=== PATIENT | female | born 1960 | race Caucasian/White ===

== ENCOUNTER → 2016-07-10 | Outpatient (CLI) | payer BC ==
--- NOTE | 2016-07-10 09:36 | CTL ---
EXAMINATION TYPE: CT Low Dose Lung DATE OF EXAM ORDERED: 07/10/2016 9:23 AM COMPARISON: None HISTORY: Previous smoker. Lung cancer screening CT DLP: [address] CTDI: 1.95 mGy Automated exposure control for dose reduction was used. SCREENING VISIT: Initial COMPARISON: None TECHNIQUE: Low dose computed tomography scan was performed through the chest at 1 mm thick sections a nd reconstructed images in the coronal plane at [address] DIAGNOSTIC QUALITY: Satisfactory FINDINGS: LUNG NODULES: None. LUNGS: COPD: Severity: Moderate Fibrosis: Severity: None Lymph nodes: None Other findings: Apical scarring bilaterally RIGHT PLEURAL SPACE: Effusion: None Calcification: None Thickening: None Pneumothorax: None LEFT PLEURAL SPACE: Effusion: None Calcification: None Thickening: None Pneumothorax: None HEART: Heart Size: Normal Coronary calcification: Mild Pericardial effusion: None OTHER FINDINGS: Upper abdomen: Normal Bony thorax: Mild hypertrophic spondylosis in the dorsal spine Supraclavicular region: Normal Other: None IMPRESSION: Diffuse emphysematous change without evidence of pulmonary nodule at this time. FOLLOW UP CT CHEST RECOMMENDATION: [address] LUNG RAD: 1
== END | disposition home or self-care (01) ==
LOC: RADCTMAIN 08:50
PROVIDERS: ATTEND Family Medicine
DX: Z12.2 Encounter for screening for malignant neoplasm of respiratory organs (principal); Z87.891 Personal history of nicotine dependence; J43.9 Emphysema, unspecified

== ENCOUNTER → 2018-01-07 | Outpatient (CLI) | payer BC ==
--- NOTE | 2018-01-07 14:02 | BD ---
EXAMINATION TYPE: Axial Bone Density DATE OF EXAM: 01/07/2018 COMPARISON: NONE CLINICAL HISTORY: 57 YR OLD FEMALE.....ICD-10 CODE: Z78.0 MENOPAUSAL STATE Height: 65.4 Weight: 146 FRAX RISK QUESTIONS: Secondary Osteoporosis: YES 3. Menopause before 45: YES AT AGE 41 Current Tobacco Use: YES, TRYING TO QUIT RISK FACTORS HISTORY OF: Active: YES Diet low in dairy products/other sources of calcium: NO Postmenopausal woman: YES AT 41 YRS OLD MEDICATIONS: Thyroid Medications: YES, SYNTHROID, FOR 20 YRS Additional Medications: BABY ASPIRIN, Additional History: AORTIC STENOSIS, VARICOSE VEINS EXAM MEASUREMENTS: Bone mineral densitometry was performed using the [employer]. Bone mineral density as measured about the Lumbar spine is: ----- L1-L4(G/cm2): 1.422 T Score Values are as follows: ----- L1: 0.2 ----- L2: 2.0 ----- L3: 2.9 ----- L4: 2.4 ----- L1-L4: 2.0 Bone mineral density FIRST BONE DENSITY TEST......BASELINE STUDY Bone mineral density about the R hip (g/cm2): 1.040 Bone mineral density about the L hip (g/cm2): 0.961 T Score values are as follows: -----R Neck: -0.8 -----L Neck: -1.2 -----R Total: 0.3 -----L Total: -0.4 Bone mineral density BASELINE STUDY FRAX%s: THERE IS A 7.2% CHANCE OF A MAJOR OSTEOPOROTIC FX AND A 0.8% FOR A HIP FX......PROBABILIT Y OF FX IN 10 YRS TIME IMPRESSION: Osteopenia (T Score between -2.5 and -1) with regards to the left femur. There is slightly increased risk of fracture and the patient may be considered for treatment. Re-Screen 2-5 years. NOTE: T-SCORE=SD OF THE YOUNG ADULT MEAN.
--- NOTE | 2018-01-12 12:58 | MM ---
Reason for exam: screening (asymptomatic). History: Patient is postmenopausal. Family history of breast cancer in sister at age 42. Physical Findings: A clinical breast exam by your physician is recommended on an annual basis and results should be correlated with mammographic findings. MG Screening Mammo w CAD Bilateral CC and MLO view(s) were taken. No prior studies available for comparison. The breast tissue is heterogeneously dense. This may lower the sensitivity of mammography. There is no discrete abnormality. ASSESSMENT: Negative, BI-RAD 1 RECOMMENDATION: Routine screening mammogram of both breasts in 1 year.
== END | disposition home or self-care (01) ==
LOC: RADMAMWWP 11:35
PROVIDERS: ATTEND Family Medicine
DX: Z12.31 Encounter for screening mammogram for malignant neoplasm of breast (principal); M85.852 Other specified disorders of bone density and structure, left thigh; Z78.0 Asymptomatic menopausal state
CPT/HCPCS: 77067; 77080

== ENCOUNTER → 2018-03-12 | Outpatient (CLI) | payer BC ==
--- NOTE | 2018-03-12 12:32 | ECHOF ---
Referral Reason:I35.0 Nonrheumatic aortic (valve) stenosis MEASUREMENTS -------- HEIGHT: 167.6 cm WEIGHT: 63.5 kg BP: 128/59 RVIDd: 2.7 cm (< 3.3) IVSd: 1.2 cm (0.6 - 1.1) LVIDd: 3.8 cm (3.9 - 5.3) LVPWd: 1.1 cm (0.6 - 1.1) IVSs: 1.7 cm LVIDs: 2.6 cm LVPWs: 1.5 cm LA Diam: 3.0 cm (2.7 - 3.8) LAESV Index (A-L): 25.31 ml/m Ao Diam: 3.2 cm (2.0 - 3.7) AV Cusp: 1.2 cm (1.5 - 2.6) MV EXCURSION: 9.870 mm (> 18.000) MV EF SLOPE: 34 mm/s (70 - 150) EPSS: 0.6 cm MV E Harjeet: 0.84 m/s MV DecT: 275 ms MV A Harjeet: 0.70 m/s MV E/A Ratio: 1.19 AV maxP.00 mmHg AV meanP.22 mmHg RAP: 5.00 mmHg RVSP: 39.42 mmHg FINDINGS -------- Sinus rhythm. This was a technically adequate study. The left ventricular size is normal. There is borderline concentric left ventricular hypertrophy. Overall left ventricular systolic function is normal with, an EF between 60 - 65 %. The right ventricle is normal in size. Normal LA size by volume 22+/-6 ml/m2. The right atrium is normal in size. There is moderate aortic valve sclerosis. There is mild aortic regurgitation. There is moderate a ortic stenosis present. Peak/mean gradient across the Aortic Valve is 47.00mmHg / 25.22mmHg. Can' t exclude possible Bicuspid Aov. Mild mitral annular calcification present. There is trace to mild mitral regurgitation. Mild tricuspid regurgitation present. There is mild pulmonary hypertension. The right ventricular systolic pressure, as measured by Doppler, is 39.42mmHg. Trace/mild (physiologic) pulmonic regurgitation. The aortic root size is normal. Normal inferior vena cava with normal inspiratory collapse consistent with estimated right atrial pre ssure of 5 mmHg. There is no pericardial effusion. CONCLUSIONS -------- 1. Sinus rhythm. 2. This was a technically adequate study. 3. The left ventricular size is normal. 4. There is borderline concentric left ventricular hypertrophy. 5. Overall left ventricular systolic function is normal with, an EF between 60 - 65 %. 6. The right ventricle is normal in size. 7. Normal LA size by volume 22+/-6 ml/m2. 8. The right atrium is normal in size. 9. There is moderate aortic valve sclerosis. 10. There is mild aortic regurgitation. 11. There is moderate aortic stenosis present. 12. Peak/mean gradient across the Aortic Valve is 47.00mmHg / 25.22mmHg. 13. Can't exclude possible Bicuspid Aov. 14. Mild mitral annular calcification present. 15. There is trace to mild mitral regurgitation. 16. Mild tricuspid regurgitation present. 17. There is mild pulmonary hypertension. 18. The right ventricular systolic pressure, as measured by Doppler, is 39.42mmHg. 19. Trace/mild (physiologic) pulmonic regurgitation. 20. The aortic root size is normal. 21. Normal inferior vena cava with normal inspiratory collapse consistent with estimated right atrial pressure of 5 mmHg. 22. There is no pericardial effusion. INT[facility] PARAMEDIC: Kristy De Jesus RDCS
== END | disposition home or self-care (01) ==
LOC: RADECHMAIN 10:52
PROVIDERS: ATTEND Family Medicine
DX: I08.3 Combined rheumatic disorders of mitral, aortic and tricuspid valves (principal)
CPT/HCPCS: 93306

== ENCOUNTER 2020-07-02 06:24 | Emergency (ER) | payer BC ==
[2020-07-02 06:43] VITALS: TEMP 98
[2020-07-02] MEDS ORDERED: NITROGLYCERIN SL TABS 0.4 MG TAB SUBLINGUAL STA (06:46)
[2020-07-02] MEDS ORDERED: diphenhydrAMINE 50 MG/ML 1 ML VIAL IVP STA (06:46)
[2020-07-02] MEDS ORDERED: ASPIRIN 81 MG PO STA (06:46)
--- NOTE | 2020-07-02 06:49 | ED ---
General Adult HPI - General Chief complaint: Chest Pain Stated complaint: Chest Pain, rash Time Seen by Provider: 07/02/20 06:31 Source: patient, RN notes reviewed Mode of arrival: ambulatory Limitations: no limitations - History of Present Illness Initial comments: Patient 60-year-old female presented to the emergency room today with multiple complaints. Patient does admit that she broke coronary rash last night around dinnertime. She states she has highs and is very itchy. Patient does admit she took some Benadryl which does help. She took last dose of Benadryl approximate hour ago states it is starting to work. She took 1 tab. Patient does admit that she's also had some chest discomfort that woke her up out of sleep approximately starting 1 AM last night. Patient describes it as a heaviness. Also admits that she felt some discomfort to the right side of the jaw. She does admit that she's been following with tagman and is scheduled to have some more testing coming up later in the month. Patient does admit that the chest pain is somewhat improved at this time but still feeling some light pressure. Denies any other complaints or symptoms currently. Patient denies any recent fever, chills, shortness of breath, back pain, abdominal pain, nausea or vomiting, numbness or tingling, headaches or visual changes, or any other complaints. - Related Data Home Medications Medication Instructions Recorded Confirmed Aspirin EC [Ecotrin Low Dose] 81 mg PO DAILY 07/02/20 07/02/20 Levothyroxine Sodium [Synthroid] 125 mcg PO DAILY 07/02/20 07/02/20 buPROPion XL [Wellbutrin Xl] 150 mg PO DAILY 07/02/20 07/02/20 diphenhydrAMINE [Benadryl] 25 mg PO Q4H PRN 07/02/20 07/02/20 Allergies Allergy/AdvReac Type Severity Reaction Status Date / Time No Known Allergies Allergy Verified 07/02/20 07:14 Review of Systems ROS Statement: Those systems with pertinent positive or pertinent negative responses have been documented in the HPI. ROS Other: All systems not noted in ROS Statement are negative. Past Medical History Past Medical History: Coronary Artery Disease (CAD), Thyroid Disorder Additional Past Medical History / Comment(s): tricuspid valve History of Any Multi-Drug Resistant Organisms: None Reported Past Surgical History: Tubal Ligation Past Psychological History: No Psychological Hx Reported Smoking Status: Former smoker Past Alcohol Use History: None Reported Past Drug Use History: None Reported General Exam - General Exam Comments Initial Comments: General: The patient is awake and alert, in no distress, and does not appear acutely ill. Eye: Extraocular eye movements intact. There is normal conjunctiva bilaterally. No signs of icterus. Ears, nose, mouth and throat: There are moist mucous membranes and no oral lesions. Neck: The neck is supple Cardiovascular: There is a regular rate and rhythm. No rub or gallop is appreciated. Respiratory: Lungs are clear to auscultation, respirations are non-labored, breath sounds are equal. No wheezes, stridor, rales, or rhonchi. Musculoskeletal: Normal ROM, no tenderness. Strength 5/5. Sensation intact. Neurological: A&O x 3. CN II-XII intact, There are no obvious motor or sensory deficits. Coordination appears grossly intact. Speech is normal. Skin: Skin is warm and dry and no rashes or lesions are noted. Psychiatric: Cooperative, appropriate mood & affect, normal judgment. Limitations: no limitations Course Vital Signs 07/02/20 06:38 Temperature 98.0 F Pulse Rate 84 Respiratory 18 Rate Blood Pressure 110/68 O2 Sat by Pulse 95 Oximetry EKG Findings - EKG Comments: EKG Findings:: EKG performed: 650. Normal sinus rhythm at 69 bpm. TN interval 160. QRS 86. QT/QTc 386/413. No acute ST changes. Medical Decision Making - Medical Decision Making Patient's EKG showing no acute changes. Patient's x-ray was reviewed. Patient's labs reviewed. Troponin negative. Patient does admit to improvement of symptoms here in the emergency room. Was discussed with the patient about admission for serial troponins and further testing with consult cardiology. Patient has declined. Patient is signed out AMA. Patient's hives and rash she is advised continue Benadryl. Advised follow-up with tagman and family doctor. - Lab Data Result diagrams: 07/02/20 06:58 07/02/20 06:58 Lab Results 07/02/20 07/02/20 07/02/20 Range/Units 06:58 06:58 06:58 WBC 6.6 (3.8-10.6) k/uL RBC 4.68 (3.80-5.40) m/uL Hgb 14.7 (11.4-16.0) gm/dL Hct 44.3 (34.0-46.0) % MCV 94.5 (80.0-100.0) fL MCH 31.4 (25.0-35.0) pg MCHC 33.2 (31.0-37.0) g/dL RDW 12.4 (11.5-15.5) % Plt Count 231 (150-450) k/uL MPV 8.3 Neutrophils % 71 % Lymphocytes % 22 % Monocytes % 4 % Eosinophils % 1 % Basophils % 0 % Neutrophils # 4.7 (1.3-7.7) k/uL Lymphocytes # 1.4 (1.0-4.8) k/uL Monocytes # 0.3 (0-1.0) k/uL Eosinophils # 0.1 (0-0.7) k/uL Basophils # 0.0 (0-0.2) k/uL PT 10.3 (9.0-12.0) sec INR 1.0 (<1.2) APTT 22.6 (22.0-30.0) sec Sodium 136 L (137-145) mmol/L Potassium 4.3 (3.5-5.1) mmol/L Chloride 102 (98-107) mmol/L Carbon Dioxide 26 (22-30) mmol/L Anion Gap 8 mmol/L BUN 12 (7-17) mg/dL Creatinine 1.08 H (0.52-1.04) mg/dL Est GFR (CKD-EPI)AfAm 64 (>60 ml/min/1.73 sqM) Est GFR (CKD-EPI)NonAf 55 (>60 ml/min/1.73 sqM) Glucose 104 H (74-99) mg/dL Calcium 9.4 (8.4-10.2) mg/dL Magnesium 2.1 (1.6-2.3) mg/dL Total Bilirubin 0.8 (0.2-1.3) mg/dL AST 22 (14-36) U/L ALT 13 (4-34) U/L Alkaline Phosphatase 50 (38-126) U/L Troponin I (0.000-0.034) ng/mL Total Protein 7.0 (6.3-8.2) g/dL Albumin 4.3 (3.5-5.0) g/dL 07/02/20 Range/Units 06:58 WBC (3.8-10.6) k/uL RBC (3.80-5.40) m/uL Hgb (11.4-16.0) gm/dL Hct (34.0-46.0) % MCV (80.0-100.0) fL MCH (25.0-35.0) pg MCHC (31.0-37.0) g/dL RDW (11.5-15.5) % Plt Count (150-450) k/uL MPV Neutrophils % % Lymphocytes % % Monocytes % % Eosinophils % % Basophils % % Neutrophils # (1.3-7.7) k/uL Lymphocytes # (1.0-4.8) k/uL Monocytes # (0-1.0) k/uL Eosinophils # (0-0.7) k/uL Basophils # (0-0.2) k/uL PT (9.0-12.0) sec INR (<1.2) APTT (22.0-30.0) sec Sodium (137-145) mmol/L Potassium (3.5-5.1) mmol/L Chloride (98-107) mmol/L Carbon Dioxide (22-30) mmol/L Anion Gap mmol/L BUN (7-17) mg/dL Creatinine (0.52-1.04) mg/dL Est GFR (CKD-EPI)AfAm (>60 ml/min/1.73 sqM) Est GFR (CKD-EPI)NonAf (>60 ml/min/1.73 sqM) Glucose (74-99) mg/dL Calcium (8.4-10.2) mg/dL Magnesium (1.6-2.3) mg/dL Total Bilirubin (0.2-1.3) mg/dL AST (14-36) U/L ALT (4-34) U/L Alkaline Phosphatase (38-126) U/L Troponin I <0.012 (0.000-0.034) ng/mL Total Protein (6.3-8.2) g/dL Albumin (3.5-5.0) g/dL Disposition Clinical Impression: Unstable angina Disposition: Left Against Medical Advice Condition: Good Instructions (If sedation given, give patient instructions): Chest Pain (ED) Is patient prescribed a controlled substance at d/c from ED?: No Referrals: Tc Garcia MD [Primary Care Provider] - 1-2 days Time of Disposition: 08:34
[2020-07-02 07:08] LABS: Basophils % (A) 0 %; Eosinophils # (A) 0.1 k/uL (0-0.7); Eosinophils % (A) 1 %; HCT 44.3 % (34.0-46.0); HGB 14.7 gm/dL (11.4-16.0); Lymphocytes # (A) 1.4 k/uL (1.0-4.8); Lymphocytes % (A) 22 %; MCH 31.4 pg (25.0-35.0); MCHC 33.2 g/dL (31.0-37.0); MCV 94.5 fL (80.0-100.0); Mean Platelet Volume 8.3; Monocytes # (A) 0.3 k/uL (0-1.0); Monocytes % (A) 4 %; Neutrophils # (A) 4.7 k/uL (1.3-7.7); Neutrophils % (A) 71 %; Platelet Count 231 k/uL (150-450); RBC 4.68 m/uL (3.80-5.40); RDW 12.4 % (11.5-15.5); WBC 6.6 k/uL (3.8-10.6)
[2020-07-02 07:18] LABS: Albumin 4.3 g/dL (3.5-5.0); Calcium 9.4 mg/dL (8.4-10.2); Magnesium 2.1 mg/dL (1.6-2.3); Partial Thromboplastin Time 22.6 sec (22.0-30.0); Prothrombin Time 10.3 sec (9.0-12.0); Total Bilirubin 0.8 mg/dL (0.2-1.3)
--- NOTE | 2020-07-02 07:22 | XR ---
EXAMINATION TYPE: XR chest 2V DATE OF EXAM: 07/02/2020 COMPARISON: None HISTORY: 60-year-old female with chest pain TECHNIQUE: PA and lateral views FINDINGS: The cardiomediastinal silhouette, aorta, and pulmonary vasculature are within normal limits. Mild hyp erinflation. No consolidation or pleural effusion. IMPRESSION: Mild hyperinflation may relate to depth of inspiration or underlying emphysema. Otherwise, no acute c ardiopulmonary process.
[2020-07-02 07:27] LABS: Potassium 4.3 mmol/L (3.5-5.1)
[2020-07-02 08:48] VITALS: BP 110/70; PULSE 68; RESP 16
== END 2020-07-02 08:42 | disposition left against medical advice (07) ==
LOC: EC 06:24
DX: I20.0 Unstable angina (principal); L50.9 Urticaria, unspecified; E07.9 Disorder of thyroid, unspecified; Z79.890 Hormone replacement therapy; Z79.899 Other long term (current) drug therapy; Z79.82 Long term (current) use of aspirin; Z87.891 Personal history of nicotine dependence; Z53.29 Procedure and treatment not carried out because of patient's decision for other reasons
CPT/HCPCS: 36415; 93005; 80053; 83735; 84484; 85025; 85610; 85730; 71046; 99285; 96374; J1200

== ENCOUNTER 2020-07-03 14:59 | Observation (INO) | payer BC ==
[2020-07-03] MEDS ORDERED: ASPIRIN 81 MG PO STA (15:16)
--- NOTE | 2020-07-03 15:20 | ED ---
Chest Pain HPI - General Chief Complaint: Chest Pain Stated Complaint: Chest pain Time Seen by Provider: 07/03/20 15:11 Source: patient, RN notes reviewed Mode of arrival: ambulatory Limitations: no limitations - History of Present Illness Initial Comments: Patient is a 60-year-old female who presents the emergency department complaining of chest pain. She did note that she was in the ER yesterday and followed up with a primary care today and then was sent back to the ER due to a possible irregular EKG. She noted the pain usually comes on when she sleeping at sharp and feels like someone is squeezing her heart really tight. She noted that the pain does not happen when she is awake up and moving around. She was in no apparent distress or pain while sitting up in bed answering questions on exam. She denied any current chest pain, short of breath, fever, fatigue, chills, headache, lightheadedness, dizziness, nausea, vomiting, diarrhea, con stipation. Patient did leave AMA from the emergency department yesterday after being informed that they wanted to admit her for observation. - Related Data Home Medications Medication Instructions Recorded Confirmed Aspirin EC [Ecotrin Low Dose] 81 mg PO DAILY 07/02/20 07/03/20 Levothyroxine Sodium [Synthroid] 125 mcg PO DAILY 07/02/20 07/03/20 buPROPion XL [Wellbutrin Xl] 150 mg PO DAILY 07/02/20 07/03/20 diphenhydrAMINE [Benadryl] 25 mg PO Q4H PRN 07/02/20 07/03/20 Allergies Allergy/AdvReac Type Severity Reaction Status Date / Time No Known Allergies Allergy Verified 07/03/20 16:33 Review of Systems ROS Statement: Those systems with pertinent positive or pertinent negative responses have been documented in the HPI. ROS Other: All systems not noted in ROS Statement are negative. EKG Findings - EKG Comments: EKG Findings:: Ventricular rate 63 bpm, MI interval 160 ms, QRS duration 84 ms, QT/QTc 400/409 ms, MI-TAxes 69/50/62. Normal sinus rhythm normal ECG - EKG Results: EKG: interpreted by NADINE, RAISSAL, sinus rhythm, normal axis, normal QRS Past Medical History Past Medical History: Coronary Artery Disease (CAD), Thyroid Disorder Additional Past Medical History / Comment(s): tricuspid valve History of Any Multi-Drug Resistant Organisms: None Reported Past Surgical History: Tubal Ligation Past Psychological History: No Psychological Hx Reported Smoking Status: Current every day smoker Past Alcohol Use History: Occasional Past Drug Use History: None Reported General Exam Limitations: no limitations General appearance: alert, in no apparent distress Head exam: Present: atraumatic, normocephalic, normal inspection Eye exam: Present: normal appearance, PERRL, EOMI. Absent: scleral icterus, conjunctival injection, periorbital swelling ENT exam: Present: normal exam, mucous membranes moist Neck exam: Present: normal inspection. Absent: tenderness, meningismus, lymphadenopathy Respiratory exam: Present: normal lung sounds bilaterally. Absent: respiratory distress, wheezes, rales, rhonchi, stridor Cardiovascular Exam: Present: regular rate, normal rhythm, normal heart sounds. Absent: systolic murmur, diastolic murmur, rubs, gallop, clicks GI/Abdominal exam: Present: soft, normal bowel sounds. Absent: distended, tenderness, guarding, rebound, rigid Extremities exam: Present: normal inspection, full ROM, normal capillary refill. Absent: tenderness, pedal edema, joint swelling, calf tenderness Back exam: Present: normal inspection Neurological exam: Present: alert, oriented X3, CN II-XII intact Psychiatric exam: Present: normal affect, normal mood Skin exam: Present: warm, dry, intact, normal color, urticaria (On bilateral upper extremities, patient did note she is taking Benadryl.) Course Vital Signs 07/03/20 07/03/20 07/03/20 15:05 15:37 17:32 Temperature 98 F Pulse Rate 77 71 64 Respiratory 18 18 18 Rate Blood Pressure 148/78 121/74 128/81 O2 Sat by Pulse 98 99 97 Oximetry Chest Pain MDM - MDM 60-year-old female presents to the emergency room complaining of chest pain, walked out AMA yesterday after observation was recommended. Labs, x-ray, EKG, aspirin ordered. X-rays:No acute cardiopulmonary process no significant change from prior. Labs unremarkable Case was discussed with Dr. Baumann, was decided to admit patient for observation. - Wells Criteria Clinical Symptoms of DVT: (0) No No Alternative Diagnosis: (0) No Immobilization of Surgery in Previous 4 Weeks: (0) No Hemoptysis: (0) No Malignancy: (0) No - PERC Rule Heart Rate < 100: (1) Yes No Prior History pf DVT/PE: (0) No No Recent Trauma or Surgery: (0) No Hemoptysis: (0) No No Clinical Signs Suggesting DVT: (0) No - FUNMILAYO Score Age > 65: (0) No Disposition Clinical Impression: Chest pain Disposition: ADMITTED IP TO THIS [facility] Condition: Stable Instructions (If sedation given, give patient instructions): Chest Pain (ED) Referrals: Tc Garcia MD [Primary Care Provider] - 1-2 days Time of Disposition: 17:49
[2020-07-03 15:48] LABS: Basophils % (A) 0 %; Eosinophils # (A) 0.1 k/uL (0-0.7); Eosinophils % (A) 2 %; HCT 42.2 % (34.0-46.0); HGB 14.3 gm/dL (11.4-16.0); Lymphocytes # (A) 2.4 k/uL (1.0-4.8); Lymphocytes % (A) 34 %; MCV 94.3 fL (80.0-100.0); Mean Platelet Volume 8.2; Monocytes # (A) 0.4 k/uL (0-1.0); Monocytes % (A) 6 %; Neutrophils % (A) 56 %; Platelet Count 217 k/uL (150-450); RBC 4.48 m/uL (3.80-5.40); RDW 12.3 % (11.5-15.5); WBC 7.1 k/uL (3.8-10.6)
--- NOTE | 2020-07-03 15:55 | XR ---
EXAMINATION TYPE: XR chest 2V DATE OF EXAM: 07/03/2020 COMPARISON: Chest x-ray July 02, 2020 HISTORY: Chest pain since yesterday. TECHNIQUE: Frontal and lateral views of the chest are obtained. FINDINGS: There is chronic parenchymal changes without suspicious new focal air space opacity, pleur al effusion, or pneumothorax seen. The cardiac silhouette size remains within normal limits. Slight underlying scoliotic curvature redemonstrated.. Overlying EKG leads. IMPRESSION: No acute cardiopulmonary process. No significant change from prior.
[2020-07-03 15:56] LABS: Albumin 4.4 g/dL (3.5-5.0); Calcium 9.5 mg/dL (8.4-10.2); Magnesium 2.2 mg/dL (1.6-2.3); Potassium 4.5 mmol/L (3.5-5.1); Total Bilirubin 0.5 mg/dL (0.2-1.3); Total Protein 7.3 g/dL (6.3-8.2)
[2020-07-03 16:11] LABS: INR 0.9 (<1.2); Prothrombin Time 9.7 sec (9.0-12.0)
[2020-07-03] MEDS ORDERED: methylPREDNISolone SOD SUCCI 125 MG/2 ML VIAL IV STA (17:03)
[2020-07-03] MEDS ORDERED: diphenhydrAMINE 50 MG/ML 1 ML VIAL IVP STA (17:03)
[2020-07-03] MEDS ORDERED: NALOXONE 0.4 MG/ML 1 ML VIAL IV PRN (17:34)
[2020-07-03] MEDS ORDERED: traMADol 50 MG TAB PO PRN (17:47)
[2020-07-03] MEDS ORDERED: Acetaminophen-Codeine 300-30mg TAB PO PRN (17:47)
[2020-07-03] MEDS ORDERED: ONDANSETRON 4 MG/2 ML VIAL IVP PRN (17:47)
[2020-07-04] MEDS: diphenhydrAMINE 25 MG CAP PO PRN ×2 (03:37→14:57)
[2020-07-04] MEDS: SODIUM CHLORIDE 0.9% 1,000 ML IV SCH ×2 (03:38→09:00)
[2020-07-04 05:21] LABS: Basophils % (A) 0 %; Eosinophils % (A) 0 %; HCT 40.7 % (34.0-46.0); HGB 13.3 gm/dL (11.4-16.0); Lymphocytes # (A) 0.8 k/uL (1.0-4.8); Lymphocytes % (A) 10 %; MCH 30.9 pg (25.0-35.0); MCHC 32.8 g/dL (31.0-37.0); MCV 94.2 fL (80.0-100.0); Mean Platelet Volume 8.4; Monocytes # (A) 0.1 k/uL (0-1.0); Monocytes % (A) 2 %; Neutrophils # (A) 6.8 k/uL (1.3-7.7); Neutrophils % (A) 88 %; Platelet Count 213 k/uL (150-450); RBC 4.32 m/uL (3.80-5.40); RDW 12.6 % (11.5-15.5); WBC 7.8 k/uL (3.8-10.6)
[2020-07-04 05:34] LABS: ALT 14 U/L (4-34); AST 21 U/L (14-36); African American GFR (CKD) 80 (>60 ml/min/1.73 sqM); Albumin 3.9 g/dL (3.5-5.0); Albumin/Globulin Ratio 1.5; Alkaline Phosphatase 57 U/L (38-126); Anion Gap 5 mmol/L; Blood Urea Nitrogen 16 mg/dL (7-17); Calcium 8.8 mg/dL (8.4-10.2); Carbon Dioxide 26 mmol/L (22-30); Chloride 105 mmol/L (98-107); Globulin 2.6 g/dL; Glucose 167 mg/dL (74-99); Magnesium 2.1 mg/dL (1.6-2.3); Non-African American GFR(CKD) 70 (>60 ml/min/1.73 sqM); Potassium 4.6 mmol/L (3.5-5.1); Sodium 136 mmol/L (137-145); Total Bilirubin 0.5 mg/dL (0.2-1.3); Total Protein 6.5 g/dL (6.3-8.2)
[2020-07-04] MEDS: LEVOTHYROXINE 125 MCG TAB PO SCH (05:54)
[2020-07-04 05:58] LABS: Appearance,Urine Clear (Clear); Bilirubin,Urine Negative (Negative); Blood,Urine Negative (Negative); Color,Urine Yellow; Glucose,Urine (UA) 3+ (Negative); Ketones,Urine Negative (Negative); Leukocyte Esterase,Urine Negative (Negative); Nitrite,Urine Negative (Negative); Protein,Urine Negative (Negative); Specific Gravity,Urine 1.018 (1.001-1.035); Urobilinogen,Urine <2.0 mg/dL (<2.0)
[2020-07-04] MEDS ORDERED: SODIUM CHLORIDE 0.9% 1,000 ML in EMPTY BAG 1 BAG IV ONE (08:27)
[2020-07-04] MEDS ORDERED: ASPIRIN 325 MG TAB PO STA (08:27)
[2020-07-04] MEDS ORDERED: ALPRAZolam 0.5 MG TAB PO PRN (08:27)
[2020-07-04] MEDS ORDERED: ATORVASTATIN 80 MG TAB PO STA (08:27)
[2020-07-04] MEDS ORDERED: ALPRAZolam 0.25 MG TAB PO PRN (08:27)
[2020-07-04] MEDS ORDERED: NITROGLYCERIN SL TABS 0.4 MG TAB SUBLINGUAL PRN (08:27)
[2020-07-04] MEDS: ASPIRIN 81 MG PO SCH (08:49)
[2020-07-04] MEDS: buPROPion XL 150 MG TAB.ER.24H PO SCH (08:56)
--- NOTE | 2020-07-04 09:16 | CONS ---
CONSULTATION Mrs. Montes is a 60-year-old female with a known history of aortic valve disease, history of chronic tobacco use, who presented to the hospital with symptoms of chest discomfort. She had an episode of chest discomfort yesterday radiating to the neck. Came into the emergency room transition social worker. Her EKG was unremarkable and subsequently she went home. She was seen by her PCP and was sent back to the emergency room and subsequently admitted. She had another episode of chest discomfort during the transition social worker with a similar pattern, lasted for about 40 minutes. The patient has some dyspnea on exertion. She denies any dizziness or palpitation. She denies any syncope. She denies any PND, orthopnea, or peripheral edema. She has a known history of aortic valve disease and she had been seen by Dr. Rodriguez in [place]. She had an echocardiogram done in October of 2017 revealed a bicuspid aortic valve with preserved systolic function and a mean gradient of 36 mmHg across the aortic valve. The patient has no prior history of myocardial infarction. Her course factor is remarkable for history of smoking. Her lipid is not available to me. She has no documented hypertension. REVIEW OF SYSTEMS: RESPIRATORY SYSTEM: She has some dyspnea on exertion. She has history of smoking. GI SYSTEM: No recent GI bleeding. No peptic ulcer disease. SYSTEM: No dysuria or hematuria. NERVOUS SYSTEM: No stroke or seizure. MEDICATIONS: Medications at home include Benadryl, Wellbutrin, Synthroid, and aspirin. PHYSICAL EXAMINATION: She is a 60-year-old female, alert, oriented, in no apparent distress. Blood pressure running in the one teens to 120s with the heart rate in the 60s to 70s. HEAD: Normocephalic. EYES: Sclerae anicteric. NECK: Good carotid upstroke with transmitted murmur. LUNGS: Clear to auscultation. HEART: Regular rate and rhythm. S1, S2. No S3 with systolic ejection murmur 2/6 heard at the base. No diastolic murmur. No rub. ABDOMEN: Soft, nontender. Positive bowel sounds. No organomegaly. EXTREMITIES: No edema intact. Intact distal pulses. LAB DATA: Lab data revealed troponin less than 0.012 for 3 samples. BUN and creatinine 16 and 0.89. Potassium 4.6. Hemoglobin of 13.3. EKG revealed a sinus mechanism, normal axis and intervals. No acute ST-segment changes. Her chest x-ray revealed no acute changes. IMPRESSION: 1. Chest discomfort with no evidence of myocardial infarction occurring at rest with recurrence. Rule out unstable angina. 2. History of bicuspid aortic valve with aortic stenosis. 3. History of chronic tobacco use. RECOMMENDATION: I would recommend to repeat the echocardiogram. In view of her recurrent symptoms at rest and her risk factors, I recommend proceeding with coronary angiography to further assess her status and guide her treatment. The rationale behind the procedure as well as the risks and the complications were discussed with the patient who is in full understanding and agreement. Thank you for this consult. We will follow with you. KULDEEPL / IJN: [id number] /
--- NOTE | 2020-07-04 09:33 | P.HPIM ---
History of Present Illness H&P Date: 07/04/20 Chief Complaint: Chest discomfort 60-year-old female was sent to the emergency department for further diagnostic workup of chest tightness with associated radiation to back and jaw for 3 day duration. On July 02, patient was seen in the emergency room for similar complaints, at that time she was advised stay in the hospital for further diagnostic workup for chest pain in originpatient left the hospital to follow- up with our services. Patient was seen in the office noted to have chest tightness with radiation to jaw and back. Patient has significant medical history of coronary artery disease, hypothyroidism, and nicotine dependence. Patient currently denies chest pain, palpitations, shortness of breath, fever, fatigue, chills, headache, lightheadedness, dizziness, nausea, vomiting, diarrhea or constipation. Review of Systems Cardiovascular: Reports decreased exercise tolerance, Reports dyspnea on exertion (Intermittent dyspnea on exertion) Respiratory: Reports cough (Nonproductive) Gastrointestinal: Reports as per HPI Genitourinary: Reports as per HPI Musculoskeletal: Reports as per HPI Neurological: Reports as per HPI Psychiatric: Reports anxiety Endocrine: Reports as per HPI Hematologic/Lymphatic: Reports as per HPI Allergic/Immunologic: Reports as per HPI Past Medical History Past Medical History: Coronary Artery Disease (CAD), Thyroid Disorder Additional Past Medical History / Comment(s): tricuspid valve History of Any Multi-Drug Resistant Organisms: None Reported Past Surgical History: Tubal Ligation Past Anesthesia/Blood Transfusion Reactions: No Reported Reaction Past Psychological History: No Psychological Hx Reported Smoking Status: Current every day smoker Past Alcohol Use History: Occasional Past Drug Use History: None Reported Medications and Allergies Home Medications and Allergies Comment(s): Medications and ALLERGIES reviewed Home Medications Medication Instructions Recorded Confirmed Type Aspirin EC [Ecotrin Low Dose] 81 mg PO DAILY 07/02/20 07/03/20 History Levothyroxine Sodium [Synthroid] 125 mcg PO DAILY 07/02/20 07/03/20 History buPROPion XL [Wellbutrin Xl] 150 mg PO DAILY 07/02/20 07/03/20 History diphenhydrAMINE [Benadryl] 25 mg PO Q4H PRN 07/02/20 07/03/20 History Allergies Allergy/AdvReac Type Severity Reaction Status Date / Time No Known Allergies Allergy Verified 07/03/20 16:33 Physical Exam Vitals: Vital Signs Temp Pulse Pulse Resp BP BP Pulse Ox 07/04/20 07:00 97.5 F L 82 16 109/66 98 07/04/20 02:00 97.8 F 64 16 95/62 96 07/03/20 20:00 98.0 F 70 18 116/82 98 07/03/20 18:09 62 18 134/93 100 07/03/20 17:32 64 18 128/81 97 07/03/20 15:37 71 18 121/74 99 07/03/20 15:05 98 F 77 18 148/78 98 Intake and Output 07/03/20 07/04/20 07/04/20 22:59 06:59 14:59 Intake Total 540 Balance 540 Intake: Oral 540 Other: Voiding Method Toilet # Voids 1 Weight 68.039 kg - Constitutional General appearance: cooperative - EENT Eyes: EOMI, PERRLA ENT: normal oropharynx Ears: bilateral: normal - Neck Neck: normal ROM Carotids: bilateral: upstroke normal Thyroid: bilateral: normal size - Respiratory Respiratory: bilateral: wheezing (Faint scattered wheezes) - Cardiovascular Normal sinus rhythm Heart rate: 74 Rhythm: regular Heart sounds: normal: S1, S2 dorsalis pedis Peripheral Pulses: bilateral: Normal radial pulse Peripheral Pulses: bilateral: Normal - Gastrointestinal General gastrointestinal: normal bowel sounds - Integumentary Integumentary: normal turgor - Neurologic Neurologic: CNII-XII intact - Musculoskeletal Musculoskeletal: gait normal - Psychiatric Psychiatric: A&O x's 3, appropriate affect, intact judgment & insight Results CBC & Chem 7: 07/04/20 05:07 07/04/20 05:07 Labs: Abnormal Lab Results - Last 24 Hours (Table) 07/03/20 07/04/20 07/04/20 Range/Units 15:37 05:07 05:07 Lymphocytes # 0.8 L (1.0-4.8) k/uL Sodium 136 L (137-145) mmol/L Creatinine 1.13 H (0.52-1.04) mg/dL Glucose 167 H (74-99) mg/dL Urine Glucose (UA) (Negative) 07/04/20 Range/Units 05:45 Lymphocytes # (1.0-4.8) k/uL Sodium (137-145) mmol/L Creatinine (0.52-1.04) mg/dL Glucose (74-99) mg/dL Urine Glucose (UA) 3+ H (Negative) Chest x-ray: report reviewed Thrombosis Risk Factor Assmnt - Choose All That Apply Each Risk Factor Represents 2 Points: Age 61-74 years Thrombosis Risk Factor Assessment Total Risk Factor Score: 2 Thrombosis Risk Factor Assessment Level: Low Risk Assessment and Plan Assessment: Chest pain-rule out unstable anginaconsultation with cardiology for recommendations and treatment plan Coronary artery diseaseconsultation with cardiology for recommendations and treatment plan Hypothyroidismcontinue home medications Nicotine dependencecontinue home medications Continue home medications Continue medical management Continue to monitor diagnostics and vital signs Echocardiogram pending Awaiting treatment plan from cardiology Full code Time with Patient: Greater than 30
[2020-07-04] MEDS ORDERED: fentaNYL (PF) 50 MCG/ML 2 ML AMP ONE (10:59)
[2020-07-04] MEDS ORDERED: HEPARIN SODIUM 1,000 UN/ML (10ML VL) ONE (11:00)
--- NOTE | 2020-07-04 11:01 | ECHOF ---
Referral Reason:as MEASUREMENTS -------- HEIGHT: 167.6 cm WEIGHT: 68.0 kg BP: 109/66 RVIDd: 2.5 cm (< 3.3) IVSd: 1.3 cm (0.6 - 1.1) LVIDd: 3.7 cm (3.9 - 5.3) LVPWd: 1.2 cm (0.6 - 1.1) IVSs: 1.4 cm LVIDs: 2.4 cm LVPWs: 1.7 cm LAESV Index (A-L): 20.58 ml/m Ao Diam: 3.2 cm (2.0 - 3.7) AV Cusp: 1.3 cm (1.5 - 2.6) MV EXCURSION: 15.459 mm (> 18.000) MV EF SLOPE: 41 mm/s (70 - 150) EPSS: 0.4 cm MV E Harjeet: 0.83 m/s MV DecT: 238 ms MV A Harjeet: 1.05 m/s MV E/A Ratio: 0.79 AV maxP.84 mmHg AV meanP.45 mmHg AR PHT: 576 ms RAP: 5.00 mmHg RVSP: 38.86 mmHg FINDINGS -------- Sinus rhythm. This was a technically adequate study. The left ventricular size is normal. There is mild concentric left ventricular hypertrophy. Overa ll left ventricular systolic function is normal with, an EF between 55 - 60 %. The right ventricle is normal in size. Normal LA size by volume 22+/-6 ml/m2. The right atrial size is normal. Interatrial and interventricular septum intact. There is [id number] aortic regurgitation. There is severe aortic stenosis present. Peak/marcia n gradient across the Aortic Valve is 72.84mmHg / 46.45mmHg. Aortic valve is functionally bicuspid and is moderately thickened. The mitral valve is normal. Mild mitral regurgitation is present. The tricuspid valve appears structurally normal. Mild tricuspid regurgitation present. There is m ild pulmonary hypertension. The right ventricular systolic pressure, as measured by Doppler, is 38. 86mmHg. There is no pulmonic regurgitation present. The aortic root size is normal. IVC Not well visulized. There is no pericardial effusion. CONCLUSIONS -------- 1. There is mild concentric left ventricular hypertrophy. 2. Overall left ventricular systolic function is normal with, an EF between 55 - 60 %. 3. Normal LA size by volume 22+/-6 ml/m2. 4. There is [id number] aortic regurgitation. 5. There is severe aortic stenosis present. 6. Peak/mean gradient across the Aortic Valve is 72.84mmHg / 46.45mmHg. 7. Aortic valve is functionally bicuspid and is moderately thickened. 8. Mild mitral regurgitation is present. 9. Mild tricuspid regurgitation present. 10. There is mild pulmonary hypertension. 11. There is no pericardial effusion. ONLINE MARKETING ANALYST: Tressa Antunez RDCS
[2020-07-04] MEDS ORDERED: fentaNYL (PF) 50 MCG/ML 2 ML AMP IV ONE (11:05)
[2020-07-04] MEDS ORDERED: LIDOCAINE 1% INJ 10MG/ML (20 ML MDV) SQ ONE (11:08)
[2020-07-04] MEDS ORDERED: IV FLUID CONTINUATION 900 ML IV ONE (11:09)
[2020-07-04] MEDS ORDERED: VERAPAMIL SYRINGE (5 MG/10 ML) INTRAARTER ONE (11:12)
[2020-07-04] MEDS ORDERED: IOPAMIDOL-370 125ML BTL INJ ONE (11:31)
[2020-07-04] MEDS ORDERED: RX INFO: IV CONTRAST WAS GIVEN 1 EACH MISC MISCELLANE PRN (11:44)
[2020-07-04] MEDS ORDERED: SODIUM CHLORIDE 0.9% 1,000 ML IV SCH (11:45)
--- NOTE | 2020-07-04 15:21 | CC ---
CARDIAC CATHETERIZATION REPORT Mr. Montes is a 60-year-old female who has presented with symptoms of chest discomfort occurring at rest with recurrence while in the hospital. Her cardiac enzymes were negative. The patient has a history of aortic stenosis with bicuspid aortic valve. Because of her presentation with symptoms, recommendation was made regarding cardiac catheterization. The procedure as well as the risks and the complications were discussed with the patient who is in full understanding and agreement. PROCEDURE: Patient was brought to [facility] in a fasting semi-sedated state after receiving fentanyl and Benadryl. Using Xylocaine anesthesia and Seldinger technique a 6-Bermudian sheath was introduced in the right radial artery. Selective right and left coronary angiography performed using 5-Bermudian 3.5 bend right and left Esther catheter. Multiple views of the coronary artery including hemiaxial views were obtained. Following that, an attempt to cross the aortic valve were unsuccessful. At that point, the guiding catheter was removed. The sheath was removed. Hemostasis was obtained with deployment of a TR band. There was no immediate complication. Patient was returned to her room in stable condition. Of note, the patient received 3500 units of intravenous heparin as well as intra-arterial verapamil. FINDINGS: FLUOROSCOPY: There was severe calcification involving the aortic valve. LEFT MAIN: This is a short-sized vessel, bifurcating into left circumflex, left anterior descending artery. Left main coronary artery has no evidence of high-grade stenosis. LEFT ANTERIOR DESCENDING ARTERY: This is a large-sized vessel reaching to the apex with a wraparound apex segment giving rise to a large diagonal branch proximally. Left anterior descending artery as well as branches have no evidence of obstructive coronary artery disease. LEFT CIRCUMFLEX: This is a nondominant vessel giving rise to a large obtuse marginal branch. The left circumflex as well as branches have no evidence of obstructive coronary artery disease. RIGHT CORONARY ARTERY: This is a dominant vessel bifurcating distally PDA and posterolateral segment and branches. The right coronary artery as well as branches have no evidence of obstructive coronary artery disease. LEFT VENTRICULOGRAM: Left ventriculogram is not performed. CONCLUSION: 1. Normal coronary arteries. 2. Heavily calcified aortic valve. RECOMMENDATION: In view of finding anatomy and results for transthoracic echocardiogram, I have recommended proceeding with transesophageal echocardiogram to further evaluate the aortic valve and guide her treatment. Those findings and recommendation were discussed with the patient and she is in full understanding and agreement. Duration of sedation is 20 minutes. MMODL / IJN: [id number] /
--- NOTE | 2020-07-04 15:27 | LTR ---
July 04, 2020 Re: Kendal Rtoh Dear Dr. Garcia: I had the opportunity to perform cardiac catheterization on Mrs. Montes at [facility] on the 04 of July and a full copy of the procedure note will be forwarded to you. In brief, she was found to have no evidence of obstructive coronary artery disease. Because of her abnormal transthoracic echocardiogram, I have recommended proceeding with transesophageal echocardiogram to evaluate her aortic valve and guide her treatment. Thank you again for allowing me the opportunity to participate in her care. Please feel free to call for any questions. Sincerely yours, MD KULDEEP HairL / KAYKAYN: [id number] /
[2020-07-04 16:08] LABS: Chol/HDL Ratio 4.89; LDL Cholesterol,Calculated 162.4 mg/dL (0.0-131.0); VLDL Calculation 16.6 mg/dL (5.00-40.00)
[2020-07-05] MEDS: SODIUM CHLORIDE 0.9% 1,000 ML IV SCH ×2 (00:17→11:20)
[2020-07-05] MEDS: LEVOTHYROXINE 125 MCG TAB PO SCH (05:37)
[2020-07-05 06:28] LABS: Basophils % (A) 0 %; Eosinophils # (A) 0.1 k/uL (0-0.7); Eosinophils % (A) 1 %; HCT 36.1 % (34.0-46.0); HGB 12.2 gm/dL (11.4-16.0); Lymphocytes # (A) 2.1 k/uL (1.0-4.8); Lymphocytes % (A) 28 %; MCH 32.2 pg (25.0-35.0); MCHC 33.7 g/dL (31.0-37.0); MCV 95.3 fL (80.0-100.0); Mean Platelet Volume 8.1; Monocytes # (A) 0.4 k/uL (0-1.0); Monocytes % (A) 5 %; Neutrophils # (A) 4.8 k/uL (1.3-7.7); Neutrophils % (A) 65 %; Platelet Count 177 k/uL (150-450); RBC 3.79 m/uL (3.80-5.40); RDW 12.5 % (11.5-15.5); WBC 7.5 k/uL (3.8-10.6)
[2020-07-05 06:36] LABS: African American GFR (CKD) 77 (>60 ml/min/1.73 sqM); Anion Gap 5 mmol/L; Blood Urea Nitrogen 16 mg/dL (7-17); Calcium 8.4 mg/dL (8.4-10.2); Carbon Dioxide 24 mmol/L (22-30); Chloride 110 mmol/L (98-107); Glucose 91 mg/dL (74-99); Non-African American GFR(CKD) 67 (>60 ml/min/1.73 sqM); Potassium 4.2 mmol/L (3.5-5.1); Sodium 139 mmol/L (137-145)
[2020-07-05] MEDS ORDERED: HEPARIN SODIUM,PORCINE 10,000 UNIT in SODIUM CHLORIDE 0.9% 1,000 ML IRRIGATION PRN (07:00)
[2020-07-05] MEDS ORDERED: HEPARIN SODIUM,PORCINE 2,500 UNIT in SODIUM CHLORIDE 0.9% 250 ML IRRIGATION PRN (07:00)
[2020-07-05] MEDS: diphenhydrAMINE 25 MG CAP PO PRN (07:29)
[2020-07-05] MEDS ORDERED: hydrOXYzine pamoate 25 MG CAP PO PRN (08:19)
[2020-07-05] MEDS ORDERED: methylPREDNISolone SOD SUCCI 125 MG/2 ML VIAL IV STA (08:23)
[2020-07-05] MEDS: buPROPion XL 150 MG TAB.ER.24H PO SCH (08:55)
[2020-07-05] MEDS: ASPIRIN 81 MG PO SCH (08:55)
[2020-07-05] MEDS ORDERED: FAMOTIDINE 20 MG/2 ML VIAL IV SCH (09:00)
[2020-07-05] MEDS ORDERED: fentaNYL (PF) 50 MCG/ML 2 ML AMP ONE (10:13)
[2020-07-05] MEDS ORDERED: IV FLUID CONTINUATION 1,000 ML IV ONE (10:20)
[2020-07-05] MEDS: BENZOCAINE SPRAY 1 CAN MUCOUS MEM ONE ×2 (10:29→10:32)
[2020-07-05] MEDS: fentaNYL (PF) 50 MCG/ML 2 ML AMP IV ONE ×2 (10:32→10:37)
[2020-07-05] MEDS ORDERED: MIDAZOLAM 2 MG/2 ML VIAL IV ONE ×2 (10:33)
[2020-07-05] MEDS ORDERED: SODIUM CHLORIDE 0.9% 1,000 ML IV SCH (11:00)
--- NOTE | 2020-07-05 11:00 | PN ---
PROGRESS NOTE Mrs. Montes is a 60-year-old female who presented with symptoms of chest discomfort. She has a known history of aortic valve disease with bicuspid aortic valve. Her echocardiogram revealed severe aortic stenosis with a mean gradient of 47 mmHg. Her left ventricular systolic function was normal. Because of her persistent chest discomfort and her presentation, she underwent cardiac catheterization yesterday that showed no evidence of high-grade stenosis. She is feeling well today. She has no further chest pain. Her breathing is stable. She denies any dizziness or palpitation. She continues on aspirin once a day, Lipitor 80 mg daily. PHYSICAL EXAMINATION: Blood pressure 112/60 with the heart rate in the 60s. LUNGS: Clear. HEART: Regular rate and rhythm. S1, S2. No S3 with systolic ejection murmur, mid to late peaking. No diastolic murmur. No rub. ABDOMEN: Soft, nontender. EXTREMITIES: No edema. Right radial pulse intact. LAB DATA: Lab data revealed BUN and creatinine 16 and 0.93. Hemoglobin 12.2. IMPRESSION: 1. Chest discomfort with no evidence of obstructive coronary artery disease. 2. Bicuspid aortic valve with severe aortic stenosis. 3. Hyperlipidemia. RECOMMENDATION: We will proceed with transesophageal echocardiogram today to further assess her status. Patient most likely will require aortic valve surgery. I discussed with her those findings and depending on the results of testing, further recommendation will be made. MMODL / IJN: [id number] /
[2020-07-05 11:19] VITALS: RESP 16
--- NOTE | 2020-07-05 14:10 | US ---
EXAMINATION TYPE: US carotid duplex BILAT DATE OF EXAM: 07/05/2020 COMPARISON: NONE CLINICAL HISTORY: Pre-Op Cardiac Surgery. EXAM MEASUREMENTS: RIGHT: Peak Systolic Velocity (PSV) cm/sec ----- Right CCA: 74.7 ----- Right ICA: 79.9 ----- Right ECA: 90.9 ICA/CCA ratio: 1.1 RIGHT: End Diastole cm/sec ----- Right CCA: 18.2 ----- Right ICA: 31.8 ----- Right ECA: 13.6 LEFT: Peak Systolic Velocity (PSV) cm/sec ----- Left CCA: 72.1 ----- Left ICA: 87.7 ----- Left ECA: 70.2 ICA/CCA ratio: 1.2 LEFT: End Diastole cm/sec ----- Left CCA: 20.1 ----- Left ICA: 29.9 ----- Left ECA: 9.7 VERTEBRALS (direction of flow): Right Vertebral: Antegrade Left Vertebral: Antegrade Rhythm: Normal Grayscale, Color Doppler, spectral Doppler imaging performed of the carotid arteries. Waveform analys is does not show significant stenosis of the internal carotid arteries. Minimal plaque visualized. No elevated velocities, no significant stenosis IMPRESSION: No hemodynamic significant stenosis of the proximal internal carotid arteries by Doppler criteria, an indirect measurement of carotid stenosis Criteria for Assigning % of Stenosis / Diameter reduction (Estimation based on the indirect measurements of the internal carotid artery velocities (ICA PSV). 1. Normal (no stenosis)=ICA PSV < 125 cm/s: ratio < 2.0: ICA EDV<40 cm/s. 2. Less than 50% stenosis=ICA PSV < 125 cm/s: ratio < 2.0: ICA EDV<40 cm/s. 3. 50 to 69% stenosis=ICA PSV of 125 to 230 cm/s: ration 2.0 ? 4.0: ICA EDV 40-100 cm/s. 4. Greater than 70% stenosis to near occlusion= ICA PSV > 230 cm/s: ratio > 4.0: ICA EDV > 100 cm/s. 5. Near occlusion= ICA PSV velocities may be low or undetectable: variable ratio and ICA EDV. 6. Total occlusion=unable to detect flow.
--- NOTE | 2020-07-05 14:20 | ECHOT ---
TRANSESOPHAGEAL ECHOCARDIOGRAM INDICATION: Evaluation of aortic valve. PROCEDURE: After explaining the procedure to the patient, its risks and the complications, blood pressure, heart rate, O2 saturation were monitored. The throat was sprayed with Cetacaine. She received 2 mg intravenous Versed, 50 mcg intravenous fentanyl. The probe was introduced into the esophagus without difficulty. Images were obtained. Following that, the probe was removed. There was no immediate complication. FINDINGS: Left atrial size is mildly dilated. Left atrial appendage is normal. Left ventricular size and systolic function normal. The aortic valve is a bicuspid aortic valve with reduced opening. By planimetry, the valve area is between 0.8 and 1 centimeter square. The mitral valve appears to be normal. Tricuspid valve is normal. Descending thoracic aorta appears to be normal. Contrast bubble study revealed a small patent foramen ovale with Valsalva maneuver. Doppler pulse wave and color Doppler obtained and revealed mild mitral with mild to moderate aortic regurgitation, and mild tricuspid regurgitation. The peak gradient across the aortic valve was 72 mmHg with a mean of 46 mmHg consistent with severe aortic stenosis. There was no clear shunting by color Doppler study. CONCLUSION: 1. Mildly dilated left atrium. 2. Normal left ventricular size and systolic function. 3. Bicuspid aortic valve with severe calcification and reduced opening with a severe aortic stenosis and a mean gradient of 46 mmHg and mild to moderate aortic regurgitation. 4. Mild mitral and tricuspid regurgitation. 5. Small patent foramen ovale with aergm-[id number] shunting with Valsalva maneuver. 6. Normal appearance of the descending thoracic aorta. MMODL / IJN: [id number] /
[2020-07-05 15:03] VITALS: BP 105/68; PULSE 77; TEMP 97.4
--- NOTE | 2020-07-05 15:12 | P.GSCN ---
History of Present Illness Consult date: 07/05/20 Reason for Consult: Severe bicuspid aortic valve stenosis Requesting physician: Milla Dowling History of present illness: This is 60-year-old female patient who follows with Dr. Tc Garcia for primary care service on an outpatient basis. She has a past medical history significant for known aortic valve disease, history of syncopal event 10 years ago, hypothyroid, hyperlipidemia, family history of early onset coronary artery disease with her dad passing away at age 48, chronic tobacco use, although she is taking Wellbutrin to help her quit smoking at this time. On 07/03/2020 the patient presented to the emergency department here at [facility] with complaints of squeezing type chest pain which was radiating from her jaw and to her back. She states she did have some dizziness associated with the chest pain but denies any complaints of shortness of breath, nausea or vomiting, diaphoresis, peripheral edema, presyncope or syncope. The patient states that the pain usually comes during the night while she is sleeping and there are no relieving factors. In the emergency department a 12-lead EKG was completed which showed normal sinus rhythm with a heart rate 63 BPM. Serial troponins were negative. The patient also reports she has been seen recently by Dr. Rodriguez from the [facility] and recently presented here at [facility] for similar complaints as above. She sought medical attention from her primary care physician who told her she needed to come back to the emergency department for further workup and evaluation. The patient reports she does have a history of aortic valve problems which she has known about for several years and they have been keeping track of the valve with serial 2-D echocardiograms. A 2-D echocardiogram was completed here at [facility] on 07/04/2020 which showed mild concentric left ventricular hypertrophy, and overall left ventricular systolic function to be normal with an ejection fraction of 55-60%, mild to moderate aortic valve regurgitation, severe aortic valve stenosis, peak/mean gradient across aortic valve 72.84 mmHg/46.45 mmHg, mild mitral valve regurgitation and mild tricuspid valve regurgitation. Due to the patient's presenting symptoms and findings on the 2-D echocardiogram, Dr. Dowling from cardiology was consulted and the patient underwent a heart catheterization yesterday which showed normal coronary arteries and a heavily calcified aortic valve. Subsequently for further evaluation she underwent a transesophageal echocardiogram performed by Dr. Dowling which demonstrated a mi ldly dilated left atrium, normal left ventricular size and systolic function, a bicuspid aortic valve with severe calcification and reduced opening with a severe aortic stenosis and a mean gradient of 46 mmHg with mild to moderate aortic valve regurgitation and mild mitral and tricuspid valve regurgitation. Due to her severe bicuspid aortic valve stenosis a consult was placed to Dr. Gumaro Jones from cardiothoracic surgery for further evaluation and treatment recommendations. Review of Systems A 14 point review of system was completed except as mentioned in the HPI. Past Medical History Past Medical History: COPD, Hyperlipidemia, Thyroid Disorder Additional Past Medical History / Comment(s): tricuspid valve History of Any Multi-Drug Resistant Organisms: None Reported Past Surgical History: Tonsillectomy, Tubal Ligation Past Anesthesia/Blood Transfusion Reactions: No Reported Reaction Past Psychological History: No Psychological Hx Reported Smoking Status: Current every day smoker (Currently receiving Wellbutrin to help quit smoking.) Past Alcohol Use History: Occasional Past Drug Use History: None Reported - Past Family History Mother Additional Family Medical History / Comment(s): Depression Father Family Medical History: Coronary Artery Disease (CAD) Additional Family Medical History / Comment(s): EtOH abuse Medications and Allergies Home Medications Medication Instructions Recorded Confirmed Type Aspirin EC [Ecotrin Low Dose] 81 mg PO DAILY 07/02/20 07/03/20 History Levothyroxine Sodium [Synthroid] 125 mcg PO DAILY 07/02/20 07/03/20 History buPROPion XL [Wellbutrin XL] 150 mg PO DAILY 07/02/20 07/03/20 History hydrOXYzine pamoate [Vistaril] 25 mg PO QID PRN #30 cap 07/05/20 Rx Allergies Allergy/AdvReac Type Severity Reaction Status Date / Time No Known Allergies Allergy Verified 07/03/20 16:33 Surgical - Exam Vital Signs Temp Pulse Resp BP Pulse Ox 98 F 77 18 148/78 98 07/03/20 15:05 07/03/20 15:05 07/03/20 15:05 07/03/20 15:05 07/03/20 15:05 - General well developed, well nourished, no distress, no pain - Eyes PERRL, normal ocular movement, no icteric - ENT normal pinna, normal nares, normal mucosa, no hearing loss, no congestion, poor residential, dentures - Neck Neck is supple, no lymphadenopathy. no masses, no bruits, trachea midline, no venous distension - Respiratory Lungs sounds essentially clear throughout. No wheezes, rhonchi or crackles. Respirations are symmetrical and nonlabored. - Cardiovascular Regular rhythm and rate. S1 and S2 present, negative for S3, or gallop. Systolic murmur 2/6 heard best to her left sternal border. No edema present. - Abdomen Abdomen is soft, nontender and nondistended. Active bowel sounds present in all 4 abdominal quadrants. No guarding or rigidity. No organomegaly appreciated. Tolerating oral intake. - Genitourinary Deferred - Rectum Deferred - Integumentary no rash, no growths, no abnormal pigmentation - Neurologic Cranial nerves II through XII intact, no motor or focal deficits. - Musculoskeletal Moves all 4 extremities with equal strength. - Psychiatric oriented to time, oriented to person, oriented to place, speech is normal, memory intact Results - Labs 07/05/20 06:14 07/05/20 06:14 Abnormal Lab Results - Last 24 Hours (Table) 07/04/20 07/05/20 07/05/20 Range/Units 05:07 06:14 06:14 RBC 3.79 L (3.80-5.40) m/uL Chloride 110 H (98-107) mmol/L Cholesterol 225 H (0-200) mg/dL LDL Cholesterol, Calc 162.4 H (0.0-131.0) mg/dL Diabetes panel 07/04/20 07/05/20 Range/Units 05:07 06:14 Sodium 139 (137-145) mmol/L Potassium 4.2 (3.5-5.1) mmol/L Chloride 110 H (98-107) mmol/L Carbon Dioxide 24 (22-30) mmol/L BUN 16 (7-17) mg/dL Creatinine 0.93 (0.52-1.04) mg/dL Glucose 91 (74-99) mg/dL Calcium 8.4 (8.4-10.2) mg/dL Triglycerides 83.0 (0.0-149.0) mg/dL HDL Cholesterol 46.0 (40.0-60.0) mg/dL Calcium panel 07/05/20 Range/Units 06:14 Calcium 8.4 (8.4-10.2) mg/dL Pituitary panel 07/05/20 Range/Units 06:14 Sodium 139 (137-145) mmol/L Potassium 4.2 (3.5-5.1) mmol/L Chloride 110 H (98-107) mmol/L Carbon Dioxide 24 (22-30) mmol/L BUN 16 (7-17) mg/dL Creatinine 0.93 (0.52-1.04) mg/dL Glucose 91 (74-99) mg/dL Calcium 8.4 (8.4-10.2) mg/dL Adrenal panel 07/05/20 Range/Units 06:14 Sodium 139 (137-145) mmol/L Potassium 4.2 (3.5-5.1) mmol/L Chloride 110 H (98-107) mmol/L Carbon Dioxide 24 (22-30) mmol/L BUN 16 (7-17) mg/dL Creatinine 0.93 (0.52-1.04) mg/dL Glucose 91 (74-99) mg/dL Calcium 8.4 (8.4-10.2) mg/dL - Imaging Additional studies: 2-D echocardiogram results and cardiac catheterization results reviewed. Assessment and Plan Assessment: 1. Severe bicuspid aortic valve stenosis 2. Chest pain for/pressure with no evidence of obstructive coronary artery disease 3. Hyperlipidemia 4. Hypothyroid 5. Chronic tobacco abuse 6. Family history of early onset coronary artery disease with her father passing away at age 48 from heart disease Plan: The patient was seen and examined at her bedside on the [address] [place] [address] cardiac observation unit. Her chart and diagnostics reviewed. She was seen and examined by Dr. Gumaro Jones from cardiothoracic surgery. Her case was discuss ed in detail with Dr. Gumaro Jones from cardiothoracic surgery. Preoperatively the patient will need to obtain dental clearance. Preoperative teaching and preoperative workup in progress. Continue to optimize medical management. A 5 m walk test was completed with the patient, time 1: 1.55 seconds, time 2: 1.59 seconds, time 3: 2.[address] Jones met with the patient, discussed treatment options including surgical aortic valve replacement, discussed risk and benefits of aortic valve replacement surgery and knowing and understanding the risks the patient would like to proceed with an elective aortic valve replacement. Per the cardiothoracic surgery standpoint the patient could be d ischarged home today and be brought back to the hospital for elective surgery, when she is obtained dental clearance and her preoperative testing has been obtained. Thank you Dr. Dowling for this consult and we will look forward to working with you in the care of this patient. Time with Patient: Greater than 30
--- NOTE | 2020-07-05 18:14 | P.DS ---
Providers Date of admission: 07/03/20 17:34 Expected date of discharge: 07/05/20 Attending physician: Tc Garcia Consults: 07/03/20 18:28 Consult Physician Urgent Consulting Provider: Nico Deng Consult Reason/Comments: chest pain Do you want consulting provider notified?: Yes 07/05/20 10:58 Consult Physician Routine Consulting Provider: Gumaro Jones Consult Reason/Comments: as Do you want consulting provider notified?: Already Contacted Primary care physician: Tc Garcia Hospital Course: 60-year-old female, presented to our services prior to admission with chest discomfort that radiated to her left jaw and back with associated shortness of breath, diaphoresis and nausea. Patient was sent to the emergency department for diagnostic workup and admission. Cardiology was consulted for treatment plan and recommendation. she underwent cardiac catheterization revealing no high grade stenosis, subsequently echocardiogram revealed severe aortic valve stenosis. Patient was evaluated by cardiothoracic surgery for aortic valve replacement versus repairdue to continuous shortness of breath and intermittent episodes of syncope. Upon discharge from the hospital patient was chest pain-free, shortness of breath free and no new additional symptoms. Her prognosis upon discharge due to multiple comorbidities and complex medical history Assessment: Chest pain Severe aortic valve stenosis Hyperlipidemia Coronary artery disease Nicotine dependence Health Concerns: Noncompliance with medical treatment plan Nicotine dependence Pertinent Studies: Chest x-rays Echocardiogram ZANDRA Procedures: Cardiac catheterization was performed with Dr. Dowling to evaluate for unstable anginaper operative report no cardiac lesions or occlusions needed angioplasty or stents; noted during cardiac catheterization severe aortic valve stenosis Echocardiogram see dictation ZANDRA-see dictation Patient Condition at Discharge: Stable Plan - Discharge Summary Discharge Rx Participant: No New Discharge Prescriptions: New hydrOXYzine pamoate [Vistaril] 25 mg PO QID PRN #30 cap PRN Reason: Itching Continue Levothyroxine Sodium [Synthroid] 125 mcg PO DAILY Aspirin EC [Ecotrin Low Dose] 81 mg PO DAILY buPROPion XL [Wellbutrin XL] 150 mg PO DAILY Discontinued diphenhydrAMINE [Benadryl] 25 mg PO Q4H PRN PRN Reason: Allergic Reaction Discharge Medication List Aspirin EC [Ecotrin Low Dose] 81 mg PO DAILY 07/02/20 [History] Levothyroxine Sodium [Synthroid] 125 mcg PO DAILY 07/02/20 [History] buPROPion XL [Wellbutrin XL] 150 mg PO DAILY 07/02/20 [History] hydrOXYzine pamoate [Vistaril] 25 mg PO QID PRN #30 cap 07/05/20 [Rx] Follow up Appointment(s)/Referral(s): Tc Garcia MD [Primary Care Provider] - 07/09/20 1:30 pm Milla Dowling MD [STAFF PHYSICIAN] - 07/17/20 1:00 pm Patient Instructions/Handouts: Chest Pain (ED) Activity/Diet/Wound Care/Special Instructions: have dental clearance done before surgery Discharge Disposition: HOME SELF-CARE
[2020-07-05 21:44] LABS: Hemoglobin A1C 5.5 % (4.0-6.0)
[2020-07-05 22:17] LABS: Hepatitis A Antibody IgM Non-Reactive (Non-Reactive); Hepatitis B Core IgM Non-Reactive (Non-Reactive); Hepatitis B Surface Antigen Non-Reactive (Non-Reactive); Hepatitis C IgG Antibody Non-Reactive (Non-Reactive)
== END 2020-07-05 15:46 | disposition home or self-care (01) ==
LOC: EC 14:59 → 6NMEDSUR 17:34
PROVIDERS: ADMIT Family Medicine; ATTEND Family Medicine
DX: I08.3 Combined rheumatic disorders of mitral, aortic and tricuspid valves (principal); Q23.1 Congenital insufficiency of aortic valve; R93.1 Abnormal findings on diagnostic imaging of heart and coronary circulation; R07.89 Other chest pain; E78.5 Hyperlipidemia, unspecified; Z79.82 Long term (current) use of aspirin; E03.9 Hypothyroidism, unspecified; J44.9 Chronic obstructive pulmonary disease, unspecified; F17.200 Nicotine dependence, unspecified, uncomplicated; Z20.822 Contact with and (suspected) exposure to COVID-19; Z91.19 Patient's noncompliance with other medical treatment and regimen; Z79.890 Hormone replacement therapy; Z79.899 Other long term (current) drug therapy; Z98.51 Tubal ligation status; Z90.89 Acquired absence of other organs; Z82.49 Family history of ischemic heart disease and other diseases of the circulatory system; Z81.8 Family history of other mental and behavioral disorders; Z81.1 Family history of alcohol abuse and dependence
CPT/HCPCS: 93005 ×2; 96374; 96375; 99285; 36415; 94150; 93312; 93320; 93306; 93325; 93454; 80061; 80053 ×2; 80048; 80074; 84443; 83735 ×2; 84484 ×2; 85025 ×3; 85610; 85730; 81003; 83036; 87635; 71046; 93880; G0378 ×3; C1769 ×3; C1894; J2250; J1200; J2930 ×2; J2001; J3010 ×2; J1644; Q9967; 87070

== ENCOUNTER → 2020-07-13 | Outpatient (CLI) | payer BC ==
[2020-07-13 09:35] LABS: HCT 38.3 % (34.0-46.0); HGB 13.1 gm/dL (11.4-16.0); MCH 32.5 pg (25.0-35.0); MCHC 34.4 g/dL (31.0-37.0); MCV 94.6 fL (80.0-100.0); Platelet Count 209 k/uL (150-450); RBC 4.04 m/uL (3.80-5.40); RDW 12.3 % (11.5-15.5); WBC 8.3 k/uL (3.8-10.6)
[2020-07-13 09:49] LABS: INR 0.9 (<1.2); Partial Thromboplastin Time 22.7 sec (22.0-30.0); Prothrombin Time 9.5 sec (9.0-12.0)
[2020-07-13 09:51] LABS: Albumin 4.4 g/dL (3.5-5.0); Calcium 9.6 mg/dL (8.4-10.2); Potassium 4.5 mmol/L (3.5-5.1); Total Bilirubin 0.6 mg/dL (0.2-1.3); Total Protein 7.1 g/dL (6.3-8.2)
--- NOTE | 2020-07-18 10:06 | P.VSCSTY ---
Greater Saphenous Vein Mapping This is bilateral lower extremity greater saphenous vein mapping. Date of service: 07/13/2020 Vein quality and ultrasound appearance: We see no intraluminal thrombus or obvious wall changes. Numerous branches bilaterally. Areas on both sides a rather small.. Vein size groin right : 3.9 x 3.4 groin left: 4.5 x 3.3 High thigh right: 4.0 x 2.2 high thigh left: 3.4 x 2.5 Mid thigh right: 2.5 x 2.0 mid thigh left: 2.2 x 2.2 Above-knee right: 2.2 x 2.3 above- knee left: 2.2 x 1.9 Below knee right: 2.2 x 2.0 below-knee left: 2.0 x 1.8 Mid calf right: 1.9 x 1.9 mid calf left: 1.7 x 1.6 Ankle right: 1.7 x 1.4 ankle left: 2.4 x 1.8 Impression: What appears to be usable greater saphenous bilaterally. Left leg below the knee and the right leg by mid calf appear small for conduit use..
== END | disposition home or self-care (01) ==
LOC: RADUSWWP 07:53
PROVIDERS: ATTEND Thoracic Surgery (Cardiothoracic Vascular Surgery)
DX: U07.1 COVID-19 (principal)
CPT/HCPCS: 80053; 85027; 85610; 85730; 87070; 93970; 36415; U0003; C9803; U0005

== ENCOUNTER 2020-07-17 05:35 | Inpatient (IN) | payer BC ==
[~2020-07-17 05:35] MED LIST: ALBUMIN HUMAN 25% 50 ML IV ONE; ALBUMIN HUMAN 5% 500 ML IVPB ONE; ASPIRIN 325 MG TAB PO ONE; ATORVASTATIN 10 MG TAB PO ONE; CALCIUM CHLORIDE 100 MG/ML 10 ML SYRINGE IV ONE; CARDIOPLEGIC SOLN (K+ 16 MEQ/L 1,000 ML with SODIUM BICARB (1 MEQ/ML) 20 ML, LIDOCAINE ... PERFUSION ONE; CHLORHEXIDINE GLUCONATE 15 ML CUP MUCOUS MEM ONE; CLEVIDIPINE BUTYRATE 25 MG in EMPTY BAG 1 BAG IV ONE; HEPARIN SODIUM 1,000 UN/ML (10ML VL) IV ONE; HEPARIN SODIUM,PORCINE 5,000 UNIT in SODIUM CHLORIDE 0.9% 500 ML 500 ML IV ONE; INSULIN REGULAR 100 UNIT in SODIUM CHLORIDE 0.9% 100 ML IV ONE; LACTATED RINGERS 1,000 ML IV ONE; MAGNESIUM SULFATE MG 500 MG/ML IV ONE; MANNITOL 25% 12.5 GM/50 ML VIAL IV ONE; METOPROLOL TARTRATE 12.5 MG TAB PO ONE; NITROGLYCERIN-D5W PMX 25 MG/250 ML BTL IV ONE; NITROGLYCERIN-D5W PMX 50 MG in DEXTROSE/WATER 1 250ML.BAG IV ONE; NOREPINEPHRINE 4 MG in SODIUM CHLORIDE 0.9% 250 ML IV ONE; PAPAVERINE 360 MG in SODIUM CHLORIDE 0.9% 90 ML IV ONE; PHENYLEPHRINE 10 MG/ML VIAL IV ONE; PHENYLEPHRINE 40 MG in SODIUM CHLORIDE 0.9% 250 ML IV ONE; PROTAMINE SULFATE 10 MG/ML 25 ML VIAL IV ONE; PROTAMINE SULFATE 250 MG in EMPTY BAG 1 BAG IV ONE; SODIUM BICARB 8.4% 50 ML SYR (1 MEQ/ML) IV ONE; SODIUM CHLORIDE 0.9% 1,000 ML IV ONE; TRANEXAMIC ACID 2,000 MG in SODIUM CHLORIDE 0.9% 80 ML IV ONE; ceFAZolin 1,000 MG in SODIUM CHLORIDE 0.9% IRRIGATIO 1,000 ML IRRIGATION ONE; propofoL 1,000 MG/100 ML VIAL IV ONE
[2020-07-17 06:08] LABS: Glucose,Whole Blood 93 mg/dL (75-99)
[2020-07-17] MEDS ORDERED: fentaNYL (PF) 50 MCG/ML 50 ML VIAL ONE (07:35)
[2020-07-17] MEDS ORDERED: CALCIUM CHLORIDE 100 MG/ML 10 ML SYRINGE ONE (07:35)
[2020-07-17] MEDS ORDERED: fentaNYL (PF) 50 MCG/ML 2 ML AMP ONE (07:35)
[2020-07-17] MEDS ORDERED: SODIUM CHLORIDE 0.9% 250 ML BAG ONE (07:35)
[2020-07-17] MEDS ORDERED: PHENYLEPHRINE-0.9% NACL SYG 1,000 MCG/10 ML SYRINGE ONE (07:35)
[2020-07-17] MEDS ORDERED: HEPARIN SODIUM,PORCINE 10,000 UNIT/ML 1 ML VIAL ONE (07:35)
[2020-07-17] MEDS ORDERED: PROPOFOL 10 MG/ML 20 ML VIAL IV ONE (07:35)
[2020-07-17] MEDS ORDERED: TRANEXAMIC ACID 1,000 MG/10 ML VIAL ONE (07:35)
[2020-07-17] MEDS ORDERED: VECURONIUM 10 MG VIAL IV ONE (07:35)
[2020-07-17] MEDS ORDERED: MIDAZOLAM 2 MG/2 ML VIAL ONE (07:35)
[2020-07-17] MEDS ORDERED: ePHEDrine SULFATE/0.9% NACL/PF 50 MG/5 ML SYRINGE IV ONE (07:35)
[2020-07-17] MEDS ORDERED: PROTAMINE SULFATE 10 MG/ML 25 ML VIAL IV ONE (07:35)
[2020-07-17 08:29] LABS: ABG Base Excess 2.6 mmol/L; ABG Glucose Whole Blood 100 mg/dL (75-99); ABG HCO3 27 mmol/L (21-25); ABG Hematocrit 36 % (34.0-46.0); ABG Ionized Calcium 4.6 mg/dL (4.5-5.3); ABG Lactic Acid Whole Blood 0.9 mmol/L (0.5-1.6); ABG Oxygen Saturation 99.9 % (94-97); ABG PCO2 41 mmHg (35-45); ABG PH 7.43 (7.35-7.45); ABG PO2 297 mmHg (83-108); ABG Sodium Whole Blood 140 mmol/L (135-146); ABG TCO2 28 mmol/L (19-24)
[2020-07-17 09:01] LABS: ABG Base Excess 2.3 mmol/L; ABG Glucose Whole Blood 107 mg/dL (75-99); ABG HCO3 27 mmol/L (21-25); ABG Hematocrit 35 % (34.0-46.0); ABG Ionized Calcium 4.6 mg/dL (4.5-5.3); ABG Oxygen Saturation 99.8 % (94-97); ABG PCO2 40 mmHg (35-45); ABG PH 7.44 (7.35-7.45); ABG PO2 261 mmHg (83-108); ABG Sodium Whole Blood 140 mmol/L (135-146); ABG TCO2 28 mmol/L (19-24)
[2020-07-17 09:41] LABS: ABG Glucose Whole Blood 100 mg/dL (75-99); ABG HCO3 24 mmol/L (21-25); ABG Ionized Calcium 4.3 mg/dL (4.5-5.3); ABG Lactic Acid Whole Blood 1.1 mmol/L (0.5-1.6); ABG Oxygen Saturation 99.9 % (94-97); ABG PCO2 41 mmHg (35-45); ABG PH 7.38 (7.35-7.45); ABG PO2 310 mmHg (83-108); ABG Potassium Whole Blood 4.4 mmol/L (3.4-4.5); ABG Sodium Whole Blood 136 mmol/L (135-146); ABG TCO2 25 mmol/L (19-24)
[2020-07-17 10:03] LABS: ABG Base Excess -0.4 mmol/L; ABG Glucose Whole Blood 115 mg/dL (75-99); ABG HCO3 24 mmol/L (21-25); ABG Ionized Calcium 4.4 mg/dL (4.5-5.3); ABG Oxygen Saturation 99.9 % (94-97); ABG PCO2 40 mmHg (35-45); ABG PO2 388 mmHg (83-108); ABG Potassium Whole Blood 4.6 mmol/L (3.4-4.5); ABG Sodium Whole Blood 137 mmol/L (135-146); ABG TCO2 26 mmol/L (19-24)
[2020-07-17 10:55] LABS: ABG Hematocrit 24 % (34.0-46.0)
[2020-07-17 10:56] LABS: ABG Hematocrit 24 % (34.0-46.0)
[2020-07-17 11:00] LABS: ABG Base Excess -1.1 mmol/L; ABG Glucose Whole Blood 121 mg/dL (75-99); ABG HCO3 24 mmol/L (21-25); ABG Hematocrit 28 % (34.0-46.0); ABG Ionized Calcium 3.9 mg/dL (4.5-5.3); ABG Lactic Acid Whole Blood 1.3 mmol/L (0.5-1.6); ABG Oxygen Saturation 99.7 % (94-97); ABG PCO2 39 mmHg (35-45); ABG PH 7.39 (7.35-7.45); ABG PO2 238 mmHg (83-108); ABG Potassium Whole Blood 4.2 mmol/L (3.4-4.5); ABG Sodium Whole Blood 139 mmol/L (135-146); ABG TCO2 25 mmol/L (19-24)
[2020-07-17] MEDS ORDERED: Potassium Replacement Protocol 1 EACH MISC MISCELLANE PRN (11:21)
[2020-07-17] MEDS ORDERED: Phosphorus Replacement Protoco 1 EACH MISC MISCELLANE PRN (11:21)
[2020-07-17] MEDS ORDERED: IPRATROPIUM-ALBUTEROL 3 ML NEB INHALATION PRN (11:21)
[2020-07-17] MEDS ORDERED: AMIODARONE 450 MG in DEXTROSE 5% IN WATER 250 ML IV PRN ×2 (11:21)
[2020-07-17] MEDS ORDERED: DEXTROSE 5% IN WATER 100 ML with AMIODARONE 150 MG IV PRN (11:21)
[2020-07-17] MEDS ORDERED: AMIODARONE 360 MG in DEXTROSE 5% IN WATER 200 ML IV PRN ×2 (11:21)
[2020-07-17] MEDS ORDERED: Magnesium Replacement Protocol 1 EACH MISC MISCELLANE PRN (11:21)
[2020-07-17] MEDS ORDERED: CALCIUM GLUCONATE 2 GM in SODIUM CHLORIDE 0.9% 100 ML IVPB PRN (11:21)
--- NOTE | 2020-07-17 11:39 | P.OP ---
Date of Procedure: 07/17/20 Preoperative Diagnosis: Congenital bicuspid aortic stenosis Postoperative Diagnosis: Same Procedure(s) Performed: Aortic valve replacement with 23 mm Inspiris bovine pericardial bioprosthesis, ligation of the left atrial appendage with a 35 mm AtriCure, epi-aortic ultrasonography Implants: 23 mm bioprosthesis, 35 mm AtriCure clip Anesthesia: JESU Surgeon: Gumaro Jones Wastewater Superintendent #1: Ciro Dutton Wastewater Superintendent #2: Kenrick Miguel Estimated Blood Loss (ml): 100 IV fluids (ml): 2,000 Urine output (ml): 500 Pathology: other (Aortic valve) Condition: stable Disposition: ICU Indications for Procedure: 60-year-old female with calcific bicuspid congenital aortic stenosis symptomatic Operative Findings: The patient aortic ultrasonography demonstrated calcification in the right lateral distal ascending aorta. This area was avoided for cannulation and clamping. Aortic valve was bicuspid with fusion of the left and right cusps. T his fused leaflet was very thickened and leathery. There was some calcification in the annulus. The noncoronary cusp was heavily calcified with heavy calcification in the annulus. Description of Procedure: The patient was brought to the operating room, placed supine on the operating table, anesthetized and intubated. T probe was placed. The anterior torso and lower extremities were sterilely prepped and draped. Midline sternotomy was performed. Left pleural space was opened widely and the right was opened minimally. The pericardium was opened in the midline and the heart was exposed pericardial sutures. Epi-aortic ultrasonography was performed with findings as noted above. Patient was cannulated for cardioplegia bypass with a 7 mm soft flow cannula in the distal ascending aorta away from the area of plaque. Two- stage venous cannula was placed through the right atrial appendage into the inferior vena cava. Antegrade and retrograde cardioplegia lines were placed in standard fashion. Patient was placed on cardioplegia bypass. 4-0 Prolene pursestring was placed in the right superior pulmonary vein and through this a left atrial vent was placed. 35 mm AtriCure clip was applied to the base of the left atrial appendage. The aorta was crossclamped. The heart was arrested with cold crystalloid antegrade cardioplegia followed by retrograde cardioplegia. The aorta was opened transversely and the valve exposed. The valve was excised. The annulus was debrided of calcification. Copious irrigation was performed. Circumferential valve sutures of 2-0 Tycron were placed pledgets on the ventricular side to allow a supra-annular implantation. The annulus was sized and a 23 mm bovine pericardial valve prosthesis was chosen and brought up on the field. This was an Inspiris valve. Sutures were placed in the sewing ring of the valve and it was seated without difficulty. Sutures were tied and cut the valve was noted to seat well. Coronary ostia were free. We again irrigated and then closed the aorta with a 2 layer running closure of 4-0 Prolene suture. Patient was placed in Trendelenburg and the cross-clamp was removed. Atrial and ventricular pacing wires were placed. Patient did not require pacing. She returned to a spontaneous sinus rhythm. Retrograde cardioplegia line was removed. The patient was de-aired under ZANDRA guidance with a 18-gauge Angiocath in the apex of the left ventricle. Following this the aortic vent line was removed and the patient was weaned from cardioplegic bypass without the use of inotropic support. Patient was decannulated in standard fashion. The aortic cannulation site was reinforced with 40 pledgeted Prolene suture. The right atrial cannulation site was reinforced with a heavy silk tie. Left atrial vent had been removed and the pursestring tied prior to removing the cross-clamp. All sites were hemostatic. After assuring good hemostasis the left pleural space was drained with 32-Emirati chest tube. The stent was drained with a 36- Emirati chest tube. Chest was irrigated with antibiotic solution. The sternum was closed with 8 sternal wires. The fascia was closed with 0 Ethibond. Subcutaneous and subcuticular layers layers closed with layers of Vicryl suture. Dry sterile dressings were applied the patient was transferred to the ICU in stable condition. ZANDRA at the conclusion of the case demonstrated no evidence of aortic valve insufficiency with low gradients and excellent ventricular function.
[2020-07-17 11:47] LABS: Glucose,Whole Blood 110 mg/dL (75-99)
[2020-07-17] MEDS ORDERED: INSULIN REGULAR 100 UNIT in SODIUM CHLORIDE 0.9% 100 ML IV SCH (12:00)
[2020-07-17 12:14] LABS: Basophils % (A) 0 %; Eosinophils # (A) 0.1 k/uL (0-0.7); Eosinophils % (A) 1 %; HCT 32.7 % (34.0-46.0); HGB 11.2 gm/dL (11.4-16.0); Lymphocytes # (A) 1.3 k/uL (1.0-4.8); Lymphocytes % (A) 11 %; MCH 32.3 pg (25.0-35.0); MCHC 34.3 g/dL (31.0-37.0); MCV 94.1 fL (80.0-100.0); Monocytes # (A) 0.4 k/uL (0-1.0); Monocytes % (A) 3 %; Neutrophils # (A) 9.3 k/uL (1.3-7.7); Neutrophils % (A) 84 %; Platelet Count 114 k/uL (150-450); RBC 3.48 m/uL (3.80-5.40); RDW 12.3 % (11.5-15.5); WBC 11.2 k/uL (3.8-10.6)
[2020-07-17 12:20] LABS: Ionized Calcium 5.1 mg/dL (4.5-5.3)
[2020-07-17 12:21] LABS: ABG Base Excess -1.6 mmol/L; ABG HCO3 25 mmol/L (21-25); ABG Oxygen Saturation 99.9 % (94-97); ABG PCO2 49 mmHg (35-45); ABG PH 7.31 (7.35-7.45); ABG PO2 187 mmHg (83-108); ABG TCO2 26 mmol/L (19-24)
--- NOTE | 2020-07-17 12:21 | XR ---
EXAMINATION TYPE: XR chest 1V portable DATE OF EXAM: 07/17/2020 COMPARISON: 07/03/2020 HISTORY: Post cardiac surgery TECHNIQUE: Single frontal view of the chest is obtained. FINDINGS: NG tube seen with the tip near the level of the gastric fundus. Could be advanced as the s cam hole appears at the level the GE junction. ET tube approximately 4.2 cm above akiko. [place] c atheter seen overlying the proximal pulmonary outflow track and there is postsurgical changes. Medias tinal drain and left-sided chest tube with a less than 5% left apical pneumothorax. No overt failure or sizable pleural effusion. Subsegmental retrocardiac changes likely postoperative atelectasis. Rosy elate for epicardial lead. IMPRESSION: 1. Postsurgical change with less than 5% left apical pneumothorax.
[2020-07-17 12:25] LABS: Glucose,Whole Blood 91 mg/dL (75-99)
[2020-07-17 12:26] LABS: Partial Thromboplastin Time 28.7 sec (22.0-30.0)
[2020-07-17] MEDS: ALBUMIN HUMAN 5% 250 ML in EMPTY BAG 1 BAG IVPB PRN ×4 (12:26→14:18)
[2020-07-17 12:30] LABS: ALT 24 U/L (4-34); AST 34 U/L (14-36); African American GFR (CKD) >90 (>60 ml/min/1.73 sqM); Albumin 2.6 g/dL (3.5-5.0); Alkaline Phosphatase 37 U/L (38-126); Anion Gap 2 mmol/L; Blood Urea Nitrogen 8 mg/dL (7-17); Calcium 8.1 mg/dL (8.4-10.2); Carbon Dioxide 24 mmol/L (22-30); Chloride 109 mmol/L (98-107); Glucose 108 mg/dL (74-99); Magnesium 3.8 mg/dL (1.6-2.3); Non-African American GFR(CKD) 83 (>60 ml/min/1.73 sqM); Potassium 4.4 mmol/L (3.5-5.1); Sodium 135 mmol/L (137-145); Total Bilirubin 0.3 mg/dL (0.2-1.3); Total Protein 4.4 g/dL (6.3-8.2)
[2020-07-17] MEDS: IPRATROPIUM-ALBUTEROL 3 ML NEB INHALATION SCH ×3 (12:53→19:24)
[2020-07-17 13:04] LABS: Glucose,Whole Blood 86 mg/dL (75-99)
[2020-07-17] MEDS: ACETAMINOPHEN IV (For NPO) 1,000 MG in EMPTY BAG 1 BAG IVPB SCH ×2 (13:25→18:08)
[2020-07-17] MEDS: LACTATED RINGERS 1,000 ML IV SCH (13:25)
[2020-07-17 14:05] LABS: Glucose,Whole Blood 121 mg/dL (75-99)
[2020-07-17] MEDS ORDERED: ALBUMIN HUMAN 5% 500 ML in EMPTY BAG 1 BAG IVPB ONE (14:20)
[2020-07-17 14:51] LABS: Glucose,Whole Blood 86 mg/dL (75-99)
[2020-07-17] MEDS: CLEVIDIPINE BUTYRATE 25 MG in EMPTY BAG 1 BAG IV SCH (15:39)
[2020-07-17 16:03] LABS: Basophils % (A) 0 %; Eosinophils # (A) 0.1 k/uL (0-0.7); Eosinophils % (A) 0 %; HCT 21.9 % (34.0-46.0); Lymphocytes # (A) 1.2 k/uL (1.0-4.8); Lymphocytes % (A) 10 %; MCH 31.1 pg (25.0-35.0); MCV 94.2 fL (80.0-100.0); Mean Platelet Volume 8.3; Monocytes # (A) 0.6 k/uL (0-1.0); Monocytes % (A) 5 %; Neutrophils # (A) 10.3 k/uL (1.3-7.7); Neutrophils % (A) 85 %; Platelet Count 105 k/uL (150-450); RBC 2.32 m/uL (3.80-5.40); RDW 12.9 % (11.5-15.5); WBC 12.2 k/uL (3.8-10.6)
[2020-07-17 16:05] LABS: Glucose,Whole Blood 115 mg/dL (75-99)
[2020-07-17 16:06] LABS: HGB 7.2 gm/dL (11.4-16.0)
--- NOTE | 2020-07-17 16:41 | P.CNPUL ---
History of Present Illness Consult date: 07/17/20 Requesting physician: Gumaro Jones Reason for consult: other Chief complaint: ICU management/ventilator management. History of present illness: 60-year-old female who was referred to Dr. Jones for aortic stenosis. The patient apparently had a congenital bicuspid aortic valve. Today, she underwent a aortic valve replacement, with a bovine prosthesis. Currently, she is in the intensive care unit. She's currently on the mechanical ventilator. Her current ventilator settings include the volume assist control mode, rate of 12, tidal volume 450, FiO2 40%, and PEEP of 8. On those similar settings except for an FiO2 of 60%, and PEEP of 5, her PaO2 was 187, PaCO2 was 49, pH was 7.31. The patient is currently on lactated Ringer's at 50 mL an hour, and propofol at 10 mcg/kg/m. The patient apparently has a history of ongoing tobacco use, on a daily and regular basis, hypothyroidism, syncope, hyperlipidemia, and a family history of early onset coronary disease. Currently, the patient is starting to wake up from her sedation and anesthesia. Hopefully we'll be able get her moved towards weaning and extubation in the next hour or so. Review of Systems A review of systems cannot be obtained, as the patient's currently sedated and on the mechanical ventilator. When she initially presented to [facility] on July 03, she came in with squeezing type chest pain which was radiating to her jaw and to her back. She also apparently had dizziness, but denied other complaints. Past Medical History Past Medical History: COPD, Hyperlipidemia, Osteoarthritis (OA), Thyroid Disorder Additional Past Medical History / Comment(s): tricuspid valve History of Any Multi-Drug Resistant Organisms: None Reported Past Surgical History: Heart Catheterization, Tonsillectomy, Tubal Ligation Past Anesthesia/Blood Transfusion Reactions: No Reported Reaction Smoking Status: Former smoker - Past Family History Mother Additional Family Medical History / Comment(s): Depression Father Family Medical History: Coronary Artery Disease (CAD) Additional Family Medical History / Comment(s): EtOH abuse Medications and Allergies Home Medications Medication Instructions Recorded Confirmed Type Aspirin EC [Ecotrin Low Dose] 81 mg PO DAILY 07/02/20 07/17/20 History Levothyroxine Sodium [Synthroid] 125 mcg PO DAILY 07/02/20 07/17/20 History buPROPion XL [Wellbutrin XL] 150 mg PO HS 07/02/20 07/17/20 History hydrOXYzine pamoate [Vistaril] 25 mg PO QID PRN #30 cap 07/05/20 07/17/20 Rx Mupirocin [Mupirocin 2%] 1 applic NASAL BID #1 tube 07/15/20 07/17/20 Rx Allergies Allergy/AdvReac Type Severity Reaction Status Date / Time No Known Allergies Allergy Verified 07/17/20 05:53 Physical Exam Osteopathic Statement: *. No significant issues noted on an osteopathic structural exam other than those noted in the History and Physical/Consult. Vitals: Vital Signs Temp Pulse Pulse Resp BP BP BP 07/17/20 16:00 97.5 F L 63 14 85/53 07/17/20 15:45 64 13 85/53 07/17/20 15:38 66 07/17/20 15:30 67 12 07/17/20 15:25 70 07/17/20 15:15 64 13 80/54 07/17/20 15:00 64 13 78/57 07/17/20 14:45 64 13 78/57 07/17/20 14:30 64 12 84/54 07/17/20 14:15 64 13 84/54 07/17/20 14:00 65 12 87/62 07/17/20 13:45 96.1 F L 68 12 86/63 07/17/20 13:30 71 12 90/64 07/17/20 13:15 75 12 90/64 07/17/20 13:00 78 12 95/69 07/17/20 12:45 76 12 95/69 07/17/20 12:30 75 12 113/77 07/17/20 12:15 72 12 113/77 07/17/20 12:00 95.9 F L 69 12 119/74 07/17/20 11:45 69 12 07/17/20 11:41 17 07/17/20 06:14 97 F L 61 16 120/58 139/60 Pulse Ox 07/17/20 16:00 100 07/17/20 15:45 100 07/17/20 15:38 07/17/20 15:30 93 L 07/17/20 15:25 07/17/20 15:15 100 07/17/20 15:00 100 07/17/20 14:45 07/17/20 14:30 100 07/17/20 14:15 100 07/17/20 14:00 100 07/17/20 13:45 100 07/17/20 13:30 99 07/17/20 13:15 100 07/17/20 13:00 07/17/20 12:45 99 07/17/20 12:30 100 07/17/20 12:15 100 07/17/20 12:00 100 07/17/20 11:45 100 07/17/20 11:41 100 07/17/20 06:14 100 Intake and Output 07/17/20 07/17/20 07/17/20 06:59 14:59 22:59 Intake Total 52 Output Total 1500 Balance -1448 Intake: IV 52 Output: Urine 300 Estimated Blood Loss 1200 Other: Weight 66.1 kg ABP, PAP, CO, CI - Last 8 Hours Arterial Blood Pressure 87/50 Arterial Blood Pressure 86/49 Arterial Blood Pressure 97/42 Arterial Blood Pressure 83/50 Arterial Blood Pressure 79/46 Arterial Blood Pressure 79/46 Arterial Blood Pressure 80/46 Arterial Blood Pressure 79/44 Arterial Blood Pressure 89/49 Arterial Blood Pressure 90/53 Arterial Blood Pressure 88/52 Arterial Blood Pressure 87/52 Arterial Blood Pressure 93/60 Arterial Blood Pressure 100/63 Arterial Blood Pressure 106/65 Arterial Blood Pressure 132/77 Arterial Blood Pressure 123/68 Pulmonary Artery Pressure 36/12 Pulmonary Artery Pressure 35/12 Pulmonary Artery Pressure 50/20 Pulmonary Artery Pressure 36/12 Pulmonary Artery Pressure 32/9 Pulmonary Artery Pressure 31/10 Pulmonary Artery Pressure 30/7 Pulmonary Artery Pressure 28/6 Pulmonary Artery Pressure 28/6 Pulmonary Artery Pressure 27/6 Pulmonary Artery Pressure 22/3 Pulmonary Artery Pressure 20/3 Pulmonary Artery Pressure 18/5 Pulmonary Artery Pressure 20/5 Pulmonary Artery Pressure 20/3 Pulmonary Artery Pressure 21/6 Pulmonary Artery Pressure 22/7 Cardiac Output 3.6 Cardiac Output 4 Cardiac Output 3.5 Cardiac Output 3.4 Cardiac Output 3.3 Cardiac Output 3.3 Cardiac Output 2.9 Cardiac Output 2.6 Cardiac Output 2.7 Cardiac Output 3.8 Cardiac Index 2.1 Cardiac Index 2.3 Cardiac Index 2 Cardiac Index 2 Cardiac Index 1.9 Cardiac Index 1.9 Cardiac Index 1.7 Cardiac Index 1.5 Cardiac Index 1.6 Cardiac Index 1.9 No acute distress, sedated on propofol, with an orally placed endotracheal tube. HEENT examination is grossly unremarkable. Mucous membranes are moist. Neck supple. Full range of motion. No adenopathy thyromegaly or neck vein distention. Cardiovascular examination reveals regular rhythm rate. S1-S2 normal. No S3 or S4. No discernible murmur noted. Heart rate is 63 bpm. Lungs reveal mostly clear breath sounds. A few scattered rhonchi are noted. No wheezes or crackles. Breath sounds equal bilaterally. Abdomen is soft, without bowel sounds. No masses. Extremities are intact. No cyanosis clubbing or edema. Skin is without rash or lesion. Neurologic examination cannot be adequately assessed at this time given her level of sedation. Results - Laboratory Findings CBC and BMP: 07/17/20 15:20 07/17/20 11:40 ABG ABG pH 7.31 (7.35-7.45) L 07/17/20 12:16 ABG pCO2 49 mmHg (35-45) H 07/17/20 12:16 ABG pO2 187 mmHg (83-108) H 07/17/20 12:16 ABG O2 Saturation 99.9 % (94-97) H 07/17/20 12:16 PT/INR, D-dimer PT 11.0 sec (9.0-12.0) 07/17/20 11:40 INR 1.0 (<1.2) 07/17/20 11:40 Abnormal lab findings: Abnormal Labs 07/13/20 07/17/20 07/17/20 09:00 08:30 09:03 WBC RBC Hgb Hct Plt Count Neutrophils # ABG pH ABG pCO2 ABG pO2 297 H 261 H ABG HCO3 27 H 27 H ABG Total CO2 28 H 28 H ABG O2 Saturation 99.9 H 99.8 H ABG Hematocrit ABG Potassium ABG Ionized Calcium ABG Glucose 100 H 107 H Hemoglobin 11.3 L Sodium Chloride Glucose POC Glucose (mg/dL) Calcium Magnesium Alkaline Phosphatase Total Protein Albumin Arterial Blood Potassium Arterial Blood Glucose 100 H 107 H Crossmatch See Detail 07/17/20 07/17/20 07/17/20 09:43 10:05 11:01 WBC RBC Hgb Hct Plt Count Neutrophils # ABG pH ABG pCO2 ABG pO2 310 H 388 H 238 H ABG HCO3 ABG Total CO2 25 H 26 H 25 H ABG O2 Saturation 99.9 H 99.9 H 99.7 H ABG Hematocrit 24 L 24 L 28 L ABG Potassium 4.6 H ABG Ionized Calcium 4.3 L 4.4 L 3.9 L ABG Glucose 100 H 115 H 121 H Hemoglobin 7.8 L 8.0 L 9.0 L Sodium Chloride Glucose POC Glucose (mg/dL) Calcium Magnesium Alkaline Phosphatase Total Protein Albumin Arterial Blood Potassium 4.6 H Arterial Blood Glucose 100 H 115 H 121 H Crossmatch 07/17/20 07/17/20 07/17/20 11:40 11:40 11:45 WBC 11.2 H RBC 3.48 L Hgb 11.2 L Hct 32.7 L Plt Count 114 L Neutrophils # 9.3 H ABG pH ABG pCO2 ABG pO2 ABG HCO3 ABG Total CO2 ABG O2 Saturation ABG Hematocrit ABG Potassium ABG Ionized Calcium ABG Glucose Hemoglobin Sodium 135 L Chloride 109 H Glucose 108 H POC Glucose (mg/dL) 110 H Calcium 8.1 L Magnesium 3.8 H Alkaline Phosphatase 37 L Total Protein 4.4 L Albumin 2.6 L Arterial Blood Potassium Arterial Blood Glucose Crossmatch 07/17/20 07/17/20 07/17/20 12:16 14:03 15:20 WBC 12.2 H RBC 2.32 L Hgb 7.2 L D Hct 21.9 L Plt Count 105 L Neutrophils # 10.3 H ABG pH 7.31 L ABG pCO2 49 H ABG pO2 187 H ABG HCO3 ABG Total CO2 26 H ABG O2 Saturation 99.9 H ABG Hematocrit ABG Potassium ABG Ionized Calcium ABG Glucose Hemoglobin Sodium Chloride Glucose POC Glucose (mg/dL) 121 H Calcium Magnesium Alkaline Phosphatase Total Protein Albumin Arterial Blood Potassium Arterial Blood Glucose Crossmatch 07/17/20 16:03 WBC RBC Hgb Hct Plt Count Neutrophils # ABG pH ABG pCO2 ABG pO2 ABG HCO3 ABG Total CO2 ABG O2 Saturation ABG Hematocrit ABG Potassium ABG Ionized Calcium ABG Glucose Hemoglobin Sodium Chloride Glucose POC Glucose (mg/dL) 115 H Calcium Magnesium Alkaline Phosphatase Total Protein Albumin Arterial Blood Potassium Arterial Blood Glucose Crossmatch - Diagnostic Findings Chest x-ray: image reviewed Assessment and Plan Assessment: Postop day #0, status post aortic valve replacement with a bovine prosthesis, and ligation of the left atrial appendage. Routine postoperative ventilator management. History of congenital bicuspid aortic valve, with aortic valve stenosis. No evidence of obstructive coronary disease. Hyperlipidemia. Hypothyroidism. History of chronic tobacco use. Family history of early-onset coronary disease. Plan: Plan dated 07/17/2020. The patient has been weaned down to 40% FiO2. PEEP is increased to 8 from 5, because of bleeding. Currently, arterial blood gases are reasonable, with a very mild respiratory acidosis. The patient is getting lactated Ringer's at 50 mL an hour. The patient is on a very small dose of propofol at 10 mcg/kg/m. She is ready starting to wake up and does nod her head. The patient will be extubated as soon as possible. We will continue to follow. We'll encourage deep breathing coughing clearing his secretions once the patient is extubated. We will also recommend hourly use of the incentive spirometer. No additional recommendations are made. Time with Patient: Greater than 30
[2020-07-17 17:09] LABS: Glucose,Whole Blood 128 mg/dL (75-99)
[2020-07-17 18:05] LABS: Glucose,Whole Blood 155 mg/dL (75-99)
[2020-07-17 18:07] LABS: ABG Base Excess -3.5 mmol/L; ABG HCO3 23 mmol/L (21-25); ABG Oxygen Saturation 99.9 % (94-97); ABG PCO2 44 mmHg (35-45); ABG PH 7.32 (7.35-7.45); ABG PO2 156 mmHg (83-108); ABG TCO2 24 mmol/L (19-24); Allen Test Performed? Yes
[2020-07-17 18:45] LABS: Basophils % (A) 0 %; Eosinophils % (A) 0 %; HGB 7.9 gm/dL (11.4-16.0); Lymphocytes # (A) 0.7 k/uL (1.0-4.8); Lymphocytes % (A) 8 %; MCH 30.9 pg (25.0-35.0); MCHC 32.7 g/dL (31.0-37.0); MCV 94.6 fL (80.0-100.0); Mean Platelet Volume 8.8; Monocytes # (A) 0.4 k/uL (0-1.0); Monocytes % (A) 4 %; Neutrophils # (A) 7.9 k/uL (1.3-7.7); Neutrophils % (A) 87 %; RBC 2.54 m/uL (3.80-5.40); RDW 13.1 % (11.5-15.5)
[2020-07-17] MEDS: ONDANSETRON 4 MG/2 ML VIAL IVP PRN (18:45)
[2020-07-17 19:04] LABS: Glucose,Whole Blood 143 mg/dL (75-99)
[2020-07-17 19:13] LABS: Anisocytosis (M) Present; Hypochromasia (M) Present; Platelet Count 87 k/uL (150-450)
--- NOTE | 2020-07-17 19:36 | CONS ---
CONSULTATION Mrs. Montes is a 60-year-old female who was admitted to undergo elective aortic valve replacement. She was in the hospital earlier this month, and at that time she presented with symptoms of chest discomfort. She has a history of bicuspid aortic valve with preserved systolic function. As part of the evaluation, she underwent a transthoracic echocardiogram that showed a preserved systolic function with a mean gradient of 46 mmHg. She had a cardiac catheterization that showed no evidence of obstructive coronary artery disease and her ZANDRA showed a severe aortic stenosis with a preserved systolic function and mild to moderate aortic regurgitation with small patent foramen ovale. She underwent aortic valve placement today and received a size 23 bioprosthetic aortic valve with closure of the left atrial appendage. She is intubated and sedated in the ICU. Her prior history is remarkable for a history of smoking. She has no history of hypertension. She is nondiabetic. Her medications at the time of presentation included aspirin, levothyroxine, Wellbutrin and . Review of systems could not be obtained. PHYSICAL EXAMINATION: She is a 60-year-old female, intubated, sedated. Her blood pressure is running in the 80s to 90s with a heart rate in the 60s in sinus. HEAD: Normocephalic. Eyes: Sclerae anicteric. NECK: [place] is noted. LUNGS: Clear to auscultation anteriorly. HEART: Regular rate and rhythm. S1, S2. No S3. No rub appreciated. ABDOMEN: Soft. No organomegaly. Hypoactive bowel sounds. EXTREMITIES: No edema. IMPRESSION: 1. Status post aortic valve replacement for severe bicuspid aortic stenosis. 2. Prior history of smoking. RECOMMENDATIONS: From the cardiac standpoint, will continue present therapy. Patient had some oozing from the chest tube. She is receiving albumin. Her blood pressure will be monitored closely. Otherwise we will continue present therapy and, depending on her progress, further recommendations will be made. Thank you for this consult. Will follow with you. MMODL / IJN: [id number] /
[2020-07-17 20:09] LABS: Glucose,Whole Blood 148 mg/dL (75-99)
[2020-07-17] MEDS: HEPARIN SODIUM,PORCINE 5,000 UNIT/ML 1 ML VIAL SQ SCH ×2 (20:22→21:02)
[2020-07-17] MEDS: MUPIROCIN 2% OINT 22 GM TUBE NASAL SCH (20:27)
[2020-07-17 20:42] LABS: Basophils % (A) 0 %; Eosinophils % (A) 0 %; HCT 25.2 % (34.0-46.0); HGB 8.2 gm/dL (11.4-16.0); Lymphocytes # (A) 0.6 k/uL (1.0-4.8); Lymphocytes % (A) 7 %; MCH 30.9 pg (25.0-35.0); MCHC 32.5 g/dL (31.0-37.0); MCV 95.2 fL (80.0-100.0); Mean Platelet Volume 8.7; Monocytes # (A) 0.3 k/uL (0-1.0); Monocytes % (A) 3 %; Neutrophils % (A) 89 %; RBC 2.65 m/uL (3.80-5.40); RDW 13.1 % (11.5-15.5); WBC 7.9 k/uL (3.8-10.6)
[2020-07-17 20:43] LABS: Platelet Count 89 k/uL (150-450)
[2020-07-17] MEDS ORDERED: MUPIROCIN 2% OINT 22 GM TUBE NASAL ONE (20:45)
[2020-07-17 21:16] LABS: Glucose,Whole Blood 146 mg/dL (75-99)
[2020-07-17 22:06] LABS: Glucose,Whole Blood 138 mg/dL (75-99)
[2020-07-17] MEDS: HYDROcodone/APAP 5-325MG 1 EACH TAB PO PRN (23:13)
[2020-07-17 23:19] LABS: Glucose,Whole Blood 133 mg/dL (75-99)
--- NOTE | 2020-07-17 23:33 | P.CONS ---
History of Present Illness - History of Present Illness This is a pleasant 60 years old female with past medical history of COPD, hyp erlipidemia, osteoarthritis, hypothyroidism. She was admitted with congenital bicuspid aortic stenosis for aortic valve replacement. Today is postoperative day #0 Patient is seen in the ICU intubated, just some bleeding from the tube site of the lower chest. She was slightly hypotensive that on her blood pressure improved to 107/53. Joey vitals are stable. Hemoglobin is 8.2, rest of CBC is unremarkable. Glucose control, sodium 135, liver enzymes not elevated. Chest x-ray showing postsurgical changes with less than 5% left apical pneumothorax Patient is currently on aspirin and Plavix, small dose of metoprolol Review of Systems N/a, patient is intubated Past Medical History Past Medical History: COPD, Hyperlipidemia, Osteoarthritis (OA), Thyroid Disorder Additional Past Medical History / Comment(s): tricuspid valve History of Any Multi-Drug Resistant Organisms: None Reported Past Surgical History: Heart Catheterization, Tonsillectomy, Tubal Ligation Past Anesthesia/Blood Transfusion Reactions: No Reported Reaction Smoking Status: Former smoker - Past Family History Mother Additional Family Medical History / Comment(s): Depression Father Family Medical History: Coronary Artery Disease (CAD) Additional Family Medical History / Comment(s): EtOH abuse Medications and Allergies Home Medications Medication Instructions Recorded Confirmed Type Aspirin EC [Ecotrin Low Dose] 81 mg PO DAILY 07/02/20 07/17/20 History Levothyroxine Sodium [Synthroid] 125 mcg PO DAILY 07/02/20 07/17/20 History buPROPion XL [Wellbutrin XL] 150 mg PO HS 07/02/20 07/17/20 History hydrOXYzine pamoate [Vistaril] 25 mg PO QID PRN #30 cap 07/05/20 07/17/20 Rx Mupirocin [Mupirocin 2%] 1 applic NASAL BID #1 tube 07/15/20 07/17/20 Rx Allergies Allergy/AdvReac Type Severity Reaction Status Date / Time No Known Allergies Allergy Verified 07/17/20 05:53 Physical Exam Vitals: Vital Signs Temp Pulse Resp BP BP Pulse Ox 07/17/20 06:14 97 F L 61 16 120/58 139/60 100 Intake and Output 07/16/20 07/17/20 07/17/20 22:59 06:59 14:59 Intake Total 52 Output Total 1500 Balance -1448 Intake: IV 52 Output: Urine 300 Estimated Blood Loss 1200 Other: Weight 66.1 kg -GENERAL: The patient is intubated and sedated HEENT: Pupils are round and equally reacting to light. EOMI. No scleral icterus. No conjunctival pallor. Normocephalic, atraumatic. No pharyngeal erythema. No thyromegaly. CARDIOVASCULAR: S1 and S2 present. No murmurs, rubs, or gallops. PULMONARY: Chest is clear to auscultation, no wheezing or crackles. ABDOMEN: Soft, nontender, nondistended, normoactive bowel sounds. No palpable organomegaly. MUSCULOSKELETAL: No joint swelling or deformity. EXTREMITIES: No cyanosis, clubbing, or pedal edema. NEUROLOGICAL: Gross neurological examination did not reveal any focal deficits. SKIN: No rashes. no petechiae. Results CBC & Chem 7: 07/17/20 20:11 07/17/20 11:40 Labs: Abnormal Lab Results - Last 24 Hours (Table) 07/13/20 07/17/20 07/17/20 Range/Units 09:00 08:30 09:03 WBC (3.8-10.6) k/uL RBC (3.80-5.40) m/uL Hgb (11.4-16.0) gm/dL Hct (34.0-46.0) % Plt Count (150-450) k/uL Neutrophils # (1.3-7.7) k/uL ABG pH (7.35-7.45) ABG pCO2 (35-45) mmHg ABG pO2 297 H 261 H (83-108) mmHg ABG HCO3 27 H 27 H (21-25) mmol/L ABG Total CO2 28 H 28 H (19-24) mmol/L ABG O2 Saturation 99.9 H 99.8 H (94-97) % ABG Hematocrit (34.0-46.0) % ABG Potassium (3.4-4.5) mmol/L ABG Ionized Calcium (4.5-5.3) mg/dL ABG Glucose 100 H 107 H (75-99) mg/dL Hemoglobin 11.3 L (11.4-16.0) gm/dL Sodium (137-145) mmol/L Chloride (98-107) mmol/L Glucose (74-99) mg/dL POC Glucose (mg/dL) (75-99) mg/dL Calcium (8.4-10.2) mg/dL Magnesium (1.6-2.3) mg/dL Alkaline Phosphatase (38-126) U/L Total Protein (6.3-8.2) g/dL Albumin (3.5-5.0) g/dL Arterial Blood Potassium (3.4-4.5) mmol/L Arterial Blood Glucose 100 H 107 H (75-99) mg/dL Crossmatch See Detail 07/17/20 07/17/20 07/17/20 Range/Units 09:43 10:05 11:01 WBC (3.8-10.6) k/uL RBC (3.80-5.40) m/uL Hgb (11.4-16.0) gm/dL Hct (34.0-46.0) % Plt Count (150-450) k/uL Neutrophils # (1.3-7.7) k/uL ABG pH (7.35-7.45) ABG pCO2 (35-45) mmHg ABG pO2 310 H 388 H 238 H (83-108) mmHg ABG HCO3 (21-25) mmol/L ABG Total CO2 25 H 26 H 25 H (19-24) mmol/L ABG O2 Saturation 99.9 H 99.9 H 99.7 H (94-97) % ABG Hematocrit 24 L 24 L 28 L (34.0-46.0) % ABG Potassium 4.6 H (3.4-4.5) mmol/L ABG Ionized Calcium 4.3 L 4.4 L 3.9 L (4.5-5.3) mg/dL ABG Glucose 100 H 115 H 121 H (75-99) mg/dL Hemoglobin 7.8 L 8.0 L 9.0 L (11.4-16.0) gm/dL Sodium (137-145) mmol/L Chloride (98-107) mmol/L Glucose (74-99) mg/dL POC Glucose (mg/dL) (75-99) mg/dL Calcium (8.4-10.2) mg/dL Magnesium (1.6-2.3) mg/dL Alkaline Phosphatase (38-126) U/L Total Protein (6.3-8.2) g/dL Albumin (3.5-5.0) g/dL Arterial Blood Potassium 4.6 H (3.4-4.5) mmol/L Arterial Blood Glucose 100 H 115 H 121 H (75-99) mg/dL Crossmatch 07/17/20 07/17/20 07/17/20 Range/Units 11:40 11:40 11:45 WBC 11.2 H (3.8-10.6) k/uL RBC 3.48 L (3.80-5.40) m/uL Hgb 11.2 L (11.4-16.0) gm/dL Hct 32.7 L (34.0-46.0) % Plt Count 114 L (150-450) k/uL Neutrophils # 9.3 H (1.3-7.7) k/uL ABG pH (7.35-7.45) ABG pCO2 (35-45) mmHg ABG pO2 (83-108) mmHg ABG HCO3 (21-25) mmol/L ABG Total CO2 (19-24) mmol/L ABG O2 Saturation (94-97) % ABG Hematocrit (34.0-46.0) % ABG Potassium (3.4-4.5) mmol/L ABG Ionized Calcium (4.5-5.3) mg/dL ABG Glucose (75-99) mg/dL Hemoglobin (11.4-16.0) gm/dL Sodium 135 L (137-145) mmol/L Chloride 109 H (98-107) mmol/L Glucose 108 H (74-99) mg/dL POC Glucose (mg/dL) 110 H (75-99) mg/dL Calcium 8.1 L (8.4-10.2) mg/dL Magnesium 3.8 H (1.6-2.3) mg/dL Alkaline Phosphatase 37 L (38-126) U/L Total Protein 4.4 L (6.3-8.2) g/dL Albumin 2.6 L (3.5-5.0) g/dL Arterial Blood Potassium (3.4-4.5) mmol/L Arterial Blood Glucose (75-99) mg/dL Crossmatch 07/17/20 Range/Units 12:16 WBC (3.8-10.6) k/uL RBC (3.80-5.40) m/uL Hgb (11.4-16.0) gm/dL Hct (34.0-46.0) % Plt Count (150-450) k/uL Neutrophils # (1.3-7.7) k/uL ABG pH 7.31 L (7.35-7.45) ABG pCO2 49 H (35-45) mmHg ABG pO2 187 H (83-108) mmHg ABG HCO3 (21-25) mmol/L ABG Total CO2 26 H (19-24) mmol/L ABG O2 Saturation 99.9 H (94-97) % ABG Hematocrit (34.0-46.0) % ABG Potassium (3.4-4.5) mmol/L ABG Ionized Calcium (4.5-5.3) mg/dL ABG Glucose (75-99) mg/dL Hemoglobin (11.4-16.0) gm/dL Sodium (137-145) mmol/L Chloride (98-107) mmol/L Glucose (74-99) mg/dL POC Glucose (mg/dL) (75-99) mg/dL Calcium (8.4-10.2) mg/dL Magnesium (1.6-2.3) mg/dL Alkaline Phosphatase (38-126) U/L Total Protein (6.3-8.2) g/dL Albumin (3.5-5.0) g/dL Arterial Blood Potassium (3.4-4.5) mmol/L Arterial Blood Glucose (75-99) mg/dL Crossmatch Assessment and Plan Assessment: congenital bicuspid aortic stenosis. Status post aortic valve replacement Hyperlipidemia Hypothyroidism COPD, not in acute exacerbation Plan: This is a pleasant 60 years old female status post aortic valve replacement. Continue with vent management as per pulmonary/critical care team. Continue with aspirin, Plavix and metoprolol. Labs and medication were reviewed.. Continue same treatment. Continue with symptomatic treatment. Resume home medication. Monitor lytes and vitals. DVT and GI prophylaxis. Further recommendations as per clinical course of the patient DVT prophylaxis: Subcutaneous heparin GI Prophylaxis: Ppi
[2020-07-18 00:07] LABS: Glucose,Whole Blood 135 mg/dL (75-99)
[2020-07-18 01:11] LABS: Glucose,Whole Blood 138 mg/dL (75-99)
[2020-07-18 02:07] LABS: Glucose,Whole Blood 136 mg/dL (75-99)
[2020-07-18 03:04] LABS: Glucose,Whole Blood 132 mg/dL (75-99)
[2020-07-18] MEDS: HYDROcodone/APAP 5-325MG 1 EACH TAB PO PRN ×5 (03:50→22:59)
[2020-07-18 04:00] LABS: Glucose,Whole Blood 129 mg/dL (75-99)
[2020-07-18 04:09] LABS: Basophils % (A) 0 %; Eosinophils % (A) 0 %; HCT 24.9 % (34.0-46.0); HGB 8.5 gm/dL (11.4-16.0); Lymphocytes # (A) 0.9 k/uL (1.0-4.8); Lymphocytes % (A) 9 %; MCH 32.1 pg (25.0-35.0); MCHC 33.9 g/dL (31.0-37.0); MCV 94.5 fL (80.0-100.0); Mean Platelet Volume 8.5; Monocytes # (A) 0.4 k/uL (0-1.0); Monocytes % (A) 4 %; Neutrophils # (A) 8.8 k/uL (1.3-7.7); Neutrophils % (A) 86 %; RBC 2.64 m/uL (3.80-5.40); RDW 12.7 % (11.5-15.5); WBC 10.3 k/uL (3.8-10.6)
[2020-07-18 04:10] LABS: Platelet Count 98 k/uL (150-450)
[2020-07-18 04:28] LABS: Ionized Calcium 4.7 mg/dL (4.5-5.3)
[2020-07-18 04:30] LABS: ALT 16 U/L (4-34); AST 37 U/L (14-36); African American GFR (CKD) >90 (>60 ml/min/1.73 sqM); Albumin 3.4 g/dL (3.5-5.0); Alkaline Phosphatase 25 U/L (38-126); Anion Gap 6 mmol/L; Blood Urea Nitrogen 12 mg/dL (7-17); Calcium 7.7 mg/dL (8.4-10.2); Carbon Dioxide 22 mmol/L (22-30); Chloride 106 mmol/L (98-107); Glucose 119 mg/dL (74-99); Magnesium 2.7 mg/dL (1.6-2.3); Non-African American GFR(CKD) 85 (>60 ml/min/1.73 sqM); Potassium 4.7 mmol/L (3.5-5.1); Sodium 134 mmol/L (137-145); Total Bilirubin 0.6 mg/dL (0.2-1.3)
[2020-07-18] MEDS: ONDANSETRON 4 MG/2 ML VIAL IVP PRN ×2 (04:43→13:01)
[2020-07-18] MEDS: ALBUMIN HUMAN 5% 250 ML in EMPTY BAG 1 BAG IVPB PRN ×6 (04:51→15:36)
[2020-07-18] MEDS: HEPARIN SODIUM,PORCINE 5,000 UNIT/ML 1 ML VIAL SQ SCH ×3 (05:15→20:20)
[2020-07-18 05:19] LABS: Glucose,Whole Blood 127 mg/dL (75-99)
[2020-07-18] MEDS: LACTATED RINGERS 1,000 ML IV SCH (05:29)
[2020-07-18 06:41] LABS: Glucose,Whole Blood 127 mg/dL (75-99)
[2020-07-18] MEDS: METOCLOPRAMIDE 5 MG/ML 2 ML VIAL IVP PRN ×2 (07:32→13:01)
[2020-07-18 07:55] LABS: Glucose,Whole Blood 106 mg/dL (75-99)
[2020-07-18] MEDS: IPRATROPIUM-ALBUTEROL 3 ML NEB INHALATION SCH ×4 (08:17→20:09)
[2020-07-18] MEDS ORDERED: ALBUMIN HUMAN 25% 50 ML in EMPTY BAG 1 BAG IVPB ONE (08:45)
[2020-07-18 08:53] LABS: Glucose,Whole Blood 109 mg/dL (75-99)
[2020-07-18] MEDS ORDERED: MAGNESIUM HYDROXIDE 2,400 MG/10 ML CUP PO PRN (09:00)
[2020-07-18] MEDS ORDERED: ATORVASTATIN 40 MG TAB PO SCH (09:00)
[2020-07-18] MEDS ORDERED: bisacodyL 10 MG SUPP RECTAL PRN (09:00)
--- NOTE | 2020-07-18 09:01 | XR ---
EXAMINATION TYPE: XR chest 1V portable DATE OF EXAM: 07/18/2020 COMPARISON: Prior chest x-ray 07/17/2020 HISTORY: Postop cardiac surgery TECHNIQUE: Single frontal view of the chest is obtained. FINDINGS: Interval removal of the endotracheal tube and NG tube. Left chest tube remains in place, r ight jugular central venous catheter shows the distal tip overlying the pulmonary artery. Patient is post aortic valve replacement, left atrial appendage clip placement. There is no sizable pneumothorax . Median sternal drain remains in place. Interval development of bibasilar increased attenuation, the re are overlying artifacts. Patient is rotated. Cardiac mediastinal silhouette shows an accentuated a ppearance possibly at least in part due to rotation, technique. IMPRESSION: Interval extubation, bibasilar atelectasis, difficult to exclude pneumonia or small effu halie.
[2020-07-18] MEDS: MUPIROCIN 2% OINT 22 GM TUBE NASAL SCH ×2 (09:02→20:22)
[2020-07-18] MEDS: ASPIRIN 325 MG TAB PO SCH (09:02)
[2020-07-18] MEDS: PANTOPRAZOLE 40 MG/10 ML VIAL IVP SCH (09:02)
[2020-07-18] MEDS: CLOPIDOGREL 75 MG TAB PO SCH (09:02)
[2020-07-18] MEDS: METOPROLOL TARTRATE 12.5 MG TAB PO SCH ×2 (09:03→21:26)
--- NOTE | 2020-07-18 09:15 | P.PN ---
Subjective Progress Note Date: 07/18/20 Principal diagnosis: Congenital bicuspid aortic valve, aortic valve replacement with bovine prosthesis 60-year-old female who was referred to Dr. Jones for aortic stenosis. The patient apparently had a congenital bicuspid aortic valve. Today, she underwent a aortic valve replacement, with a bovine prosthesis. Currently, she is in the intensive care unit. She's currently on the mechanical ventilator. Her current ventilator settings include the volume assist control mode, rate of 12, tidal volume 450, FiO2 40%, and PEEP of 8. On those similar settings except for an Fi O2 of 60%, and PEEP of 5, her PaO2 was 187, PaCO2 was 49, pH was 7.31. The patient is currently on lactated Ringer's at 50 mL an hour, and propofol at 10 mcg/kg/m. The patient apparently has a history of ongoing tobacco use, on a daily and regular basis, hypothyroidism, syncope, hyperlipidemia, and a family history of early onset coronary disease. Currently, the patient is starting to wake up from her sedation and anesthesia. Hopefully we'll be able get her moved towards weaning and extubation in the next hour or so. The patient is seen today 07/18/2020 and follow-up in the intensive care unit. His postoperative day #1 of bovine prosthetic aortic valve replacement secondary to bicuspid aortic valve. Left atrial appendage placement. She was extubated yesterday approximate 7 hours following surgery. She is currently sitting up in a chair at the bedside. Awake and alert in no acute distress. She is maintaining O2 saturations in the low 90s on 1 L/m per nasal cannula. She has lactated Ringer's at 50 MLS per hour. Remains on bronchodilators. She is on an insulin drip at 1 unit per hour. She is pulling approximate 500 mL's on her incentive spirometer. Chest x-ray reveals bibasilar atelectasis with possible small effusions. Mediastinal and left sided chest tube remains in place. Right jugular triple-lumen in place. She is status post 1 unit packed red blood cells. Current hemoglobin 8.5. White count 10.3. Platelet count 98,000. Sodium 134. Potassium 4.7. Creatinine 0.76. AST 37. ALT 16. Albumin 3.4. She has received 750 ML's of 5% albumin. Blood pressure remains with systolic pressures in the 80s. CVP of 12. PA pressure 35/80. Urine output marginal. The plan is for 25% albumin. Objective - Vital Signs Vital signs: Vital Signs Temp 99.3 F 07/18/20 08:00 Pulse 62 07/18/20 08:28 Resp 27 H 07/18/20 08:00 BP 84/52 07/18/20 08:00 Pulse Ox 92 L 07/18/20 08:00 Intake & Output 07/17/20 07/18/20 07/18/20 18:59 06:59 18:59 Intake Total 3003.668 1387.807 152 Output Total 2800 965 35 Balance 203.668 422.807 117 Weight 72.3 kg Intake: IV 2655 1382 152 ACETAMINOPHEN IV (For NPO 100 ) 1,000 mg In Empty Bag 1 bag @ 400 mls/hr IVPB Q6HR [facility] Rx#:[id number] Albumin Human 5% 250 ml 1250 500 In Empty Bag 1 bag @ 250 mls/hr IVPB Q1HR PRN Rx#: [id number] Albumin Human 5% 500 ml @ 500 Per Protocol IVPB ONCE ONE Rx#:[id number] CO/CI 240 190 40 Lactated Ringers 1,000 ml 350 600 100 @ 50 mls/hr IV .Q20H [facility] Rx#:[id number] Pressure Bag 63 42 12 ceFAZolin 2 gm In Sodium 100 50 Chloride 0.9% 50 ml @ 100 mls/hr IVPB Q8HR [facility] Rx# :[id number] Intake, IV Titration 38.668 5.807 Amount Insulin Regular 100 unit 5.807 In Sodium Chloride 0.9% 100 ml @ Per Protocol IV .Q0M [facility] Rx#:[id number] propofoL 500 mg In Empty 38.668 Bag 1 bag @ Titrate IV . Q0M [facility] Rx#:[id number] Blood Product 310 Rc As-1 Unit 310 [id number] Output: Chest Tube Drainage 740 430 10 Left Pleural/Mediastinal 740 430 10 Urine 860 535 25 Estimated Blood Loss 1200 Other: Voiding Method Indwelling Catheter Indwelling Catheter ABP, PAP, CO, CI - Last Documented Arterial Blood Pressure 86/37 Pulmonary Artery Pressure 33/6 Cardiac Output 3.6 Cardiac Index 2.1 - Exam GENERAL EXAM: Alert, very pleasant 60-year-old female patient, on 1 L nasal cannula, up in a chair at the bedside, comfortable in no apparent distress. HEAD: Normocephalic. EYES: Normal reaction of pupils, equal size. NOSE: Clear with pink turbinates. THROAT: No erythema or exudates. NECK: No masses, no JVD. CHEST: Sternal dressing dry and intact. Hugger in place. Mediastinal and left tubes in place. LUNGS: Equal air entry with bilateral crackles. CVS: S1 and S2 normal with no audible murmur, regular rhythm. ABDOMEN: No hepatosplenomegaly, normal bowel sounds, no guarding or rigidity. SPINE: No scoliosis or deformity SKIN: No rashes CENTRAL NERVOUS SYSTEM: No focal deficits, tone is normal in all 4 extremities. EXTREMITIES: There is 1-2+ peripheral edema. No clubbing, no cyanosis. Peripheral pulses are intact. - Labs CBC & Chem 7: 07/18/20 04:00 07/18/20 04:00 Labs: Abnormal Lab Results - Last 24 Hours (Table) 07/13/20 07/17/20 07/17/20 Range/Units 09:00 08:30 09:03 WBC (3.8-10.6) k/uL RBC (3.80-5.40) m/uL Hgb (11.4-16.0) gm/dL Hct (34.0-46.0) % Plt Count (150-450) k/uL Neutrophils # (1.3-7.7) k/uL Lymphocytes # (1.0-4.8) k/uL ABG pH (7.35-7.45) ABG pCO2 (35-45) mmHg ABG pO2 297 H 261 H (83-108) mmHg ABG HCO3 27 H 27 H (21-25) mmol/L ABG Total CO2 28 H 28 H (19-24) mmol/L ABG O2 Saturation 99.9 H 99.8 H (94-97) % ABG Hematocrit (34.0-46.0) % ABG Potassium (3.4-4.5) mmol/L ABG Ionized Calcium (4.5-5.3) mg/dL ABG Glucose 100 H 107 H (75-99) mg/dL Hemoglobin 11.3 L (11.4-16.0) gm/dL Sodium (137-145) mmol/L Chloride (98-107) mmol/L Glucose (74-99) mg/dL POC Glucose (mg/dL) (75-99) mg/dL Calcium (8.4-10.2) mg/dL Magnesium (1.6-2.3) mg/dL AST (14-36) U/L Alkaline Phosphatase (38-126) U/L Total Protein (6.3-8.2) g/dL Albumin (3.5-5.0) g/dL Arterial Blood Potassium (3.4-4.5) mmol/L Arterial Blood Glucose 100 H 107 H (75-99) mg/dL Crossmatch See Detail 07/17/20 07/17/20 07/17/20 Range/Units 09:43 10:05 11:01 WBC (3.8-10.6) k/uL RBC (3.80-5.40) m/uL Hgb (11.4-16.0) gm/dL Hct (34.0-46.0) % Plt Count (150-450) k/uL Neutrophils # (1.3-7.7) k/uL Lymphocytes # (1.0-4.8) k/uL ABG pH (7.35-7.45) ABG pCO2 (35-45) mmHg ABG pO2 310 H 388 H 238 H (83-108) mmHg ABG HCO3 (21-25) mmol/L ABG Total CO2 25 H 26 H 25 H (19-24) mmol/L ABG O2 Saturation 99.9 H 99.9 H 99.7 H (94-97) % ABG Hematocrit 24 L 24 L 28 L (34.0-46.0) % ABG Potassium 4.6 H (3.4-4.5) mmol/L ABG Ionized Calcium 4.3 L 4.4 L 3.9 L (4.5-5.3) mg/dL ABG Glucose 100 H 115 H 121 H (75-99) mg/dL Hemoglobin 7.8 L 8.0 L 9.0 L (11.4-16.0) gm/dL Sodium (137-145) mmol/L Chloride (98-107) mmol/L Glucose (74-99) mg/dL POC Glucose (mg/dL) (75-99) mg/dL Calcium (8.4-10.2) mg/dL Magnesium (1.6-2.3) mg/dL AST (14-36) U/L Alkaline Phosphatase (38-126) U/L Total Protein (6.3-8.2) g/dL Albumin (3.5-5.0) g/dL Arterial Blood Potassium 4.6 H (3.4-4.5) mmol/L Arterial Blood Glucose 100 H 115 H 121 H (75-99) mg/dL Crossmatch 07/17/20 07/17/20 07/17/20 Range/Units 11:40 11:40 11:45 WBC 11.2 H (3.8-10.6) k/uL RBC 3.48 L (3.80-5.40) m/uL Hgb 11.2 L (11.4-16.0) gm/dL Hct 32.7 L (34.0-46.0) % Plt Count 114 L (150-450) k/uL Neutrophils # 9.3 H (1.3-7.7) k/uL Lymphocytes # (1.0-4.8) k/uL ABG pH (7.35-7.45) ABG pCO2 (35-45) mmHg ABG pO2 (83-108) mmHg ABG HCO3 (21-25) mmol/L ABG Total CO2 (19-24) mmol/L ABG O2 Saturation (94-97) % ABG Hematocrit (34.0-46.0) % ABG Potassium (3.4-4.5) mmol/L ABG Ionized Calcium (4.5-5.3) mg/dL ABG Glucose (75-99) mg/dL Hemoglobin (11.4-16.0) gm/dL Sodium 135 L (137-145) mmol/L Chloride 109 H (98-107) mmol/L Glucose 108 H (74-99) mg/dL POC Glucose (mg/dL) 110 H (75-99) mg/dL Calcium 8.1 L (8.4-10.2) mg/dL Magnesium 3.8 H (1.6-2.3) mg/dL AST (14-36) U/L Alkaline Phosphatase 37 L (38-126) U/L Total Protein 4.4 L (6.3-8.2) g/dL Albumin 2.6 L (3.5-5.0) g/dL Arterial Blood Potassium (3.4-4.5) mmol/L Arterial Blood Glucose (75-99) mg/dL Crossmatch 07/17/20 07/17/20 07/17/20 Range/Units 12:16 14:03 15:20 WBC 12.2 H (3.8-10.6) k/uL RBC 2.32 L (3.80-5.40) m/uL Hgb 7.2 L D (11.4-16.0) gm/dL Hct 21.9 L (34.0-46.0) % Plt Count 105 L (150-450) k/uL Neutrophils # 10.3 H (1.3-7.7) k/uL Lymphocytes # (1.0-4.8) k/uL ABG pH 7.31 L (7.35-7.45) ABG pCO2 49 H (35-45) mmHg ABG pO2 187 H (83-108) mmHg ABG HCO3 (21-25) mmol/L ABG Total CO2 26 H (19-24) mmol/L ABG O2 Saturation 99.9 H (94-97) % ABG Hematocrit (34.0-46.0) % ABG Potassium (3.4-4.5) mmol/L ABG Ionized Calcium (4.5-5.3) mg/dL ABG Glucose (75-99) mg/dL Hemoglobin (11.4-16.0) gm/dL Sodium (137-145) mmol/L Chloride (98-107) mmol/L Glucose (74-99) mg/dL POC Glucose (mg/dL) 121 H (75-99) mg/dL Calcium (8.4-10.2) mg/dL Magnesium (1.6-2.3) mg/dL AST (14-36) U/L Alkaline Phosphatase (38-126) U/L Total Protein (6.3-8.2) g/dL Albumin (3.5-5.0) g/dL Arterial Blood Potassium (3.4-4.5) mmol/L Arterial Blood Glucose (75-99) mg/dL Crossmatch 07/17/20 07/17/20 07/17/20 Range/Units 16:03 17:08 18:04 WBC (3.8-10.6) k/uL RBC (3.80-5.40) m/uL Hgb (11.4-16.0) gm/dL Hct (34.0-46.0) % Plt Count (150-450) k/uL Neutrophils # (1.3-7.7) k/uL Lymphocytes # (1.0-4.8) k/uL ABG pH (7.35-7.45) ABG pCO2 (35-45) mmHg ABG pO2 (83-108) mmHg ABG HCO3 (21-25) mmol/L ABG Total CO2 (19-24) mmol/L ABG O2 Saturation (94-97) % ABG Hematocrit (34.0-46.0) % ABG Potassium (3.4-4.5) mmol/L ABG Ionized Calcium (4.5-5.3) mg/dL ABG Glucose (75-99) mg/dL Hemoglobin (11.4-16.0) gm/dL Sodium (137-145) mmol/L Chloride (98-107) mmol/L Glucose (74-99) mg/dL POC Glucose (mg/dL) 115 H 128 H 155 H (75-99) mg/dL Calcium (8.4-10.2) mg/dL Magnesium (1.6-2.3) mg/dL AST (14-36) U/L Alkaline Phosphatase (38-126) U/L Total Protein (6.3-8.2) g/dL Albumin (3.5-5.0) g/dL Arterial Blood Potassium (3.4-4.5) mmol/L Arterial Blood Glucose (75-99) mg/dL Crossmatch 07/17/20 07/17/20 07/17/20 Range/Units 18:05 18:09 19:02 WBC (3.8-10.6) k/uL RBC 2.54 L (3.80-5.40) m/uL Hgb 7.9 L (11.4-16.0) gm/dL Hct 24.0 L (34.0-46.0) % Plt Count 87 L (150-450) k/uL Neutrophils # 7.9 H (1.3-7.7) k/uL Lymphocytes # 0.7 L (1.0-4.8) k/uL ABG pH 7.32 L (7.35-7.45) ABG pCO2 (35-45) mmHg ABG pO2 156 H (83-108) mmHg ABG HCO3 (21-25) mmol/L ABG Total CO2 (19-24) mmol/L ABG O2 Saturation 99.9 H (94-97) % ABG Hematocrit (34.0-46.0) % ABG Potassium (3.4-4.5) mmol/L ABG Ionized Calcium (4.5-5.3) mg/dL ABG Glucose (75-99) mg/dL Hemoglobin (11.4-16.0) gm/dL Sodium (137-145) mmol/L Chloride (98-107) mmol/L Glucose (74-99) mg/dL POC Glucose (mg/dL) 143 H (75-99) mg/dL Calcium (8.4-10.2) mg/dL Magnesium (1.6-2.3) mg/dL AST (14-36) U/L Alkaline Phosphatase (38-126) U/L Total Protein (6.3-8.2) g/dL Albumin (3.5-5.0) g/dL Arterial Blood Potassium (3.4-4.5) mmol/L Arterial Blood Glucose (75-99) mg/dL Crossmatch 07/17/20 07/17/20 07/17/20 Range/Units 20:05 20:11 21:14 WBC (3.8-10.6) k/uL RBC 2.65 L (3.80-5.40) m/uL Hgb 8.2 L (11.4-16.0) gm/dL Hct 25.2 L (34.0-46.0) % Plt Count 89 L (150-450) k/uL Neutrophils # (1.3-7.7) k/uL Lymphocytes # 0.6 L (1.0-4.8) k/uL ABG pH (7.35-7.45) ABG pCO2 (35-45) mmHg ABG pO2 (83-108) mmHg ABG HCO3 (21-25) mmol/L ABG Total CO2 (19-24) mmol/L ABG O2 Saturation (94-97) % ABG Hematocrit (34.0-46.0) % ABG Potassium (3.4-4.5) mmol/L ABG Ionized Calcium (4.5-5.3) mg/dL ABG Glucose (75-99) mg/dL Hemoglobin (11.4-16.0) gm/dL Sodium (137-145) mmol/L Chloride (98-107) mmol/L Glucose (74-99) mg/dL POC Glucose (mg/dL) 148 H 146 H (75-99) mg/dL Calcium (8.4-10.2) mg/dL Magnesium (1.6-2.3) mg/dL AST (14-36) U/L Alkaline Phosphatase (38-126) U/L Total Protein (6.3-8.2) g/dL Albumin (3.5-5.0) g/dL Arterial Blood Potassium (3.4-4.5) mmol/L Arterial Blood Glucose (75-99) mg/dL Crossmatch 07/17/20 07/17/20 07/18/20 Range/Units 22:04 23:17 00:06 WBC (3.8-10.6) k/uL RBC (3.80-5.40) m/uL Hgb (11.4-16.0) gm/dL Hct (34.0-46.0) % Plt Count (150-450) k/uL Neutrophils # (1.3-7.7) k/uL Lymphocytes # (1.0-4.8) k/uL ABG pH (7.35-7.45) ABG pCO2 (35-45) mmHg ABG pO2 (83-108) mmHg ABG HCO3 (21-25) mmol/L ABG Total CO2 (19-24) mmol/L ABG O2 Saturation (94-97) % ABG Hematocrit (34.0-46.0) % ABG Potassium (3.4-4.5) mmol/L ABG Ionized Calcium (4.5-5.3) mg/dL ABG Glucose (75-99) mg/dL Hemoglobin (11.4-16.0) gm/dL Sodium (137-145) mmol/L Chloride (98-107) mmol/L Glucose (74-99) mg/dL POC Glucose (mg/dL) 138 H 133 H 135 H (75-99) mg/dL Calcium (8.4-10.2) mg/dL Magnesium (1.6-2.3) mg/dL AST (14-36) U/L Alkaline Phosphatase (38-126) U/L Total Protein (6.3-8.2) g/dL Albumin (3.5-5.0) g/dL Arterial Blood Potassium (3.4-4.5) mmol/L Arterial Blood Glucose (75-99) mg/dL Crossmatch 07/18/20 07/18/20 07/18/20 Range/Units 01:09 02:05 03:02 WBC (3.8-10.6) k/uL RBC (3.80-5.40) m/uL Hgb (11.4-16.0) gm/dL Hct (34.0-46.0) % Plt Count (150-450) k/uL Neutrophils # (1.3-7.7) k/uL Lymphocytes # (1.0-4.8) k/uL ABG pH (7.35-7.45) ABG pCO2 (35-45) mmHg ABG pO2 (83-108) mmHg ABG HCO3 (21-25) mmol/L ABG Total CO2 (19-24) mmol/L ABG O2 Saturation (94-97) % ABG Hematocrit (34.0-46.0) % ABG Potassium (3.4-4.5) mmol/L ABG Ionized Calcium (4.5-5.3) mg/dL ABG Glucose (75-99) mg/dL Hemoglobin (11.4-16.0) gm/dL Sodium (137-145) mmol/L Chloride (98-107) mmol/L Glucose (74-99) mg/dL POC Glucose (mg/dL) 138 H 136 H 132 H (75-99) mg/dL Calcium (8.4-10.2) mg/dL Magnesium (1.6-2.3) mg/dL AST (14-36) U/L Alkaline Phosphatase (38-126) U/L Total Protein (6.3-8.2) g/dL Albumin (3.5-5.0) g/dL Arterial Blood Potassium (3.4-4.5) mmol/L Arterial Blood Glucose (75-99) mg/dL Crossmatch 07/18/20 07/18/2007/18/21 Range/Units 03:58 04:00 04:00 WBC (3.8-10.6) k/uL RBC 2.64 L (3.80-5.40) m/uL Hgb 8.5 L (11.4-16.0) gm/dL Hct 24.9 L (34.0-46.0) % Plt Count 98 L (150-450) k/uL Neutrophils # 8.8 H (1.3-7.7) k/uL Lymphocytes # 0.9 L (1.0-4.8) k/uL ABG pH (7.35-7.45) ABG pCO2 (35-45) mmHg ABG pO2 (83-108) mmHg ABG HCO3 (21-25) mmol/L ABG Total CO2 (19-24) mmol/L ABG O2 Saturation (94-97) % ABG Hematocrit (34.0-46.0) % ABG Potassium (3.4-4.5) mmol/L ABG Ionized Calcium (4.5-5.3) mg/dL ABG Glucose (75-99) mg/dL Hemoglobin (11.4-16.0) gm/dL Sodium 134 L (137-145) mmol/L Chloride (98-107) mmol/L Glucose 119 H (74-99) mg/dL POC Glucose (mg/dL) 129 H (75-99) mg/dL Calcium 7.7 L (8.4-10.2) mg/dL Magnesium 2.7 H (1.6-2.3) mg/dL AST 37 H (14-36) U/L Alkaline Phosphatase 25 L (38-126) U/L Total Protein 5.0 L (6.3-8.2) g/dL Albumin 3.4 L (3.5-5.0) g/dL Arterial Blood Potassium (3.4-4.5) mmol/L Arterial Blood Glucose (75-99) mg/dL Crossmatch 07/18/20 07/18/20 07/18/20 Range/Units 05:08 06:39 07:54 WBC (3.8-10.6) k/uL RBC (3.80-5.40) m/uL Hgb (11.4-16.0) gm/dL Hct (34.0-46.0) % Plt Count (150-450) k/uL Neutrophils # (1.3-7.7) k/uL Lymphocytes # (1.0-4.8) k/uL ABG pH (7.35-7.45) ABG pCO2 (35-45) mmHg ABG pO2 (83-108) mmHg ABG HCO3 (21-25) mmol/L ABG Total CO2 (19-24) mmol/L ABG O2 Saturation (94-97) % ABG Hematocrit (34.0-46.0) % ABG Potassium (3.4-4.5) mmol/L ABG Ionized Calcium (4.5-5.3) mg/dL ABG Glucose (75-99) mg/dL Hemoglobin (11.4-16.0) gm/dL Sodium (137-145) mmol/L Chloride (98-107) mmol/L Glucose (74-99) mg/dL POC Glucose (mg/dL) 127 H 127 H 106 H (75-99) mg/dL Calcium (8.4-10.2) mg/dL Magnesium (1.6-2.3) mg/dL AST (14-36) U/L Alkaline Phosphatase (38-126) U/L Total Protein (6.3-8.2) g/dL Albumin (3.5-5.0) g/dL Arterial Blood Potassium (3.4-4.5) mmol/L Arterial Blood Glucose (75-99) mg/dL Crossmatch 07/18/20 Range/Units 08:52 WBC (3.8-10.6) k/uL RBC (3.80-5.40) m/uL Hgb (11.4-16.0) gm/dL Hct (34.0-46.0) % Plt Count (150-450) k/uL Neutrophils # (1.3-7.7) k/uL Lymphocytes # (1.0-4.8) k/uL ABG pH (7.35-7.45) ABG pCO2 (35-45) mmHg ABG pO2 (83-108) mmHg ABG HCO3 (21-25) mmol/L ABG Total CO2 (19-24) mmol/L ABG O2 Saturation (94-97) % ABG Hematocrit (34.0-46.0) % ABG Potassium (3.4-4.5) mmol/L ABG Ionized Calcium (4.5-5.3) mg/dL ABG Glucose (75-99) mg/dL Hemoglobin (11.4-16.0) gm/dL Sodium (137-145) mmol/L Chloride (98-107) mmol/L Glucose (74-99) mg/dL POC Glucose (mg/dL) 109 H (75-99) mg/dL Calcium (8.4-10.2) mg/dL Magnesium (1.6-2.3) mg/dL AST (14-36) U/L Alkaline Phosphatase (38-126) U/L Total Protein (6.3-8.2) g/dL Albumin (3.5-5.0) g/dL Arterial Blood Potassium (3.4-4.5) mmol/L Arterial Blood Glucose (75-99) mg/dL Crossmatch Assessment and Plan Assessment: Congenital bicuspid aortic valve with a aortic valve stenosis, status post aortic valve replacement with a bovine prosthesis, and ligation of the left atrial appendage. This operative day #1 Routine postoperative ventilator management. Extubated 7 hours postop on July 14 Hyperlipidemia. Hypothyroidism. History of chronic tobacco use. No evidence of obstructive coronary disease. Family history of early-onset coronary disease. Plan: The patient was seen and evaluated by Dr. Crenshaw Chest x-ray and labs reviewed Blood pressure marginal, receiving albumin Continue bronchodilators Encouraged regarding the increased use of the incentive spirometer and cough and deep breathing exercises We will continue to follow and make further recommendations based on her clinical status I, the cosigning physician, performed a history & physical examination of the patient. Lungs sounds with crackles in the bilateral posterior bases. Maintaining good O2 saturations in the 90s on 1 L/m per nasal cannula I discussed the assessment and plan of care with my nurse practitioner, Sally Prather. I attest to the above note as dictated by her.
--- NOTE | 2020-07-18 09:51 | PN ---
PROGRESS NOTE Mrs. Montes is a 60-year-old female who was admitted yesterday and underwent elective aortic valve replacement for severe aortic stenosis. She is extubated, sitting up in the chair. She is feeling well. She has mild soreness in the chest. She denies any dizziness or palpitation. She is in sinus mechanism. Her blood pressure is little bit lower when she sat up in the chair. Hemodynamically otherwise, she is stable. She is on no pressors. She continues to be at this time on aspirin once a day, Lipitor 40 mg daily, Plavix 75 mg daily, metoprolol tartrate 12.5 mg twice a day. PHYSICAL EXAMINATION: Blood pressure running in the 90s with the heart rate in the 60s. LUNGS: With few crackles at the bases. HEART: Regular rate and rhythm. S1, S2. No S3. No rub appreciated. ABDOMEN: Soft, nontender. EXTREMITIES: No edema. LAB DATA: Lab data revealed BUN and creatinine 12 and 0.76. Potassium 4.7. Hemoglobin of 8.3. Chest x-ray revealed mild atelectasis and effusion at the bases. IMPRESSION: 1. Status post aortic valve replacement for severe aortic stenosis. 2. Prior history of smoking. RECOMMENDATION: From the cardiac standpoint, will continue present therapy. Continue incentive spirometry. Increase her physical activity. Follow her blood pressure and depending on that, further recommendation will be made. MMODL / IJN: [id number] /
[2020-07-18] MEDS ORDERED: CALCIUM GLUCONATE 1 GM in SODIUM CHLORIDE 0.9% 100 ML IVPB ONE (10:00)
[2020-07-18 10:09] LABS: Glucose,Whole Blood 111 mg/dL (75-99)
[2020-07-18 10:13] VITALS: BMI 25.7
[2020-07-18 11:31] LABS: Glucose,Whole Blood 113 mg/dL (75-99)
[2020-07-18] MEDS: CLEVIDIPINE BUTYRATE 25 MG in EMPTY BAG 1 BAG IV SCH (12:30)
--- NOTE | 2020-07-18 12:45 | P.PN ---
Subjective This is a pleasant 60 years old female with past medical history of COPD, hyperlipidemia, osteoarthritis, hypothyroidism. She was admitted with congenital bicuspid aortic stenosis for aortic valve replacement. Today is postoperative day #1 Patient status post extubation. Today was sitting on the chair was comfortable but complaining from pain in the left shoulder area.. No chest pain or dyspnea. No abdominal pain. No diarrhea Temperature today slightly up at 99.7. Slightly tachypneic. Blood pressure is 99/46. Hemoglobin is 8.5, rest of CBC is unremarkable. Glucose control, sodium 134, liver enzymes not elevated. Glucose is controlled Chest x-ray showing anterolateral extubation, bibasilar atelectasis, difficult to exclude pneumonia or small effusion Patient is currently on aspirin and Plavix, small dose of metoprolol Objective - Vital Signs Vital signs: Vital Signs Temp 99.7 F H 07/18/20 12:00 Pulse 61 07/18/20 12:00 Resp 20 07/18/20 12:00 BP 104/60 07/18/20 12:00 Pulse Ox 91 L 07/18/20 12:00 Intake & Output 07/17/20 07/18/20 07/18/20 18:59 06:59 18:59 Intake Total 3003.668 1387.807 768 Output Total 2800 965 175 Balance 203.668 422.807 593 Weight 72.3 kg 72.3 kg Intake: IV 2655 1382 768 ACETAMINOPHEN IV (For NPO 100 ) 1,000 mg In Empty Bag 1 bag @ 400 mls/hr IVPB Q6HR [facility] Rx#:[id number] Albumin Human 5% 250 ml 1250 500 250 In Empty Bag 1 bag @ 250 mls/hr IVPB Q1HR PRN Rx#: [id number] Albumin Human 5% 500 ml @ 500 Per Protocol IVPB ONCE ONE Rx#:[id number] CO/CI 240 190 120 Lactated Ringers 1,000 ml 350 600 300 @ 50 mls/hr IV .Q20H [facility] Rx#:[id number] Pressure Bag 63 42 48 ceFAZolin 2 gm In Sodium 100 50 50 Chloride 0.9% 50 ml @ 100 mls/hr IVPB Q8HR [facility] Rx# :[id number] Intake, IV Titration 38.668 5.807 Amount Insulin Regular 100 unit 5.807 In Sodium Chloride 0.9% 100 ml @ Per Protocol IV .Q0M [facility] Rx#:[id number] propofoL 500 mg In Empty 38.668 Bag 1 bag @ Titrate IV . Q0M [facility] Rx#:[id number] Blood Product 310 Rc As-1 Unit 310 [id number] Output: Chest Tube Drainage 740 430 80 Left Pleural/Mediastinal 740 430 80 Urine 860 535 95 Estimated Blood Loss 1200 Other: Voiding Method Indwelling Catheter Indwelling Catheter Indwelling Catheter ABP, PAP, CO, CI - Last Documented Arterial Blood Pressure 99/46 Pulmonary Artery Pressure 37/8 Cardiac Output 4.0 Cardiac Index 2.3 - Exam -GENERAL: The patient is awake fully oriented to time place and person. HEENT: Pupils are round and equally reacting to light. EOMI. No scleral icterus. No conjunctival pallor. Normocephalic, atraumatic. No pharyngeal erythema. No thyromegaly. CARDIOVASCULAR: S1 and S2 present. No murmurs, rubs, or gallops. PULMONARY: Chest is clear to auscultation, no wheezing or crackles. ABDOMEN: Soft, nontender, nondistended, normoactive bowel sounds. No palpable organomegaly. MUSCULOSKELETAL: No joint swelling or deformity. EXTREMITIES: No cyanosis, clubbing, or pedal edema. NEUROLOGICAL: Gross neurological examination did not reveal any focal deficits. SKIN: No rashes. no petechiae. - Labs CBC & Chem 7: 07/18/20 04:00 07/18/20 04:00 Labs: Abnormal Lab Results - Last 24 Hours (Table) 07/13/20 07/17/20 07/17/20 Range/Units 09:00 14:03 15:20 WBC 12.2 H (3.8-10.6) k/uL RBC 2.32 L (3.80-5.40) m/uL Hgb 7.2 L D (11.4-16.0) gm/dL Hct 21.9 L (34.0-46.0) % Plt Count 105 L (150-450) k/uL Neutrophils # 10.3 H (1.3-7.7) k/uL Lymphocytes # (1.0-4.8) k/uL ABG pH (7.35-7.45) ABG pO2 (83-108) mmHg ABG O2 Saturation (94-97) % Sodium (137-145) mmol/L Glucose (74-99) mg/dL POC Glucose (mg/dL) 121 H (75-99) mg/dL Calcium (8.4-10.2) mg/dL Magnesium (1.6-2.3) mg/dL AST (14-36) U/L Alkaline Phosphatase (38-126) U/L Total Protein (6.3-8.2) g/dL Albumin (3.5-5.0) g/dL Crossmatch See Detail 07/17/20 07/17/20 07/17/20 Range/Units 16:03 17:08 18:04 WBC (3.8-10.6) k/uL RBC (3.80-5.40) m/uL Hgb (11.4-16.0) gm/dL Hct (34.0-46.0) % Plt Count (150-450) k/uL Neutrophils # (1.3-7.7) k/uL Lymphocytes # (1.0-4.8) k/uL ABG pH (7.35-7.45) ABG pO2 (83-108) mmHg ABG O2 Saturation (94-97) % Sodium (137-145) mmol/L Glucose (74-99) mg/dL POC Glucose (mg/dL) 115 H 128 H 155 H (75-99) mg/dL Calcium (8.4-10.2) mg/dL Magnesium (1.6-2.3) mg/dL AST (14-36) U/L Alkaline Phosphatase (38-126) U/L Total Protein (6.3-8.2) g/dL Albumin (3.5-5.0) g/dL Crossmatch 07/17/20 07/17/20 07/17/20 Range/Units 18:05 18:09 19:02 WBC (3.8-10.6) k/uL RBC 2.54 L (3.80-5.40) m/uL Hgb 7.9 L (11.4-16.0) gm/dL Hct 24.0 L (34.0-46.0) % Plt Count 87 L (150-450) k/uL Neutrophils # 7.9 H (1.3-7.7) k/uL Lymphocytes # 0.7 L (1.0-4.8) k/uL ABG pH 7.32 L (7.35-7.45) ABG pO2 156 H (83-108) mmHg ABG O2 Saturation 99.9 H (94-97) % Sodium (137-145) mmol/L Glucose (74-99) mg/dL POC Glucose (mg/dL) 143 H (75-99) mg/dL Calcium (8.4-10.2) mg/dL Magnesium (1.6-2.3) mg/dL AST (14-36) U/L Alkaline Phosphatase (38-126) U/L Total Protein (6.3-8.2) g/dL Albumin (3.5-5.0) g/dL Crossmatch 07/17/20 07/17/20 07/17/20 Range/Units 20:05 20:11 21:14 WBC (3.8-10.6) k/uL RBC 2.65 L (3.80-5.40) m/uL Hgb 8.2 L (11.4-16.0) gm/dL Hct 25.2 L (34.0-46.0) % Plt Count 89 L (150-450) k/uL Neutrophils # (1.3-7.7) k/uL Lymphocytes # 0.6 L (1.0-4.8) k/uL ABG pH (7.35-7.45) ABG pO2 (83-108) mmHg ABG O2 Saturation (94-97) % Sodium (137-145) mmol/L Glucose (74-99) mg/dL POC Glucose (mg/dL) 148 H 146 H (75-99) mg/dL Calcium (8.4-10.2) mg/dL Magnesium (1.6-2.3) mg/dL AST (14-36) U/L Alkaline Phosphatase (38-126) U/L Total Protein (6.3-8.2) g/dL Albumin (3.5-5.0) g/dL Crossmatch 07/17/20 07/17/20 07/18/20 Range/Units 22:04 23:17 00:06 WBC (3.8-10.6) k/uL RBC (3.80-5.40) m/uL Hgb (11.4-16.0) gm/dL Hct (34.0-46.0) % Plt Count (150-450) k/uL Neutrophils # (1.3-7.7) k/uL Lymphocytes # (1.0-4.8) k/uL ABG pH (7.35-7.45) ABG pO2 (83-108) mmHg ABG O2 Saturation (94-97) % Sodium (137-145) mmol/L Glucose (74-99) mg/dL POC Glucose (mg/dL) 138 H 133 H 135 H (75-99) mg/dL Calcium (8.4-10.2) mg/dL Magnesium (1.6-2.3) mg/dL AST (14-36) U/L Alkaline Phosphatase (38-126) U/L Total Protein (6.3-8.2) g/dL Albumin (3.5-5.0) g/dL Crossmatch 07/18/20 07/18/20 07/18/20 Range/Units 01:09 02:05 03:02 WBC (3.8-10.6) k/uL RBC (3.80-5.40) m/uL Hgb (11.4-16.0) gm/dL Hct (34.0-46.0) % Plt Count (150-450) k/uL Neutrophils # (1.3-7.7) k/uL Lymphocytes # (1.0-4.8) k/uL ABG pH (7.35-7.45) ABG pO2 (83-108) mmHg ABG O2 Saturation (94-97) % Sodium (137-145) mmol/L Glucose (74-99) mg/dL POC Glucose (mg/dL) 138 H 136 H 132 H (75-99) mg/dL Calcium (8.4-10.2) mg/dL Magnesium (1.6-2.3) mg/dL AST (14-36) U/L Alkaline Phosphatase (38-126) U/L Total Protein (6.3-8.2) g/dL Albumin (3.5-5.0) g/dL Crossmatch 07/18/20 07/18/20 07/18/20 Range/Units 03:58 04:00 04:00 WBC (3.8-10.6) k/uL RBC 2.64 L (3.80-5.40) m/uL Hgb 8.5 L (11.4-16.0) gm/dL Hct 24.9 L (34.0-46.0) % Plt Count 98 L (150-450) k/uL Neutrophils # 8.8 H (1.3-7.7) k/uL Lymphocytes # 0.9 L (1.0-4.8) k/uL ABG pH (7.35-7.45) ABG pO2 (83-108) mmHg ABG O2 Saturation (94-97) % Sodium 134 L (137-145) mmol/L Glucose 119 H (74-99) mg/dL POC Glucose (mg/dL) 129 H (75-99) mg/dL Calcium 7.7 L (8.4-10.2) mg/dL Magnesium 2.7 H (1.6-2.3) mg/dL AST 37 H (14-36) U/L Alkaline Phosphatase 25 L (38-126) U/L Total Protein 5.0 L (6.3-8.2) g/dL Albumin 3.4 L (3.5-5.0) g/dL Crossmatch 07/18/20 07/18/20 07/18/20 Range/Units 05:08 06:39 07:54 WBC (3.8-10.6) k/uL RBC (3.80-5.40) m/uL Hgb (11.4-16.0) gm/dL Hct (34.0-46.0) % Plt Count (150-450) k/uL Neutrophils # (1.3-7.7) k/uL Lymphocytes # (1.0-4.8) k/uL ABG pH (7.35-7.45) ABG pO2 (83-108) mmHg ABG O2 Saturation (94-97) % Sodium (137-145) mmol/L Glucose (74-99) mg/dL POC Glucose (mg/dL) 127 H 127 H 106 H (75-99) mg/dL Calcium (8.4-10.2) mg/dL Magnesium (1.6-2.3) mg/dL AST (14-36) U/L Alkaline Phosphatase (38-126) U/L Total Protein (6.3-8.2) g/dL Albumin (3.5-5.0) g/dL Crossmatch 07/18/20 07/18/20 07/18/20 Range/Units 08:52 10:07 11:30 WBC (3.8-10.6) k/uL RBC (3.80-5.40) m/uL Hgb (11.4-16.0) gm/dL Hct (34.0-46.0) % Plt Count (150-450) k/uL Neutrophils # (1.3-7.7) k/uL Lymphocytes # (1.0-4.8) k/uL ABG pH (7.35-7.45) ABG pO2 (83-108) mmHg ABG O2 Saturation (94-97) % Sodium (137-145) mmol/L Glucose (74-99) mg/dL POC Glucose (mg/dL) 109 H 111 H 113 H (75-99) mg/dL Calcium (8.4-10.2) mg/dL Magnesium (1.6-2.3) mg/dL AST (14-36) U/L Alkaline Phosphatase (38-126) U/L Total Protein (6.3-8.2) g/dL Albumin (3.5-5.0) g/dL Crossmatch Assessment and Plan Assessment: congenital bicuspid aortic stenosis. Status post aortic valve replacement Hyperlipidemia Hypothyroidism COPD, not in acute exacerbation Plan: This is a pleasant 60 years old female status post aortic valve replacement. Patient status post extubation and she has been by pulmonary/critical care team. Continue with aspirin, Plavix and metoprolol. Labs and medication were reviewed.. Continue same treatment. Continue with symptomatic treatment. Resume home medication. Monitor lytes and vitals. DVT and GI prophylaxis. Further recommendations as per clinical course of the patient DVT prophylaxis: Subcutaneous heparin GI Prophylaxis: Ppi
[2020-07-18 13:16] LABS: Glucose,Whole Blood 108 mg/dL (75-99)
--- NOTE | 2020-07-18 13:24 | P.PN ---
Subjective Progress Note Date: 07/18/20 Principal diagnosis: Congenital severe bicuspid aortic stenosis, with an overall left ventricular systolic function to be normal with an ejection fraction of 55-60%. Past medical history significant for known bicuspid aortic valve disease, syncopal event 10 years ago, hypothyroid, hyperlipidemia, family history of early onset coronary artery disease with her dad passing away at age 48 from myocardial infarction, chronic ongoing tobacco use with a preoperative FEV1 showing 79% of predicted value. POD #1 Aortic valve replacement with a 23 mm Inspiris bovine pericardial biop rosthesis, ligation of the left atrial appendage with a 35 mm AtriCure, epi- aortic ultrasonography. Postoperative acute blood loss anemia, expected due to hemodilution and cardiopulmonary bypass. The patient is seen in follow-up today 07/18/2020 at her bedside in the intensive care unit. Currently she is sitting up to the bedside chair, is awake, alert and oriented 3. Denies any complaints of pain or shortness of breath at this time although is having some episodes of nausea. She has been treated with a dose of Zofran and Reglan. She is hemodynamically stable and is currently on no inotropic or pressor support. Right IJ Cordis with [place]rese catheter in place with current hemodynamic showing a cardiac output 3.9, cardiac index 2.2, PA pressures 36/11 and CVP 14 mmHg. Bedside telemetry showing normal sinus rhythm heart rate 64 BPM. Mediastinal and left pleural chest tubes remain in place to low continuous wall suction -20 cm H2O. No air leak is present. Draining thin serosanguineous drainage with 260 mL output in the last 8 hours and 1100 mL output since surgery. The patient was successfully extubated last evening at 6:20 PM, currently she is on 1 L nasal cannula with oxygen saturation is 95%. She is achieving 500 mL on her incentive spirometry with much encouragement. A unit of packed red blood cells was infused yesterday for a hemoglobin of 7.2 postoperatively, laboratory results this morning show a WBC count of 10.3, hemoglobin 8.5, hematocrit 24.9, platelets 98, sodium 134, potassium 4.7, BUN 12, creatinine 0.76, calcium 7.7, ionized calcium 4.7, AST 37, and ALT 16. This morning the patient's systolic blood pressure has been running in the 80s to 90s and she has received 1 L of 5% albumin today. Becca catheter remains in place for accurate I's and O's with 325 mL output of urine in the last 8 hours. Objective - Vital Signs Vital signs: Vital Signs Temp 99.7 F H 07/18/20 12:00 Pulse 61 07/18/20 12:00 Resp 20 07/18/20 12:00 BP 104/60 07/18/20 12:00 Pulse Ox 91 L 07/18/20 12:00 Intake & Output 07/17/20 07/18/20 07/18/20 18:59 06:59 18:59 Intake Total 3003.668 1387.807 768 Output Total 2800 965 175 Balance 203.668 422.807 593 Weight 72.3 kg 72.3 kg Intake: IV 2655 1382 768 ACETAMINOPHEN IV (For NPO 100 ) 1,000 mg In Empty Bag 1 bag @ 400 mls/hr IVPB Q6HR [facility] Rx#:[id number] Albumin Human 5% 250 ml 1250 500 250 In Empty Bag 1 bag @ 250 mls/hr IVPB Q1HR PRN Rx#: [id number] Albumin Human 5% 500 ml @ 500 Per Protocol IVPB ONCE ONE Rx#:[id number] CO/CI 240 190 120 Lactated Ringers 1,000 ml 350 600 300 @ 50 mls/hr IV .Q20H [facility] Rx#:[id number] Pressure Bag 63 42 48 ceFAZolin 2 gm In Sodium 100 50 50 Chloride 0.9% 50 ml @ 100 mls/hr IVPB Q8HR [facility] Rx# :[id number] Intake, IV Titration 38.668 5.807 Amount Insulin Regular 100 unit 5.807 In Sodium Chloride 0.9% 100 ml @ Per Protocol IV .Q0M [facility] Rx#:[id number] propofoL 500 mg In Empty 38.668 Bag 1 bag @ Titrate IV . Q0M [facility] Rx#:[id number] Blood Product 310 Rc As-1 Unit 310 [id number] Output: Chest Tube Drainage 740 430 80 Left Pleural/Mediastinal 740 430 80 Urine 860 535 95 Estimated Blood Loss 1200 Other: Voiding Method Indwelling Catheter Indwelling Catheter Indwelling Catheter ABP, PAP, CO, CI - Last Documented Arterial Blood Pressure 99/46 Pulmonary Artery Pressure 37/8 Cardiac Output 4.0 Cardiac Index 2.3 - Constitutional General appearance: Present: average body habitus, cooperative, no acute distress - EENT Eyes: Present: PERRLA. Absent: scleral icterus ENT: Present: hearing grossly normal - Neck Details: Neck is supple, no JVD, right IJ Cordis and [place] catheter in place. - Respiratory Details: Lung sounds essentially clear throughout, diminished to her bilateral bases. No wheezes, rhonchi or crackles. Respirations are symmetrical and nonlabored. Oxygen saturation are 95% on 1 L nasal cannula. Achieving 500 mL on her incentive spirometry. Mediastinal left pleural chest tubes remain in place to low continuous wall suction -20 cm H2O. No air leak is present. Draining thin serosanguineous drainage with 260 mL output in the last 8 hours and 1100 mL since surgery. - Cardiovascular Details: Regular rhythm and rate. S1 and S2 present, negative for S3, gallop or murmur. Sternum is stable. Heart hugger is in place and she is demonstrating appropriate use. Bedside telemetry showing normal sinus rhythm heart rate 64 BPM. Right IJ Cordis and [place] catheter in place with current hemodynamic showing a cardiac output of 3.9, cardiac index 2.2, PA pressure 36/11 and CVP 14 mmHg. Knee-high KULWANT hose and sequential compression devices in place to her bilateral lower extremities. Atrial and ventricular epicardial pacemaker wires in place and grounded. No edema present. - Gastrointestinal Gastrointestinal Comment(s): Abdomen is soft, nontender and nondistended. Hypoactive bowel sounds present all 4 abdominal quadrants. No guarding or rigidity. No organomegaly appreciated. Tolerating oral intake. - Genitourinary Genitourinary Comment(s): [place] catheter for accurate I&O. Draining clear yellow urine. 325 mL output the last 8 hours. - Integumentary Integumentary Comment(s): Skin is warm and dry. No clubbing or cyanosis is present. Midline sternal incision is clean, dry and approximated. No drainage or redness is present. - Neurologic Neurologic: Present: CNII-XII intact - Musculoskeletal Musculoskeletal: Present: gait normal, generalized weakness, strength equal bilaterally - Psychiatric Psychiatric: Present: A&O x's 3, appropriate affect, intact judgment & insight - Allied health notes Allied health notes reviewed: nursing - Labs CBC & Chem 7: 07/18/20 04:00 07/18/20 04:00 Labs: Abnormal Lab Results - Last 24 Hours (Table) 07/13/20 07/17/20 07/17/20 Range/Units 09:00 14:03 15:20 WBC 12.2 H (3.8-10.6) k/uL RBC 2.32 L (3.80-5.40) m/uL Hgb 7.2 L D (11.4-16.0) gm/dL Hct 21.9 L (34.0-46.0) % Plt Count 105 L (150-450) k/uL Neutrophils # 10.3 H (1.3-7.7) k/uL Lymphocytes # (1.0-4.8) k/uL ABG pH (7.35-7.45) ABG pO2 (83-108) mmHg ABG O2 Saturation (94-97) % Sodium (137-145) mmol/L Glucose (74-99) mg/dL POC Glucose (mg/dL) 121 H (75-99) mg/dL Calcium (8.4-10.2) mg/dL Magnesium (1.6-2.3) mg/dL AST (14-36) U/L Alkaline Phosphatase (38-126) U/L Total Protein (6.3-8.2) g/dL Albumin (3.5-5.0) g/dL Crossmatch See Detail 07/17/20 07/17/20 07/17/20 Range/Units 16:03 17:08 18:04 WBC (3.8-10.6) k/uL RBC (3.80-5.40) m/uL Hgb (11.4-16.0) gm/dL Hct (34.0-46.0) % Plt Count (150-450) k/uL Neutrophils # (1.3-7.7) k/uL Lymphocytes # (1.0-4.8) k/uL ABG pH (7.35-7.45) ABG pO2 (83-108) mmHg ABG O2 Saturation (94-97) % Sodium (137-145) mmol/L Glucose (74-99) mg/dL POC Glucose (mg/dL) 115 H 128 H 155 H (75-99) mg/dL Calcium (8.4-10.2) mg/dL Magnesium (1.6-2.3) mg/dL AST (14-36) U/L Alkaline Phosphatase (38-126) U/L Total Protein (6.3-8.2) g/dL Albumin (3.5-5.0) g/dL Crossmatch 07/17/20 07/17/20 07/17/20 Range/Units 18:05 18:09 19:02 WBC (3.8-10.6) k/uL RBC 2.54 L (3.80-5.40) m/uL Hgb 7.9 L (11.4-16.0) gm/dL Hct 24.0 L (34.0-46.0) % Plt Count 87 L (150-450) k/uL Neutrophils # 7.9 H (1.3-7.7) k/uL Lymphocytes # 0.7 L (1.0-4.8) k/uL ABG pH 7.32 L (7.35-7.45) ABG pO2 156 H (83-108) mmHg ABG O2 Saturation 99.9 H (94-97) % Sodium (137-145) mmol/L Glucose (74-99) mg/dL POC Glucose (mg/dL) 143 H (75-99) mg/dL Calcium (8.4-10.2) mg/dL Magnesium (1.6-2.3) mg/dL AST (14-36) U/L Alkaline Phosphatase (38-126) U/L Total Protein (6.3-8.2) g/dL Albumin (3.5-5.0) g/dL Crossmatch 07/17/20 07/17/20 07/17/20 Range/Units 20:05 20:11 21:14 WBC (3.8-10.6) k/uL RBC 2.65 L (3.80-5.40) m/uL Hgb 8.2 L (11.4-16.0) gm/dL Hct 25.2 L (34.0-46.0) % Plt Count 89 L (150-450) k/uL Neutrophils # (1.3-7.7) k/uL Lymphocytes # 0.6 L (1.0-4.8) k/uL ABG pH (7.35-7.45) ABG pO2 (83-108) mmHg ABG O2 Saturation (94-97) % Sodium (137-145) mmol/L Glucose (74-99) mg/dL POC Glucose (mg/dL) 148 H 146 H (75-99) mg/dL Calcium (8.4-10.2) mg/dL Magnesium (1.6-2.3) mg/dL AST (14-36) U/L Alkaline Phosphatase (38-126) U/L Total Protein (6.3-8.2) g/dL Albumin (3.5-5.0) g/dL Crossmatch 07/17/20 07/17/20 07/18/20 Range/Units 22:04 23:17 00:06 WBC (3.8-10.6) k/uL RBC (3.80-5.40) m/uL Hgb (11.4-16.0) gm/dL Hct (34.0-46.0) % Plt Count (150-450) k/uL Neutrophils # (1.3-7.7) k/uL Lymphocytes # (1.0-4.8) k/uL ABG pH (7.35-7.45) ABG pO2 (83-108) mmHg ABG O2 Saturation (94-97) % Sodium (137-145) mmol/L Glucose (74-99) mg/dL POC Glucose (mg/dL) 138 H 133 H 135 H (75-99) mg/dL Calcium (8.4-10.2) mg/dL Magnesium (1.6-2.3) mg/dL AST (14-36) U/L Alkaline Phosphatase (38-126) U/L Total Protein (6.3-8.2) g/dL Albumin (3.5-5.0) g/dL Crossmatch 07/18/20 07/18/20 07/18/20 Range/Units 01:09 02:05 03:02 WBC (3.8-10.6) k/uL RBC (3.80-5.40) m/uL Hgb (11.4-16.0) gm/dL Hct (34.0-46.0) % Plt Count (150-450) k/uL Neutrophils # (1.3-7.7) k/uL Lymphocytes # (1.0-4.8) k/uL ABG pH (7.35-7.45) ABG pO2 (83-108) mmHg ABG O2 Saturation (94-97) % Sodium (137-145) mmol/L Glucose (74-99) mg/dL POC Glucose (mg/dL) 138 H 136 H 132 H (75-99) mg/dL Calcium (8.4-10.2) mg/dL Magnesium (1.6-2.3) mg/dL AST (14-36) U/L Alkaline Phosphatase (38-126) U/L Total Protein (6.3-8.2) g/dL Albumin (3.5-5.0) g/dL Crossmatch 07/18/20 07/18/20 07/18/20 Range/Units 03:58 04:00 04:00 WBC (3.8-10.6) k/uL RBC 2.64 L (3.80-5.40) m/uL Hgb 8.5 L (11.4-16.0) gm/dL Hct 24.9 L (34.0-46.0) % Plt Count 98 L (150-450) k/uL Neutrophils # 8.8 H (1.3-7.7) k/uL Lymphocytes # 0.9 L (1.0-4.8) k/uL ABG pH (7.35-7.45) ABG pO2 (83-108) mmHg ABG O2 Saturation (94-97) % Sodium 134 L (137-145) mmol/L Glucose 119 H (74-99) mg/dL POC Glucose (mg/dL) 129 H (75-99) mg/dL Calcium 7.7 L (8.4-10.2) mg/dL Magnesium 2.7 H (1.6-2.3) mg/dL AST 37 H (14-36) U/L Alkaline Phosphatase 25 L (38-126) U/L Total Protein 5.0 L (6.3-8.2) g/dL Albumin 3.4 L (3.5-5.0) g/dL Crossmatch 07/18/20 07/18/20 07/18/20 Range/Units 05:08 06:39 07:54 WBC (3.8-10.6) k/uL RBC (3.80-5.40) m/uL Hgb (11.4-16.0) gm/dL Hct (34.0-46.0) % Plt Count (150-450) k/uL Neutrophils # (1.3-7.7) k/uL Lymphocytes # (1.0-4.8) k/uL ABG pH (7.35-7.45) ABG pO2 (83-108) mmHg ABG O2 Saturation (94-97) % Sodium (137-145) mmol/L Glucose (74-99) mg/dL POC Glucose (mg/dL) 127 H 127 H 106 H (75-99) mg/dL Calcium (8.4-10.2) mg/dL Magnesium (1.6-2.3) mg/dL AST (14-36) U/L Alkaline Phosphatase (38-126) U/L Total Protein (6.3-8.2) g/dL Albumin (3.5-5.0) g/dL Crossmatch 07/18/20 07/18/20 07/18/20 Range/Units 08:52 10:07 11:30 WBC (3.8-10.6) k/uL RBC (3.80-5.40) m/uL Hgb (11.4-16.0) gm/dL Hct (34.0-46.0) % Plt Count (150-450) k/uL Neutrophils # (1.3-7.7) k/uL Lymphocytes # (1.0-4.8) k/uL ABG pH (7.35-7.45) ABG pO2 (83-108) mmHg ABG O2 Saturation (94-97) % Sodium (137-145) mmol/L Glucose (74-99) mg/dL POC Glucose (mg/dL) 109 H 111 H 113 H (75-99) mg/dL Calcium (8.4-10.2) mg/dL Magnesium (1.6-2.3) mg/dL AST (14-36) U/L Alkaline Phosphatase (38-126) U/L Total Protein (6.3-8.2) g/dL Albumin (3.5-5.0) g/dL Crossmatch - Imaging and Cardiology Chest x-ray: report reviewed, image reviewed Assessment and Plan Assessment: 1. Congenital severe bicuspid aortic valve stenosis, status post aortic valve replacement using a 23 mm Inspiris bioprosthetic valve 2. Hyperlipidemia 3. Hypothyroid 4. Chronic ongoing tobacco abuse, with a preoperative FEV1 79% of predicted value 5. family history of early onset coronary artery disease with her father passing away at age 48 from heart disease 6. Postoperative acute blood loss anemia, expected Plan: 1. Continue aspirin, statin, Plavix, and beta rhiannon. Will increase beta rhiannon as tolerated. 2. Albumin 5% 250 mL 1 now for systolic blood pressure in the 80s to 90s. 3. Wean O2 as tolerated. Encourage incentive spirometry use 10 times every hour while awake. Bronchodilators management per pulmonology/medical care medicine. 4. Increase activity, ambulate as tolerated. PT/OT/cardiac rehab consulted. 5. Will monitor daily labs and chest x-rays. Electrolyte replacement per protocol. No further transfusion at this point. 6. Pain control with current medication when necessary regimen. 7. Insulin management per primary care service. Patient is not diabetic, preoperative hemoglobin A1c 5.5%. 8. Will continue chest tubes for another 24 hours. 9. Will continue [place] catheter for another 24 hours. 10. Strict accurate intake and output. Daily weights using a standing scale. 11. Discontinue [place]. Connect [place] to continuous CVP monitoring. 12. Give 1 g of calcium gluconate IV piggyback 1 now. 13. More recommendations to follow based on patient's clinical course. Time with Patient: Greater than 30
[2020-07-18 15:06] LABS: Glucose,Whole Blood 129 mg/dL (75-99)
[2020-07-18 16:03] LABS: HCT 23.1 % (34.0-46.0); HGB 7.8 gm/dL (11.4-16.0); MCH 32.1 pg (25.0-35.0); MCHC 33.9 g/dL (31.0-37.0); MCV 94.6 fL (80.0-100.0); Mean Platelet Volume 8.7; RBC 2.44 m/uL (3.80-5.40); WBC 12.1 k/uL (3.8-10.6)
[2020-07-18 16:08] LABS: Platelet Count 92 k/uL (150-450)
[2020-07-18 16:15] LABS: Glucose,Whole Blood 122 mg/dL (75-99)
[2020-07-18 17:24] LABS: Glucose,Whole Blood 129 mg/dL (75-99)
[2020-07-18] MEDS: FERROUS SULFATE 325 MG TAB PO SCH (17:33)
[2020-07-18] MEDS: ASCORBIC ACID 500 MG TAB PO SCH (17:33)
[2020-07-18 18:30] LABS: Glucose,Whole Blood 132 mg/dL (75-99)
[2020-07-18 20:01] LABS: Glucose,Whole Blood 122 mg/dL (75-99)
[2020-07-18] MEDS: SENNOSIDES-DOCUSATE SODIUM 1 EACH TAB PO SCH (20:20)
[2020-07-18 21:25] LABS: Glucose,Whole Blood 118 mg/dL (75-99)
[2020-07-18 22:48] LABS: Glucose,Whole Blood 111 mg/dL (75-99)
[2020-07-19 00:11] LABS: Glucose,Whole Blood 127 mg/dL (75-99)
[2020-07-19 01:49] LABS: Glucose,Whole Blood 123 mg/dL (75-99)
[2020-07-19 03:06] LABS: Glucose,Whole Blood 123 mg/dL (75-99)
[2020-07-19] MEDS: HYDROcodone/APAP 5-325MG 1 EACH TAB PO PRN ×3 (04:27→21:12)
[2020-07-19] MEDS: HEPARIN SODIUM,PORCINE 5,000 UNIT/ML 1 ML VIAL SQ SCH ×3 (04:27→21:09)
[2020-07-19] MEDS: LACTATED RINGERS 1,000 ML IV SCH (04:29)
[2020-07-19 04:36] LABS: Glucose,Whole Blood 124 mg/dL (75-99)
[2020-07-19 04:50] LABS: Basophils % (A) 0 %; Eosinophils # (A) 0.2 k/uL (0-0.7); Eosinophils % (A) 2 %; HCT 22.8 % (34.0-46.0); HGB 7.9 gm/dL (11.4-16.0); Lymphocytes # (A) 1.5 k/uL (1.0-4.8); Lymphocytes % (A) 11 %; MCH 32.5 pg (25.0-35.0); MCHC 34.6 g/dL (31.0-37.0); MCV 93.9 fL (80.0-100.0); Mean Platelet Volume 8.8; Monocytes # (A) 0.7 k/uL (0-1.0); Monocytes % (A) 5 %; Neutrophils # (A) 11.1 k/uL (1.3-7.7); Neutrophils % (A) 81 %; Platelet Count 99 k/uL (150-450); RBC 2.42 m/uL (3.80-5.40); RDW 13.1 % (11.5-15.5); WBC 13.7 k/uL (3.8-10.6)
[2020-07-19 05:13] LABS: Ionized Calcium 4.8 mg/dL (4.5-5.3)
[2020-07-19 05:17] LABS: Albumin 3.9 g/dL (3.5-5.0); Calcium 8.4 mg/dL (8.4-10.2); Potassium 4.8 mmol/L (3.5-5.1); Total Bilirubin 1.3 mg/dL (0.2-1.3); Total Protein 5.5 g/dL (6.3-8.2)
[2020-07-19 06:24] LABS: Glucose,Whole Blood 119 mg/dL (75-99)
[2020-07-19] MEDS ORDERED: LEVOTHYROXINE 125 MCG TAB PO SCH (06:30)
[2020-07-19] MEDS: LEVOTHYROXINE 50 MCG TAB PO SCH (06:38)
[2020-07-19] MEDS: METOPROLOL TARTRATE 12.5 MG TAB PO SCH (07:04)
[2020-07-19] MEDS ORDERED: METOPROLOL TARTRATE 12.5 MG TAB PO STA (07:45)
[2020-07-19] MEDS ORDERED: AMIODARONE 360 MG in DEXTROSE 5% IN WATER 200 ML IV ONE ×2 (08:18)
[2020-07-19] MEDS: ASPIRIN 325 MG TAB PO SCH (08:19)
[2020-07-19] MEDS: CLOPIDOGREL 75 MG TAB PO SCH (08:19)
[2020-07-19] MEDS: buPROPion XL 150 MG TAB.ER.24H PO SCH (08:19)
[2020-07-19] MEDS: MUPIROCIN 2% OINT 22 GM TUBE NASAL SCH ×2 (08:19→21:10)
[2020-07-19] MEDS: PANTOPRAZOLE 40 MG/10 ML VIAL IVP SCH (08:19)
--- NOTE | 2020-07-19 08:19 | P.PN ---
Subjective Progress Note Date: 07/19/20 Principal diagnosis: Congenital severe bicuspid aortic stenosis with an overall left ventricular systolic function to be normal, EF 55-60%. Previous medical history of known bicuspid aortic valve, syncopal event 10 years ago, hyperlipidemia, hypothyroid, chronic ongoing tobacco dependence with preoperative FEV1 79% of predicted, family history of premature coronary artery disease, father at 48 years old from myocardial infarction POD #1 Aortic valve replacement with a 23 mm Inspiris bovine pericardial bioprosthesis, ligation of the left atrial appendage with a 35 mm AtriCure, epi- aortic ultrasonography. Postoperative acute blood loss anemia, expected due to hemodilution and cardiopulmonary bypass. Paroxysmal atrial fibrillation, commonly known occurrence after open heart surgery The patient's currently sitting up in a recliner in the intensive care unit in n o acute distress. States post surgical pain is well controlled on current medication regimen, denies shortness of breath. Attempting incentive spirometry with poor effort, weak cough. She did go into rapid atrial fibrillation early this morning, IV amiodarone being initiated. Mediastinal, left pleural chest tubes, right internal jugular Cordis, left radial arterial line remains present. She is currently hemodynamically stable on no inotropes or pressors. No new concerns. Objective - Vital Signs Vital signs: Vital Signs Temp 98.3 F 07/19/20 00:00 Pulse 123 H 07/19/20 07:00 Resp 22 07/19/20 07:00 BP 101/63 07/19/20 05:00 Pulse Ox 95 07/19/20 07:00 Intake & Output 07/18/20 07/19/20 07/19/20 18:59 06:59 18:59 Intake Total 1622.301 326.089 23 Output Total 500 480 70 Balance 1122.301 -153.911 -47 Weight 72.3 kg 73.9 kg Intake: IV 1602 323 23 Albumin Human 5% 250 ml 750 In Empty Bag 1 bag @ 250 mls/hr IVPB Q1HR PRN Rx#: [id number] CO/CI 100 Lactated Ringers 1,000 ml 600 290 20 @ 20 mls/hr IV .Q24H [facility] Rx#:[id number] Pressure Bag 102 33 3 ceFAZolin 2 gm In Sodium 50 Chloride 0.9% 50 ml @ 100 mls/hr IVPB Q8HR [facility] Rx# :[id number] Intake, IV Titration 20.301 3.089 Amount Insulin Regular 100 unit 20.301 3.089 In Sodium Chloride 0.9% 100 ml @ Per Protocol IV .Q0M [facility] Rx#:[id number] Output: Chest Tube Drainage 190 210 40 Left Pleural/Mediastinal 190 210 40 Urine 210 270 30 Emesis 100 Other: Voiding Method Indwelling Catheter Indwelling Catheter ABP, PAP, CO, CI - Last Documented Arterial Blood Pressure 97/53 Pulmonary Artery Pressure 39/14 Cardiac Output 3.7 Cardiac Index 2.1 - Constitutional General appearance: Present: cooperative, no acute distress - Respiratory Details: Lungs sounds diminished bilaterally. Respirations even, nonlabored. Currently on 6 L high flow nasal cannula with oxygen saturation 94%. Barely able to achieve 500 mL on incentive spirometry, weak cough. Mediastinal/left pleural chest tube present to continuous wall suction, 190 mL serosanguineous drainage overnight, 500 mL last 24 hours, no air leak present. - Cardiovascular Details: S1, S2 present. Tachycardic, irregular rate and rhythm, rapid atrial fibrillation with heart rate in the low 100 100s on telemetry. Sternum stable. A/V epicardial pacemaker wires present, grounded. Palpable peripheral pulses bilaterally. No edema present. No calf pain or tenderness noted. Heart hugger in place with patient demonstrating appropriate use. Antiembolism stockings, SCDs present. - Gastrointestinal Gastrointestinal Comment(s): Abdomen soft, nontender, nondistended. Hypoactive bowel sounds present 4 selma drants. Tolerating diet. Positive flatus - Genitourinary Genitourinary Comment(s): Hudson present draining clear, yellow urine. 10-30 mL output overnight - Integumentary Integumentary Comment(s): Skin is warm and dry with evidence of good perfusion. Anterior chest incision well approximated and covered with dry intact dressing - Neurologic Neurologic: Present: CNII-XII intact - Musculoskeletal Musculoskeletal: Present: strength equal bilaterally - Psychiatric Psychiatric: Present: A&O x's 3, appropriate affect, intact judgment & insight - Allied health notes Allied health notes reviewed: nursing - Labs CBC & Chem 7: 07/19/20 04:25 07/19/20 04:25 Labs: Abnormal Lab Results - Last 24 Hours (Table) 07/18/20 07/18/20 07/18/20 Range/Units 08:52 10:07 11:30 WBC (3.8-10.6) k/uL RBC (3.80-5.40) m/uL Hgb (11.4-16.0) gm/dL Hct (34.0-46.0) % Plt Count (150-450) k/uL Neutrophils # (1.3-7.7) k/uL Sodium (137-145) mmol/L BUN (7-17) mg/dL Creatinine (0.52-1.04) mg/dL Glucose (74-99) mg/dL POC Glucose (mg/dL) 109 H 111 H 113 H (75-99) mg/dL AST (14-36) U/L ALT (4-34) U/L Alkaline Phosphatase (38-126) U/L Total Protein (6.3-8.2) g/dL 07/18/20 07/18/20 07/18/20 Range/Units 13:14 15:03 15:05 WBC 12.1 H (3.8-10.6) k/uL RBC 2.44 L (3.80-5.40) m/uL Hgb 7.8 L (11.4-16.0) gm/dL Hct 23.1 L (34.0-46.0) % Plt Count 92 L (150-450) k/uL Neutrophils # (1.3-7.7) k/uL Sodium (137-145) mmol/L BUN (7-17) mg/dL Creatinine (0.52-1.04) mg/dL Glucose (74-99) mg/dL POC Glucose (mg/dL) 108 H 129 H (75-99) mg/dL AST (14-36) U/L ALT (4-34) U/L Alkaline Phosphatase (38-126) U/L Total Protein (6.3-8.2) g/dL 07/18/20 07/18/20 07/18/20 Range/Units 16:14 17:22 18:27 WBC (3.8-10.6) k/uL RBC (3.80-5.40) m/uL Hgb (11.4-16.0) gm/dL Hct (34.0-46.0) % Plt Count (150-450) k/uL Neutrophils # (1.3-7.7) k/uL Sodium (137-145) mmol/L BUN (7-17) mg/dL Creatinine (0.52-1.04) mg/dL Glucose (74-99) mg/dL POC Glucose (mg/dL) 122 H 129 H 132 H (75-99) mg/dL AST (14-36) U/L ALT (4-34) U/L Alkaline Phosphatase (38-126) U/L Total Protein (6.3-8.2) g/dL 07/18/20 07/18/20 07/18/20 Range/Units 20:00 21:23 22:47 WBC (3.8-10.6) k/uL RBC (3.80-5.40) m/uL Hgb (11.4-16.0) gm/dL Hct (34.0-46.0) % Plt Count (150-450) k/uL Neutrophils # (1.3-7.7) k/uL Sodium (137-145) mmol/L BUN (7-17) mg/dL Creatinine (0.52-1.04) mg/dL Glucose (74-99) mg/dL POC Glucose (mg/dL) 122 H 118 H 111 H (75-99) mg/dL AST (14-36) U/L ALT (4-34) U/L Alkaline Phosphatase (38-126) U/L Total Protein (6.3-8.2) g/dL 07/19/20 07/19/20 07/19/20 Range/Units 00:07 01:48 03:04 WBC (3.8-10.6) k/uL RBC (3.80-5.40) m/uL Hgb (11.4-16.0) gm/dL Hct (34.0-46.0) % Plt Count (150-450) k/uL Neutrophils # (1.3-7.7) k/uL Sodium (137-145) mmol/L BUN (7-17) mg/dL Creatinine (0.52-1.04) mg/dL Glucose (74-99) mg/dL POC Glucose (mg/dL) 127 H 123 H 123 H (75-99) mg/dL AST (14-36) U/L ALT (4-34) U/L Alkaline Phosphatase (38-126) U/L Total Protein (6.3-8.2) g/dL 07/19/20 07/19/20 07/19/20 Range/Units 04:25 04:25 04:33 WBC 13.7 H (3.8-10.6) k/uL RBC 2.42 L (3.80-5.40) m/uL Hgb 7.9 L (11.4-16.0) gm/dL Hct 22.8 L (34.0-46.0) % Plt Count 99 L (150-450) k/uL Neutrophils # 11.1 H (1.3-7.7) k/uL Sodium 131 L (137-145) mmol/L BUN 19 H (7-17) mg/dL Creatinine 1.11 H (0.52-1.04) mg/dL Glucose 114 H (74-99) mg/dL POC Glucose (mg/dL) 124 H (75-99) mg/dL AST 504 H (14-36) U/L ALT 412 H (4-34) U/L Alkaline Phosphatase 27 L (38-126) U/L Total Protein 5.5 L (6.3-8.2) g/dL 07/19/20 Range/Units 06:23 WBC (3.8-10.6) k/uL RBC (3.80-5.40) m/uL Hgb (11.4-16.0) gm/dL Hct (34.0-46.0) % Plt Count (150-450) k/uL Neutrophils # (1.3-7.7) k/uL Sodium (137-145) mmol/L BUN (7-17) mg/dL Creatinine (0.52-1.04) mg/dL Glucose (74-99) mg/dL POC Glucose (mg/dL) 119 H (75-99) mg/dL AST (14-36) U/L ALT (4-34) U/L Alkaline Phosphatase (38-126) U/L Total Protein (6.3-8.2) g/dL - Imaging and Cardiology Chest x-ray: image reviewed Assessment and Plan Assessment: 1. Congenital severe bicuspid aortic stenosis, status post bioprosthetic aortic valve replacement 2. Preserved left ventricular systolic function, EF 55-60% 3. Syncopal event 10 years ago 4. Hyperlipidemia, cholesterol 225, LDL 162 5. Hypothyroid 6. Chronic ongoing tobacco dependence with preoperative FEV1 79% of predicted 7. Family history of premature coronary artery disease 8. Preoperative nasal swab positive for MRSA, treated 9. Postoperative acute blood loss anemia, expected 10. Paroxysmal atrial fibrillation, status post ligation of the left atrial ap pendage Plan: 1. Continue aspirin, statin, Plavix, beta rhiannon. Will increase beta rhiannon therapy as tolerated, increased to 25 mg twice daily today 2. Continue amiodarone, will transition to oral. No anticoagulation unless in A. fib for greater than 24 hours 3. Wean O2 as tolerated. Encourage incentive spirometry 10 times available week. Bronchodilators per pulmonology 4. Encourage smoking cessation 5. Increase activity, ambulate as tolerated. PT/OT/cardiac rehab following 6. Will monitor daily labs and x-rays. Electrolyte replacement per protocol. 7. GI/DVT prophylaxis 8. Insulin management per primary care service. Patient is not diabetic, preo perative hemoglobin A1c 5.5% 9. Will discontinue mediastinal chest tube, keep left pleural chest tube for another 24 hours 10. Strict accurate intake and output. Daily weights 11. More recommendations to follow Time with Patient: Greater than 30
[2020-07-19] MEDS: IPRATROPIUM-ALBUTEROL 3 ML NEB INHALATION SCH ×4 (08:27→21:09)
--- NOTE | 2020-07-19 08:59 | PN ---
PROGRESS NOTE Mrs. Montes is a 60-year-old female who was found to have severe aortic stenosis, underwent aortic valve replacement with bioprosthetic valve. She is doing well this morning. She is sitting up in the chair. She is denying any chest pain. Her breathing is stable. No dizziness. No palpitation. She just went in atrial fibrillation. Her ventricular response is slightly rapid. Hemodynamically, she is stable otherwise. She is being started on IV amiodarone. Otherwise, she is on aspirin once a day, Lipitor 40 mg daily, Plavix 75 mg daily, levothyroxine, metoprolol tartrate 12.5 mg twice a day. PHYSICAL EXAMINATION: Blood pressure running in the high 90s low 100s with a heart rate in the one teens now. LUNGS: With few crackles at the bases. HEART: Irregular, irregular. S1, S2. No S3. No rub. ABDOMEN: Soft, nontender. Positive bowel sounds. EXTREMITIES: No edema. LAB DATA: Lab data revealed a hemoglobin 7.9, white blood cells 13.7, BUN and creatinine 19 and 1.1. Potassium 4.8. Her AST is 504, ALT of 412. IMPRESSION: 1. Status post aortic valve replacement. 2. Paroxysmal atrial fibrillation. 3. Elevation of liver function tests. 4. Prior history of smoking. RECOMMENDATION: Patient will be initiated on amiodarone. Her liver function tests will be followed closely. Continue incentive spirometry and depending on her progress, further recommendation will be made. MMODL / IJN: [id number] /
[2020-07-19] MEDS ORDERED: DEXTROSE 5% IN WATER 100 ML with AMIODARONE 150 MG IV ONE (09:33)
[2020-07-19 09:37] LABS: Glucose,Whole Blood 107 mg/dL (75-99)
--- NOTE | 2020-07-19 10:01 | XR ---
EXAMINATION TYPE: XR chest 1V portable DATE OF EXAM: 07/19/2020 COMPARISON: 07/18/2020 HISTORY: Shortness of breath TECHNIQUE: Single frontal view of the chest is obtained. FINDINGS: [place]-Terese catheter has been removed. Mediastinal drain and left-sided chest tube seen with a less than 5% left apical pneumothorax. Bilateral infiltrate and pleural effusion. Postsurgical mac nge including prosthetic heart valve noted. Heart size stable. Correlate for mild venous congestion. IMPRESSION: 1. Bilateral infiltrate and pleural effusion correlate for mild venous congestion.
--- NOTE | 2020-07-19 10:04 | P.PN ---
Subjective Progress Note Date: 07/19/20 Principal diagnosis: Congenital bicuspid aortic valve, aortic valve replacement 60-year-old female who was referred to Dr. Jones for aortic stenosis. The patient apparently had a congenital bicuspid aortic valve. Today, she underwent a aortic valve replacement, with a bovine prosthesis. Currently, she is in the intensive care unit. She's currently on the mechanical ventilator. Her current ventilator settings include the volume assist control mode, rate of 12, tidal volume 450, FiO2 40%, and PEEP of 8. On those similar settings except for an FiO2 of 60%, and PEEP of 5, her PaO2 was 187, PaCO2 was 49, pH was 7.31. The patient is currently on lactated Ringer's at 50 mL an hour, and propofol at 10 mcg/kg/m. The patient apparently has a history of ongoing tobacco use, on a daily and regular basis, hypothyroidism, syncope, hyperlipidemia, and a family history of early onset coronary disease. Currently, the patient is starting to wake up from her sedation and anesthesia. Hopefully we'll be able get her moved towards weaning and extubation in the next hour or so. The patient is seen today 07/18/2020 and follow-up in the intensive care unit. His postoperative day #1 of bovine prosthetic aortic valve replacement secondary to bicuspid aortic valve. Left atrial appendage placement. She was extubated yesterday approximate 7 hours following surgery. She is currently sitting up in a chair at the bedside. Awake and alert in no acute distress. She is maintaining O2 saturations in the low 90s on 1 L/m per nasal cannula. She has lactated Ringer's at 50 MLS per hour. Remains on bronchodilators. She is on an insulin drip at 1 unit per hour. She is pulling approximate 500 mL's on her incentive spirometer. Chest x-ray reveals bibasilar atelectasis with possible small effusions. Mediastinal and left sided chest tube remains in place. Right jugular triple-lumen in place. She is status post 1 unit packed red blood cells. Current hemoglobin 8.5. White count 10.3. Platelet count 98,000. Sodium 134. Potassium 4.7. Creatinine 0.76. AST 37. ALT 16. Albumin 3.4. She has received 750 ML's of 5% albumin. Blood pressure remains with systolic pressures in the 80s. CVP of 12. PA pressure 35/80. Urine output marginal. The plan is for 25% albumin. On 07/19/2020 patient seen in follow-up in the intensive care unit, today is postoperative day #2, status post aortic valve replacement. She is doing well, she is awake and alert, oriented 3, she sitting up in the recliner, currently on 5 L of oxygen with a pulse ox of 96%, her incentive spirometer effort is about 500 mL. Patient states it's hard for her to take deep rest. She is in A. fib with RVR, currently with a rate of 112 BPM, and ALLERGIES following commands patient will be started on amiodarone infusion at 1 mg/m. Her maintenance IV point and was seen at a of 20 ML per hour, and insulin is at 0.5 units per hour. Her mediastinal and left pleural chest tube are connected to the same Pleuravac, there has been 400 mL of thin serous illness output in the last 24 hours, cardiothoracic surgery may consider removing on the chest tubes today. Today's labs have been reviewed, showing cell count 13.7, hemoglobin of 7.9, sodium is 131, serum electrolytes troponin is coming BUN is 19 and creatinine is 1.1. AST and ALT were noted to be significantly elevated on today's labs since yesterday. Objective - Vital Signs Vital signs: Vital Signs Temp 97.9 F 07/19/20 08:00 Pulse 107 H 07/19/20 09:00 Resp 24 07/19/20 09:00 BP 93/72 07/19/20 09:00 Pulse Ox 96 07/19/20 09:00 Intake & Output 07/18/20 07/19/20 07/19/20 18:59 06:59 18:59 Intake Total 1622.301 326.089 75 Output Total 500 480 310 Balance 1122.301 -153.911 -235 Weight 72.3 kg 73.9 kg Intake: IV 1602 323 75 Albumin Human 5% 250 ml 750 In Empty Bag 1 bag @ 250 mls/hr IVPB Q1HR PRN Rx#: [id number] CO/CI 100 Lactated Ringers 1,000 ml 600 290 60 @ 20 mls/hr IV .Q24H [facility] Rx#:[id number] Pressure Bag 102 33 15 ceFAZolin 2 gm In Sodium 50 Chloride 0.9% 50 ml @ 100 mls/hr IVPB Q8HR [facility] Rx# :[id number] Intake, IV Titration 20.301 3.089 Amount Insulin Regular 100 unit 20.301 3.089 In Sodium Chloride 0.9% 100 ml @ Per Protocol IV .Q0M [facility] Rx#:[id number] Output: Chest Tube Drainage 190 210 70 Left Pleural/Mediastinal 190 210 70 Urine 210 270 240 Emesis 100 Other: Voiding Method Indwelling Catheter Indwelling Catheter Indwelling Catheter ABP, PAP, CO, CI - Last Documented Arterial Blood Pressure 120/72 Pulmonary Artery Pressure 39/14 Cardiac Output 3.7 Cardiac Index 2.1 - Exam GENERAL EXAM: Alert, active, very pleasant, 58-year-old white female, on 5 L of oxygen and the pulse ox of 96%, sitting up in the recliner, breathing comfortably, responding appropriately, comfortable in no apparent distress. HEAD: Normocephalic/atraumatic. EYES: Normal reaction of pupils, equal size. Conjunctiva pink, sclera white. NOSE: Clear with pink turbinates. THROAT: No erythema or exudates. NECK: No masses, no JVD, no thyroid enlargement, no adenopathy. CHEST: No chest wall deformity. Symmetrical expansion. Midsternal incision is clean dry and intact, mediastinal and left pleural chest connected to the same pleural VAC, with thin dark serosanguineous output in the Pleur-evac LUNGS: Equal air entry with no crackles, wheeze, rhonchi or dullness. CVS: Regular rate and rhythm, normal S1 and S2, no gallops, no murmurs, no rubs ABDOMEN: Soft, nontender. No hepatosplenomegaly, normal bowel sounds, no guarding or rigidity. EXTREMITIES: No clubbing, no edema, no cyanosis, 2+ pulses and upper and lower extremities. MUSCULOSKELETAL: Muscle strength and tone normal. SPINE: No scoliosis or deformity SKIN: No rashes CENTRAL NERVOUS SYSTEM: Alert and oriented -3. No focal deficits, tone is normal in all 4 extremities. PSYCHIATRIC: Alert and oriented -3. Appropriate affect. Intact judgment and insight. - Labs CBC & Chem 7: 07/19/20 04:25 07/19/20 04:25 Labs: Abnormal Lab Results - Last 24 Hours (Table) 07/18/20 07/18/20 07/18/20 Range/Units 10:07 11:30 13:14 WBC (3.8-10.6) k/uL RBC (3.80-5.40) m/uL Hgb (11.4-16.0) gm/dL Hct (34.0-46.0) % Plt Count (150-450) k/uL Neutrophils # (1.3-7.7) k/uL Sodium (137-145) mmol/L BUN (7-17) mg/dL Creatinine (0.52-1.04) mg/dL Glucose (74-99) mg/dL POC Glucose (mg/dL) 111 H 113 H 108 H (75-99) mg/dL AST (14-36) U/L ALT (4-34) U/L Alkaline Phosphatase (38-126) U/L Total Protein (6.3-8.2) g/dL 07/18/20 07/18/20 07/18/20 Range/Units 15:03 15:05 16:14 WBC 12.1 H (3.8-10.6) k/uL RBC 2.44 L (3.80-5.40) m/uL Hgb 7.8 L (11.4-16.0) gm/dL Hct 23.1 L (34.0-46.0) % Plt Count 92 L (150-450) k/uL Neutrophils # (1.3-7.7) k/uL Sodium (137-145) mmol/L BUN (7-17) mg/dL Creatinine (0.52-1.04) mg/dL Glucose (74-99) mg/dL POC Glucose (mg/dL) 129 H 122 H (75-99) mg/dL AST (14-36) U/L ALT (4-34) U/L Alkaline Phosphatase (38-126) U/L Total Protein (6.3-8.2) g/dL 07/18/20 07/18/20 07/18/20 Range/Units 17:22 18:27 20:00 WBC (3.8-10.6) k/uL RBC (3.80-5.40) m/uL Hgb (11.4-16.0) gm/dL Hct (34.0-46.0) % Plt Count (150-450) k/uL Neutrophils # (1.3-7.7) k/uL Sodium (137-145) mmol/L BUN (7-17) mg/dL Creatinine (0.52-1.04) mg/dL Glucose (74-99) mg/dL POC Glucose (mg/dL) 129 H 132 H 122 H (75-99) mg/dL AST (14-36) U/L ALT (4-34) U/L Alkaline Phosphatase (38-126) U/L Total Protein (6.3-8.2) g/dL 07/18/20 07/18/20 07/19/20 Range/Units 21:23 22:47 00:07 WBC (3.8-10.6) k/uL RBC (3.80-5.40) m/uL Hgb (11.4-16.0) gm/dL Hct (34.0-46.0) % Plt Count (150-450) k/uL Neutrophils # (1.3-7.7) k/uL Sodium (137-145) mmol/L BUN (7-17) mg/dL Creatinine (0.52-1.04) mg/dL Glucose (74-99) mg/dL POC Glucose (mg/dL) 118 H 111 H 127 H (75-99) mg/dL AST (14-36) U/L ALT (4-34) U/L Alkaline Phosphatase (38-126) U/L Total Protein (6.3-8.2) g/dL 07/19/20 07/19/20 07/19/20 Range/Units 01:48 03:04 04:25 WBC 13.7 H (3.8-10.6) k/uL RBC 2.42 L (3.80-5.40) m/uL Hgb 7.9 L (11.4-16.0) gm/dL Hct 22.8 L (34.0-46.0) % Plt Count 99 L (150-450) k/uL Neutrophils # 11.1 H (1.3-7.7) k/uL Sodium (137-145) mmol/L BUN (7-17) mg/dL Creatinine (0.52-1.04) mg/dL Glucose (74-99) mg/dL POC Glucose (mg/dL) 123 H 123 H (75-99) mg/dL AST (14-36) U/L ALT (4-34) U/L Alkaline Phosphatase (38-126) U/L Total Protein (6.3-8.2) g/dL 07/19/20 07/19/20 07/19/20 Range/Units 04:25 04:33 06:23 WBC (3.8-10.6) k/uL RBC (3.80-5.40) m/uL Hgb (11.4-16.0) gm/dL Hct (34.0-46.0) % Plt Count (150-450) k/uL Neutrophils # (1.3-7.7) k/uL Sodium 131 L (137-145) mmol/L BUN 19 H (7-17) mg/dL Creatinine 1.11 H (0.52-1.04) mg/dL Glucose 114 H (74-99) mg/dL POC Glucose (mg/dL) 124 H 119 H (75-99) mg/dL AST 504 H (14-36) U/L ALT 412 H (4-34) U/L Alkaline Phosphatase 27 L (38-126) U/L Total Protein 5.5 L (6.3-8.2) g/dL 07/19/20 Range/Units 09:35 WBC (3.8-10.6) k/uL RBC (3.80-5.40) m/uL Hgb (11.4-16.0) gm/dL Hct (34.0-46.0) % Plt Count (150-450) k/uL Neutrophils # (1.3-7.7) k/uL Sodium (137-145) mmol/L BUN (7-17) mg/dL Creatinine (0.52-1.04) mg/dL Glucose (74-99) mg/dL POC Glucose (mg/dL) 107 H (75-99) mg/dL AST (14-36) U/L ALT (4-34) U/L Alkaline Phosphatase (38-126) U/L Total Protein (6.3-8.2) g/dL Assessment and Plan Plan: Assessment: Congenital bicuspid aortic valve with a aortic valve stenosis, status post aortic valve replacement with a bovine prosthesis, and ligation of the left atrial appendage. This operative day #2 Routine postoperative ventilator management. Extubated 7 hours postop on July 14 Hyperlipidemia. Hypothyroidism. History of chronic tobacco use. No evidence of obstructive coronary disease. Family history of early-onset coronary disease. Elevated LFTs of unclear etiology A. fib with RVR, currently on amiodarone drip Plan: Continue encouraging deep breathing and coughing, wean FiO2, patient is in A. fib with RVR, cardiology is following, rate control medications per cardiology, anticoagulation per CT surgery. These labs reviewed, there has been significant elevation of AST and ALT on today's labs, of unclear etiology. We'll obtain follow-up CMP tomorrow. Hemodynamically patient is stable, not on any vasopressor support. Continue breathing treatments, incentive spirometry use. We'll continue to follow I performed a history & physical examination of the patient and discussed their management with my nurse practitioner, Mary Echols. I reviewed the nurse practitioner's note and agree with the documented findings and plan of care. Lung sounds are positive for diminished breath sounds at the bases. The findings and the impression was discussed with the patient. I attest to the documentation by the nurse practitioner. Time with Patient: Greater than 30
[2020-07-19] MEDS: ALBUMIN HUMAN 5% 250 ML in EMPTY BAG 1 BAG IVPB PRN (10:40)
[2020-07-19 11:55] LABS: Glucose,Whole Blood 116 mg/dL (75-99)
[2020-07-19] MEDS: ASCORBIC ACID 500 MG TAB PO SCH (12:58)
[2020-07-19] MEDS: FERROUS SULFATE 325 MG TAB PO SCH (12:58)
[2020-07-19] MEDS: AMIODARONE 450 MG in DEXTROSE 5% IN WATER 250 ML IV SCH ×2 (15:58)
[2020-07-19 16:57] LABS: Glucose,Whole Blood 129 mg/dL (75-99)
[2020-07-19] MEDS: METOPROLOL TARTRATE 25 MG TAB PO SCH ×2 (16:58→21:20)
[2020-07-19] MEDS: INSULIN ASPART (NovoLOG) 100 UNIT/ML VIAL SQ SCH ×2 (16:58→21:18)
--- NOTE | 2020-07-19 17:24 | P.PN ---
Subjective This is a pleasant 60 years old female with past medical history of COPD, hyperlipidemia, osteoarthritis, hypothyroidism. She was admitted with congenital bicuspid aortic stenosis for aortic valve replacement. Today is postoperative day #1 Patient status post extubation. Today was sitting on the chair was comfortable but complaining from pain in the left shoulder area.. No chest pain or dyspnea. No abdominal pain. No diarrhea Temperature today slightly up at 99.7. Slightly tachypneic. Blood pressure is 99/46. Hemoglobin is 8.5, rest of CBC is unremarkable. Glucose control, sodium 134, liver enzymes not elevated. Glucose is controlled Chest x-ray showing anterolateral extubation, bibasilar atelectasis, difficult to exclude pneumonia or small effusion Patient is currently on aspirin and Plavix, small dose of metoprolol 07/19/2020 Patient is sitting in chair comfortable, minimal pain at the surgical site. She still have pain in the left upper shoulder and around the left shoulder but is better than yesterday, no shoulder swelling or erythema. Most likely related to her left pneumothorax and left chest tube. Hemodynamic the patient is a stable She is slightly bradycardic at 51, afebrile today. Kyra fever yesterday at 99.7. Slightly tachypneic of 22-30 and blood pressure 92/45. Earlier today she was tachycardic despite being on amiodarone drip and boluses of amiodarone IV. Cardiothoracic and pulmonary services are on the case. She needs minimal dose of insulin drip and it can be switched to sliding scale. Labs showing mild leukocytosis of 13.7 K. Sodium was slightly low at 131. Creatinine trending up slowly to 1.1. Liver enzymes slightly elevated with AST 37293 and ALT 412. Bilirubin is normal at 1.3 Chest x-ray showing bilateral infiltrates and pleural effusion correlated for mild venous congestion She remains on aspirin, Plavix and metoprolol increased slightly to 25 mg 3 times a day by cardiothoracic surgery team. Also she is on amiodarone drip Review of systems CONSTITUTIONAL: No fever, no malaise, no fatigue. HEENT: No recent visual problems or hearing problems. Denied any sore throat. CARDIOVASCULAR: No orthopnea, PND, no palpitations, no syncope. PULMONARY: No shortness of breath, no cough, no hemoptysis. GASTROINTESTINAL: No diarrhea, no nausea, no vomiting, no abdominal pain. Normoactive bowel sounds. Active Medications Generic Name Dose Route Start Last Admin Trade Name Freq PRN Reason Stop Dose Admin Hydrocodone Bitart/Acetaminophen 2 each 07/17/20 23:09 07/19/20 11:32 Hydrocodone/Apap 5-325mg 1 Each Tab PO 2 each Q4HR PRN Administration Severe Pain Hydrocodone Bitart/Acetaminophen 1 each 07/17/20 23:09 07/19/20 04:27 Hydrocodone/Apap 5-325mg 1 Each Tab PO 1 each Q4HR PRN Administration Moderate Pain Albuterol/Ipratropium 3 ml 07/17/20 11:21 Ipratropium-Albuterol 3 Ml Neb INHALATION RT-Q2H PRN Shortness Of Breath Or Wheezing Albuterol/Ipratropium 3 ml 07/18/20 08:00 07/19/20 15:31 Ipratropium-Albuterol 3 Ml Neb INHALATION 3 ml RT-QID [facility] Administration Ascorbic Acid 500 mg 07/18/20 13:00 07/19/20 12:58 Ascorbic Acid 500 Mg Tab PO 500 mg 1200 [facility] Administration Aspirin 325 mg 07/18/20 09:00 07/19/20 08:19 Aspirin 325 Mg Tab PO 325 mg DAILY [facility] Administration Bisacodyl 10 mg 07/18/20 09:00 Bisacodyl 10 Mg Supp RECTAL DAILY PRN Constipation Bupropion HCl 150 mg 07/19/20 09:00 07/19/20 08:19 Bupropion Xl 150 Mg Tab.Er.24h PO 150 mg DAILY [facility] Administration Clopidogrel Bisulfate 75 mg 07/18/20 09:00 07/19/20 08:19 Clopidogrel 75 Mg Tab PO 75 mg DAILY [facility] Administration Ferrous Sulfate 325 mg 07/18/20 13:00 07/19/20 12:58 Ferrous Sulfate 325 Mg Tab PO 325 mg W/LUNCH [facility] Administration Heparin Sodium (Porcine) 5,000 unit 07/17/20 20:00 07/19/20 12:58 Heparin Sodium,Porcine 5,000 Unit/Ml 1 Ml Vial SQ 5,000 unit Q8H [facility] Administration Lactated Ringer's 1,000 mls @ 20 mls/hr 07/17/20 11:21 07/19/20 04:29 Lactated Ringers IV 20 mls/hr .Q24H [facility] Administration Insulin Human Regular 100 unit 101 mls @ 0 mls/hr 07/17/20 12:00 07/19/20 00:16 / Sodium Chloride IV 0.5 units/hr .Q0M [facility] 0.505 mls/hr Titration Protocol Per Protocol Amiodarone HCl 450 mg/ 250 mls @ 16.667 mls/hr 07/19/20 14:18 07/19/20 15:58 Dextrose/Water IV 07/20/20 08:17 0.5 mg/min .Q15H [facility] 16.667 mls/hr Administration Protocol 0.5 MG/MIN Insulin Aspart 0 unit 07/19/20 17:30 07/19/20 16:58 Insulin Aspart (Novolog) 100 Unit/Ml Vial SQ Not Given ACHS [facility] Protocol Levothyroxine Sodium 125 mcg 07/19/20 06:30 07/19/20 06:38 Levothyroxine 50 Mcg Tab PO 125 mcg DAILY@0630 [facility] Administration Magnesium Hydroxide 2,400 mg 07/18/20 09:00 Magnesium Hydroxide 2,400 Mg/10 Ml Cup PO BID PRN Constipation Metoclopramide HCl 10 mg 07/17/20 11:21 07/18/20 13:01 Metoclopramide 5 Mg/Ml 2 Ml Vial IVP 10 mg Q4H PRN Administration Nausea And Vomiting Metoprolol Tartrate 25 mg 07/19/20 16:00 07/19/20 16:58 Metoprolol Tartrate 25 Mg Tab PO Not Given TID [facility] Miscellaneous Information 1 each 07/17/20 11:21 Potassium Replacement Protocol 1 Each Misc MISCELLANE DAILY PRN Per Protocol Protocol Miscellaneous Information 1 each 07/17/20 11:21 Magnesium Replacement Protocol 1 Each Misc MISCELLANE DAILY PRN Per Protocol Protocol Miscellaneous Information 1 each 07/17/20 11:21 Phosphorus Replacement Protoco 1 Each Misc MISCELLANE DAILY PRN Per Protocol Protocol Mupirocin 1 applic 07/17/20 21:00 07/19/20 08:19 Mupirocin 2% Oint 22 Gm Tube NASAL 07/20/20 21:01 1 applic BID [facility] Administration Ondansetron HCl 4 mg 07/17/20 11:21 07/18/20 13:01 Ondansetron 4 Mg/2 Ml Vial IVP 4 mg Q6HR PRN Administration Nausea And Vomiting Pantoprazole Sodium 40 mg 07/20/20 07:30 Pantoprazole 40 Mg Tablet PO AC-BRKFST [facility] Senna/Docusate Sodium 2 each 07/18/20 21:00 07/18/20 20:20 Sennosides-Docusate Sodium 1 Each Tab PO 2 each HS [facility] Administration Sodium Chloride 10 ml 07/17/20 21:00 07/19/20 08:20 Sodium Chloride 0.9% Flush 10 Ml Syringe IV Not Given BID [facility] Objective - Vital Signs Vital signs: Vital Signs Temp 98.7 F 07/19/20 12:00 Pulse 72 07/19/20 13:00 Resp 29 H 07/19/20 13:00 BP 97/60 07/19/20 13:00 Pulse Ox 90 L 07/19/20 13:00 Intake & Output 07/18/20 07/19/20 07/19/20 18:59 06:59 18:59 Intake Total 1622.301 326.089 270 Output Total 500 480 570 Balance 1122.301 -153.911 -300 Weight 72.3 kg 73.9 kg Intake: IV 1602 323 270 Albumin Human 5% 250 ml 750 In Empty Bag 1 bag @ 250 mls/hr IVPB Q1HR PRN Rx#: [id number] CO/CI 100 Dextrose 5% in Water 100 100 ml @ 618 mls/hr IV .Q10M ONE with Amiodarone 150 mg Rx#:[id number] Lactated Ringers 1,000 ml 600 290 140 @ 20 mls/hr IV .Q24H [facility] Rx#:[id number] Pressure Bag 102 33 30 ceFAZolin 2 gm In Sodium 50 Chloride 0.9% 50 ml @ 100 mls/hr IVPB Q8HR [facility] Rx# :[id number] Intake, IV Titration 20.301 3.089 Amount Insulin Regular 100 unit 20.301 3.089 In Sodium Chloride 0.9% 100 ml @ Per Protocol IV .Q0M [facility] Rx#:[id number] Output: Chest Tube Drainage 190 210 90 Left Pleural/Mediastinal 190 210 90 Urine 210 270 480 Emesis 100 Other: Voiding Method Indwelling Catheter Indwelling Catheter Indwelling Catheter ABP, PAP, CO, CI - Last Documented Arterial Blood Pressure 80/52 Pulmonary Artery Pressure 39/14 Cardiac Output 3.7 Cardiac Index 2.1 - Exam -GENERAL: The patient is awake fully oriented to time place and person. HEENT: Pupils are round and equally reacting to light. EOMI. No scleral icterus. No conjunctival pallor. Normocephalic, atraumatic. No pharyngeal erythema. No thyromegaly. CARDIOVASCULAR: S1 and S2 present. No murmurs, rubs, or gallops. PULMONARY: Chest is clear to auscultation, no wheezing or crackles. ABDOMEN: Soft, nontender, nondistended, normoactive bowel sounds. No palpable organomegaly. MUSCULOSKELETAL: No joint swelling or deformity. EXTREMITIES: No cyanosis, clubbing, or pedal edema. NEUROLOGICAL: Gross neurological examination did not reveal any focal deficits. SKIN: No rashes. no petechiae. - Labs CBC & Chem 7: 07/19/20 04:25 07/19/20 04:25 Labs: Abnormal Lab Results - Last 24 Hours (Table) 07/18/20 07/18/20 07/18/20 Range/Units 15:03 15:05 16:14 WBC 12.1 H (3.8-10.6) k/uL RBC 2.44 L (3.80-5.40) m/uL Hgb 7.8 L (11.4-16.0) gm/dL Hct 23.1 L (34.0-46.0) % Plt Count 92 L (150-450) k/uL Neutrophils # (1.3-7.7) k/uL Sodium (137-145) mmol/L BUN (7-17) mg/dL Creatinine (0.52-1.04) mg/dL Glucose (74-99) mg/dL POC Glucose (mg/dL) 129 H 122 H (75-99) mg/dL AST (14-36) U/L ALT (4-34) U/L Alkaline Phosphatase (38-126) U/L Total Protein (6.3-8.2) g/dL 07/18/20 07/18/20 07/18/20 Range/Units 17:22 18:27 20:00 WBC (3.8-10.6) k/uL RBC (3.80-5.40) m/uL Hgb (11.4-16.0) gm/dL Hct (34.0-46.0) % Plt Count (150-450) k/uL Neutrophils # (1.3-7.7) k/uL Sodium (137-145) mmol/L BUN (7-17) mg/dL Creatinine (0.52-1.04) mg/dL Glucose (74-99) mg/dL POC Glucose (mg/dL) 129 H 132 H 122 H (75-99) mg/dL AST (14-36) U/L ALT (4-34) U/L Alkaline Phosphatase (38-126) U/L Total Protein (6.3-8.2) g/dL 07/18/20 07/18/20 07/19/20 Range/Units 21:23 22:47 00:07 WBC (3.8-10.6) k/uL RBC (3.80-5.40) m/uL Hgb (11.4-16.0) gm/dL Hct (34.0-46.0) % Plt Count (150-450) k/uL Neutrophils # (1.3-7.7) k/uL Sodium (137-145) mmol/L BUN (7-17) mg/dL Creatinine (0.52-1.04) mg/dL Glucose (74-99) mg/dL POC Glucose (mg/dL) 118 H 111 H 127 H (75-99) mg/dL AST (14-36) U/L ALT (4-34) U/L Alkaline Phosphatase (38-126) U/L Total Protein (6.3-8.2) g/dL 07/19/20 07/19/20 07/19/20 Range/Units 01:48 03:04 04:25 WBC 13.7 H (3.8-10.6) k/uL RBC 2.42 L (3.80-5.40) m/uL Hgb 7.9 L (11.4-16.0) gm/dL Hct 22.8 L (34.0-46.0) % Plt Count 99 L (150-450) k/uL Neutrophils # 11.1 H (1.3-7.7) k/uL Sodium (137-145) mmol/L BUN (7-17) mg/dL Creatinine (0.52-1.04) mg/dL Glucose (74-99) mg/dL POC Glucose (mg/dL) 123 H 123 H (75-99) mg/dL AST (14-36) U/L ALT (4-34) U/L Alkaline Phosphatase (38-126) U/L Total Protein (6.3-8.2) g/dL 07/19/20 07/19/20 07/19/20 Range/Units 04:25 04:33 06:23 WBC (3.8-10.6) k/uL RBC (3.80-5.40) m/uL Hgb (11.4-16.0) gm/dL Hct (34.0-46.0) % Plt Count (150-450) k/uL Neutrophils # (1.3-7.7) k/uL Sodium 131 L (137-145) mmol/L BUN 19 H (7-17) mg/dL Creatinine 1.11 H (0.52-1.04) mg/dL Glucose 114 H (74-99) mg/dL POC Glucose (mg/dL) 124 H 119 H (75-99) mg/dL AST 504 H (14-36) U/L ALT 412 H (4-34) U/L Alkaline Phosphatase 27 L (38-126) U/L Total Protein 5.5 L (6.3-8.2) g/dL 07/19/20 07/19/20 Range/Units 09:35 11:54 WBC (3.8-10.6) k/uL RBC (3.80-5.40) m/uL Hgb (11.4-16.0) gm/dL Hct (34.0-46.0) % Plt Count (150-450) k/uL Neutrophils # (1.3-7.7) k/uL Sodium (137-145) mmol/L BUN (7-17) mg/dL Creatinine (0.52-1.04) mg/dL Glucose (74-99) mg/dL POC Glucose (mg/dL) 107 H 116 H (75-99) mg/dL AST (14-36) U/L ALT (4-34) U/L Alkaline Phosphatase (38-126) U/L Total Protein (6.3-8.2) g/dL Assessment and Plan Assessment: congenital bicuspid aortic stenosis. Status post aortic valve replacement 5% left apical pneumothorax Elevated liver enzymes Hyperlipidemia Hypothyroidism COPD, not in acute exacerbation Plan: This is a pleasant 60 years old female status post aortic valve replacement. Patient status post extubation and she has been by pulmonary/critical care team. Continue with aspirin, Plavix and metoprolol. management of heart rate and blood pressure as per cardiology and cardiothoracic surgery. Pulmonary/critical care team R following the case closely for her pneumothorax together with the cardiothoracic surgery primary team Labs and medication were reviewed.. Continue same treatment. Continue with symptomatic treatment. Resume home medication. Monitor lytes and vitals. DVT and GI prophylaxis. Further recommendations as per clinical course of the patient DVT prophylaxis: Subcutaneous heparin GI Prophylaxis: Ppi
[2020-07-19] MEDS: ONDANSETRON 4 MG/2 ML VIAL IVP PRN (17:33)
[2020-07-19] MEDS ORDERED: METOPROLOL TARTRATE 25 MG TAB PO SCH (21:00)
[2020-07-19] MEDS: SENNOSIDES-DOCUSATE SODIUM 1 EACH TAB PO SCH (21:09)
[2020-07-19 21:19] LABS: Glucose,Whole Blood 139 mg/dL (75-99)
[2020-07-20 04:06] LABS: Basophils % (A) 0 %; Eosinophils % (A) 0 %; HCT 23.2 % (34.0-46.0); HGB 7.4 gm/dL (11.4-16.0); Lymphocytes # (A) 1.5 k/uL (1.0-4.8); Lymphocytes % (A) 10 %; MCH 31.1 pg (25.0-35.0); MCHC 32.1 g/dL (31.0-37.0); MCV 96.9 fL (80.0-100.0); Mean Platelet Volume 10.2; Monocytes # (A) 0.8 k/uL (0-1.0); Monocytes % (A) 5 %; Neutrophils # (A) 12.5 k/uL (1.3-7.7); Neutrophils % (A) 83 %; Platelet Count 101 k/uL (150-450); RBC 2.39 m/uL (3.80-5.40); RDW 13.2 % (11.5-15.5); WBC 15.1 k/uL (3.8-10.6)
[2020-07-20] MEDS: LACTATED RINGERS 1,000 ML IV SCH (04:20)
[2020-07-20 04:23] LABS: Albumin 3.9 g/dL (3.5-5.0); Calcium 8.3 mg/dL (8.4-10.2); Total Bilirubin 1.4 mg/dL (0.2-1.3); Total Protein 5.7 g/dL (6.3-8.2)
[2020-07-20 04:39] LABS: Potassium 5.1 mmol/L (3.5-5.1)
[2020-07-20] MEDS: HEPARIN SODIUM,PORCINE 5,000 UNIT/ML 1 ML VIAL SQ SCH ×3 (05:13→21:31)
[2020-07-20] MEDS: AMIODARONE 450 MG in DEXTROSE 5% IN WATER 250 ML IV SCH ×2 (05:13)
[2020-07-20] MEDS: LEVOTHYROXINE 50 MCG TAB PO SCH (07:22)
[2020-07-20 07:42] LABS: Glucose,Whole Blood 119 mg/dL (75-99)
[2020-07-20] MEDS: INSULIN ASPART (NovoLOG) 100 UNIT/ML VIAL SQ SCH ×4 (07:54→21:26)
[2020-07-20] MEDS: MUPIROCIN 2% OINT 22 GM TUBE NASAL SCH ×2 (08:06→21:32)
[2020-07-20] MEDS: CLOPIDOGREL 75 MG TAB PO SCH (08:06)
[2020-07-20] MEDS: ASPIRIN 325 MG TAB PO SCH (08:06)
[2020-07-20] MEDS: PANTOPRAZOLE 40 MG TABLET PO SCH (08:06)
[2020-07-20] MEDS: buPROPion XL 150 MG TAB.ER.24H PO SCH (08:06)
[2020-07-20] MEDS: ACETAMINOPHEN TAB 325 MG TAB PO PRN ×4 (08:47→21:31)
[2020-07-20] MEDS: IPRATROPIUM-ALBUTEROL 3 ML NEB INHALATION SCH ×4 (08:54→18:52)
[2020-07-20] MEDS ORDERED: METOPROLOL TARTRATE 25 MG TAB PO SCH (09:00)
[2020-07-20 09:05] LABS: Glucose,Whole Blood 113 mg/dL (75-99)
--- NOTE | 2020-07-20 09:12 | PN ---
PROGRESS NOTE Mrs. Montes is a 60-year-old female who presented with symptomatic severe aortic stenosis, underwent aortic valve replacement. She is doing well this morning, sitting up in the chair, feeling stronger. Denying any chest pain. Denies any dizziness or palpitation. She continues to be at this time on aspirin once a day, Plavix 75 mg daily, metoprolol tartrate 25 mg twice a day. PHYSICAL EXAMINATION: Blood pressure 125/60 with the heart rate in the 60. LUNGS: With few crackles at the bases. HEART: Regular rate and rhythm. S1, S2. No S3 with systolic murmur. No diastolic murmur. No rub. ABDOMEN: Soft, nontender. EXTREMITIES: No edema. LAB DATA: Lab data revealed BUN and creatinine 32 and 1.54 which is worse than yesterday. Potassium 5.1. Hemoglobin 7.4. Her AST is 1022. Her ALT is 1046, which has worsened. IMPRESSION: 1. Status post aortic valve replacement. 2. Worsening renal function, could be related to hypoperfusion. 3. Elevated transaminase. 4. Worsening chest x-ray infiltrate. RECOMMENDATION: We will continue on the present therapy. Follow lab data closely. Continue incentive spirometry. Follow her lung status and depending on her progress, further recommendation will be made. MMODL / IJN: [id number] / JUNIOR
--- NOTE | 2020-07-20 09:24 | XR ---
EXAMINATION TYPE: XR chest 1V portable DATE OF EXAM: 07/20/2020 COMPARISON: Chest x-ray 07/19/2020 HISTORY: Chest tube removal, post open heart surgery TECHNIQUE: Single frontal view of the chest is obtained. FINDINGS: Left-sided chest tube has been removed. Right jugular central venous sheath, post median s ternotomy change, left atrial appendage clip placement, aortic valve replacement change again noted. Median sternal drain no longer seen. There is some improved aeration at the left lung base, persisten t obscured right hemidiaphragm and bibasilar density is noted, perihilar airspace disease is noted. N o evident pneumothorax. Cardiac mediastinal silhouette within normal limits. IMPRESSION: No evident complication status post chest tube removals. Correlate for edema, pneumonia, possible pleural effusions
--- NOTE | 2020-07-20 09:31 | P.PN ---
Subjective Progress Note Date: 07/20/20 Principal diagnosis: Congenital severe bicuspid aortic stenosis with an overall left ventricular systolic function to be normal, EF 55-60%. Previous medical history of known bicuspid aortic valve, syncopal event 10 years ago, hyperlipidemia, hypothyroid, chronic ongoing tobacco dependence with preoperative FEV1 79% of predicted, family history of premature coronary artery disease, father at 48 years old from myocardial infarction POD #2 Aortic valve replacement with a 23 mm Inspiris bovine pericardial bioprosthesis, ligation of the left atrial appendage with a 35 mm AtriCure, epi- aortic ultrasonography. Postoperative acute blood loss anemia, expected due to hemodilution and cardiopulmonary bypass. Paroxysmal atrial fibrillation, commonly known occurrence after open heart surgery The patient's currently sitting up in a recliner in the intensive care unit in no acute distress. States post surgical pain is well controlled on current medication regimen, denies shortness of breath, states she feels much better than yesterday. Attempting incentive spirometry with better effort, weak cough. She did go into atrial fibrillation yesterday and was initiated on amiodarone, converted to sinus rhythm to sinus bradycardia. Right internal jugular Cordis remains present. She is currently hemodynamically stable on no inotropes or pressors. Liver enzymes and renal function slightly worse than yesterday. Objective - Vital Signs Vital signs: Vital Signs Temp 98.8 F 07/19/20 21:00 Pulse 62 07/20/20 09:05 Resp 23 07/20/20 09:00 BP 105/54 07/20/20 09:00 Pulse Ox 94 L 07/20/20 09:00 Intake & Output 07/19/20 07/20/20 07/20/20 18:59 06:59 18:59 Intake Total 385 646.838 119 Output Total 670 200 0 Balance -285 446.838 119 Weight 72.4 kg Intake: IV 385 276 69 Dextrose 5% in Water 100 100 ml @ 618 mls/hr IV .Q10M ONE with Amiodarone 150 mg Rx#:[id number] Lactated Ringers 1,000 ml 240 240 60 @ 20 mls/hr IV .Q24H [facility] Rx#:[id number] Pressure Bag 45 36 9 Intake, IV Titration 220.838 Amount Amiodarone 450 mg In 220.838 Dextrose 5% in Water 250 ml @ 0.5 MG/MIN 16.667 mls/hr IV .Q15H [facility] Rx#: [id number] Oral 150 50 Output: Chest Tube Drainage 90 Left Pleural/Mediastinal 90 Urine 580 200 0 Other: Voiding Method Indwelling Catheter Bedpan Bedside Commode # Voids 1 ABP, PAP, CO, CI - Last Documented Arterial Blood Pressure 80/52 Pulmonary Artery Pressure 39/14 Cardiac Output 3.7 Cardiac Index 2.1 - Constitutional General appearance: Present: cooperative, no acute distress - Respiratory Details: Lungs sounds diminished bilaterally. Respirations even, nonlabored. Currently on 5 L high flow nasal cannula with oxygen saturation 96%. Able to achieve 500 mL on incentive spirometry, weak cough. - Cardiovascular Details: S1, S2 present. Regular rate and rhythm, sinus rhythm to sinus bradycardia on telemetry. Sternum stable. A/V epicardial pacemaker wires present, AAI mode with backup rate of 40 bpm. Palpable peripheral pulses bilaterally. No edema present. No calf pain or tenderness noted. Heart hugger in place with patient demonstrating appropriate use. Antiembolism stockings, SCDs present. - Gastrointestinal Gastrointestinal Comment(s): Abdomen soft, nontender, nondistended. Hypoactive bowel sounds present 4 quadrants. Tolerating diet. Positive flatus - Genitourinary Genitourinary Comment(s): Hudson discontinued yesterday, patient continues to void - Integumentary Integumentary Comment(s): Skin is warm and dry with evidence of good perfusion. Anterior chest incision well approximated and covered with dry intact dressing - Neurologic Neurologic: Present: CNII-XII intact - Musculoskeletal Musculoskeletal: Present: gait normal, strength equal bilaterally - Psychiatric Psychiatric: Present: A&O x's 3, appropriate affect, intact judgment & insight - Allied health notes Allied health notes reviewed: nursing - Labs CBC & Chem 7: 07/20/20 03:09 07/20/20 03:09 Labs: Abnormal Lab Results - Last 24 Hours (Table) 07/19/20 07/19/20 07/19/20 Range/Units 09:35 11:54 16:55 WBC (3.8-10.6) k/uL RBC (3.80-5.40) m/uL Hgb (11.4-16.0) gm/dL Hct (34.0-46.0) % Plt Count (150-450) k/uL Neutrophils # (1.3-7.7) k/uL Sodium (137-145) mmol/L BUN (7-17) mg/dL Creatinine (0.52-1.04) mg/dL Glucose (74-99) mg/dL POC Glucose (mg/dL) 107 H 116 H 129 H (75-99) mg/dL Calcium (8.4-10.2) mg/dL Total Bilirubin (0.2-1.3) mg/dL AST (14-36) U/L ALT (4-34) U/L Total Protein (6.3-8.2) g/dL 07/19/20 07/20/20 07/20/20 Range/Units 21:17 03:09 03:09 WBC 15.1 H (3.8-10.6) k/uL RBC 2.39 L (3.80-5.40) m/uL Hgb 7.4 L (11.4-16.0) gm/dL Hct 23.2 L (34.0-46.0) % Plt Count 101 L (150-450) k/uL Neutrophils # 12.5 H (1.3-7.7) k/uL Sodium 130 L (137-145) mmol/L BUN 32 H (7-17) mg/dL Creatinine 1.54 H (0.52-1.04) mg/dL Glucose 105 H (74-99) mg/dL POC Glucose (mg/dL) 139 H (75-99) mg/dL Calcium 8.3 L (8.4-10.2) mg/dL Total Bilirubin 1.4 H (0.2-1.3) mg/dL AST 1022 H (14-36) U/L ALT 1046 H (4-34) U/L Total Protein 5.7 L (6.3-8.2) g/dL 07/20/20 07/20/20 Range/Units 07:40 09:04 WBC (3.8-10.6) k/uL RBC (3.80-5.40) m/uL Hgb (11.4-16.0) gm/dL Hct (34.0-46.0) % Plt Count (150-450) k/uL Neutrophils # (1.3-7.7) k/uL Sodium (137-145) mmol/L BUN (7-17) mg/dL Creatinine (0.52-1.04) mg/dL Glucose (74-99) mg/dL POC Glucose (mg/dL) 119 H 113 H (75-99) mg/dL Calcium (8.4-10.2) mg/dL Total Bilirubin (0.2-1.3) mg/dL AST (14-36) U/L ALT (4-34) U/L Total Protein (6.3-8.2) g/dL - Imaging and Cardiology Chest x-ray: image reviewed Assessment and Plan Assessment: 1. Congenital severe bicuspid aortic stenosis, status post bioprosthetic aortic valve replacement 2. Preserved left ventricular systolic function, EF 55-60% 3. Syncopal event 10 years ago 4. Hyperlipidemia, cholesterol 225, LDL 162 5. Hypothyroid 6. Chronic ongoing tobacco dependence with preoperative FEV1 79% of predicted 7. Family history of premature coronary artery disease 8. Preoperative nasal swab positive for MRSA, treated 9. Postoperative acute blood loss anemia, expected 10. Paroxysmal atrial fibrillation, status post ligation of the left atrial appendage 11. Elevated transaminases, worsening renal function, likely secondary to hypoperfusion Plan: 1. Continue aspirin, statin, Plavix, beta rhiannon. Will increase beta rhiannon therapy as tolerated 2. No amiodarone secondary to elevated liver enzymes. No anticoagulation unless in A. fib for greater than 24 hours 3. Wean O2 as tolerated. Encourage incentive spirometry 10 times available week. Bronchodilators per pulmonology 4. Encourage smoking cessation 5. Increase activity, ambulate as tolerated. PT/OT/cardiac rehab following 6. Will monitor daily labs and x-rays. Electrolyte replacement per protocol. 7. GI/DVT prophylaxis 8. Insulin management per primary care service. Patient is not diabetic, preoperative hemoglobin A1c 5.5% 9. Strict accurate intake and output. Daily weights 10. Will obtain limited echo 11. More recommendations to follow Time with Patient: Greater than 30
--- NOTE | 2020-07-20 10:47 | P.PN ---
Subjective Progress Note Date: 07/20/20 Principal diagnosis: Congenital bicuspid aortic valve, aortic valve replacement with bovine prosthesis 60-year-old female who was referred to Dr. Jones for aortic stenosis. The patient apparently had a congenital bicuspid aortic valve. Today, she underwent a aortic valve replacement, with a bovine prosthesis. Currently, she is in the intensive care unit. She's currently on the mechanical ventilator. Her current ventilator settings include the volume assist control mode, rate of 12, tidal volume 450, FiO2 40%, and PEEP of 8. On those similar settings except for an Fi O2 of 60%, and PEEP of 5, her PaO2 was 187, PaCO2 was 49, pH was 7.31. The patient is currently on lactated Ringer's at 50 mL an hour, and propofol at 10 mcg/kg/m. The patient apparently has a history of ongoing tobacco use, on a daily and regular basis, hypothyroidism, syncope, hyperlipidemia, and a family history of early onset coronary disease. Currently, the patient is starting to wake up from her sedation and anesthesia. Hopefully we'll be able get her moved towards weaning and extubation in the next hour or so. The patient is seen today 07/18/2020 and follow-up in the intensive care unit. His postoperative day #1 of bovine prosthetic aortic valve replacement secondary to bicuspid aortic valve. Left atrial appendage placement. She was extubated yesterday approximate 7 hours following surgery. She is currently sitting up in a chair at the bedside. Awake and alert in no acute distress. She is maintaining O2 saturations in the low 90s on 1 L/m per nasal cannula. She has lactated Ringer's at 50 MLS per hour. Remains on bronchodilators. She is on an insulin drip at 1 unit per hour. She is pulling approximate 500 mL's on her incentive spirometer. Chest x-ray reveals bibasilar atelectasis with possible small effusions. Mediastinal and left sided chest tube remains in place. Right jugular triple-lumen in place. She is status post 1 unit packed red blood cells. Current hemoglobin 8.5. White count 10.3. Platelet count 98,000. Sodium 134. Potassium 4.7. Creatinine 0.76. AST 37. ALT 16. Albumin 3.4. She has received 750 ML's of 5% albumin. Blood pressure remains with systolic pressures in the 80s. CVP of 12. PA pressure 35/80. Urine output marginal. The plan is for 25% albumin. On 07/19/2020 patient seen in follow-up in the intensive care unit, today is postoperative day #2, status post aortic valve replacement. She is doing well, she is awake and alert, oriented 3, she sitting up in the recliner, currently on 5 L of oxygen with a pulse ox of 96%, her incentive spirometer effort is about 500 mL. Patient states it's hard for her to take deep rest. She is in A. fib with RVR, currently with a rate of 112 BPM, and ALLERGIES following commands patient will be started on amiodarone infusion at 1 mg/m. Her maintenance IV point and was seen at a of 20 ML per hour, and insulin is at 0.5 units per hour. Her mediastinal and left pleural chest tube are connected to the same Pleuravac, there has been 400 mL of thin serous illness output in the last 24 hours, cardiothoracic surgery may consider removing on the chest tubes today. Today's labs have been reviewed, showing cell count 13.7, hemoglobin of 7.9, sodium is 131, serum electrolytes troponin is coming BUN is 19 and creatinine is 1.1. AST and ALT were noted to be significantly elevated on today's labs since yesterday. The patient is seen today 07/20/2020 in follow-up in the intensive care unit. This is postoperative day #3 status post aortic valve replacement. She is currently resting comfortably in bed. Awake and alert in no acute distress. She is maintaining O2 saturations in the 90s on 5 L/m per nasal cannula. She still having issues with atrial fibrillation. She remains on amiodarone at 0.5 mg/m. Lactated Ringer's at 20 ML's per hour. Chest x-ray continues to show persistent obscured right hemidiaphragm and bibasilar densities. There is some improved aeration in the left lung. Chest tubes have been removed. She is status post 1 unit of packed red blood cells this admission. Current hemoglobin 7.4. Platelet count 101. White count 15.1. Sodium 130. Potassium 5.1. Creatinine 1.54. AST 1022. ALT 1046. Albumin 3.9. She remains on DuoNeb inhalations, working well with the incentive spirometer. Currently in sinus rhythm. Objective - Vital Signs Vital signs: Vital Signs Temp 97.9 F 07/20/20 08:30 Pulse 67 07/20/20 10:00 Resp 34 H 07/20/20 10:00 BP 110/50 07/20/20 10:00 Pulse Ox 91 L 07/20/20 10:00 Intake & Output 07/19/20 07/20/20 07/20/20 18:59 06:59 18:59 Intake Total 385 646.838 142 Output Total 670 200 0 Balance -285 446.838 142 Weight 72.4 kg Intake: IV 385 276 92 Dextrose 5% in Water 100 100 ml @ 618 mls/hr IV .Q10M ONE with Amiodarone 150 mg Rx#:[id number] Lactated Ringers 1,000 ml 240 240 80 @ 20 mls/hr IV .Q24H [facility] Rx#:[id number] Pressure Bag 45 36 12 Intake, IV Titration 220.838 Amount Amiodarone 450 mg In 220.838 Dextrose 5% in Water 250 ml @ 0.5 MG/MIN 16.667 mls/hr IV .Q15H [facility] Rx#: [id number] Oral 150 50 Output: Chest Tube Drainage 90 Left Pleural/Mediastinal 90 Urine 580 200 0 Other: Voiding Method Indwelling Catheter Bedpan Bedside Commode # Voids 1 ABP, PAP, CO, CI - Last Documented Arterial Blood Pressure 80/52 Pulmonary Artery Pressure 39/14 Cardiac Output 3.7 Cardiac Index 2.1 - Exam GENERAL EXAM: Alert, very pleasant 60-year-old female patient, on 5 L nasal cannula, comfortable in no apparent distress. HEAD: Normocephalic. EYES: Normal reaction of pupils, equal size. NOSE: Clear with pink turbinates. THROAT: No erythema or exudates. NECK: No masses, no JVD. CHEST: Sternal dressing dry and intact. Hugger in place. Chest tubes removed. LUNGS: Equal air entry with bilateral crackles. CVS: S1 and S2 normal with no audible murmur, regular rhythm. ABDOMEN: No hepatosplenomegaly, normal bowel sounds, no guarding or rigidity. SPINE: No scoliosis or deformity SKIN: No rashes CENTRAL NERVOUS SYSTEM: No focal deficits, tone is normal in all 4 extremities. EXTREMITIES: There is 1-2+ peripheral edema. No clubbing, no cyanosis. Peripheral pulses are intact. - Labs CBC & Chem 7: 07/20/20 03:09 07/20/20 03:09 Labs: Abnormal Lab Results - Last 24 Hours (Table) 07/19/20 07/19/20 07/19/20 Range/Units 11:54 16:55 21:17 WBC (3.8-10.6) k/uL RBC (3.80-5.40) m/uL Hgb (11.4-16.0) gm/dL Hct (34.0-46.0) % Plt Count (150-450) k/uL Neutrophils # (1.3-7.7) k/uL Sodium (137-145) mmol/L BUN (7-17) mg/dL Creatinine (0.52-1.04) mg/dL Glucose (74-99) mg/dL POC Glucose (mg/dL) 116 H 129 H 139 H (75-99) mg/dL Calcium (8.4-10.2) mg/dL Total Bilirubin (0.2-1.3) mg/dL AST (14-36) U/L ALT (4-34) U/L Total Protein (6.3-8.2) g/dL 07/20/20 07/20/20 07/20/20 Range/Units 03:09 03:09 07:40 WBC 15.1 H (3.8-10.6) k/uL RBC 2.39 L (3.80-5.40) m/uL Hgb 7.4 L (11.4-16.0) gm/dL Hct 23.2 L (34.0-46.0) % Plt Count 101 L (150-450) k/uL Neutrophils # 12.5 H (1.3-7.7) k/uL Sodium 130 L (137-145) mmol/L BUN 32 H (7-17) mg/dL Creatinine 1.54 H (0.52-1.04) mg/dL Glucose 105 H (74-99) mg/dL POC Glucose (mg/dL) 119 H (75-99) mg/dL Calcium 8.3 L (8.4-10.2) mg/dL Total Bilirubin 1.4 H (0.2-1.3) mg/dL AST 1022 H (14-36) U/L ALT 1046 H (4-34) U/L Total Protein 5.7 L (6.3-8.2) g/dL 07/20/20 Range/Units 09:04 WBC (3.8-10.6) k/uL RBC (3.80-5.40) m/uL Hgb (11.4-16.0) gm/dL Hct (34.0-46.0) % Plt Count (150-450) k/uL Neutrophils # (1.3-7.7) k/uL Sodium (137-145) mmol/L BUN (7-17) mg/dL Creatinine (0.52-1.04) mg/dL Glucose (74-99) mg/dL POC Glucose (mg/dL) 113 H (75-99) mg/dL Calcium (8.4-10.2) mg/dL Total Bilirubin (0.2-1.3) mg/dL AST (14-36) U/L ALT (4-34) U/L Total Protein (6.3-8.2) g/dL Assessment and Plan Assessment: Congenital bicuspid aortic valve with a aortic valve stenosis, status post aortic valve replacement with a bovine prosthesis, and ligation of the left atrial appendage. This operative day #3 Routine postoperative ventilator management. Atrial fibrillation, common following open heart surgery, currently on amiodaron e Hyperlipidemia. Hypothyroidism. History of chronic tobacco use. No evidence of obstructive coronary disease. Family history of early-onset coronary disease. Acute kidney injury, creatinine 1.54. Elevated liver function testing Plan: The patient was seen and evaluated by Dr. Crenshaw Chest x-ray and labs reviewed We will obtain a pro-calcitonin Add Augmentin Continue bronchodilators Encouraged regarding the increased use of the incentive spirometer and cough and deep breathing exercises We will continue to follow and make further recommendations based on her clinical status I, the cosigning physician, performed a history & physical examination of the patient. Lungs sounds with crackles in the bilateral posterior bases. Maintaining good O2 saturations in the 90s on 5 L/m per nasal cannula I discussed the assessment and plan of care with my nurse practitioner, Sally Prather. I attest to the above note as dictated by her.
[2020-07-20] MEDS: AMOXIC-POT CLAV 875-125MG 1 EACH TAB PO SCH ×2 (11:32→21:31)
[2020-07-20 11:41] LABS: Glucose,Whole Blood 109 mg/dL (75-99)
[2020-07-20] MEDS: FERROUS SULFATE 325 MG TAB PO SCH (11:44)
[2020-07-20] MEDS: ASCORBIC ACID 500 MG TAB PO SCH (11:44)
[2020-07-20] MEDS: METOCLOPRAMIDE 5 MG/ML 2 ML VIAL IVP PRN (14:18)
[2020-07-20] MEDS ORDERED: DIGOXIN 250 MCG/ML 2 ML AMP IVP ONE (14:45)
[2020-07-20] MEDS: SODIUM CHLORIDE 0.9% 1,000 ML IV SCH (14:48)
--- NOTE | 2020-07-20 15:00 | ECHOF ---
Referral Reason:eval LV function, pericardial effusion MEASUREMENTS -------- HEIGHT: 167.6 cm WEIGHT: 72.1 kg BP: IVSd: 0.7 cm (0.6 - 1.1) LVIDd: 2.9 cm (3.9 - 5.3) LVPWd: 0.9 cm (0.6 - 1.1) IVSs: 1.0 cm LVIDs: 1.6 cm LVPWs: 1.0 cm IVSd: 0.9 cm (0.6 - 1.1) LVIDd: 4.7 cm (3.9 - 5.3) LVPWd: 0.8 cm (0.6 - 1.1) IVSs: 1.6 cm LVIDs: 1.8 cm LVPWs: 1.7 cm EDV(Teich): 102 ml ESV(Teich): 9 ml EF(Teich): 91 % %FS: 62 % SV(Teich): 92 ml FINDINGS -------- Sinus rhythm. This was a technically difficult study with suboptimal views. Limited Study TDS due to CABG and B andages. The left ventricular size is normal. Left ventricular wall thickness is normal. Overall left vent ricular systolic function is normal with, an EF between 55 - 60 %. There is a trivial pericardial effusion present. CONCLUSIONS -------- 1. TDS due to CABG and Bandages. 2. Left ventricular wall thickness is normal. 3. Overall left ventricular systolic function is normal with, an EF between 55 - 60 %. 4. There is a trivial pericardial effusion present. CLIENT SPECIALIST: Kaur Hernández RDCS
[2020-07-20] MEDS: ONDANSETRON 4 MG/2 ML VIAL IVP PRN (15:53)
--- NOTE | 2020-07-20 16:09 | US ---
EXAMINATION TYPE: US chest DATE OF EXAM: 07/20/2020 COMPARISON: Chest x-ray 07/20/2020 CLINICAL HISTORY: Pleural effusions. Patient is post cardiac surgery. TECHNIQUE: Targeted ultrasound of the posterior chest EXAM MEASUREMENTS: Right Pleural Effusion pocket size: 6.4 cm A/P Right skin surface to fluid distance: 2.5 cm A/P Left Pleural Effusion pocket size: 3.6 cm A/P Right side was marked for possible thoracentesis outside the dept. Pulmonologists are able to review the images in the patient?s EMR. IMPRESSIONS: Bilateral pleural effusions
--- NOTE | 2020-07-20 16:19 | XR ---
EXAMINATION TYPE: XR chest 1V portable DATE OF EXAM: 07/20/2020 HISTORY: Status post thoracentesis COMPARISON: None. TECHNIQUE: Single view of the chest is submitted. FINDINGS: Diminution in right-sided pleural effusion compatible with thoracentesis. No evidence for pneumothora x. Improved aeration right lower lobe. Persistent left upper lobe patchy infiltrate. There is no evidence for focal infiltrate. The heart is stable. Hilar and mediastinal structures are within normal limits. Degenerative changes are seen of the dorsal spine. IMPRESSION: 1. Diminution in right-sided pleural effusion compatible with thoracentesis. No evidence for pneumot horax. Improved aeration right lower lobe. Persistent left upper lobe patchy infiltrate.
[2020-07-20 18:13] LABS: HCT 21.8 % (34.0-46.0); HGB 7.2 gm/dL (11.4-16.0); MCH 31.4 pg (25.0-35.0); MCHC 33.2 g/dL (31.0-37.0); MCV 94.7 fL (80.0-100.0); Mean Platelet Volume 10.3; Platelet Count 108 k/uL (150-450); WBC 13.6 k/uL (3.8-10.6)
[2020-07-20 21:23] LABS: Glucose,Whole Blood 120 mg/dL (75-99)
[2020-07-20] MEDS: SENNOSIDES-DOCUSATE SODIUM 1 EACH TAB PO SCH (21:31)
--- NOTE | 2020-07-20 21:34 | P.PN ---
Subjective This is a pleasant 60 years old female with past medical history of COPD, hyperlipidemia, osteoarthritis, hypothyroidism. She was admitted with congenital bicuspid aortic stenosis for aortic valve replacement. Today is postoperative day #1 Patient status post extubation. Today was sitting on the chair was comfortable but complaining from pain in the left shoulder area.. No chest pain or dyspnea. No abdominal pain. No diarrhea Temperature today slightly up at 99.7. Slightly tachypneic. Blood pressure is 99/46. Hemoglobin is 8.5, rest of CBC is unremarkable. Glucose control, sodium 134, liver enzymes not elevated. Glucose is controlled Chest x-ray showing anterolateral extubation, bibasilar atelectasis, difficult to exclude pneumonia or small effusion Patient is currently on aspirin and Plavix, small dose of metoprolol 07/19/2020 Patient is sitting in chair comfortable, minimal pain at the surgical site. She still have pain in the left upper shoulder and around the left shoulder but is better than yesterday, no shoulder swelling or erythema. Most likely related to her left pneumothorax and left chest tube. Hemodynamic the patient is a stable She is slightly bradycardic at 51, afebrile today. Kyra fever yesterday at 99.7. Slightly tachypneic of 22-30 and blood pressure 92/45. Earlier today she was tachycardic despite being on amiodarone drip and boluses of amiodarone IV. Cardiothoracic and pulmonary services are on the case. She needs minimal dose of insulin drip and it can be switched to sliding scale. Labs showing mild leukocytosis of 13.7 K. Sodium was slightly low at 131. Creatinine trending up slowly to 1.1. Liver enzymes slightly elevated [place] 9[address]66 and ALT 412. Bilirubin is normal at 1.3 Chest x-ray showing bilateral infiltrates and pleural effusion correlated for mild venous congestion She remains on aspirin, Plavix and metoprolol increased slightly to 25 mg 3 times a day by cardiothoracic surgery team. Also she is on amiodarone drip 07/20/2020 Patient remains in the ICU, she was in the distal distress because of pain on her right side of the chest however her pain in the left chest and left shoulder is improved today. No coughing, no dyspnea. Heart rate and 50, blood pressure is 100/60. She is saturating 91% on nightly 9 l/moxygen via nasal cannula. Labs showing WBC of 13.6. Hemoglobin 7.2 and she is already on ferrous sulfate. Glucose control, sodium 1:30, creatinine is elevated at 1.5. And liver enzymes are trending up to AST 1022 and ALT 1046. Postcalcitonin is high at 1.46 Chest ultrasound showing right-sided pleural effusion 6.4 status post right thoracocentesis, while left pleural effusion is 3.6 cm Echocardiogram showed ejection fraction of 55-60%. Currently patient is antibiotic on Augmentin Review of systems CONSTITUTIONAL: No fever, no malaise, no fatigue. HEENT: No recent visual problems or hearing problems. Denied any sore throat. CARDIOVASCULAR: No orthopnea, PND, no palpitations, no syncope. PULMONARY: No shortness of breath, no cough, no hemoptysis. GASTROINTESTINAL: No diarrhea, no nausea, no vomiting, no abdominal pain. Normoactive bowel sounds. Active Medications Generic Name Dose Route Start Last Admin Trade Name Freq PRN Reason Stop Dose Admin Acetaminophen 650 mg 07/20/20 06:41 07/20/20 21:31 Acetaminophen Tab 325 Mg Tab PO 650 mg Q4HR PRN Administration Fever and/ or Pain Albuterol/Ipratropium 3 ml 07/17/20 11:21 Ipratropium-Albuterol 3 Ml Neb INHALATION RT-Q2H PRN Shortness Of Breath Or Wheezing Albuterol/Ipratropium 3 ml 07/18/20 08:00 07/20/20 18:52 Ipratropium-Albuterol 3 Ml Neb INHALATION 3 ml RT-QID [facility] Administration Amoxicillin/Clavulanate Potassium 1 each 07/20/20 11:00 07/20/20 21:31 Amoxic-Pot Clav 875-125mg 1 Each Tab PO 1 each Q12HR [facility] Administration Ascorbic Acid 500 mg 07/18/20 13:00 07/20/20 11:44 Ascorbic Acid 500 Mg Tab PO 500 mg 1200 [facility] Administration Aspirin 325 mg 07/18/20 09:00 07/20/20 08:06 Aspirin 325 Mg Tab PO 325 mg DAILY [facility] Administration Bisacodyl 10 mg 07/18/20 09:00 Bisacodyl 10 Mg Supp RECTAL DAILY PRN Constipation Bupropion HCl 150 mg 07/19/20 09:00 07/20/20 08:06 Bupropion Xl 150 Mg Tab.Er.24h PO 150 mg DAILY [facility] Administration Clopidogrel Bisulfate 75 mg 07/18/20 09:00 07/20/20 08:06 Clopidogrel 75 Mg Tab PO 75 mg DAILY [facility] Administration Ferrous Sulfate 325 mg 07/18/20 13:00 07/20/20 11:44 Ferrous Sulfate 325 Mg Tab PO 325 mg W/LUNCH [facility] Administration Heparin Sodium (Porcine) 5,000 unit 07/17/20 20:00 07/20/20 21:31 Heparin Sodium,Porcine 5,000 Unit/Ml 1 Ml Vial SQ 5,000 unit Q8H [facility] Administration Sodium Chloride 1,000 mls @ 50 mls/hr 07/20/20 15:00 07/20/20 14:48 Saline 0.9% IV 50 mls/hr .Q20H [facility] Administration Insulin Aspart 0 unit 07/19/20 17:30 07/20/20 21:26 Insulin Aspart (Novolog) 100 Unit/Ml Vial SQ Not Given ACHS [facility] Protocol Levothyroxine Sodium 125 mcg 07/19/20 06:30 07/20/20 07:22 Levothyroxine 50 Mcg Tab PO 125 mcg DAILY@0630 [facility] Administration Magnesium Hydroxide 2,400 mg 07/18/20 09:00 07/20/20 04:19 Magnesium Hydroxide 2,400 Mg/10 Ml Cup PO 2,400 mg BID PRN Administration Constipation Metoclopramide HCl 10 mg 07/17/20 11:21 07/20/20 14:18 Metoclopramide 5 Mg/Ml 2 Ml Vial IVP 10 mg Q4H PRN Administration Nausea And Vomiting Metoprolol Tartrate 12.5 mg 07/21/20 09:00 Metoprolol Tartrate 12.5 Mg Tab PO BID [facility] Miscellaneous Information 1 each 07/17/20 11:21 Potassium Replacement Protocol 1 Each Misc MISCELLANE DAILY PRN Per Protocol Protocol Miscellaneous Information 1 each 07/17/20 11:21 Magnesium Replacement Protocol 1 Each Misc MISCELLANE DAILY PRN Per Protocol Protocol Miscellaneous Information 1 each 07/17/20 11:21 Phosphorus Replacement Protoco 1 Each Misc MISCELLANE DAILY PRN Per Protocol Protocol Ondansetron HCl 4 mg 07/17/20 11:21 07/20/20 15:53 Ondansetron 4 Mg/2 Ml Vial IVP 4 mg Q6HR PRN Administration Nausea And Vomiting Pantoprazole Sodium 40 mg 07/20/20 07:30 07/20/20 08:06 Pantoprazole 40 Mg Tablet PO 40 mg [id number] [facility] Administration Senna/Docusate Sodium 2 each 07/18/20 21:00 07/20/20 21:31 Sennosides-Docusate Sodium 1 Each Tab PO 2 each HS [facility] Administration Sodium Chloride 10 ml 07/17/20 21:00 07/20/20 21:31 Sodium Chloride 0.9% Flush 10 Ml Syringe IV 10 ml BID [facility] Administration Objective - Vital Signs Vital signs: Vital Signs Temp 98 F 07/20/20 12:00 Pulse 52 L 07/20/20 17:00 Resp 22 07/20/20 17:00 BP 85/53 07/20/20 17:00 Pulse Ox 89 L 07/20/20 17:00 Intake & Output 07/19/20 07/20/20 07/20/20 18:59 06:59 18:59 Intake Total 385 646.838 513 Output Total 670 200 0 Balance -285 446.838 513 Weight 72.4 kg Intake: IV 385 276 313 Dextrose 5% in Water 100 100 ml @ 618 mls/hr IV .Q10M ONE with Amiodarone 150 mg Rx#:[id number] Lactated Ringers 1,000 ml 240 240 180 @ 20 mls/hr IV .Q24H [facility] Rx#:[id number] Pressure Bag 45 36 33 Sodium Chloride 0.9% 1, 100 000 ml @ 50 mls/hr IV . Q20H [facility] Rx#:[id number] Intake, IV Titration 220.838 Amount Amiodarone 450 mg In 220.838 Dextrose 5% in Water 250 ml @ 0.5 MG/MIN 16.667 mls/hr IV .Q15H [facility] Rx#: [id number] Oral 150 200 Output: Chest Tube Drainage 90 Left Pleural/Mediastinal 90 Urine 580 200 0 Other: Voiding Method Indwelling Catheter Bedpan Bedside Commode # Voids 1 ABP, PAP, CO, CI - Last Documented Arterial Blood Pressure 80/52 Pulmonary Artery Pressure 39/14 Cardiac Output 3.7 Cardiac Index 2.1 - Exam -GENERAL: The patient is awake fully oriented to time place and person. HEENT: Pupils are round and equally reacting to light. EOMI. No scleral icterus. No conjunctival pallor. Normocephalic, atraumatic. No pharyngeal erythema. No thyromegaly. CARDIOVASCULAR: S1 and S2 present. No murmurs, rubs, or gallops. PULMONARY: Chest is clear to auscultation, no wheezing or crackles. ABDOMEN: Soft, nontender, nondistended, normoactive bowel sounds. No palpable organomegaly. MUSCULOSKELETAL: No joint swelling or deformity. EXTREMITIES: No cyanosis, clubbing, or pedal edema. NEUROLOGICAL: Gross neurological examination did not reveal any focal deficits. SKIN: No rashes. no petechiae. - Labs CBC & Chem 7: 07/20/20 17:34 07/20/20 03:09 Labs: Abnormal Lab Results - Last 24 Hours (Table) 07/19/20 07/20/20 07/20/20 Range/Units 21:17 03:09 03:09 WBC 15.1 H (3.8-10.6) k/uL RBC 2.39 L (3.80-5.40) m/uL Hgb 7.4 L (11.4-16.0) gm/dL Hct 23.2 L (34.0-46.0) % Plt Count 101 L (150-450) k/uL Neutrophils # 12.5 H (1.3-7.7) k/uL Sodium 130 L (137-145) mmol/L BUN 32 H (7-17) mg/dL Creatinine 1.54 H (0.52-1.04) mg/dL Glucose 105 H (74-99) mg/dL POC Glucose (mg/dL) 139 H (75-99) mg/dL Calcium 8.3 L (8.4-10.2) mg/dL Total Bilirubin 1.4 H (0.2-1.3) mg/dL AST 1022 H (14-36) U/L ALT 1046 H (4-34) U/L Total Protein 5.7 L (6.3-8.2) g/dL Procalcitonin (0.02-0.09) ng/mL 07/20/20 07/20/20 07/20/20 Range/Units 03:09 07:40 09:04 WBC (3.8-10.6) k/uL RBC (3.80-5.40) m/uL Hgb (11.4-16.0) gm/dL Hct (34.0-46.0) % Plt Count (150-450) k/uL Neutrophils # (1.3-7.7) k/uL Sodium (137-145) mmol/L BUN (7-17) mg/dL Creatinine (0.52-1.04) mg/dL Glucose (74-99) mg/dL POC Glucose (mg/dL) 119 H 113 H (75-99) mg/dL Calcium (8.4-10.2) mg/dL Total Bilirubin (0.2-1.3) mg/dL AST (14-36) U/L ALT (4-34) U/L Total Protein (6.3-8.2) g/dL Procalcitonin 1.46 H (0.02-0.09) ng/mL 07/20/20 Range/Units 11:39 WBC (3.8-10.6) k/uL RBC (3.80-5.40) m/uL Hgb (11.4-16.0) gm/dL Hct (34.0-46.0) % Plt Count (150-450) k/uL Neutrophils # (1.3-7.7) k/uL Sodium (137-145) mmol/L BUN (7-17) mg/dL Creatinine (0.52-1.04) mg/dL Glucose (74-99) mg/dL POC Glucose (mg/dL) 109 H (75-99) mg/dL Calcium (8.4-10.2) mg/dL Total Bilirubin (0.2-1.3) mg/dL AST (14-36) U/L ALT (4-34) U/L Total Protein (6.3-8.2) g/dL Procalcitonin (0.02-0.09) ng/mL Assessment and Plan Assessment: congenital bicuspid aortic stenosis. Status post aortic valve replacement A. fib Bilateral pleural effusion status post right thoracocentesis Transaminitis with trending up liver enzymes Acute kidney injury probably related to her episode of postop hypotension 5% left apical pneumothorax Hyperlipidemia Hypothyroidism COPD, not in acute exacerbation Plan: This is a pleasant 60 years old female status post aortic valve replacement. Patient status post extubation and she has been by pulmonary/critical care team. Continue with aspirin, Plavix and metoprolol. management of heart rate and blood pressure as per cardiology and cardiothoracic surgery. Pulmonary/critical care team R following the case closely for her pneumothorax together with the cardiothoracic surgery primary team Digoxin was discontinued, avoid nephrotoxins, avoid hypotension, continue iv hydration. 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 Continue with antibiotic. Labs and medication were reviewed.. Continue same treatment. Continue with symptomatic treatment. Resume home medication. Monitor lytes and vitals. DVT and GI prophylaxis. Further recommendations as per clinical course of the patient DVT prophylaxis: Subcutaneous heparin GI Prophylaxis: Ppi
--- NOTE | 2020-07-20 22:31 | PCN ---
PROCEDURE NOTE PROCEDURE: Right-sided thoracentesis. PREOPERATIVE DIAGNOSIS: Right pleural effusion. POSTOPERATIVE DIAGNOSIS: Right pleural effusion. PROCEDURE DESCRIPTION: There was informed consent. A time-out was completed verifying correct patient, procedure, site, positioning , and implant (s) or special equipment if applicable. Ultrasound guidance was used and appropriate fluid pocket was identified and marked. Patient was positioned, prepped and draped in usual sterile fashion. Lidocaine was used to anesthetize the area. A thoracentesis catheter was introduced into the pleural space and fluid was removed. Blood loss was none. A chest x-ray will be ordered post procedure. Total Fluid Removed: One liter of blood was removed from the right pleural space. The patient tolerated the procedure well and there were no immediate complications. MMODL / IJN: [id number] /
[2020-07-21] MEDS: HEPARIN SODIUM,PORCINE 5,000 UNIT/ML 1 ML VIAL SQ SCH ×3 (03:26→20:03)
[2020-07-21] MEDS: ACETAMINOPHEN TAB 325 MG TAB PO PRN ×3 (03:26→20:03)
[2020-07-21 03:44] LABS: HGB 7.3 gm/dL (11.4-16.0); MCHC 34.7 g/dL (31.0-37.0); MCV 95.1 fL (80.0-100.0); Mean Platelet Volume 10.5; Platelet Count 101 k/uL (150-450); RBC 2.21 m/uL (3.80-5.40); RDW 14.1 % (11.5-15.5); WBC 12.6 k/uL (3.8-10.6)
[2020-07-21 04:25] LABS: Albumin 3.6 g/dL (3.5-5.0); Potassium 4.9 mmol/L (3.5-5.1); Total Bilirubin 1.4 mg/dL (0.2-1.3); Total Protein 5.4 g/dL (6.3-8.2)
--- NOTE | 2020-07-21 06:49 | XR ---
EXAMINATION TYPE: XR chest 1V portable DATE OF EXAM: 07/21/2020 CLINICAL HISTORY: Difficulty breathing progress study. Right-sided thoracentesis one day earlier. Po stoperative cardiac surgery. TECHNIQUE: Single AP portable semiupright view of the chest is obtained. COMPARISON: Chest x-ray from one day earlier and older studies. FINDINGS: Overlying sternal wires along with left atrial appendage clip and metallic aortic valve ar e redemonstrated. Slightly more prominent small right pleural effusion. Stable mild cardiomegaly. Chr onic parenchymal changes with faint increased opacity right midlung. More prominent increased opacity periphery of the left mid lung. Osseous structures are intact. IMPRESSION: Mild cardiomegaly and chronic parenchymal changes with left greater than right bilateral peripheral mid acute infiltrates remain present. No significant interval change. Recurrent Small righ t pleural effusion slightly larger from 1 day earlier.
[2020-07-21] MEDS: INSULIN ASPART (NovoLOG) 100 UNIT/ML VIAL SQ SCH ×4 (06:50→20:03)
[2020-07-21] MEDS: LEVOTHYROXINE 50 MCG TAB PO SCH (07:07)
[2020-07-21] MEDS: PANTOPRAZOLE 40 MG TABLET PO SCH (07:07)
[2020-07-21] MEDS: ONDANSETRON 4 MG/2 ML VIAL IVP PRN ×2 (07:12→13:35)
[2020-07-21] MEDS: ASPIRIN 325 MG TAB PO SCH (08:44)
[2020-07-21] MEDS: METOPROLOL TARTRATE 12.5 MG TAB PO SCH ×2 (08:45→20:03)
[2020-07-21] MEDS: PIPERACILLIN-TAZOBACTAM 3.375 GM in SODIUM CHLORIDE 0.9% 100 ML IVPB SCH ×2 (08:46→16:49)
[2020-07-21] MEDS: buPROPion XL 150 MG TAB.ER.24H PO SCH (08:46)
[2020-07-21] MEDS: CLOPIDOGREL 75 MG TAB PO SCH (08:46)
--- NOTE | 2020-07-21 08:47 | PN ---
PROGRESS NOTE Mrs. Montes is a 60-year-old female who presented to undergo elective aortic valve replacement for severe aortic stenosis. She is doing well this morning. She is sitting up in the chair. She denies any chest pain. No dizziness. No palpitation. She underwent thoracentesis on the right side. She is feeling well overall. She denies any nausea. She continues to be on aspirin once a day, Plavix 75 daily. She is on metoprolol tartrate 12.5 mg twice a day. PHYSICAL EXAMINATION: VITAL SIGNS: Blood pressure 107/60 with a heart in the 60s. LUNGS: With a few crackles at the bases, no wheezes. HEART: Regular rate and rhythm, S1, S2. No S3 with systolic murmur, no diastolic murmur. ABDOMEN: Soft, nontender. EXTREMITIES: No edema. LAB DATA: Lab data revealed a hemoglobin of 7.3, white blood cell of 12.6, BUN and creatinine 37 and 1.1. Potassium 4.9. Her AST 619, which is improved compared to yesterday and her ALT is 977, which is improved as well. IMPRESSION: 1. Status post aortic valve replacement. 2. Status post thoracentesis. 3. Elevated transaminases, improving. RECOMMENDATION: From the cardiac standpoint will continue present therapy. Follow her chest x-ray that shows some improvement compared to yesterday. Continue incentive spirometry and depending on her progress, further recommendation will be made. MMODL / IJN: [id number] /
--- NOTE | 2020-07-21 08:56 | P.PN ---
Subjective Progress Note Date: 07/21/20 Principal diagnosis: Congenital bicuspid aortic valve, aortic valve replacement with bovine prosthesis 60-year-old female who was referred to Dr. Jones for aortic stenosis. The patient apparently had a congenital bicuspid aortic valve. Today, she underwent a aortic valve replacement, with a bovine prosthesis. Currently, she is in the intensive care unit. She's currently on the mechanical ventilator. Her current ventilator settings include the volume assist control mode, rate of 12, tidal volume 450, FiO2 40%, and PEEP of 8. On those similar settings except for an Fi O2 of 60%, and PEEP of 5, her PaO2 was 187, PaCO2 was 49, pH was 7.31. The patient is currently on lactated Ringer's at 50 mL an hour, and propofol at 10 mcg/kg/m. The patient apparently has a history of ongoing tobacco use, on a daily and regular basis, hypothyroidism, syncope, hyperlipidemia, and a family history of early onset coronary disease. Currently, the patient is starting to wake up from her sedation and anesthesia. Hopefully we'll be able get her moved towards weaning and extubation in the next hour or so. The patient is seen today 07/18/2020 and follow-up in the intensive care unit. His postoperative day #1 of bovine prosthetic aortic valve replacement secondary to bicuspid aortic valve. Left atrial appendage placement. She was extubated yesterday approximate 7 hours following surgery. She is currently sitting up in a chair at the bedside. Awake and alert in no acute distress. She is maintaining O2 saturations in the low 90s on 1 L/m per nasal cannula. She has lactated Ringer's at 50 MLS per hour. Remains on bronchodilators. She is on an insulin drip at 1 unit per hour. She is pulling approximate 500 mL's on her incentive spirometer. Chest x-ray reveals bibasilar atelectasis with possible small effusions. Mediastinal and left sided chest tube remains in place. Right jugular triple-lumen in place. She is status post 1 unit packed red blood cells. Current hemoglobin 8.5. White count 10.3. Platelet count 98,000. Sodium 134. Potassium 4.7. Creatinine 0.76. AST 37. ALT 16. Albumin 3.4. She has received 750 ML's of 5% albumin. Blood pressure remains with systolic pressures in the 80s. CVP of 12. PA pressure 35/80. Urine output marginal. The plan is for 25% albumin. On 07/19/2020 patient seen in follow-up in the intensive care unit, today is postoperative day #2, status post aortic valve replacement. She is doing well, she is awake and alert, oriented 3, she sitting up in the recliner, currently on 5 L of oxygen with a pulse ox of 96%, her incentive spirometer effort is about 500 mL. Patient states it's hard for her to take deep rest. She is in A. fib with RVR, currently with a rate of 112 BPM, and ALLERGIES following commands patient will be started on amiodarone infusion at 1 mg/m. Her maintenance IV point and was seen at a of 20 ML per hour, and insulin is at 0.5 units per hour. Her mediastinal and left pleural chest tube are connected to the same Pleuravac, there has been 400 mL of thin serous illness output in the last 24 hours, cardiothoracic surgery may consider removing on the chest tubes today. Today's labs have been reviewed, showing cell count 13.7, hemoglobin of 7.9, sodium is 131, serum electrolytes troponin is coming BUN is 19 and creatinine is 1.1. AST and ALT were noted to be significantly elevated on today's labs since yesterday. The patient is seen today 07/20/2020 in follow-up in the intensive care unit. This is postoperative day #3 status post aortic valve replacement. She is currently resting comfortably in bed. Awake and alert in no acute distress. She is maintaining O2 saturations in the 90s on 5 L/m per nasal cannula. She still having issues with atrial fibrillation. She remains on amiodarone at 0.5 mg/m. Lactated Ringer's at 20 ML's per hour. Chest x-ray continues to show persistent obscured right hemidiaphragm and bibasilar densities. There is some improved aeration in the left lung. Chest tubes have been removed. She is status post 1 unit of packed red blood cells this admission. Current hemoglobin 7.4. Platelet count 101. White count 15.1. Sodium 130. Potassium 5.1. Creatinine 1.54. AST 1022. ALT 1046. Albumin 3.9. She remains on DuoNeb inhalations, working well with the incentive spirometer. Currently in sinus rhythm. Patient is seen today 07/21/2020 in follow-up in the intensive care unit. This is postoperative day #4 status post aortic valve replacement. She is currently sitting up in a chair at the bedside. Awake and alert in no acute distress. She did undergo a right-sided thoracentesis with bloody return of 1 L yesterday. She was doing a bit better at that time. However today she is still requiring higher oxygen amounts to maintain O2 saturations in the 90s. Currently on 11 L high flow. Chest x-ray shows a small recurrent right pleural effusion and some infiltrate of the left midlung. She was initiated on Augmentin yesterday. White count 12.6. Hemoglobin 7.3. Platelet count 101. Sodium 133. Potassium 4.9. Creatinine 1.11. AST 619. ALT 977. Albumin 3.6. Pro-calcitonin 1.46. Remains on bronchodilators. Working well with the incentive spirometer. Objective - Vital Signs Vital signs: Vital Signs Temp 98 F 07/21/20 08:00 Pulse 60 07/21/20 08:00 Resp 28 H 07/21/20 08:00 BP 107/63 07/21/20 08:00 Pulse Ox 96 07/21/20 08:00 Intake & Output 07/20/20 07/21/20 07/21/20 18:59 06:59 18:59 Intake Total 566 836 106 Output Total 0 1300 Balance 566 -464 106 Weight 73.4 kg Intake: IV 366 636 106 Lactated Ringers 1,000 ml 180 @ 20 mls/hr IV .Q24H [facility]PH Rx#:[id number] Pressure Bag 36 36 6 Sodium Chloride 0.9% 1, 150 600 100 000 ml @ 50 mls/hr IV . Q20H [facility]ALPH Rx#:[id number] Oral 200 200 Output: Urine 0 700 Other 600 Other: Voiding Method Bedside Commode Bedside Commode # Voids 1 ABP, PAP, CO, CI - Last Documented Arterial Blood Pressure 80/52 Pulmonary Artery Pressure 39/14 Cardiac Output 3.7 Cardiac Index 2.1 - Exam GENERAL EXAM: Alert, very pleasant 60-year-old female patient, on 11 L nasal cannula, comfortable in no apparent distress. HEAD: Normocephalic. EYES: Normal reaction of pupils, equal size. NOSE: Clear with pink turbinates. THROAT: No erythema or exudates. NECK: No masses, no JVD. CHEST: Sternal dressing dry and intact. Hugger in place. Chest tubes removed. LUNGS: Equal air entry with bilateral crackles scattered rhonchi. CVS: S1 and S2 normal with no audible murmur, regular rhythm. ABDOMEN: No hepatosplenomegaly, normal bowel sounds, no guarding or rigidity. SPINE: No scoliosis or deformity SKIN: No rashes CENTRAL NERVOUS SYSTEM: No focal deficits, tone is normal in all 4 extremities. EXTREMITIES: There is 1-2+ peripheral edema. No clubbing, no cyanosis. Peripheral pulses are intact. - Labs CBC & Chem 7: 07/21/20 03:30 07/21/20 03:30 Labs: Abnormal Lab Results - Last 24 Hours (Table) 07/20/20 07/20/20 07/20/20 Range/Units 03:09 09:04 11:39 WBC (3.8-10.6) k/uL RBC (3.80-5.40) m/uL Hgb (11.4-16.0) gm/dL Hct (34.0-46.0) % Plt Count (150-450) k/uL Sodium (137-145) mmol/L BUN (7-17) mg/dL Creatinine (0.52-1.04) mg/dL Glucose (74-99) mg/dL POC Glucose (mg/dL) 113 H 109 H (75-99) mg/dL Calcium (8.4-10.2) mg/dL Total Bilirubin (0.2-1.3) mg/dL AST (14-36) U/L ALT (4-34) U/L Total Protein (6.3-8.2) g/dL Procalcitonin 1.46 H (0.02-0.09) ng/mL 07/20/20 07/20/20 07/21/20 Range/Units 17:34 21:22 03:30 WBC 13.6 H 12.6 H (3.8-10.6) k/uL RBC 2.30 L 2.21 L (3.80-5.40) m/uL Hgb 7.2 L 7.3 L (11.4-16.0) gm/dL Hct 21.8 L 21.0 L (34.0-46.0) % Plt Count 108 L 101 L (150-450) k/uL Sodium (137-145) mmol/L BUN (7-17) mg/dL Creatinine (0.52-1.04) mg/dL Glucose (74-99) mg/dL POC Glucose (mg/dL) 120 H (75-99) mg/dL Calcium (8.4-10.2) mg/dL Total Bilirubin (0.2-1.3) mg/dL AST (14-36) U/L ALT (4-34) U/L Total Protein (6.3-8.2) g/dL Procalcitonin (0.02-0.09) ng/mL 07/21/20 Range/Units 03:30 WBC (3.8-10.6) k/uL RBC (3.80-5.40) m/uL Hgb (11.4-16.0) gm/dL Hct (34.0-46.0) % Plt Count (150-450) k/uL Sodium 133 L (137-145) mmol/L BUN 37 H (7-17) mg/dL Creatinine 1.11 H (0.52-1.04) mg/dL Glucose 107 H (74-99) mg/dL POC Glucose (mg/dL) (75-99) mg/dL Calcium 8.0 L (8.4-10.2) mg/dL Total Bilirubin 1.4 H (0.2-1.3) mg/dL AST 619 H (14-36) U/L ALT 977 H (4-34) U/L Total Protein 5.4 L (6.3-8.2) g/dL Procalcitonin (0.02-0.09) ng/mL Assessment and Plan Assessment: Congenital bicuspid aortic valve with a aortic valve stenosis, status post aortic valve replacement with a bovine prosthesis, and ligation of the left atrial appendage. This operative day #4 Routine postoperative ventilator management, recovered. Acute hypoxemic respiratory failure secondary to pleural effusion, left lung infiltrate, possible pneumonia. Currently on 11 L high flow nasal cannula Right-sided pleural effusion, status post thoracentesis on 07/20/2020 with 1 L of bloody fluid removed Atrial fibrillation, common following open heart surgery, currently on amiodarone Hyperlipidemia. Hypothyroidism. History of chronic tobacco use. No evidence of obstructive coronary disease. Family history of early-onset coronary disease. Acute kidney injury, creatinine 1.11. Elevated liver function testing, trending down today Plan: The patient was seen and evaluated by Dr. Crenshaw Chest x-ray and labs reviewed Status post right thoracentesis yesterday with 1 L of bloody fluid removed New left midlung infiltrate Discontinue Augmentin, initiate Zosyn Continue bronchodilators Encouraged regarding the increased use of the incentive spirometer and cough and deep breathing exercises Have increase her activity as tolerated Titrate down the FiO2 as tolerated We will continue to follow and make further recommendations based on her clinical status I, the cosigning physician, performed a history & physical examination of the patient. Lungs sounds with crackles in the bilateral posterior bases and scattered rhonchi. Maintaining good O2 saturations in the 90s on 11 L/m per nasal cannula I discussed the assessment and plan of care with my nurse practitioner, Sally Prather. I attest to the above note as dictated by her.
[2020-07-21] MEDS: IPRATROPIUM-ALBUTEROL 3 ML NEB INHALATION SCH ×4 (09:11→21:50)
--- NOTE | 2020-07-21 10:35 | P.PN ---
Subjective Progress Note Date: 07/21/20 Principal diagnosis: Congenital severe bicuspid aortic stenosis, with an overall left ventricular systolic function to be normal with an ejection fraction of 55-60%. Past medical history significant for known bicuspid aortic valve disease, syncopal event 10 years ago, hypothyroid, hyperlipidemia, family history of early onset coronary artery disease with her dad passing away at age 48 from myocardial infarction, chronic ongoing tobacco use with a preoperative FEV1 showing 79% of predicted value. POD #4 Aortic valve replacement with a 23 mm Inspiris bovine pericardial biop rosthesis, ligation of the left atrial appendage with a 35 mm AtriCure, epi- aortic ultrasonography. Postoperative acute blood loss anemia, expected due to hemodilution and cardiopulmonary bypass. Paroxysmal atrial fibrillation, commonly known occurrence after open heart surgery. Postoperative right pleural effusion, unexpected but potential outcome of surgery with a right thoracentesis completed by Dr. Crenshaw from pulmonary medicine. 1 L of serosanguineous fluid drained. POD #1 right thoracentesis. The patient is seen in follow-up today 07/21/2020 at her bedside in the intensive care unit. Currently she is sitting up to the bedside chair, is awake, alert and oriented 3. Denies any complaints of pain or shortness of breath. No further complaints of nausea. The patient does report that she feels much improved today from yesterday although is complaining of a productive cough with sanchez colored sputum. She remained afebrile the last 24 hours. Currently she is on Augmentin for empiric antibiotic coverage. Yesterday she went into atrial fibrillation with RVR, currently her bedside telemetry showing normal sinus rhythm with occasional PACs heart rate 64 BPM. She remained hemo dynamically stable and is currently on no inotropic or pressor support. Laboratory results this morning show her AST and ALT are trending down at 619 and 977, other laboratory results this morning show a WBC count of 12.6, hemoglobin 7.3, hematocrit 21.0, platelets 101, BUN 37 and creatinine 1.11. Oxygen saturations are 95% on 11 L high flow nasal cannula and she is achieving 500 mL with much encouragement on her incentive spirometry. Reinforced the importance of her incentive spirometry and the importance of ambulating with assistance. A limited 2-D echocardiogram was completed yesterday which showed an overall left ventricular systolic function to be normal with an ejection fraction of 55-60% and a trivial pericardial effusion. She underwent a right thoracentesis performed by pulmonary medicine yesterday with 1 L of serosanguineous fluid drained. A repeat chest x-ray was completed this morning which demonstrates small recurrent right pleural effusion and a small infiltrate to the left mid lung. Objective - Vital Signs Vital signs: Vital Signs Temp 98 F 07/21/20 08:00 Pulse 66 07/21/20 09:29 Resp 28 H 07/21/20 08:00 BP 107/63 07/21/20 08:00 Pulse Ox 96 07/21/20 08:00 Intake & Output 07/20/20 07/21/20 07/21/20 18:59 06:59 18:59 Intake Total 566 836 159 Output Total 0 1300 150 Balance 566 -464 9 Weight 73.4 kg Intake: IV 366 636 159 Lactated Ringers 1,000 ml 180 @ 20 mls/hr IV .Q24H [facility] Rx#:[id number] Pressure Bag 36 36 9 Sodium Chloride 0.9% 1, 150 600 150 000 ml @ 50 mls/hr IV . Q20H [facility] Rx#:[id number] Oral 200 200 Output: Urine 0 700 150 Other 600 Other: Voiding Method Bedside Commode Bedside Commode # Voids 1 ABP, PAP, CO, CI - Last Documented Arterial Blood Pressure 80/52 Pulmonary Artery Pressure 39/14 Cardiac Output 3.7 Cardiac Index 2.1 - Constitutional General appearance: Present: average body habitus, cooperative, no acute distress - EENT Eyes: Present: normal appearance. Absent: scleral icterus ENT: Present: hearing grossly normal - Neck Details: Neck is supple, no JVD. Right IJ Cordis in place with continuous CVP monitoring. - Respiratory Details: Lung sounds with few scattered crackles throughout, diminished bilateral bases. Respirations are symmetrical and nonlabored. Oxygen saturation are 95% on 11 L high flow nasal cannula. Achieving 500 mL on her incentive spirometry with much encouragement. Productive cough with scant sanchez colored sputum. - Cardiovascular Details: Regular rhythm and rate. S1 and S2 present, negative for S3, gallop or murmur. No edema present. Atrial and ventricular epicardial pacemaker wires present and grounded. Heart hugger is in place and she is demonstrating appropriate use. Knee-high KULWANT hose and sequential compression devices are in place to bilateral lower extremities. No edema present. Bedside telemetry showing normal sinus rhythm with occasional PACs heart rate 64 BPM. - Gastrointestinal Gastrointestinal Comment(s): Abdomen is soft, nontender and nondistended. Hypoactive bowel sounds present in all 4 abdominal quadrants. No guarding or rigidity. No organomegaly appreciated. No flatus. Tolerating oral intake. - Genitourinary Genitourinary Comment(s): Voiding clear saima urine. 350 mL output in the last 8 hours. - Integumentary Integumentary Comment(s): Skin is warm and dry. No clubbing or cyanosis is present. Midline sternal incision is clean, dry and approximated. No drainage or redness is present. Gauze dressing is clean, dry and intact. - Neurologic Neurologic: Present: CNII-XII intact. Absent: focal deficits - Musculoskeletal Musculoskeletal: Present: gait normal, generalized weakness, strength equal bilaterally - Psychiatric Psychiatric: Present: A&O x's 3, appropriate affect, intact judgment & insight - Allied health notes Allied health notes reviewed: nursing - Labs CBC & Chem 7: 07/21/20 03:30 07/21/20 03:30 Labs: Abnormal Lab Results - Last 24 Hours (Table) 07/20/20 07/20/20 07/20/20 Range/Units 03:09 11:39 17:34 WBC 13.6 H (3.8-10.6) k/uL RBC 2.30 L (3.80-5.40) m/uL Hgb 7.2 L (11.4-16.0) gm/dL Hct 21.8 L (34.0-46.0) % Plt Count 108 L (150-450) k/uL Sodium (137-145) mmol/L BUN (7-17) mg/dL Creatinine (0.52-1.04) mg/dL Glucose (74-99) mg/dL POC Glucose (mg/dL) 109 H (75-99) mg/dL Calcium (8.4-10.2) mg/dL Total Bilirubin (0.2-1.3) mg/dL AST (14-36) U/L ALT (4-34) U/L Total Protein (6.3-8.2) g/dL Procalcitonin 1.46 H (0.02-0.09) ng/mL 0207/21/20 07/21/20 Range/Units 21:22 03:30 03:30 WBC 12.6 H (3.8-10.6) k/uL RBC 2.21 L (3.80-5.40) m/uL Hgb 7.3 L (11.4-16.0) gm/dL Hct 21.0 L (34.0-46.0) % Plt Count 101 L (150-450) k/uL Sodium 133 L (137-145) mmol/L BUN 37 H (7-17) mg/dL Creatinine 1.11 H (0.52-1.04) mg/dL Glucose 107 H (74-99) mg/dL POC Glucose (mg/dL) 120 H (75-99) mg/dL Calcium 8.0 L (8.4-10.2) mg/dL Total Bilirubin 1.4 H (0.2-1.3) mg/dL AST 619 H (14-36) U/L ALT 977 H (4-34) U/L Total Protein 5.4 L (6.3-8.2) g/dL Procalcitonin (0.02-0.09) ng/mL - Imaging and Cardiology Chest x-ray: report reviewed, image reviewed Assessment and Plan Assessment: 1. Congenital severe bicuspid aortic valve stenosis, status post aortic valve replacement using a 23 mm Inspiris bioprosthetic valve 2. Preserved left ventricular systolic function, EF 55-60% 3. Syncopal event 10 years ago 4. Hyperlipidemia, cholesterol 225, LDL 162 5. Hypothyroid 6. Chronic ongoing tobacco dependence with preoperative FEV1 79% of predicted 7. Family history of premature coronary artery disease 8. Preoperative nasal swab positive for MRSA, treated 9. Postoperative acute blood loss anemia, expected 10. Postoperative paroxysmal atrial fibrillation, status post ligation of the left atrial appendage 11. Elevated transaminases, trending down today 12. Acute kidney injury, creatinine 1.11 today Plan: 1. Continue aspirin, Plavix, and beta rhiannon. Will increase beta rhiannon as tolerated. Currently on metoprolol tartrate 12.5 mg by mouth twice a day. 2. Risk modification, importance of smoking cessation was discussed with the patient. 3. Wean O2 as tolerated. Encourage incentive spirometry use 10 times every hour while awake. Bronchodilators management per pulmonology/critical care medicine. 4. Increase activity, ambulate as tolerated. PT/OT/cardiac rehab following. 5. Continue to monitor daily labs and chest x-rays. Electrolyte replacement per protocol. 6. Pain control with current medication when necessary regimen. 7. Insulin management per primary care service. Patient is not diabetic, preoperative hemoglobin A1c 5.5%. 8. Antibiotic management per pulmonary/critical care medicine. Currently on Augmentin, will be changed to Zosyn. 9. Avoid nephrotoxic agents. Continue to hold statin until her liver enzymes normalize. 10. Strict accurate intake and output. Daily weights using a standing scale. 11. Continue right IJ cordis to continuous CVP monitoring. 12. Continue ferrous sulfate and vitamin C for hemoglobin of 7.3. 13. More recommendations to follow based on patient's clinical course. Time with Patient: Greater than 30
[2020-07-21 11:57] LABS: Glucose,Whole Blood 89 mg/dL (75-99)
[2020-07-21] MEDS: ASCORBIC ACID 500 MG TAB PO SCH (13:18)
[2020-07-21] MEDS: SODIUM CHLORIDE 0.9% 1,000 ML IV SCH (13:18)
[2020-07-21] MEDS: FERROUS SULFATE 325 MG TAB PO SCH (13:18)
[2020-07-21] MEDS: METOCLOPRAMIDE 5 MG/ML 2 ML VIAL IVP PRN (15:08)
[2020-07-21 16:59] LABS: Glucose,Whole Blood 137 mg/dL (75-99)
--- NOTE | 2020-07-21 19:05 | P.PN ---
Subjective This is a pleasant 60 years old female with past medical history of COPD, hyperlipidemia, osteoarthritis, hypothyroidism. She was admitted with congenital bicuspid aortic stenosis for aortic valve replacement. Today is postoperative day #1 Patient status post extubation. Today was sitting on the chair was comfortable but complaining from pain in the left shoulder area.. No chest pain or dyspnea. No abdominal pain. No diarrhea Temperature today slightly up at 99.7. Slightly tachypneic. Blood pressure is 99/46. Hemoglobin is 8.5, rest of CBC is unremarkable. Glucose control, sodium 134, liver enzymes not elevated. Glucose is controlled Chest x-ray showing anterolateral extubation, bibasilar atelectasis, difficult to exclude pneumonia or small effusion Patient is currently on aspirin and Plavix, small dose of metoprolol 07/19/2020 Patient is sitting in chair comfortable, minimal pain at the surgical site. She still have pain in the left upper shoulder and around the left shoulder but is better than yesterday, no shoulder swelling or erythema. Most likely related to her left pneumothorax and left chest tube. Hemodynamic the patient is a stable She is slightly bradycardic at 51, afebrile today. Kyra fever yesterday at 99.7. Slightly tachypneic of 22-30 and blood pressure 92/45. Earlier today she was tachycardic despite being on amiodarone drip and boluses of amiodarone IV. Cardiothoracic and pulmonary services are on the case. She needs minimal dose of insulin drip and it can be switched to sliding scale. Labs showing mild leukocytosis of 13.7 K. Sodium was slightly low at 131. Creatinine trending up slowly to 1.1. Liver enzymes slightly [place] [address]008 and ALT 412. Bilirubin is normal at 1.3 Chest x-ray showing bilateral infiltrates and pleural effusion correlated for mild venous congestion She remains on aspirin, Plavix and metoprolol increased slightly to 25 mg 3 times a day by cardiothoracic surgery team. Also she is on amiodarone drip 07/20/2020 Patient remains in the ICU, she was in the distal distress because of pain on her right side of the chest however her pain in the left chest and left shoulder is improved today. No coughing, no dyspnea. Heart rate and 50, blood pressure is 100/60. She is saturating 91% on nightly 9 l/moxygen via nasal cannula. Labs showing WBC of 13.6. Hemoglobin 7.2 and she is already on ferrous sulfate. Glucose control, sodium 1:30, creatinine is elevated at 1.5. And liver enzymes are trending up to AST 1022 and ALT 1046. Postcalcitonin is high at 1.46 Chest ultrasound showing right-sided pleural effusion 6.4 status post right thoracocentesis, while left pleural effusion is 3.6 cm Echocardiogram showed ejection fraction of 55-60%. Currently patient is antibiotic on Augmentin 07/21/2020 Patient is awake and alert with some right-sided chest pain but no dyspnea. No coughing. Chest x-ray showing bilateral infiltrate, left more than the right with slightly worse pleural effusion. And the right lower infiltrate is slightly worse compared to yesterday when I look at the chest x-ray Her antibiotics were adjusted today from Augmentin to Zosyn However her oxygen requirements improved from 11, tp 9 L/m Patient with mild leukocytosis of 12.6, improving. Creatinine improved to 1.1. Liver enzymes are trending down. Sugar controlled Review of systems CONSTITUTIONAL: No fever, no malaise, no fatigue. HEENT: No recent visual problems or hearing problems. Denied any sore throat. CARDIOVASCULAR: No orthopnea, PND, no palpitations, no syncope. PULMONARY: No shortness of breath, no cough, no hemoptysis. GASTROINTESTINAL: No diarrhea, no nausea, no vomiting, no abdominal pain. Normoactive bowel sounds. Active Medications Generic Name Dose Route Start Last Admin Trade Name Freq PRN Reason Stop Dose Admin Acetaminophen 650 mg 07/20/20 06:41 07/21/20 08:42 Acetaminophen Tab 325 Mg Tab PO 650 mg Q4HR PRN Administration Fever and/ or Pain Albuterol/Ipratropium 3 ml 07/17/20 11:21 Ipratropium-Albuterol 3 Ml Neb INHALATION RT-Q2H PRN Shortness Of Breath Or Wheezing Albuterol/Ipratropium 3 ml 07/18/20 08:00 07/21/20 15:59 Ipratropium-Albuterol 3 Ml Neb INHALATION 3 ml RT-QID RALPH Administration Ascorbic Acid 500 mg 07/18/20 13:00 07/21/20 13:18 Ascorbic Acid 500 Mg Tab PO 500 mg 1200 RALPH Administration Aspirin 325 mg 07/18/20 09:00 07/21/20 08:44 Aspirin 325 Mg Tab PO 325 mg DAILY RALPH Administration Bisacodyl 10 mg 07/18/20 09:00 07/21/20 15:08 Bisacodyl 10 Mg Supp RECTAL 10 mg DAILY PRN Administration Constipation Bupropion HCl 150 mg 07/19/20 09:00 07/21/20 08:46 Bupropion Xl 150 Mg Tab.Er.24h PO 150 mg DAILY RALPH Administration Clopidogrel Bisulfate 75 mg 07/18/20 09:00 07/21/20 08:46 Clopidogrel 75 Mg Tab PO 75 mg DAILY RALPH Administration Ferrous Sulfate 325 mg 07/18/20 13:00 07/21/20 13:18 Ferrous Sulfate 325 Mg Tab PO 325 mg W/LUNCH RALPH Administration Heparin Sodium (Porcine) 5,000 unit 07/17/20 20:00 07/21/20 13:17 Heparin Sodium,Porcine 5,000 Unit/Ml 1 Ml Vial SQ 5,000 unit Q8H RALPH Administration Sodium Chloride 1,000 mls @ 50 mls/hr 07/20/20 15:00 07/21/20 13:18 Saline 0.9% IV 50 mls/hr .Q20H RALPH Administration Piperacillin Sod/Tazobactam 100 mls @ 25 mls/hr 07/21/20 08:15 07/21/20 16:49 Sod 3.375 gm/ Sodium Chloride IVPB 25 mls/hr Q8H RALPH Administration Insulin Aspart 0 unit 07/19/20 17:30 07/21/20 17:02 Insulin Aspart (Novolog) 100 Unit/Ml Vial SQ 1 unit ACHS RALPH Administration Protocol Levothyroxine Sodium 125 mcg 07/19/20 06:30 07/21/20 07:07 Levothyroxine 50 Mcg Tab PO 125 mcg DAILY@0630 RALPH Administration Magnesium Hydroxide 2,400 mg 07/18/20 09:00 07/20/20 04:19 Magnesium Hydroxide 2,400 Mg/10 Ml Cup PO 2,400 mg BID PRN Administration Constipation Metoclopramide HCl 10 mg 07/17/20 11:21 07/21/20 15:08 Metoclopramide 5 Mg/Ml 2 Ml Vial IVP 10 mg Q4H PRN Administration Nausea And Vomiting Metoprolol Tartrate 12.5 mg 07/21/20 09:00 07/21/20 08:45 Metoprolol Tartrate 12.5 Mg Tab PO 12.5 mg BID RALPH Administration Miscellaneous Information 1 each 07/17/20 11:21 Potassium Replacement Protocol 1 Each [facility] [place] PRN Per Protocol Protocol Miscellaneous Information 1 each 07/17/20 11:21 Magnesium Replacement Protocol 1 Each [facility] [place] DAILY PRN Per Protocol Protocol Miscellaneous Information 1 each 07/17/20 11:21 Phosphorus Replacement Protoco 1 Each [facility] [place] DAILY PRN Per Protocol Protocol Ondansetron HCl 4 mg 07/17/20 11:21 07/21/20 13:35 Ondansetron 4 Mg/2 Ml Vial IVP 4 mg Q6HR PRN Administration Nausea And Vomiting Pantoprazole Sodium 40 mg 07/20/20 07:30 07/21/20 07:07 Pantoprazole 40 Mg Tablet PO 40 mg [id number] RALPH Administration Senna/Docusate Sodium 2 each 07/18/20 21:00 07/20/20 21:31 Sennosides-Docusate Sodium 1 Each Tab PO 2 each HS RALPH Administration Sodium Chloride 10 ml 07/17/20 21:00 07/21/20 08:59 Sodium Chloride 0.9% Flush 10 Ml Syringe IV Not Given BID RALPH Objective - Vital Signs Vital signs: Vital Signs Temp 98 F 07/21/20 08:00 Pulse 69 07/21/20 11:28 Resp 24 07/21/20 11:02 BP 103/48 07/21/20 11:00 Pulse Ox 98 07/21/20 11:00 Intake & Output 07/20/20 07/21/20 07/21/20 18:59 06:59 18:59 Intake Total 566 836 265 Output Total 0 1300 250 Balance 566 -464 15 Weight 73.4 kg Intake: IV 366 636 265 Lactated Ringers 1,000 ml 180 @ 20 mls/hr IV .Q24H RALPH Rx#:[id number] Pressure Bag 36 36 15 Sodium Chloride 0.9% 1, 150 600 250 000 ml @ 50 mls/hr IV . Q20H RLAPH Rx#:[id number] Oral 200 200 Output: Urine 0 700 250 Other 600 Other: Voiding Method Bedside Commode Bedside Commode Bedside Commode # Voids 1 ABP, PAP, CO, CI - Last Documented Arterial Blood Pressure 80/52 Pulmonary Artery Pressure 39/14 Cardiac Output 3.7 Cardiac Index 2.1 - Exam -GENERAL: The patient is awake fully oriented to time place and person. HEENT: Pupils are round and equally reacting to light. EOMI. No scleral icterus. No conjunctival pallor. Normocephalic, atraumatic. No pharyngeal erythema. No thyromegaly. CARDIOVASCULAR: S1 and S2 present. No murmurs, rubs, or gallops. PULMONARY: Chest is clear to auscultation, no wheezing or crackles. ABDOMEN: Soft, nontender, nondistended, normoactive bowel sounds. No palpable organomegaly. MUSCULOSKELETAL: No joint swelling or deformity. EXTREMITIES: No cyanosis, clubbing, or pedal edema. NEUROLOGICAL: Gross neurological examination did not reveal any focal deficits. SKIN: No rashes. no petechiae. - Labs CBC & Chem 7: 07/21/20 03:30 07/21/20 03:30 Labs: Abnormal Lab Results - Last 24 Hours (Table) 07/20/20 07/20/20 07/21/20 Range/Units 17:34 21:22 03:30 WBC 13.6 H 12.6 H (3.8-10.6) k/uL RBC 2.30 L 2.21 L (3.80-5.40) m/uL Hgb 7.2 L 7.3 L (11.4-16.0) gm/dL Hct 21.8 L 21.0 L (34.0-46.0) % Plt Count 108 L 101 L (150-450) k/uL Sodium (137-145) mmol/L BUN (7-17) mg/dL Creatinine (0.52-1.04) mg/dL Glucose (74-99) mg/dL POC Glucose (mg/dL) 120 H (75-99) mg/dL Calcium (8.4-10.2) mg/dL Total Bilirubin (0.2-1.3) mg/dL AST (14-36) U/L ALT (4-34) U/L Total Protein (6.3-8.2) g/dL 07/21/20 Range/Units 03:30 WBC (3.8-10.6) k/uL RBC (3.80-5.40) m/uL Hgb (11.4-16.0) gm/dL Hct (34.0-46.0) % Plt Count (150-450) k/uL Sodium 133 L (137-145) mmol/L BUN 37 H (7-17) mg/dL Creatinine 1.11 H (0.52-1.04) mg/dL Glucose 107 H (74-99) mg/dL POC Glucose (mg/dL) (75-99) mg/dL Calcium 8.0 L (8.4-10.2) mg/dL Total Bilirubin 1.4 H (0.2-1.3) mg/dL AST 619 H (14-36) U/L ALT 977 H (4-34) U/L Total Protein 5.4 L (6.3-8.2) g/dL Assessment and Plan Assessment: congenital bicuspid aortic stenosis. Status post aortic valve replacement Bilateral pleural effusion status post right thoracocentesis with bilateral infiltrates more on the left side. 4 bilateral pneumonia Transaminitis with trending down liver enzymes, secondary to hypotension, improving Acute kidney injury probably related to her episode of postop hypotension Postoperative 5% left apical pneumothorax, improved Hyperlipidemia Hypothyroidism COPD, not in acute exacerbation Plan: This is a pleasant 60 years old female status post aortic valve replacement. Patient status post extubation and she has been by pulmonary/critical care team. Continue with aspirin, Plavix and metoprolol. management of heart rate and blood pressure as per cardiology and cardiothoracic surgery. Pulmonary/critical care team R following the case closely for her pneumothorax together with the cardiothoracic surgery primary team Continue with Zosyn Digoxin was discontinued, avoid nephrotoxins, avoid hypotension, continue iv hydration. Worsening liver enzymes also could be related to hypotension, management of blood pressure and heart rates as her anchorman and cardiothoracic surgery. Continue with antibiotic. Labs and medication were reviewed.. Continue same treatment. Continue with symptomatic treatment. Resume home medication. Monitor lytes and vitals. DVT and GI prophylaxis. Further recommendations as per clinical course of the patient DVT prophylaxis: Subcutaneous heparin GI Prophylaxis: Ppi
[2020-07-21 19:58] LABS: Glucose,Whole Blood 112 mg/dL (75-99)
[2020-07-21] MEDS: SENNOSIDES-DOCUSATE SODIUM 1 EACH TAB PO SCH (20:03)
[2020-07-22] MEDS: ACETAMINOPHEN TAB 325 MG TAB PO PRN ×2 (00:17→20:23)
[2020-07-22] MEDS: PIPERACILLIN-TAZOBACTAM 3.375 GM in SODIUM CHLORIDE 0.9% 100 ML IVPB SCH ×3 (00:18→16:46)
[2020-07-22] MEDS: HEPARIN SODIUM,PORCINE 5,000 UNIT/ML 1 ML VIAL SQ SCH ×3 (03:55→20:03)
[2020-07-22 05:03] LABS: Basophils % (A) 0 %; Eosinophils # (A) 0.2 k/uL (0-0.7); Eosinophils % (A) 2 %; HCT 21.8 % (34.0-46.0); HGB 7.2 gm/dL (11.4-16.0); Lymphocytes # (A) 1.1 k/uL (1.0-4.8); Lymphocytes % (A) 11 %; MCHC 33.1 g/dL (31.0-37.0); MCV 96.7 fL (80.0-100.0); Mean Platelet Volume 9.5; Monocytes # (A) 0.8 k/uL (0-1.0); Monocytes % (A) 8 %; Neutrophils # (A) 7.8 k/uL (1.3-7.7); Neutrophils % (A) 78 %; Platelet Count 119 k/uL (150-450); RBC 2.26 m/uL (3.80-5.40); RDW 14.4 % (11.5-15.5); WBC 10.1 k/uL (3.8-10.6)
[2020-07-22 05:12] LABS: Albumin 3.4 g/dL (3.5-5.0); Calcium 8.1 mg/dL (8.4-10.2); Potassium 4.7 mmol/L (3.5-5.1); Total Bilirubin 1.5 mg/dL (0.2-1.3); Total Protein 5.3 g/dL (6.3-8.2)
[2020-07-22] MEDS: SODIUM CHLORIDE 0.9% 1,000 ML IV SCH (06:25)
[2020-07-22] MEDS: PANTOPRAZOLE 40 MG TABLET PO SCH (06:25)
[2020-07-22] MEDS: LEVOTHYROXINE 50 MCG TAB PO SCH (06:25)
[2020-07-22] MEDS: INSULIN ASPART (NovoLOG) 100 UNIT/ML VIAL SQ SCH ×4 (06:27→20:10)
--- NOTE | 2020-07-22 06:48 | XR ---
EXAMINATION TYPE: XR chest 1V portable DATE OF EXAM: 07/22/2020 CLINICAL HISTORY: Difficulty breathing progress study. Post open cardiac surgery. TECHNIQUE: Single AP portable upright view of the chest is obtained. COMPARISON: Chest x-ray from one day earlier and older studies. FINDINGS: Overlying sternal wires along with left atrial appendage clip and metallic aortic valve ar e redemonstrated. Stable small right pleural effusion. Stable mild cardiomegaly. Chronic parenchymal changes with faint increased opacity lateral right midlung redemonstrated. More prominent increased opacity periphery o f the left mid lung is again seen. Osseous structures remain intact. IMPRESSION: Mild cardiomegaly and chronic parenchymal changes with left greater than right bilateral peripheral mid acute infiltrates remain present. No significant interval change. Recurrent Small righ t pleural effusion and associated right basilar atelectasis and/or infiltrate remain present.
[2020-07-22] MEDS: IPRATROPIUM-ALBUTEROL 3 ML NEB INHALATION SCH ×4 (07:53→20:43)
[2020-07-22] MEDS: CLOPIDOGREL 75 MG TAB PO SCH (08:41)
[2020-07-22] MEDS: ASPIRIN 325 MG TAB PO SCH (08:41)
[2020-07-22] MEDS: METOPROLOL TARTRATE 12.5 MG TAB PO SCH ×2 (08:41→20:03)
[2020-07-22] MEDS: buPROPion XL 150 MG TAB.ER.24H PO SCH (08:42)
--- NOTE | 2020-07-22 08:59 | P.PN ---
Subjective Progress Note Date: 07/22/20 Principal diagnosis: Congenital severe bicuspid aortic stenosis, with an overall left ventricular systolic function to be normal with an ejection fraction of 55-60%. Past medical history significant for known bicuspid aortic valve disease, syncopal event 10 years ago, hypothyroid, hyperlipidemia, family history of early onset coronary artery disease with her dad passing away at age 48 from myocardial infarction, chronic ongoing tobacco use with a preoperative FEV1 showing 79% of predicted value. POD #5 Aortic valve replacement with a 23 mm Inspiris bovine pericardial biop rosthesis, ligation of the left atrial appendage with a 35 mm AtriCure, epi- aortic ultrasonography. Postoperative acute blood loss anemia, expected due to hemodilution and cardiopulmonary bypass. Paroxysmal atrial fibrillation, commonly known occurrence after open heart surgery. Postoperative right pleural effusion, unexpected but potential outcome of surgery with a right thoracentesis completed by Dr. Crenshaw from pulmonary medicine. 1 L of serosanguineous fluid drained. POD #2 right thoracentesis. The patient is seen in follow-up today 07/22/2020 at her bedside in the intensive care unit. Currently she is sitting up to the bedside chair, is awake, alert and oriented 3. Denies any complaints of pain or shortness of breath. The patient had complaints of nausea yesterday which has resolved. The patient reports that she had a bowel movement last night. She has been ambulating in the intensive care unit hallway with assistance from nursing staff and physical therapy staff. She reports she had a shower yesterday which was her first postoperative shower. Currently her oxygen saturations are 94% on 4 L nasal cannula. She is achieving 750 mL on her incentive spirometry. Right IJ cordis remains in place with continuous CVP monitoring, current CVP pressure 8 mmHg. She has been afebrile the last 24 hours, bedside telemetry showing normal sinus rhythm heart rate 64 BPM. Her previous left chest tube site has drained 290 mL of thin serosanguineous drainage in the last 24 hours. Chest x-ray this morning shows mild cardiomegaly, chronic parenchymal changes with left greater than right bilateral peripheral mid acute infiltrates. it is also showing recurrent small right pleural effusion. Objective - Vital Signs Vital signs: Vital Signs Temp 97.9 F 07/22/20 08:00 Pulse 65 07/22/20 08:00 Resp 27 H 07/22/20 08:00 BP 107/60 07/22/20 08:00 Pulse Ox 94 L 07/22/20 08:00 Intake & Output 07/21/20 07/22/20 07/22/20 18:59 06:59 18:59 Intake Total 929 733 106 Output Total 610 1150 90 Balance 319 -417 16 Weight 72.8 kg Intake: IV 689 633 106 Piperacillin-Tazobactam 3 100 .375 gm In Sodium Chloride 0.9% 100 ml @ 25 mls/hr IVPB Q8H RALPH Rx#: [id number] Pressure Bag 39 33 6 Sodium Chloride 0.9% 1, 650 500 100 000 ml @ 50 mls/hr IV . Q20H RALPH Rx#:[id number] Oral 240 100 Output: Urine 550 950 Other 60 200 90 Other: Voiding Method Bedside Commode Bedside Commode # Bowel Movements 1 ABP, PAP, CO, CI - Last Documented Arterial Blood Pressure 80/52 Pulmonary Artery Pressure 39/14 Cardiac Output 3.7 Cardiac Index 2.1 - Constitutional General appearance: Present: average body habitus, cooperative, no acute distress - EENT Eyes: Present: normal appearance. Absent: scleral icterus ENT: Present: hearing grossly normal - Neck Details: Neck is supple, no JVD. No lymphadenopathy. Right IJ Cordis in place with continuous CVP monitoring. - Respiratory Details: Lung sounds essentially clear throughout, diminished bilateral bases. No wheezes, rhonchi or crackles. Respirations are symmetrical and nonlabored. Oxygen saturation are 94% on 4 L nasal cannula. Achieving 750 mL on her incentive spirometry. This productive cough with scant thin whitish colored sputum. - Cardiovascular Details: Regular rhythm and rate. S1 and S2 present, negative for S3, gallop or murmur. Sternum is stable. Heart hugger is in place and she has demonstrating good use. Bedside telemetry showing normal sinus rhythm heart rate 64 BPM with occasional PACs. Knee-high KULWANT hose and sequential compression devices in place to bilateral lower extremities. Atrial and ventricular epicardial pacemaker wires in place and grounded. No edema present. - Gastrointestinal Gastrointestinal Comment(s): Abdomen is soft, nontender and nondistended. Active bowel sounds present in all 4 abdominal quadrants. No guarding or rigidity. No organomegaly appreciated. Passing flatus. Bowel movement yesterday 07/21/2020. Tolerating oral intake. - Genitourinary Genitourinary Comment(s): Continues to void. 500 mL urine output in the last 8 hours. - Integumentary Integumentary Comment(s): Skin is warm and dry. No clubbing or cyanosis is present. Midline sternal incision is clean, dry and approximated. No drainage or redness is present. - Neurologic Neurologic: Present: CNII-XII intact. Absent: focal deficits - Musculoskeletal Musculoskeletal: Present: gait normal, generalized weakness, strength equal bilaterally - Psychiatric Psychiatric: Present: A&O x's 3, appropriate affect, intact judgment & insight - Allied health notes Allied health notes reviewed: nursing - Labs CBC & Chem 7: 07/22/20 04:50 07/22/20 04:50 Labs: Abnormal Lab Results - Last 24 Hours (Table) 07/21/20 07/21/20 07/22/20 Range/Units 16:57 19:57 04:50 RBC 2.26 L (3.80-5.40) m/uL Hgb 7.2 L (11.4-16.0) gm/dL Hct 21.8 L (34.0-46.0) % Plt Count 119 L (150-450) k/uL Neutrophils # 7.8 H (1.3-7.7) k/uL Sodium (137-145) mmol/L BUN (7-17) mg/dL Creatinine (0.52-1.04) mg/dL POC Glucose (mg/dL) 137 H 112 H (75-99) mg/dL Calcium (8.4-10.2) mg/dL Total Bilirubin (0.2-1.3) mg/dL AST (14-36) U/L ALT (4-34) U/L Alkaline Phosphatase (38-126) U/L Total Protein (6.3-8.2) g/dL Albumin (3.5-5.0) g/dL 07/22/20 Range/Units 04:50 RBC (3.80-5.40) m/uL Hgb (11.4-16.0) gm/dL Hct (34.0-46.0) % Plt Count (150-450) k/uL Neutrophils # (1.3-7.7) k/uL Sodium 136 L (137-145) mmol/L BUN 32 H (7-17) mg/dL Creatinine 1.09 H (0.52-1.04) mg/dL POC Glucose (mg/dL) (75-99) mg/dL Calcium 8.1 L (8.4-10.2) mg/dL Total Bilirubin 1.5 H (0.2-1.3) mg/dL AST 329 H (14-36) U/L ALT 669 H (4-34) U/L Alkaline Phosphatase 142 H (38-126) U/L Total Protein 5.3 L (6.3-8.2) g/dL Albumin 3.4 L (3.5-5.0) g/dL - Imaging and Cardiology Chest x-ray: report reviewed, image reviewed Assessment and Plan Assessment: 1. Congenital severe bicuspid aortic valve stenosis, status post aortic valve replacement using a 23 mm Inspiris bioprosthetic valve 2. Preserved left ventricular systolic function, EF 55-60% 3. Syncopal event 10 years ago 4. Hyperlipidemia, cholesterol 225, LDL 162 5. Hypothyroid 6. Chronic ongoing tobacco dependence with preoperative FEV1 79% of predicted 7. Family history of premature coronary artery disease 8. Preoperative nasal swab positive for MRSA, treated 9. Postoperative acute blood loss anemia, expected 10. Postoperative paroxysmal atrial fibrillation, status post ligation of the left atrial appendage 11. Elevated transaminases, trending down today 12. Acute kidney injury, resolving Plan: 1. Continue aspirin, Plavix, and beta rhiannon. Will increase beta rhiannon as tolerated. Currently on metoprolol tartrate 12.5 mg by mouth twice a day. 2. Risk modification, importance of smoking cessation was discussed with the patient. 3. Wean O2 as tolerated. Encourage incentive spirometry use 10 times every hour while awake. Bronchodilators management per pulmonology/critical care medicine. 4. Increase activity, ambulate as tolerated. PT/OT/cardiac rehab following. 5. Continue to monitor daily labs and chest x-rays. Electrolyte replacement per protocol. 6. Pain control with current medication when necessary regimen. 7. Insulin management per primary care service. Patient is not diabetic, preoperative hemoglobin A1c 5.5%. 8. Antibiotic management per pulmonary/critical care medicine. Antibiotic was changed to Zosyn yesterday per pulmonary/critical care medicine. 9. Avoid nephrotoxic agents. Continue to hold statin until her liver enzymes normalize. AST and ALT continue to trend down, AST this morning is 329, ALT is 669. 10. Strict accurate intake and output. Daily weights using a standing scale. 11. Remove right IJ cordis. 12. Continue ferrous sulfate and vitamin C for hemoglobin of 7.2. 13. More recommendations to follow based on patient's clinical course.
--- NOTE | 2020-07-22 09:54 | PN ---
PROGRESS NOTE Mrs. Montes is a 60-year-old female who underwent aortic valve replacement for severe symptomatic aortic stenosis. She is feeling well this morning. She is sitting up in the chair. She is in sinus mechanism. She has short bursts of atrial fibrillation, otherwise hemodynamically she is stable. She denies any dizziness or palpitation. She denies any nausea. She continues to be on aspirin once a day, Plavix 75 mg daily, subcu heparin, metoprolol tartrate 12.5 mg twice a day. PHYSICAL EXAMINATION: Blood pressure 107/60 with a heart rate in 60s. LUNGS with a few crackles at the bases. No wheezes. HEART: Regular rate and rhythm S1, S2. No S3. No rub with a systolic murmur. ABDOMEN: Soft, nontender. EXTREMITIES: No edema. LAB DATA: Lab data revealed an AST 329 and ALT is 659, which is improved. Her BUN and creatinine of 32 and 1.09. Potassium 4.7. Hemoglobin of 7.2. IMPRESSION: 1. Status post aortic valve replacement. 2. Paroxysmal atrial fibrillation. 3. Pleural effusion noted. 4. Elevated transaminases, improving. RECOMMENDATION: We will continue present therapy. Continue incentive spirometry. Increase her level of activity and depending on her progress, further recommendations will be made. MMODL / IJN: [id number] /
[2020-07-22 11:42] LABS: Glucose,Whole Blood 105 mg/dL (75-99)
--- NOTE | 2020-07-22 12:15 | P.PN ---
Subjective Progress Note Date: 07/22/20 Principal diagnosis: Congenital bicuspid aortic valve, aortic valve replacement with bovine prosthesis 60-year-old female who was referred to Dr. Jones for aortic stenosis. The patient apparently had a congenital bicuspid aortic valve. Today, she underwent a aortic valve replacement, with a bovine prosthesis. Currently, she is in the intensive care unit. She's currently on the mechanical ventilator. Her current ventilator settings include the volume assist control mode, rate of 12, tidal volume 450, FiO2 40%, and PEEP of 8. On those similar settings except for an Fi O2 of 60%, and PEEP of 5, her PaO2 was 187, PaCO2 was 49, pH was 7.31. The patient is currently on lactated Ringer's at 50 mL an hour, and propofol at 10 mcg/kg/m. The patient apparently has a history of ongoing tobacco use, on a daily and regular basis, hypothyroidism, syncope, hyperlipidemia, and a family history of early onset coronary disease. Currently, the patient is starting to wake up from her sedation and anesthesia. Hopefully we'll be able get her moved towards weaning and extubation in the next hour or so. The patient is seen today 07/18/2020 and follow-up in the intensive care unit. His postoperative day #1 of bovine prosthetic aortic valve replacement secondary to bicuspid aortic valve. Left atrial appendage placement. She was extubated yesterday approximate 7 hours following surgery. She is currently sitting up in a chair at the bedside. Awake and alert in no acute distress. She is maintaining O2 saturations in the low 90s on 1 L/m per nasal cannula. She has lactated Ringer's at 50 MLS per hour. Remains on bronchodilators. She is on an insulin drip at 1 unit per hour. She is pulling approximate 500 mL's on her incentive spirometer. Chest x-ray reveals bibasilar atelectasis with possible small effusions. Mediastinal and left sided chest tube remains in place. Right jugular triple-lumen in place. She is status post 1 unit packed red blood cells. Current hemoglobin 8.5. White count 10.3. Platelet count 98,000. Sodium 134. Potassium 4.7. Creatinine 0.76. AST 37. ALT 16. Albumin 3.4. She has received 750 ML's of 5% albumin. Blood pressure remains with systolic pressures in the 80s. CVP of 12. PA pressure 35/80. Urine output marginal. The plan is for 25% albumin. On 07/19/2020 patient seen in follow-up in the intensive care unit, today is postoperative day #2, status post aortic valve replacement. She is doing well, she is awake and alert, oriented 3, she sitting up in the recliner, currently on 5 L of oxygen with a pulse ox of 96%, her incentive spirometer effort is about 500 mL. Patient states it's hard for her to take deep rest. She is in A. fib with RVR, currently with a rate of 112 BPM, and ALLERGIES following commands patient will be started on amiodarone infusion at 1 mg/m. Her maintenance IV point and was seen at a of 20 ML per hour, and insulin is at 0.5 units per hour. Her mediastinal and left pleural chest tube are connected to the same Pleuravac, there has been 400 mL of thin serous illness output in the last 24 hours, cardiothoracic surgery may consider removing on the chest tubes today. Today's labs have been reviewed, showing cell count 13.7, hemoglobin of 7.9, sodium is 131, serum electrolytes troponin is coming BUN is 19 and creatinine is 1.1. AST and ALT were noted to be significantly elevated on today's labs since yesterday. The patient is seen today 07/20/2020 in follow-up in the intensive care unit. This is postoperative day #3 status post aortic valve replacement. She is currently resting comfortably in bed. Awake and alert in no acute distress. She is maintaining O2 saturations in the 90s on 5 L/m per nasal cannula. She still having issues with atrial fibrillation. She remains on amiodarone at 0.5 mg/m. Lactated Ringer's at 20 ML's per hour. Chest x-ray continues to show persistent obscured right hemidiaphragm and bibasilar densities. There is some improved aeration in the left lung. Chest tubes have been removed. She is status post 1 unit of packed red blood cells this admission. Current hemoglobin 7.4. Platelet count 101. White count 15.1. Sodium 130. Potassium 5.1. Creatinine 1.54. AST 1022. ALT 1046. Albumin 3.9. She remains on DuoNeb inhalations, working well with the incentive spirometer. Currently in sinus rhythm. Patient is seen today 07/21/2020 in follow-up in the intensive care unit. This is postoperative day #4 status post aortic valve replacement. She is currently sitting up in a chair at the bedside. Awake and alert in no acute distress. She did undergo a right-sided thoracentesis with bloody return of 1 L yesterday. She was doing a bit better at that time. However today she is still requiring higher oxygen amounts to maintain O2 saturations in the 90s. Currently on 11 L high flow. Chest x-ray shows a small recurrent right pleural effusion and some infiltrate of the left midlung. She was initiated on Augmentin yesterday. White count 12.6. Hemoglobin 7.3. Platelet count 101. Sodium 133. Potassium 4.9. Creatinine 1.11. AST 619. ALT 977. Albumin 3.6. Pro-calcitonin 1.46. Remains on bronchodilators. Working well with the incentive spirometer. The patient is seen today 07/22/2020 and follow-up in the intensive care unit. Postoperative day #5 status post aortic valve replacement. She is currently sitting up in a chair at the bedside. Awake and alert in no acute distress. Breathing a bit easier today compared to yesterday. She is down to 6 L high flow nasal cannula. Chest x-ray reveals mild cardiomegaly and chronic parenchymal changes with left greater than right bilateral peripheral mid acute infiltrates remain. More so on the right upper lung and on the left midlung. She remains on Zosyn and bronchodilators. White count 10.1. Hemoglobin 7.2. Platelet count 119. Sodium 136. Potassium 4.7. Creatinine 1.09. AST 329. ALT 669. Albumin 3.4. 0.9 normal saline at 50 MLS per hour. Heparin for DVT prophylaxis. Objective - Vital Signs Vital signs: Vital Signs Temp 97.9 F 07/22/20 08:00 Pulse 65 07/22/20 12:06 Resp 18 07/22/20 11:00 BP 110/76 07/22/20 11:00 Pulse Ox 95 07/22/20 11:00 Intake & Output 07/21/20 07/22/20 07/22/20 18:59 06:59 18:59 Intake Total 563 733 265 Output Total 610 6680 215 Balance 319 -417 50 Weight 72.8 kg Intake: IV 689 633 265 Piperacillin-Tazobactam 3 100 .375 gm In Sodium Chloride 0.9% 100 ml @ 25 mls/hr IVPB Q8H [facility] Rx#: [id number] Pressure Bag 39 33 15 Sodium Chloride 0.9% 1, 650 500 250 000 ml @ 50 mls/hr IV . Q20H [facility] Rx#:[id number] Oral 240 100 Output: Urine 550 950 125 Other 60 200 90 Other: Voiding Method Bedside Commode Bedside Commode Bedside Commode # Bowel Movements 1 ABP, PAP, CO, CI - Last Documented Arterial Blood Pressure 80/52 Pulmonary Artery Pressure 39/14 Cardiac Output 3.7 Cardiac Index 2.1 - Exam GENERAL EXAM: Alert, very pleasant 60-year-old female patient, on 6 L nasal cannula, comfortable in no apparent distress. HEAD: Normocephalic. EYES: Normal reaction of pupils, equal size. NOSE: Clear with pink turbinates. THROAT: No erythema or exudates. NECK: No masses, no JVD. CHEST: Sternal dressing dry and intact. Hugger in place. Chest tubes removed. LUNGS: Equal air entry with bilateral crackles scattered rhonchi. CVS: S1 and S2 normal with no audible murmur, regular rhythm. ABDOMEN: No hepatosplenomegaly, normal bowel sounds, no guarding or rigidity. SPINE: No scoliosis or deformity SKIN: No rashes CENTRAL NERVOUS SYSTEM: No focal deficits, tone is normal in all 4 extremities. EXTREMITIES: There is 1-2+ peripheral edema. No clubbing, no cyanosis. Peripheral pulses are intact. - Labs CBC & Chem 7: 07/22/20 04:50 07/22/20 04:50 Labs: Abnormal Lab Results - Last 24 Hours (Table) 07/21/20 07/21/20 07/22/20 Range/Units 16:57 19:57 04:50 RBC 2.26 L (3.80-5.40) m/uL Hgb 7.2 L (11.4-16.0) gm/dL Hct 21.8 L (34.0-46.0) % Plt Count 119 L (150-450) k/uL Neutrophils # 7.8 H (1.3-7.7) k/uL Sodium (137-145) mmol/L BUN (7-17) mg/dL Creatinine (0.52-1.04) mg/dL POC Glucose (mg/dL) 137 H 112 H (75-99) mg/dL Calcium (8.4-10.2) mg/dL Magnesium (1.6-2.3) mg/dL Total Bilirubin (0.2-1.3) mg/dL AST (14-36) U/L ALT (4-34) U/L Alkaline Phosphatase (38-126) U/L Total Protein (6.3-8.2) g/dL Albumin (3.5-5.0) g/dL 07/22/20 07/22/20 07/22/20 Range/Units 04:50 04:50 11:40 RBC (3.80-5.40) m/uL Hgb (11.4-16.0) gm/dL Hct (34.0-46.0) % Plt Count (150-450) k/uL Neutrophils # (1.3-7.7) k/uL Sodium 136 L (137-145) mmol/L BUN 32 H (7-17) mg/dL Creatinine 1.09 H (0.52-1.04) mg/dL POC Glucose (mg/dL) 105 H (75-99) mg/dL Calcium 8.1 L (8.4-10.2) mg/dL Magnesium 2.8 H (1.6-2.3) mg/dL Total Bilirubin 1.5 H (0.2-1.3) mg/dL AST 329 H (14-36) U/L ALT 669 H (4-34) U/L Alkaline Phosphatase 142 H (38-126) U/L Total Protein 5.3 L (6.3-8.2) g/dL Albumin 3.4 L (3.5-5.0) g/dL Assessment and Plan Assessment: 1 Congenital bicuspid aortic valve with a aortic valve stenosis, status post aortic valve replacement with a bovine prosthesis, and ligation of the left a trial appendage. This operative day #5 2 Routine postoperative ventilator management, recovered. 3 Acute hypoxemic respiratory failure secondary to pleural effusion, right upper lobe and left mid lung infiltrate, possible pneumonia. Currently on 6 L high flow nasal cannula 4 Right-sided pleural effusion, status post thoracentesis on 07/20/2020 with 1 L of bloody fluid removed 5 Atrial fibrillation, common following open heart surgery, currently on amiodarone 6 Hyperlipidemia. 7 Hypothyroidism. 8 History of chronic tobacco use. No evidence of obstructive coronary disease. 9 Family history of early-onset coronary disease. 10 Acute kidney injury, creatinine 1.09. 11 Elevated liver function testing, trending down Plan: The patient was seen and evaluated by Dr. Crenshaw Chest x-ray and labs reviewed Continue Zosyn and bronchodilators Encouraged regarding the increased use of the incentive spirometer and cough and deep breathing exercises Increase her activity as tolerated Titrate down the FiO2 as tolerated We will continue to follow and make further recommendations based on her clinical status I, the cosigning physician, performed a history & physical examination of the patient. Lungs sounds with crackles in the bilateral posterior bases and scattered rhonchi. Maintaining good O2 saturations in the 90s on 6 L/m per nasal cannula I discussed the assessment and plan of care with my nurse practitioner, Sally Prather. I attest to the above note as dictated by her.
[2020-07-22] MEDS: ASCORBIC ACID 500 MG TAB PO SCH (12:21)
[2020-07-22] MEDS: FERROUS SULFATE 325 MG TAB PO SCH (12:21)
[2020-07-22 17:16] LABS: Glucose,Whole Blood 91 mg/dL (75-99)
--- NOTE | 2020-07-22 18:32 | P.PN ---
Subjective This is a pleasant 60 years old female with past medical history of COPD, hyperlipidemia, osteoarthritis, hypothyroidism. She was admitted with congenital bicuspid aortic stenosis for aortic valve replacement. Today is postoperative day #1 Patient status post extubation. Today was sitting on the chair was comfortable but complaining from pain in the left shoulder area.. No chest pain or dyspnea. No abdominal pain. No diarrhea Temperature today slightly up at 99.7. Slightly tachypneic. Blood pressure is 99/46. Hemoglobin is 8.5, rest of CBC is unremarkable. Glucose control, sodium 134, liver enzymes not elevated. Glucose is controlled Chest x-ray showing anterolateral extubation, bibasilar atelectasis, difficult to exclude pneumonia or small effusion Patient is currently on aspirin and Plavix, small dose of metoprolol 07/19/2020 Patient is sitting in chair comfortable, minimal pain at the surgical site. She still have pain in the left upper shoulder and around the left shoulder but is better than yesterday, no shoulder swelling or erythema. Most likely related to her left pneumothorax and left chest tube. Hemodynamic the patient is a stable She is slightly bradycardic at 51, afebrile today. Kyra fever yesterday at 99.7. Slightly tachypneic of 22-30 and blood pressure 92/45. Earlier today she was tachycardic despite being on amiodarone drip and boluses of amiodarone IV. Cardiothoracic and pulmonary services are on the case. She needs minimal dose of insulin drip and it can be switched to sliding scale. Labs showing mild leukocytosis of 13.7 K. Sodium was slightly low at 131. Creatinine trending up slowly to 1.1. Liver enzymes slightly elevated with AST 69071 and ALT 412. Bilirubin is normal at 1.3 Chest x-ray showing bilateral infiltrates and pleural effusion correlated for mild venous congestion She remains on aspirin, Plavix and metoprolol increased slightly to 25 mg 3 times a day by cardiothoracic surgery team. Also she is on amiodarone drip 07/20/2020 Patient remains in the ICU, she was in the distal distress because of pain on her right side of the chest however her pain in the left chest and left shoulder is improved today. No coughing, no dyspnea. Heart rate and 50, blood pressure is 100/60. She is saturating 91% on nightly 9 l/moxygen via nasal cannula. Labs showing WBC of 13.6. Hemoglobin 7.2 and she is already on ferrous sulfate. Glucose control, sodium 1:30, creatinine is elevated at 1.5. And liver enzymes are trending up to AST 1022 and ALT 1046. Postcalcitonin is high at 1.46 Chest ultrasound showing right-sided pleural effusion 6.4 status post right thoracocentesis, while left pleural effusion is 3.6 cm Echocardiogram showed ejection fraction of 55-60%. Currently patient is antibiotic on Augmentin 07/21/2020 Patient is awake and alert with some right-sided chest pain but no dyspnea. No coughing. Chest x-ray showing bilateral infiltrate, left more than the right with slightly worse pleural effusion. And the right lower infiltrate is slightly worse compared to yesterday when I look at the chest x-ray Her antibiotics were adjusted today from Augmentin to Zosyn However her oxygen requirements improved from 11, tp 9 L/m Patient with mild leukocytosis of 12.6, improving. Creatinine improved to 1.1. Liver enzymes are trending down. Sugar controlled 07/22/2020 Patient chest pain is improved, no respiratory distress or dyspnea however she may sitting in chair. She has small pocket in her left chest laterally with about 200 mL of serosanguineous fluid of discharge. She is also status thoracocentesis on the right side. her left shoulder pain is improved. Continue with medication from yesterday with no significant change Review of systems CONSTITUTIONAL: No fever, no malaise, no fatigue. HEENT: No recent visual problems or hearing problems. Denied any sore throat. CARDIOVASCULAR: No orthopnea, PND, no palpitations, no syncope. PULMONARY: No shortness of breath, no cough, no hemoptysis. GASTROINTESTINAL: No diarrhea, no nausea, no vomiting, no abdominal pain. Normoactive bowel sounds. Active Medications Generic Name Dose Route Start Last Admin Trade Name Freq PRN Reason Stop Dose Admin Acetaminophen 650 mg 07/20/20 06:41 07/22/20 00:17 Acetaminophen Tab 325 Mg Tab PO 650 mg Q4HR PRN Administration Fever and/ or Pain Albuterol/Ipratropium 3 ml 07/17/20 11:21 Ipratropium-Albuterol 3 Ml Neb INHALATION RT-Q2H PRN Shortness Of Breath Or Wheezing Albuterol/Ipratropium 3 ml 07/18/20 08:00 07/22/20 16:37 Ipratropium-Albuterol 3 Ml Neb INHALATION 3 ml RT-QID [facility] Administration Ascorbic Acid 500 mg 07/18/20 13:00 07/22/20 12:21 Ascorbic Acid 500 Mg Tab PO 500 mg 1200 RALPH Administration Aspirin 325 mg 07/18/20 09:00 07/22/20 08:41 Aspirin 325 Mg Tab PO 325 mg DAILY RALPH Administration Bisacodyl 10 mg 07/18/20 09:00 07/21/20 15:08 Bisacodyl 10 Mg Supp RECTAL 10 mg DAILY PRN Administration Constipation Bupropion HCl 150 mg 07/19/20 09:00 07/22/20 08:42 Bupropion Xl 150 Mg Tab.Er.24h PO 150 mg DAILY RALPH Administration Clopidogrel Bisulfate 75 mg 07/18/20 09:00 07/22/20 08:41 Clopidogrel 75 Mg Tab PO 75 mg DAILY RALPH Administration Ferrous Sulfate 325 mg 07/18/20 13:00 07/22/20 12:21 Ferrous Sulfate 325 Mg Tab PO 325 mg W/LUNCH RAL[facility] Administration Heparin Sodium (Porcine) 5,000 unit 07/17/20 20:00 07/22/20 12:21 Heparin Sodium,Porcine 5,000 Unit/Ml 1 Ml Vial SQ 5,000 unit Q8H [facility] Administration Sodium Chloride 1,000 mls @ 50 mls/hr 07/20/20 15:00 07/22/20 06:25 Saline 0.9% IV 50 mls/hr .Q20H [facility] Administration Piperacillin Sod/Tazobactam 100 mls @ 25 mls/hr 07/21/20 08:15 07/22/20 16:46 Sod 3.375 gm/ Sodium Chloride IVPB 25 mls/hr Q8H [facility] Administration Insulin Aspart 0 unit 07/19/20 17:30 07/22/20 17:18 Insulin Aspart (Novolog) 100 Unit/Ml Vial SQ Not Given ACHS [facility] Protocol Levothyroxine Sodium 125 mcg 07/19/20 06:30 07/22/20 06:25 Levothyroxine 50 Mcg Tab PO 125 mcg DAILY@0630 [facility] Administration Magnesium Hydroxide 2,400 mg 07/18/20 09:00 07/20/20 04:19 Magnesium Hydroxide 2,400 Mg/10 Ml Cup PO 2,400 mg BID PRN Administration Constipation Metoclopramide HCl 10 mg 07/17/20 11:21 07/21/20 15:08 Metoclopramide 5 Mg/Ml 2 Ml Vial IVP 10 mg Q4H PRN Administration Nausea And Vomiting Metoprolol Tartrate 12.5 mg 07/21/20 09:00 07/22/20 08:41 Metoprolol Tartrate 12.5 Mg Tab PO 12.5 mg BID [facility]AL[facility] Administration Miscellaneous Information 1 each 07/17/20 11:21 Potassium Replacement Protocol 1 Each Misc MISCELLANE DAILY PRN Per Protocol Protocol Miscellaneous Information 1 each 07/17/20 11:21 Magnesium Replacement Protocol 1 Each Misc MISCELLANE DAILY PRN Per Protocol Protocol Miscellaneous Information 1 each 07/17/20 11:21 Phosphorus Replacement Protoco 1 Each Mis MISCELLANE DAILY PRN Per Protocol Protocol Ondansetron HCl 4 mg 07/17/20 11:21 07/21/20 13:35 Ondansetron 4 Mg/2 Ml Vial IVP 4 mg Q6HR PRN Administration Nausea And Vomiting Pantoprazole Sodium 40 mg 07/20/20 07:30 07/22/20 06:25 Pantoprazole 40 Mg Tablet PO 40 mg [id number] RALPH Administration Senna/Docusate Sodium 2 each 07/18/20 21:00 07/21/20 20:03 Sennosides-Docusate Sodium 1 Each Tab PO 2 each HS RALPH Administration Sodium Chloride 10 ml 07/17/20 21:00 07/22/20 08:42 Sodium Chloride 0.9% Flush 10 Ml Syringe IV 10 ml BID RALPH Administration Objective - Vital Signs Vital signs: Vital Signs Temp 98.3 F 07/22/20 12:00 Pulse 63 07/22/20 12:16 Resp 23 07/22/20 12:00 BP 110/67 07/22/20 12:00 Pulse Ox 94 L 07/22/20 12:00 Intake & Output 07/21/20 07/22/20 07/22/20 18:59 06:59 18:59 Intake Total 929 733 318 Output Total 610 1150 215 Balance 319 -417 103 Weight 72.8 kg Intake: IV 689 633 318 Piperacillin-Tazobactam 3 100 .375 gm In Sodium Chloride 0.9% 100 ml @ 25 mls/hr IVPB Q8H [facility] Rx#: [id number] Pressure Bag 39 33 18 Sodium Chloride 0.9% 1, 650 500 300 000 ml @ 50 mls/hr IV . Q20H [facility] Rx#:[id number] Oral 240 100 Output: Urine 550 950 125 Other 60 200 90 Other: Voiding Method Bedside Commode Bedside Commode Bedside Commode # Bowel Movements 1 ABP, PAP, CO, CI - Last Documented Arterial Blood Pressure 80/52 Pulmonary Artery Pressure 39/14 Cardiac Output 3.7 Cardiac Index 2.1 - Exam -GENERAL: The patient is awake fully oriented to time place and person. HEENT: Pupils are round and equally reacting to light. EOMI. No scleral icterus. No conjunctival pallor. Normocephalic, atraumatic. No pharyngeal erythema. No thyromegaly. CARDIOVASCULAR: S1 and S2 present. No murmurs, rubs, or gallops. PULMONARY: Chest is clear to auscultation, no wheezing or crackles. ABDOMEN: Soft, nontender, nondistended, normoactive bowel sounds. No palpable organomegaly. MUSCULOSKELETAL: No joint swelling or deformity. EXTREMITIES: No cyanosis, clubbing, or pedal edema. NEUROLOGICAL: Gross neurological examination did not reveal any focal deficits. SKIN: No rashes. no petechiae. - Labs CBC & Chem 7: 07/22/20 04:50 07/22/20 04:50 Labs: Abnormal Lab Results - Last 24 Hours (Table) 07/21/20 07/21/20 07/22/20 Range/Units 16:57 19:57 04:50 RBC 2.26 L (3.80-5.40) m/uL Hgb 7.2 L (11.4-16.0) gm/dL Hct 21.8 L (34.0-46.0) % Plt Count 119 L (150-450) k/uL Neutrophils # 7.8 H (1.3-7.7) k/uL Sodium (137-145) mmol/L BUN (7-17) mg/dL Creatinine (0.52-1.04) mg/dL POC Glucose (mg/dL) 137 H 112 H (75-99) mg/dL Calcium (8.4-10.2) mg/dL Magnesium (1.6-2.3) mg/dL Total Bilirubin (0.2-1.3) mg/dL AST (14-36) U/L ALT (4-34) U/L Alkaline Phosphatase (38-126) U/L Total Protein (6.3-8.2) g/dL Albumin (3.5-5.0) g/dL 07/22/20 07/22/20 07/22/20 Range/Units 04:50 04:50 11:40 RBC (3.80-5.40) m/uL Hgb (11.4-16.0) gm/dL Hct (34.0-46.0) % Plt Count (150-450) k/uL Neutrophils # (1.3-7.7) k/uL Sodium 136 L (137-145) mmol/L BUN 32 H (7-17) mg/dL Creatinine 1.09 H (0.52-1.04) mg/dL POC Glucose (mg/dL) 105 H (75-99) mg/dL Calcium 8.1 L (8.4-10.2) mg/dL Magnesium 2.8 H (1.6-2.3) mg/dL Total Bilirubin 1.5 H (0.2-1.3) mg/dL AST 329 H (14-36) U/L ALT 669 H (4-34) U/L Alkaline Phosphatase 142 H (38-126) U/L Total Protein 5.3 L (6.3-8.2) g/dL Albumin 3.4 L (3.5-5.0) g/dL Assessment and Plan Assessment: congenital bicuspid aortic stenosis. Status post aortic valve replacement Bilateral pleural effusion status post right thoracocentesis with bilateral infiltrates more on the left side. 4 bilateral pneumonia Transaminitis with trending down liver enzymes, secondary to hypotension, improving Acute kidney injury probably related to her episode of postop hypotension Postoperative 5% left apical pneumothorax, improved Hyperlipidemia Hypothyroidism COPD, not in acute exacerbation Plan: This is a pleasant 60 years old female status post aortic valve replacement. Patient status post extubation and she has been by pulmonary/critical care team. Continue with aspirin, Plavix and metoprolol. management of heart rate and blood pressure as per cardiology and cardiothoracic surgery. Pulmonary/critical care team R following the case closely for her pneumothorax together with the cardiothoracic surgery primary team Continue with Zosyn Digoxin was discontinued, avoid nephrotoxins, avoid hypotension, continue iv hydration. 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 Continue with antibiotic. Labs and medication were reviewed.. Continue same treatment. Continue with symptomatic treatment. Resume home medication. Monitor lytes and vitals. DVT and GI prophylaxis. Further recommendations as per clinical course of the patient DVT prophylaxis: Subcutaneous heparin GI Prophylaxis: Ppi
[2020-07-22] MEDS: DIGOXIN 250 MCG/ML 2 ML AMP IVP SCH (18:51)
[2020-07-22] MEDS: SENNOSIDES-DOCUSATE SODIUM 1 EACH TAB PO SCH (20:03)
[2020-07-22 20:20] LABS: Glucose,Whole Blood 106 mg/dL (75-99)
[2020-07-23] MEDS: ACETAMINOPHEN TAB 325 MG TAB PO PRN (01:14)
[2020-07-23] MEDS: PIPERACILLIN-TAZOBACTAM 3.375 GM in SODIUM CHLORIDE 0.9% 100 ML IVPB SCH ×3 (01:15→16:32)
[2020-07-23 04:21] LABS: Basophils % (A) 0 %; Eosinophils # (A) 0.1 k/uL (0-0.7); Eosinophils % (A) 1 %; HCT 23.7 % (34.0-46.0); HGB 7.8 gm/dL (11.4-16.0); Lymphocytes # (A) 1.6 k/uL (1.0-4.8); Lymphocytes % (A) 13 %; MCH 32.1 pg (25.0-35.0); MCHC 32.8 g/dL (31.0-37.0); MCV 97.9 fL (80.0-100.0); Macrocytosis Slight; Mean Platelet Volume 9.5; Monocytes # (A) 0.8 k/uL (0-1.0); Monocytes % (A) 7 %; Neutrophils # (A) 9.2 k/uL (1.3-7.7); Neutrophils % (A) 77 %; Platelet Count 168 k/uL (150-450); RBC 2.42 m/uL (3.80-5.40); RDW 15.8 % (11.5-15.5); WBC 11.9 k/uL (3.8-10.6)
[2020-07-23 04:43] LABS: Albumin 3.5 g/dL (3.5-5.0); Calcium 8.1 mg/dL (8.4-10.2); Potassium 4.8 mmol/L (3.5-5.1); Total Bilirubin 1.5 mg/dL (0.2-1.3); Total Protein 5.6 g/dL (6.3-8.2)
[2020-07-23] MEDS: SODIUM CHLORIDE 0.9% 1,000 ML IV SCH (04:51)
[2020-07-23] MEDS: HEPARIN SODIUM,PORCINE 5,000 UNIT/ML 1 ML VIAL SQ SCH ×3 (04:52→22:09)
--- NOTE | 2020-07-23 06:44 | P.PN ---
Subjective Progress Note Date: 07/23/20 60-year-old female who was referred to Dr. Jones for aortic stenosis. The patient apparently had a congenital bicuspid aortic valve. Today, she underwent a aortic valve replacement, with a bovine prosthesis. Currently, she is in the intensive care unit. She's currently on the mechanical ventilator. Her current ventilator settings include the volume assist control mode, rate of 12, tidal volume 450, FiO2 40%, and PEEP of 8. On those similar settings except for an FiO2 of 60%, and PEEP of 5, her PaO2 was 187, PaCO2 was 49, pH was 7.31. The patient is currently on lactated Ringer's at 50 mL an hour, and propofol at 10 mcg/kg/m. The patient apparently has a history of ongoing tobacco use, on a daily and regular basis, hypothyroidism, syncope, hyperlipidemia, and a family history of early onset coronary disease. Currently, the patient is starting to wake up from her sedation and anesthesia. Hopefully we'll be able get her moved towards weaning and extubation in the next hour or so. The patient is seen today 07/18/2020 and follow-up in the intensive care unit. His postoperative day #1 of bovine prosthetic aortic valve replacement secondary to bicuspid aortic valve. Left atrial appendage placement. She was extubated yesterday approximate 7 hours following surgery. She is currently sitting up in a chair at the bedside. Awake and alert in no acute distress. She is maintaining O2 saturations in the low 90s on 1 L/m per nasal cannula. She has lactated Ringer's at 50 MLS per hour. Remains on bronchodilators. She is on an insulin drip at 1 unit per hour. She is pulling approximate 500 mL's on her incentive spirometer. Chest x-ray reveals bibasilar atelectasis with p ossible small effusions. Mediastinal and left sided chest tube remains in place. Right jugular triple-lumen in place. She is status post 1 unit packed red blood cells. Current hemoglobin 8.5. White count 10.3. Platelet count 98,000. Sodium 134. Potassium 4.7. Creatinine 0.76. AST 37. ALT 16. Albumin 3.4. She has received 750 ML's of 5% albumin. Blood pressure remains with systolic pressures in the 80s. CVP of 12. PA pressure 35/80. Urine output marginal. The plan is for 25% albumin. On 07/19/2020 patient seen in follow-up in the intensive care unit, today is postoperative day #2, status post aortic valve replacement. She is doing well, she is awake and alert, oriented 3, she sitting up in the recliner, currently on 5 L of oxygen with a pulse ox of 96%, her incentive spirometer effort is about 500 mL. Patient states it's hard for her to take deep rest. She is in A. fib with RVR, currently with a rate of 112 BPM, and ALLERGIES following commands patient will be started on amiodarone infusion at 1 mg/m. Her maintenance IV point and was seen at a of 20 ML per hour, and insulin is at 0.5 units per hour. Her mediastinal and left pleural chest tube are connected to the same Pleuravac, there has been 400 mL of thin serous illness output in the last 24 hours, cardiothoracic surgery may consider removing on the chest tubes today. Today's labs have been reviewed, showing cell count 13.7, hemoglobin of 7.9, sodium is 131, serum electrolytes troponin is coming BUN is 19 and creatinine is 1.1. AST and ALT were noted to be significantly elevated on today's labs since yesterday. The patient is seen today 07/20/2020 in follow-up in the intensive care unit. This is postoperative day #3 status post aortic valve replacement. She is currently resting comfortably in bed. Awake and alert in no acute distress. She is maintaining O2 saturations in the 90s on 5 L/m per nasal cannula. She still having issues with atrial fibrillation. She remains on amiodarone at 0.5 mg/m. Lactated Ringer's at 20 ML's per hour. Chest x-ray continues to show persistent obscured right hemidiaphragm and bibasilar densities. There is some improved aeration in the left lung. Chest tubes have been removed. She is status post 1 unit of packed red blood cells this admission. Current hemoglobin 7.4. Platelet count 101. White count 15.1. Sodium 130. Potassium 5.1. Cre atinine 1.54. AST 1022. ALT 1046. Albumin 3.9. She remains on DuoNeb inhalations, working well with the incentive spirometer. Currently in sinus rhythm. Patient is seen today 07/21/2020 in follow-up in the intensive care unit. This is postoperative day #4 status post aortic valve replacement. She is currently sitting up in a chair at the bedside. Awake and alert in no acute distress. She did undergo a right-sided thoracentesis with bloody return of 1 L yesterday. She was doing a bit better at that time. However today she is still requiring higher oxygen amounts to maintain O2 saturations in the 90s. Currently on 11 L high flow. Chest x-ray shows a small recurrent right pleural effusion and some infiltrate of the left midlung. She was initiated on Augmentin yesterday. White count 12.6. Hemoglobin 7.3. Platelet count 101. Sodium 133. Potassium 4.9. Creatinine 1.11. AST 619. ALT 977. Albumin 3.6. Pro-calcitonin 1.46. Remains on bronchodilators. Working well with the incentive spirometer. The patient is seen today 07/22/2020 and follow-up in the intensive care unit. Postoperative day #5 status post aortic valve replacement. She is currently sitting up in a chair at the bedside. Awake and alert in no acute distress. Breathing a bit easier today compared to yesterday. She is down to 6 L high flow nasal cannula. Chest x-ray reveals mild cardiomegaly and chronic parenchymal changes with left greater than right bilateral peripheral mid acute infiltrates remain. More so on the right upper lung and on the left midlung. She remains on Zosyn and bronchodilators. White count 10.1. Hemoglobin 7.2. Platelet count 119. Sodium 136. Potassium 4.7. Creatinine 1.09. AST 329. ALT 669. Albumin 3.4. 0.9 normal saline at 50 MLS per hour. Heparin for DVT prophylaxis. 07/23/2020, the patient is being seen in follow-up in the ICU. The patient is postop day #6 following an aortic valve replacement. Currently on 4 L of oxygen by nasal cannula. The patient is doing well. The patient is no specific complaints. She is on normal saline at the rate of 50 mL an hour. She is on aspirin and Plavix and an metoprolol 12.5 mg by mouth twice a day. Amiodarone has been discontinued and the patient is sinus rhythm with occasional PVCs and PACs. She is on subcu heparin for DVT prophylaxis. The white cell count is at 11.9 and hemoglobin is at 7.8. Renal function shows a creatinine of 0.9. Chest x-ray from this morning shows adequate expansion of both lungs. There is still awaiting small right-sided pleural effusion and some increased vascular markings consistent with interstitial edema. When compared to yesterday's chest x-ray, findings are essentially the same and unchanged. Objective - Vital Signs Vital signs: Vital Signs Temp 98.2 F 07/23/20 04:00 Pulse 66 07/23/20 06:00 Resp 22 07/23/20 06:00 BP 105/65 07/23/20 06:00 Pulse Ox 95 07/23/20 06:00 Intake & Output 07/22/20 07/22/20 07/23/20 06:59 18:59 06:59 Intake Total 733 1136 853 Output Total 1150 635 625 Balance -417 501 228 Weight 72.8 kg 73.4 kg Intake: IV 633 636 603 Piperacillin-Tazobactam 3 100 100 .375 gm In Sodium Chloride 0.9% 100 ml @ 25 mls/hr IVPB Q8H [facility] Rx#: [id number] Pressure Bag 33 36 3 Sodium Chloride 0.9% 1, 500 600 500 000 ml @ 50 mls/hr IV . Q20H [facility] Rx#:[id number] Oral 100 500 250 Output: Urine 950 425 625 Other 200 210 Other: Voiding Method Bedside Commode Bedside Commode Bedside Commode # Voids 1 # Bowel Movements 1 1 ABP, PAP, CO, CI - Last Documented Arterial Blood Pressure 80/52 Pulmonary Artery Pressure 39/14 Cardiac Output 3.7 Cardiac Index 2.1 - Exam GENERAL EXAM: Alert, very pleasant 60-year-old female patient, on 4 L nasal cannula, comfortable in no apparent distress. HEAD: Normocephalic. EYES: Normal reaction of pupils, equal size. NOSE: Clear with pink turbinates. THROAT: No erythema or exudates. NECK: No masses, no JVD. CHEST: Sternal dressing dry and intact. Hugger in place. Chest tubes removed. LUNGS: Equal air entry with bilateral crackles scattered rhonchi. CVS: S1 and S2 normal with no audible murmur, regular rhythm. ABDOMEN: No hepatosplenomegaly, normal bowel sounds, no guarding or rigidity. SPINE: No scoliosis or deformity SKIN: No rashes CENTRAL NERVOUS SYSTEM: No focal deficits, tone is normal in all 4 extremities. EXTREMITIES: There is 1-2+ peripheral edema. No clubbing, no cyanosis. Peripheral pulses are intact. - Labs CBC & Chem 7: 07/23/20 03:15 07/23/20 03:15 Labs: Abnormal Lab Results - Last 24 Hours (Table) 07/22/20 07/22/20 07/22/20 Range/Units 04:50 11:40 20:19 WBC (3.8-10.6) k/uL RBC (3.80-5.40) m/uL Hgb (11.4-16.0) gm/dL Hct (34.0-46.0) % RDW (11.5-15.5) % Neutrophils # (1.3-7.7) k/uL Sodium (137-145) mmol/L Carbon Dioxide (22-30) mmol/L BUN (7-17) mg/dL POC Glucose (mg/dL) 105 H 106 H (75-99) mg/dL Calcium (8.4-10.2) mg/dL Magnesium 2.8 H (1.6-2.3) mg/dL Total Bilirubin (0.2-1.3) mg/dL AST (14-36) U/L ALT (4-34) U/L Alkaline Phosphatase (38-126) U/L Total Protein (6.3-8.2) g/dL 07/23/20 07/23/20 Range/Units 03:15 03:15 WBC 11.9 H (3.8-10.6) k/uL RBC 2.42 L (3.80-5.40) m/uL Hgb 7.8 L (11.4-16.0) gm/dL Hct 23.7 L (34.0-46.0) % RDW 15.8 H (11.5-15.5) % Neutrophils # 9.2 H (1.3-7.7) k/uL Sodium 135 L (137-145) mmol/L Carbon Dioxide 20 L (22-30) mmol/L BUN 28 H (7-17) mg/dL POC Glucose (mg/dL) (75-99) mg/dL Calcium 8.1 L (8.4-10.2) mg/dL Magnesium (1.6-2.3) mg/dL Total Bilirubin 1.5 H (0.2-1.3) mg/dL AST 286 H (14-36) U/L ALT 618 H (4-34) U/L Alkaline Phosphatase 217 H (38-126) U/L Total Protein 5.6 L (6.3-8.2) g/dL Microbiology - Last 24 Hours (Table) 07/22/20 11:00 Gram Stain - Preliminary Sputum Sputum Culture - Preliminary Assessment and Plan Plan: 1 Congenital bicuspid aortic valve with a aortic valve stenosis, status post aortic valve replacement with a bovine prosthesis, and ligation of the left atrial appendage. This operative day #6 2 Routine postoperative ventilator management, recovered. 3 Acute hypoxemic respiratory failure secondary to pleural effusion, right upper lobe and left mid lung infiltrate, possible pneumonia. Currently on 4 L high flow nasal cannula monitor indication of an underlying pneumonia. The patient has been covered with IV Zosyn as an empiric antibiotic coverage. 4 Right-sided pleural effusion, status post thoracentesis on 07/20/2020 with 1 L of bloody fluid removed 5 Atrial fibrillation, common following open heart surgery, currently on amiodarone, currently off amiodarone and the patient is having occasional ecto pies on beta blockers 6 Hyperlipidemia. 7 Hypothyroidism. 8 History of chronic tobacco use. No evidence of obstructive coronary disease. 9 Family history of early-onset coronary disease. 10 Acute kidney injury, recovered and the creatinine is at 11 Elevated liver function testing, trending down , and they continue to improve including a drop in the level of AST and ALT. Plan Chest x-ray and labs reviewed, there is a small right-sided pleural effusion and some pulmonary vascular markings most on the left upper lobe. There was suspicion for pneumonia and the patient was covered with IV Zosyn. Continue Zosyn and bronchodilators Encouraged regarding the increased use of the incentive spirometer and cough and deep breathing exercises the patient is pulling approximately thousand on the incentive spirometer Increase her activity as tolerated Titrate down the FiO2 as tolerated, FiO2 is down to 4 L Monitor liver function tests and they are down pending at this point in time Renal function is stable with a creatinine of 0.9 We will continue to follow and make further recommendations based on her clinical status
[2020-07-23] MEDS: INSULIN ASPART (NovoLOG) 100 UNIT/ML VIAL SQ SCH ×4 (06:54→22:21)
[2020-07-23] MEDS: LEVOTHYROXINE 50 MCG TAB PO SCH (06:55)
[2020-07-23] MEDS: PANTOPRAZOLE 40 MG TABLET PO SCH (06:56)
--- NOTE | 2020-07-23 08:07 | XR ---
EXAMINATION TYPE: XR chest 1V portable DATE OF EXAM: 07/23/2020 COMPARISON: Chest x-ray 07/22/2020 HISTORY: Post op aortic valve replacement TECHNIQUE: Single frontal view of the chest is obtained. FINDINGS: Patient is post median sternotomy and left atrial appendage clip placement, aortic valve r eplacement. Pleural parenchymal changes are similar, there is blunting of the right costophrenic angl e, mild basilar increased density. No evident pneumothorax. Cardiac mediastinal silhouette is stable. There are overlying artifacts and leads. IMPRESSION: Right pleural effusion and associated atelectasis, correlate for pneumonia versus inters titial edema, findings similar to prior exam.
[2020-07-23] MEDS: buPROPion XL 150 MG TAB.ER.24H PO SCH (08:35)
[2020-07-23] MEDS: CLOPIDOGREL 75 MG TAB PO SCH (08:35)
[2020-07-23] MEDS: DIGOXIN 250 MCG/ML 2 ML AMP IVP SCH ×2 (08:35→08:40)
[2020-07-23] MEDS: ASPIRIN 325 MG TAB PO SCH (08:35)
[2020-07-23] MEDS: METOPROLOL TARTRATE 12.5 MG TAB PO SCH ×2 (08:35→22:09)
[2020-07-23] MEDS: IPRATROPIUM-ALBUTEROL 3 ML NEB INHALATION SCH ×4 (08:49→21:28)
--- NOTE | 2020-07-23 09:35 | P.PN ---
Subjective Progress Note Date: 07/23/20 Principal diagnosis: Congenital severe bicuspid aortic stenosis, with an overall left ventricular systolic function to be normal with an ejection fraction of 55-60%. Past medical history significant for known bicuspid aortic valve disease, syncopal event 10 years ago, hypothyroid, hyperlipidemia, family history of early onset coronary artery disease with her dad passing away at age 48 from myocardial infarction, chronic ongoing tobacco use with a preoperative FEV1 showing 79% of predicted value. POD #6 Aortic valve replacement with a 23 mm Inspiris bovine pericardial biop rosthesis, ligation of the left atrial appendage with a 35 mm AtriCure, epi- aortic ultrasonography. Postoperative acute blood loss anemia, expected due to hemodilution and cardiopulmonary bypass. Paroxysmal atrial fibrillation, commonly known occurrence after open heart surgery. Postoperative right pleural effusion, unexpected but potential outcome of surgery with a right thoracentesis completed by Dr. Crenshaw from pulmonary medicine. 1 L of serosanguineous fluid drained. POD #3 right thoracentesis. The patient is seen in follow-up today 07/23/2020 at her bedside in the intensive care unit. Currently she is sitting up to the bedside chair, is awake, alert and oriented 3. She denies any complaints of pain or shortness of breath at this time. Denies any further complaints of nausea. The patient reports that she feels much improved today and has been eating a little bit better. She reports she has been ambulating in the intensive care unit hallway with assistance from nursing staff. She remains afebrile the last 24 hours, bedside telemetry is showing normal sinus rhythm with occasional PVCs heart rate 62 BPM. Oxygen saturation are 98% on 2 L nasal cannula. Achieving 1000 mL on her incentive spirometry. She remained hemodynamically stable and is currently on no inotropic pressure support. Laboratory results show that her liver enzymes are trending down, WBC count today is 11.9, hemoglobin 7.8, hematocrit 23.7, platelets 168, BUN 28, creatinine 0.97, AST 286, ALT 618. Objective - Vital Signs Vital signs: Vital Signs Temp 98.0 F 07/23/20 08:00 Pulse 78 07/23/20 08:58 Resp 33 H 07/23/20 08:00 BP 97/82 07/23/20 08:00 Pulse Ox 95 07/23/20 08:00 Intake & Output 0207/23/20 07/23/20 18:59 06:59 18:59 Intake Total 1136 853 350 Output Total 635 625 225 Balance 501 228 125 Weight 73.4 kg Intake: IV 636 603 100 Piperacillin-Tazobactam 3 100 .375 gm In Sodium Chloride 0.9% 100 ml @ 25 mls/hr IVPB Q8H [facility] Rx#: [id number] Pressure Bag 36 3 Sodium Chloride 0.9% 1, 600 500 100 000 ml @ 50 mls/hr IV . Q20H [facility] Rx#:[id number] Oral 500 250 250 Output: Urine 425 625 0 Other 210 225 Other: Voiding Method Bedside Commode Bedside Commode # Voids 1 1 # Bowel Movements 1 1 ABP, PAP, CO, CI - Last Documented Arterial Blood Pressure 80/52 Pulmonary Artery Pressure 39/14 Cardiac Output 3.7 Cardiac Index 2.1 - Constitutional General appearance: Present: average body habitus, cooperative, no acute distress - EENT Eyes: Present: normal appearance. Absent: scleral icterus ENT: Present: hearing grossly normal - Neck Details: Neck is supple, no JVD, no lymphadenopathy. - Respiratory Details: Lung sounds essentially clear to her bilateral upper lobes, diminished to her bilateral bases with few scattered crackles. Respirations are symmetrical and nonlabored. Oxygen saturation are 98% on 2 L nasal cannula. Achieving 1000 mL on her incentive spirometry. - Cardiovascular Details: Regular rhythm and rate. S1 and S2 present, negative for S3, gallop or murmur. Sternum is stable. Heart hugger is in place and she is demonstrating appropriate use. Knee-high KULWANT hose and sequential compression devices in place were bilateral lower extremities. Atrial and ventricular epicardial pacemaker wires are in place and grounded. No edema present. - Gastrointestinal Gastrointestinal Comment(s): Abdomen is soft, nontender and nondistended. Active bowel sounds present in all 4 abdominal quadrants. No guarding or rigidity. No organomegaly appreciated. Tolerating oral intake. - Genitourinary Genitourinary Comment(s): Continues to void. 500 mL of urine output the last 8 hours. - Integumentary Integumentary Comment(s): Skin is warm and dry. No clubbing or cyanosis is present. Midline sternal incision is clean, dry and approximated. No drainage or redness is present. - Neurologic Neurologic: Present: CNII-XII intact. Absent: focal deficits - Musculoskeletal Musculoskeletal: Present: gait normal, generalized weakness, strength equal bilaterally - Psychiatric Psychiatric: Present: A&O x's 3, appropriate affect, intact judgment & insight - Allied health notes Allied health notes reviewed: nursing - Labs CBC & Chem 7: 07/23/20 03:15 07/23/20 03:15 Labs: Abnormal Lab Results - Last 24 Hours (Table) 07/22/20 07/22/20 07/22/20 Range/Units 04:50 11:40 20:19 WBC (3.8-10.6) k/uL RBC (3.80-5.40) m/uL Hgb (11.4-16.0) gm/dL Hct (34.0-46.0) % RDW (11.5-15.5) % Neutrophils # (1.3-7.7) k/uL Sodium (137-145) mmol/L Carbon Dioxide (22-30) mmol/L BUN (7-17) mg/dL POC Glucose (mg/dL) 105 H 106 H (75-99) mg/dL Calcium (8.4-10.2) mg/dL Magnesium 2.8 H (1.6-2.3) mg/dL Total Bilirubin (0.2-1.3) mg/dL AST (14-36) U/L ALT (4-34) U/L Alkaline Phosphatase (38-126) U/L Total Protein (6.3-8.2) g/dL 07/23/20 07/23/20 Range/Units 03:15 03:15 WBC 11.9 H (3.8-10.6) k/uL RBC 2.42 L (3.80-5.40) m/uL Hgb 7.8 L (11.4-16.0) gm/dL Hct 23.7 L (34.0-46.0) % RDW 15.8 H (11.5-15.5) % Neutrophils # 9.2 H (1.3-7.7) k/uL Sodium 135 L (137-145) mmol/L Carbon Dioxide 20 L (22-30) mmol/L BUN 28 H (7-17) mg/dL POC Glucose (mg/dL) (75-99) mg/dL Calcium 8.1 L (8.4-10.2) mg/dL Magnesium (1.6-2.3) mg/dL Total Bilirubin 1.5 H (0.2-1.3) mg/dL AST 286 H (14-36) U/L ALT 618 H (4-34) U/L Alkaline Phosphatase 217 H (38-126) U/L Total Protein 5.6 L (6.3-8.2) g/dL Microbiology - Last 24 Hours (Table) 07/22/20 11:00 Gram Stain - Preliminary Sputum Sputum Culture - Preliminary - Imaging and Cardiology Chest x-ray: report reviewed, image reviewed Assessment and Plan Assessment: 1. Congenital severe bicuspid aortic valve stenosis, status post aortic valve replacement using a 23 mm Parceliris bioprosthetic valve 2. Preserved left ventricular systolic function, EF 55-60% 3. Syncopal event 10 years ago 4. Hyperlipidemia, cholesterol 225, LDL 162 5. Hypothyroid 6. Chronic ongoing tobacco dependence with preoperative FEV1 79% of predicted 7. Family history of premature coronary artery disease 8. Preoperative nasal swab positive for MRSA, treated 9. Postoperative acute blood loss anemia, expected 10. Postoperative paroxysmal atrial fibrillation, status post ligation of the left atrial appendage 11. Elevated transaminases, trending down today 12. Acute kidney injury, resolving Plan: 1. Continue aspirin, Plavix, and beta rhiannon. Will increase beta rhiannon as tolerated. Currently on metoprolol tartrate 12.5 mg by mouth twice a day. 2. Risk modification, importance of smoking cessation was discussed with the patient. 3. Wean O2 as tolerated. Encourage incentive spirometry use 10 times every hour while awake. Bronchodilators management per pulmonology/critical care medicine. 4. Increase activity, ambulate as tolerated. PT/OT/cardiac rehab following. 5. Continue to monitor daily labs and chest x-rays. Electrolyte replacement per protocol. 6. Pain control with current medication when necessary regimen. 7. Insulin management per primary care service. Patient is not diabetic, preoperative hemoglobin A1c 5.5%. 8. Antibiotic management per pulmonary/critical care medicine. Antibiotic Zosyn managed by pulmonary/critical care medicine. 9. Avoid nephrotoxic agents. Continue to hold statin until her liver enzymes normalize. AST and ALT continue to trend down, AST this morning is 286, ALT is 618. 10. Strict accurate intake and output. Daily weights using a standing scale. 11. We will remove her atrial and ventricular epicardial pacemaker wires today. Bedrest for 1 hour post pacemaker wire removal. 12. Continue ferrous sulfate and vitamin C for hemoglobin of 7.8. 13. Transfer orders will be placed today for cardiac stepdown unit. 14. More recommendations to follow based on patient's clinical course. Time with Patient: Greater than 30
[2020-07-23 11:38] LABS: Glucose,Whole Blood 93 mg/dL (75-99)
--- NOTE | 2020-07-23 15:47 | P.PN ---
Subjective This is a pleasant 60 to-year-old female past medical history significant for COPD, hyperlipidemia, bicuspid atoric valve with preserved systolic function, osteoarthritis, hypothyroidism. She was admitted and underwent aortic valve replacement for severe symptomatic aortic stenosis. Patient is seen and examined this morning, sitting up in chair. She is feeling well this morning. Having mild shortness of breath. Denies chest pain, dizziness, palpitations, nausea, abdominal pain. Laboratory data reviewed, WBC 11.9, hgb 7.8, Sodium 135, K4.8, sCr 0.97, AST 286, ALT 618, Alk Phos 217. Vital signs BP 97/82 HR 64, Spo2 95% on 2L nasal cannula, afebrile. She continues to be on aspirin 325mg daily, lopressor 12.5mg BID, plavix 75mg daily, subcutaneous heparin. PHYSICAL EXAMINATION CONSTITUTIONAL: No apparent distress. CHEST EXAMINATION: Lungs are clear to auscultation. No chest wall tenderness is noted on palpation or with deep breathing. HEART EXAMINATION: Regular rate and rhythm. S1, S2 heard. No murmurs, gallops or rub. ABDOMEN: Soft, nontender. Positive bowel sounds. EXTREMITIES: no lower extremity edema and no calf tenderness. NEUROLOGIC EXAMINATION: Patient is awake, alert and oriented x3. ASSESSMENT -Aortic stenosis s/p aortic valve replacement -Paroxysmal atrial fibrillation -Elevated transaminases, improving -History of hyperlipidemia -History COPD -History Hypothyroidism PLAN -From cardiology standpoint, recommend continued present supportive therapy. Nurse Practitioner note has been reviewed, I agree with a documented findings and plan of care. Patient was seen and examined. Objective - Vital Signs Vital signs: Vital Signs Temp 98.1 F 07/23/20 12:00 Pulse 61 07/23/20 15:00 Resp 27 H 07/23/20 15:00 BP 112/84 07/23/20 15:00 Pulse Ox 95 07/23/20 15:00 Intake & Output 07/22/20 07/23/20 07/23/20 18:59 06:59 18:59 Intake Total 1136 853 600 Output Total 635 625 225 Balance 501 228 375 Weight 73.4 kg Intake: IV 636 603 350 Piperacillin-Tazobactam 3 100 100 .375 gm In Sodium Chloride 0.9% 100 ml @ 25 mls/hr IVPB Q8H [facility] [place] Rx#: [id number] Pressure Bag 36 3 Sodium Chloride 0.9% 1, 600 500 250 000 ml @ 50 mls/hr IV . Q20H [facility] [place] Rx#:[id number] Oral 500 250 250 Output: Urine 425 625 0 Other 210 225 Other: Voiding Method Bedside Commode Bedside Commode Bedside Commode # Voids 1 1 # Bowel Movements 1 1 ABP, PAP, CO, CI - Last Documented Arterial Blood Pressure 80/52 Pulmonary Artery Pressure 39/14 Cardiac Output 3.7 Cardiac Index 2.1 - Labs CBC & Chem 7: 07/23/20 03:15 07/23/20 03:15 Labs: Abnormal Lab Results - Last 24 Hours (Table) 07/22/20 07/23/20 07/23/20 Range/Units 20:19 03:15 03:15 WBC 11.9 H (3.8-10.6) k/uL RBC 2.42 L (3.80-5.40) m/uL Hgb 7.8 L (11.4-16.0) gm/dL Hct 23.7 L (34.0-46.0) % RDW 15.8 H (11.5-15.5) % Neutrophils # 9.2 H (1.3-7.7) k/uL Sodium 135 L (137-145) mmol/L Carbon Dioxide 20 L (22-30) mmol/L BUN 28 H (7-17) mg/dL POC Glucose (mg/dL) 106 H (75-99) mg/dL Calcium 8.1 L (8.4-10.2) mg/dL Total Bilirubin 1.5 H (0.2-1.3) mg/dL AST 286 H (14-36) U/L ALT 618 H (4-34) U/L Alkaline Phosphatase 217 H (38-126) U/L Total Protein 5.6 L (6.3-8.2) g/dL Microbiology - Last 24 Hours (Table) 07/22/20 11:00 Gram Stain - Preliminary Sputum Sputum Culture - Preliminary
[2020-07-23] MEDS: FERROUS SULFATE 325 MG TAB PO SCH (16:25)
[2020-07-23] MEDS: ASCORBIC ACID 500 MG TAB PO SCH (16:25)
[2020-07-23 16:44] LABS: Glucose,Whole Blood 120 mg/dL (75-99)
[2020-07-23] MEDS ORDERED: METOPROLOL TARTRATE 5 MG/5 ML VIAL IVP ONE (20:33)
[2020-07-23] MEDS ORDERED: HALOPERIDOL LACTATE 5 MG/ML 1 ML VIAL IVP PRN (20:34)
[2020-07-23] MEDS: SENNOSIDES-DOCUSATE SODIUM 1 EACH TAB PO SCH (22:10)
[2020-07-23 22:17] LABS: Glucose,Whole Blood 134 mg/dL (75-99)
--- NOTE | 2020-07-24 00:07 | P.PN ---
Subjective This is a pleasant 60 years old female with past medical history of COPD, hyperlipidemia, osteoarthritis, hypothyroidism. She was admitted with congenital bicuspid aortic stenosis for aortic valve replacement. Today is postoperative day #1 Patient status post extubation. Today was sitting on the chair was comfortable but complaining from pain in the left shoulder area.. No chest pain or dyspnea. No abdominal pain. No diarrhea Temperature today slightly up at 99.7. Slightly tachypneic. Blood pressure is 99/46. Hemoglobin is 8.5, rest of CBC is unremarkable. Glucose control, sodium 134, liver enzymes not elevated. Glucose is controlled Chest x-ray showing anterolateral extubation, bibasilar atelectasis, difficult to exclude pneumonia or small effusion Patient is currently on aspirin and Plavix, small dose of metoprolol 07/19/2020 Patient is sitting in chair comfortable, minimal pain at the surgical site. She still have pain in the left upper shoulder and around the left shoulder but is better than yesterday, no shoulder swelling or erythema. Most likely related to her left pneumothorax and left chest tube. Hemodynamic the patient is a stable She is slightly bradycardic at 51, afebrile today. Kyra fever yesterday at 99.7. Slightly tachypneic of 22-30 and blood pressure 92/45. Earlier today she was tachycardic despite being on amiodarone drip and boluses of amiodarone IV. Cardiothoracic and pulmonary services are on the case. She needs minimal dose of insulin drip and it can be switched to sliding scale. Labs showing mild leukocytosis of 13.7 K. Sodium was slightly low at 131. Creatinine trending up slowly to 1.1. Liver enzymes slightly elevated with AST [address]21 and ALT 412. Bilirubin is normal at 1.3 Chest x-ray showing bilateral infiltrates and pleural effusion correlated for mild venous congestion She remains on aspirin, Plavix and metoprolol increased slightly to 25 mg 3 times a day by cardiothoracic surgery team. Also she is on amiodarone drip 07/20/2020 Patient remains in the ICU, she was in the distal distress because of pain on her right side of the chest however her pain in the left chest and left shoulder is improved today. No coughing, no dyspnea. Heart rate and 50, blood pressure is 100/60. She is saturating 91% on nightly 9 l/moxygen via nasal cannula. Labs showing WBC of 13.6. Hemoglobin 7.2 and she is already on ferrous sulfate. Glucose control, sodium 1:30, creatinine is elevated at 1.5. And liver enzymes are trending up to AST 1022 and ALT 1046. Postcalcitonin is high at 1.46 Chest ultrasound showing right-sided pleural effusion 6.4 status post right thoracocentesis, while left pleural effusion is 3.6 cm Echocardiogram showed ejection fraction of 55-60%. Currently patient is antibiotic on Augmentin 07/21/2020 Patient is awake and alert with some right-sided chest pain but no dyspnea. No coughing. Chest x-ray showing bilateral infiltrate, left more than the right with slightly worse pleural effusion. And the right lower infiltrate is slightly worse compared to yesterday when I look at the chest x-ray Her antibiotics were adjusted today from Augmentin to Zosyn However her oxygen requirements improved from 11, tp 9 L/m Patient with mild leukocytosis of 12.6, improving. Creatinine improved to 1.1. Liver enzymes are trending down. Sugar controlled 07/22/2020 Patient chest pain is improved, no respiratory distress or dyspnea however she may sitting in chair. She has small pocket in her left chest laterally with about 200 mL of serosanguineous fluid of discharge. She is also status thoracocentesis on the right side. her left shoulder pain is improved. Continue with medication from yesterday with no significant change 07/23/2020 07/23/2020 Patient is more awake today more alert less symptomatic with minimal chest pain, patient is happy about her progress and she thinks she is doing better She is tolerating diet well. She is hemodynamically stable. Showing mild leukocytosis of 11 K, sodium was stable, creatinine normal sugars c ontrolled. Liver enzymes are trending down. She still covered with Zosyn Review of systems CONSTITUTIONAL: No fever, no malaise, no fatigue. HEENT: No recent visual problems or hearing problems. Denied any sore throat. CARDIOVASCULAR: No orthopnea, PND, no palpitations, no syncope. PULMONARY: No shortness of breath, no cough, no hemoptysis. GASTROINTESTINAL: No diarrhea, no nausea, no vomiting, no abdominal pain. Normoactive bowel sounds. Active Medications Generic Name Dose Route Start Last Admin Trade Name Freq PRN Reason Stop Dose Admin Acetaminophen 650 mg 07/20/20 06:41 07/22/20 00:17 Acetaminophen Tab 325 Mg Tab PO 650 mg Q4HR PRN Administration Fever and/ or Pain Albuterol/Ipratropium 3 ml 07/17/20 11:21 Ipratropium-Albuterol 3 Ml Neb INHALATION RT-Q2H PRN Shortness Of Breath Or Wheezing Albuterol/Ipratropium 3 ml 07/18/20 08:00 07/22/20 16:37 Ipratropium-Albuterol 3 Ml Neb INHALATION 3 ml RT-QID [facility] Administration Ascorbic Acid 500 mg 07/18/20 13:00 07/22/20 12:21 Ascorbic Acid 500 Mg Tab PO 500 mg 1200 [facility] Administration Aspirin 325 mg 07/18/20 09:00 07/22/20 08:41 Aspirin 325 Mg Tab PO 325 mg DAILY [facility] Administration Bisacodyl 10 mg 07/18/20 09:00 07/21/20 15:08 Bisacodyl 10 Mg Supp RECTAL 10 mg DAILY PRN Administration Constipation Bupropion HCl 150 mg 07/19/20 09:00 07/22/20 08:42 Bupropion Xl 150 Mg Tab.Er.24h PO 150 mg DAILY [facility] Administration Clopidogrel Bisulfate 75 mg 07/18/20 09:00 07/22/20 08:41 Clopidogrel 75 Mg Tab PO 75 mg DAILY [facility] Administration Ferrous Sulfate 325 mg 07/18/20 13:00 07/22/20 12:21 Ferrous Sulfate 325 Mg Tab PO 325 mg W/LUNCH [facility] Administration Heparin Sodium (Porcine) 5,000 unit 07/17/20 20:00 07/22/20 12:21 Heparin Sodium,Porcine 5,000 Unit/Ml 1 Ml Vial SQ 5,000 unit Q8H [facility] Administration Sodium Chloride 1,000 mls @ 50 mls/hr 07/20/20 15:00 07/22/20 06:25 Saline 0.9% IV 50 mls/hr .Q20H [facility] Administration Piperacillin Sod/Tazobactam 100 mls @ 25 mls/hr 07/21/20 08:15 07/22/20 16:46 Sod 3.375 gm/ Sodium Chloride IVPB 25 mls/hr Q8H [facility] Administration Insulin Aspart 0 unit 07/19/20 17:30 07/22/20 17:18 Insulin Aspart (Novolog) 100 Unit/Ml Vial SQ Not Given A[facility]S [facility] Protocol Levothyroxine Sodium 125 mcg 07/19/20 06:30 07/22/20 06:25 Levothyroxine 50 Mcg Tab PO 125 mcg DAILY@0630 [facility] Administration Magnesium Hydroxide 2,400 mg 07/18/20 09:00 07/20/20 04:19 Magnesium Hydroxide 2,400 Mg/10 Ml Cup PO 2,400 mg BID PRN Administration Constipation Metoclopramide HCl 10 mg 07/17/20 11:21 07/21/20 15:08 Metoclopramide 5 Mg/Ml 2 Ml Vial IVP 10 mg Q4H PRN Administration Nausea And Vomiting Metoprolol Tartrate 12.5 mg 07/21/20 09:00 07/22/20 08:41 Metoprolol Tartrate 12.5 Mg Tab PO 12.5 mg BID [facility] Administration Miscellaneous Information 1 each 07/17/20 11:21 Potassium Replacement Protocol 1 Each Misc MISCELLANE DAILY PRN Per Protocol Protocol Miscellaneous Information 1 each 07/17/20 11:21 Magnesium Replacement Protocol 1 Each Misc MISCELLANE DAILY PRN Per Protocol Protocol Miscellaneous Information 1 each 07/17/20 11:21 Phosphorus Replacement Protoco 1 Each Misc MISCELLANE DAILY PRN Per Protocol Protocol Ondansetron HCl 4 mg 07/17/20 11:21 07/21/20 13:35 Ondansetron 4 Mg/2 Ml Vial IVP 4 mg Q6HR PRN Administration Nausea And Vomiting Pantoprazole Sodium 40 mg 07/20/20 07:30 07/22/20 06:25 Pantoprazole 40 Mg Tablet PO 40 mg [id number] [facility] Administration Senna/Docusate Sodium 2 each 07/18/20 21:00 07/21/20 20:03 Sennosides-Docusate Sodium 1 Each Tab PO 2 each HS [facility] Administration Sodium Chloride 10 ml 07/17/20 21:00 07/22/20 08:42 Sodium Chloride 0.9% Flush 10 Ml Syringe IV 10 ml BID [facility] Administration Objective - Vital Signs Vital signs: Vital Signs Temp 98.1 F 07/23/20 16:00 Pulse 63 07/23/20 16:16 Resp 27 H 07/23/20 16:00 BP 124/72 07/23/20 16:00 Pulse Ox 94 L 07/23/20 16:00 Intake & Output 07/23/20 07/23/20 07/24/20 06:59 18:59 06:59 Intake Total 853 1150 Output Total 625 525 Balance 228 625 Weight 73.4 kg Intake: IV 603 500 Piperacillin-Tazobactam 3 100 100 .375 gm In Sodium Chloride 0.9% 100 ml @ 25 mls/hr IVPB Q8H [facility] Rx#: [id number] Pressure Bag 3 Sodium Chloride 0.9% 1, 500 400 000 ml @ 50 mls/hr IV . Q20H [facility] Rx#:[id number] Oral 250 650 Output: Urine 625 300 Other 225 Other: Voiding Method Bedside Commode Bedside Commode # Voids 1 0 # Bowel Movements 1 1 ABP, PAP, CO, CI - Last Documented Arterial Blood Pressure 80/52 Pulmonary Artery Pressure 39/14 Cardiac Output 3.7 Cardiac Index 2.1 - Exam -GENERAL: The patient is awake fully oriented to time place and person. HEENT: Pupils are round and equally reacting to light. EOMI. No scleral icterus. No conjunctival pallor. Normocephalic, atraumatic. No pharyngeal erythema. No thyromegaly. CARDIOVASCULAR: S1 and S2 present. No murmurs, rubs, or gallops. PULMONARY: Chest is clear to auscultation, no wheezing or crackles. ABDOMEN: Soft, nontender, nondistended, normoactive bowel sounds. No palpable organomegaly. MUSCULOSKELETAL: No joint swelling or deformity. EXTREMITIES: No cyanosis, clubbing, or pedal edema. NEUROLOGICAL: Gross neurological examination did not reveal any focal deficits. SKIN: No rashes. no petechiae. - Labs CBC & Chem 7: 07/23/20 03:15 07/23/20 03:15 Labs: Abnormal Lab Results - Last 24 Hours (Table) 07/23/20 07/23/20 07/23/20 Range/Units 03:15 03:15 16:43 WBC 11.9 H (3.8-10.6) k/uL RBC 2.42 L (3.80-5.40) m/uL Hgb 7.8 L (11.4-16.0) gm/dL Hct 23.7 L (34.0-46.0) % RDW 15.8 H (11.5-15.5) % Neutrophils # 9.2 H (1.3-7.7) k/uL Sodium 135 L (137-145) mmol/L Carbon Dioxide 20 L (22-30) mmol/L BUN 28 H (7-17) mg/dL POC Glucose (mg/dL) 120 H (75-99) mg/dL Calcium 8.1 L (8.4-10.2) mg/dL Total Bilirubin 1.5 H (0.2-1.3) mg/dL AST 286 H (14-36) U/L ALT 618 H (4-34) U/L Alkaline Phosphatase 217 H (38-126) U/L Total Protein 5.6 L (6.3-8.2) g/dL Microbiology - Last 24 Hours (Table) 07/22/20 11:00 Gram Stain - Preliminary Sputum Sputum Culture - Preliminary Assessment and Plan Assessment: congenital bicuspid aortic stenosis. Status post aortic valve replacement Bilateral pleural effusion status post right thoracocentesis with bilateral infiltrates more on the left side. 4 bilateral pneumonia Transaminitis with trending down liver enzymes, secondary to hypotension, improving Acute kidney injury probably related to her episode of postop hypotension Postoperative 5% left apical pneumothorax, improved Hyperlipidemia Hypothyroidism COPD, not in acute exacerbation Plan: This is a pleasant 60 years old female status post aortic valve replacement. Patient status post extubation and she has been by pulmonary/critical care team. Continue with aspirin, Plavix and metoprolol. management of heart rate and blood pressure as per cardiology and cardiothoracic surgery. Pulmonary/critical care team R following the case closely for her pneumothorax together with the cardiothoracic surgery primary team Continue with Zosyn Digoxin was discontinued, avoid nephrotoxins, avoid hypotension, continue iv hydration. 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 Continue with antibiotic. Labs and medication were reviewed.. Continue same treatment. Continue with symptomatic treatment. Resume home medication. Monitor lytes and vitals. DVT and GI prophylaxis. Further recommendations as per clinical course of the patient DVT prophylaxis: Subcutaneous heparin GI Prophylaxis: Ppi
[2020-07-24] MEDS: PIPERACILLIN-TAZOBACTAM 3.375 GM in SODIUM CHLORIDE 0.9% 100 ML IVPB SCH ×4 (00:14→22:59)
[2020-07-24 04:16] LABS: Anisocytosis Slight; HCT 26.9 % (34.0-46.0); HGB 8.9 gm/dL (11.4-16.0); Hypochromasia Slight; MCH 32.7 pg (25.0-35.0); MCV 99.1 fL (80.0-100.0); Macrocytosis Slight; Mean Platelet Volume 8.6; Platelet Count 255 k/uL (150-450); RBC 2.72 m/uL (3.80-5.40); RDW 17.1 % (11.5-15.5)
[2020-07-24 04:37] LABS: Calcium 8.4 mg/dL (8.4-10.2); Potassium 4.4 mmol/L (3.5-5.1)
[2020-07-24] MEDS ORDERED: DIGOXIN 250 MCG/ML 2 ML AMP IVP ONE (04:44)
[2020-07-24] MEDS ORDERED: METOPROLOL TARTRATE 25 MG TAB PO STA (04:44)
[2020-07-24] MEDS: HEPARIN SODIUM,PORCINE 5,000 UNIT/ML 1 ML VIAL SQ SCH ×3 (04:58→22:02)
[2020-07-24 06:15] LABS: Glucose,Whole Blood 97 mg/dL (75-99)
[2020-07-24 06:25] LABS: Band Neutrophils % 5 %; Eosinophils # (M) 0.15 k/uL (0-0.7); Lymphocytes # (M) 1.64 k/uL (1.0-4.8); Metamyelocytes # (M) 0.15 k/uL (0); Metamyelocytes % 1 %; Monocytes # (M) 1.04 k/uL (0-1.0); Myelocytes # (M) 0.15 k/uL (0); Myelocytes % 1 %; Neutrophils % (M) 76 %; Nucleated Red Blood Cells 1 /100 WBC (0-0); Total Cells Counted 200; WBC 14.9 k/uL (3.8-10.6)
[2020-07-24 06:26] LABS: Polychromasia Present
[2020-07-24 06:37] LABS: Large Platelets Present; Poikilocytosis (M) Present
--- NOTE | 2020-07-24 07:01 | P.PN ---
Subjective Progress Note Date: 07/24/20 60-year-old female who was referred to Dr. Jones for aortic stenosis. The patient apparently had a congenital bicuspid aortic valve. Today, she underwent a aortic valve replacement, with a bovine prosthesis. Currently, she is in the intensive care unit. She's currently on the mechanical ventilator. Her current ventilator settings include the volume assist control mode, rate of 12, tidal volume 450, FiO2 40%, and PEEP of 8. On those similar settings except for an FiO2 of 60%, and PEEP of 5, her PaO2 was 187, PaCO2 was 49, pH was 7.31. The patient is currently on lactated Ringer's at 50 mL an hour, and propofol at 10 mcg/kg/m. The patient apparently has a history of ongoing tobacco use, on a daily and regular basis, hypothyroidism, syncope, hyperlipidemia, and a family history of early onset coronary disease. Currently, the patient is starting to wake up from her sedation and anesthesia. Hopefully we'll be able get her moved towards weaning and extubation in the next hour or so. The patient is seen today 07/18/2020 and follow-up in the intensive care unit. His postoperative day #1 of bovine prosthetic aortic valve replacement secondary to bicuspid aortic valve. Left atrial appendage placement. She was extubated yesterday approximate 7 hours following surgery. She is currently sitting up in a chair at the bedside. Awake and alert in no acute distress. She is maintaining O2 saturations in the low 90s on 1 L/m per nasal cannula. She has lactated Ringer's at 50 MLS per hour. Remains on bronchodilators. She is on an insulin drip at 1 unit per hour. She is pulling approximate 500 mL's on her incentive spirometer. Chest x-ray reveals bibasilar atelectasis with p ossible small effusions. Mediastinal and left sided chest tube remains in place. Right jugular triple-lumen in place. She is status post 1 unit packed red blood cells. Current hemoglobin 8.5. White count 10.3. Platelet count 98,000. Sodium 134. Potassium 4.7. Creatinine 0.76. AST 37. ALT 16. Albumin 3.4. She has received 750 ML's of 5% albumin. Blood pressure remains with systolic pressures in the 80s. CVP of 12. PA pressure 35/80. Urine output marginal. The plan is for 25% albumin. On 07/19/2020 patient seen in follow-up in the intensive care unit, today is postoperative day #2, status post aortic valve replacement. She is doing well, she is awake and alert, oriented 3, she sitting up in the recliner, currently on 5 L of oxygen with a pulse ox of 96%, her incentive spirometer effort is about 500 mL. Patient states it's hard for her to take deep rest. She is in A. fib with RVR, currently with a rate of 112 BPM, and ALLERGIES following commands patient will be started on amiodarone infusion at 1 mg/m. Her maintenance IV point and was seen at a of 20 ML per hour, and insulin is at 0.5 units per hour. Her mediastinal and left pleural chest tube are connected to the same Pleuravac, there has been 400 mL of thin serous illness output in the last 24 hours, cardiothoracic surgery may consider removing on the chest tubes today. Today's labs have been reviewed, showing cell count 13.7, hemoglobin of 7.9, sodium is 131, serum electrolytes troponin is coming BUN is 19 and creatinine is 1.1. AST and ALT were noted to be significantly elevated on today's labs since yesterday. The patient is seen today 07/20/2020 in follow-up in the intensive care unit. This is postoperative day #3 status post aortic valve replacement. She is currently resting comfortably in bed. Awake and alert in no acute distress. She is maintaining O2 saturations in the 90s on 5 L/m per nasal cannula. She still having issues with atrial fibrillation. She remains on amiodarone at 0.5 mg/m. Lactated Ringer's at 20 ML's per hour. Chest x-ray continues to show persistent obscured right hemidiaphragm and bibasilar densities. There is some improved aeration in the left lung. Chest tubes have been removed. She is status post 1 unit of packed red blood cells this admission. Current hemoglobin 7.4. Platelet count 101. White count 15.1. Sodium 130. Potassium 5.1. Cre atinine 1.54. AST 1022. ALT 1046. Albumin 3.9. She remains on DuoNeb inhalations, working well with the incentive spirometer. Currently in sinus rhythm. Patient is seen today 07/21/2020 in follow-up in the intensive care unit. This is postoperative day #4 status post aortic valve replacement. She is currently sitting up in a chair at the bedside. Awake and alert in no acute distress. She did undergo a right-sided thoracentesis with bloody return of 1 L yesterday. She was doing a bit better at that time. However today she is still requiring higher oxygen amounts to maintain O2 saturations in the 90s. Currently on 11 L high flow. Chest x-ray shows a small recurrent right pleural effusion and some infiltrate of the left midlung. She was initiated on Augmentin yesterday. White count 12.6. Hemoglobin 7.3. Platelet count 101. Sodium 133. Potassium 4.9. Creatinine 1.11. AST 619. ALT 977. Albumin 3.6. Pro-calcitonin 1.46. Remains on bronchodilators. Working well with the incentive spirometer. The patient is seen today 07/22/2020 and follow-up in the intensive care unit. Postoperative day #5 status post aortic valve replacement. She is currently sitting up in a chair at the bedside. Awake and alert in no acute distress. Breathing a bit easier today compared to yesterday. She is down to 6 L high flow nasal cannula. Chest x-ray reveals mild cardiomegaly and chronic parenchymal changes with left greater than right bilateral peripheral mid acute infiltrates remain. More so on the right upper lung and on the left midlung. She remains on Zosyn and bronchodilators. White count 10.1. Hemoglobin 7.2. Platelet count 119. Sodium 136. Potassium 4.7. Creatinine 1.09. AST 329. ALT 669. Albumin 3.4. 0.9 normal saline at 50 MLS per hour. Heparin for DVT prophylaxis. 07/23/2020, the patient is being seen in follow-up in the ICU. The patient is postop day #6 following an aortic valve replacement. Currently on 4 L of oxygen by nasal cannula. The patient is doing well. The patient is no specific complaints. She is on normal saline at the rate of 50 mL an hour. She is on aspirin and Plavix and an metoprolol 12.5 mg by mouth twice a day. Amiodarone has been discontinued and the patient is sinus rhythm with occasional PVCs and PACs. She is on subcu heparin for DVT prophylaxis. The white cell count is at 11.9 and hemoglobin is at 7.8. Renal function shows a creatinine of 0.9. Chest x-ray from this morning shows adequate expansion of both lungs. There is still awaiting small right-sided pleural effusion and some increased vascular markings consistent with interstitial edema. When compared to yesterday's chest x-ray, findings are essentially the same and unchanged. 07/24/2020, I'm seeing the patient for a follow-up. Patient is postop day #7 and she was doing extremely well following that aortic valve replacement. Ye sterday, the patient became delirious at late afternoon early evening. Throughout the night, she had some paranoid ideations, somewhat confused and restless and agitated. She did not sleep throughout the night. was at the bedside and she was monitored very closely here in the intensive care unit. She was afebrile. White cell count today is at 14 and the patient does not have a Hudson catheter in place. Surgical wound site is dry clean and intact. No nausea. No vomiting. No abdominal pain. No chest pain. She is still having some occasional ectopies in the form of PACs and PVCs. She did have a bout of A. fib RVR yesterday that lasted for a total of 1 hour and subsequently she converted back into normal sinus rhythm. She is on no anticoagulants for now. In terms of rate control, the patient is on metoprolol 12.5 mg by mouth twice a day. She was taken off amiodarone. She was kept on a combination of aspirin and Plavix. I had given orders for Haldol, yet, it was not used throughout the night. Noted the patient was awake throughout the night and she hasn't slept an d this morning she is still sleepy but she is much more appropriate and awake and alert and she is following commands and answering is appropriately. In fact she is alert and oriented 3 and there is no focal neurological deficit as the patient is able to move all 4 extremities without any limitation. there is in place and the [place] catheter and arterial line have been all removed, cordis is minimally moved and the patient does not have any chest tube or Hudson catheter for now. Objective - Vital Signs Vital signs: Vital Signs Temp 98.2 F 07/24/20 04:00 Pulse 69 07/24/20 04:00 Resp 23 07/24/20 04:00 BP 105/76 07/24/20 04:00 Pulse Ox 99 07/24/20 04:00 Intake & Output 07/23/20 07/23/20 07/24/20 06:59 18:59 06:59 Intake Total 853 1150 110 Output Total 625 525 100 Balance 228 625 10 Weight 73.4 kg 72.9 kg Intake: IV 603 500 10 0.9 10 Piperacillin-Tazobactam 3 100 100 .375 gm In Sodium Chloride 0.9% 100 ml @ 25 mls/hr IVPB Q8H [facility] Rx#: [id number] Pressure Bag 3 Sodium Chloride 0.9% 1, 500 400 000 ml @ 50 mls/hr IV . Q20H [facility] Rx#:[id number] Intake, IV Titration 100 Amount Piperacillin-Tazobactam 3 100 .375 gm In Sodium Chloride 0.9% 100 ml @ 25 mls/hr IVPB Q8H [facility] Rx#: [id number] Oral 250 650 0 Output: Drainage 100 Left Abdomen 100 Urine 625 300 Other 225 Other: Voiding Method Bedside Commode Bedside Commode Bedside Commode # Voids 1 0 0 # Bowel Movements 1 1 ABP, PAP, CO, CI - Last Documented Arterial Blood Pressure 80/52 Pulmonary Artery Pressure 39/14 Cardiac Output 3.7 Cardiac Index 2.1 - Exam GENERAL EXAM: Alert, very pleasant 60-year-old female patient, on room air oxygen for now with a pulse ox of 97% HEAD: Normocephalic. EYES: Normal reaction of pupils, equal size. NOSE: Clear with pink turbinates. THROAT: No erythema or exudates. NECK: No masses, no JVD. CHEST: Sternal dressing dry and intact. Hugger in place. Chest tubes removed. LUNGS: Equal air entry with bilateral crackles scattered rhonchi. CVS: S1 and S2 normal with no audible murmur, regular rhythm. ABDOMEN: No hepatosplenomegaly, normal bowel sounds, no guarding or rigidity. SPINE: No scoliosis or deformity SKIN: No rashes CENTRAL NERVOUS SYSTEM: No focal deficits, tone is normal in all 4 extremities. She is alert and oriented 3 today. She is moving all 4 extremities. No facial asymmetry. Pupils are equal and reactive to light. No nystagmus. No clonus. No Babinski. EXTREMITIES: There is 1-2+ peripheral edema. No clubbing, no cyanosis. Peripheral pulses are intact. - Labs CBC & Chem 7: 07/24/20 03:09 07/24/20 03:09 Labs: Abnormal Lab Results - Last 24 Hours (Table) 07/23/20 07/23/20 07/24/20 Range/Units 16:43 22:16 03:09 WBC 14.9 H (3.8-10.6) k/uL RBC 2.72 L (3.80-5.40) m/uL Hgb 8.9 L (11.4-16.0) gm/dL Hct 26.9 L (34.0-46.0) % RDW 17.1 H (11.5-15.5) % Neutrophils # (Manual) 12.00 H (1.3-7.7) k/uL Monocytes # (Manual) 1.04 H (0-1.0) k/uL Metamyelocytes # (Man) 0.15 H (0) k/uL Myelocytes # (Manual) 0.15 H (0) k/uL Nucleated RBCs 1 H (0-0) /100 WBC Sodium (137-145) mmol/L BUN (7-17) mg/dL Glucose (74-99) mg/dL POC Glucose (mg/dL) 120 H 134 H (75-99) mg/dL 07/24/20 Range/Units 03:09 WBC (3.8-10.6) k/uL RBC (3.80-5.40) m/uL Hgb (11.4-16.0) gm/dL Hct (34.0-46.0) % RDW (11.5-15.5) % Neutrophils # (Manual) (1.3-7.7) k/uL Monocytes # (Manual) (0-1.0) k/uL Metamyelocytes # (Man) (0) k/uL Myelocytes # (Manual) (0) k/uL Nucleated RBCs (0-0) /100 WBC Sodium 134 L (137-145) mmol/L BUN 19 H (7-17) mg/dL Glucose 102 H (74-99) mg/dL POC Glucose (mg/dL) (75-99) mg/dL Assessment and Plan Plan: 1 Congenital bicuspid aortic valve with a aortic valve stenosis, status post aortic valve replacement with a bovine prosthesis, and ligation of the left atrial appendage. This operative day #8 2 delirium, rule out underlying infection possibly of a urinary source. The patient is alert and oriented this morning and she is back to her normal self. She did have some paranoid ideations yesterday which seems to have recovered on today's evaluation. No focal neurological deficits. 3 Acute hypoxemic respiratory failure secondary to pleural effusion, right upper lobe and left mid lung infiltrate, possible pneumonia. The patient remains on IV Zosyn. The patient had a follow-up chest x-ray showing a small right-sided pleural effusion and a left left-sided pleural effusion has been drained earlier. No significant changes on today's chest x-ray. 4 Right-sided pleural effusion, status post thoracentesis on 07/20/2020 with 1 L of bloody fluid removed 5 Atrial fibrillation, common following open heart surgery, currently on amiodarone, currently off amiodarone and the patient is having occasional ectopies on beta blockers. Note that the patient had another bout approximately 2 fibrillation yesterday that lasted for 1 hour. Currently she is back into sinus with ectopies. She was given an additional dose of digoxin and metoprolol yesterday. She is hemodynamically stable. No anticoagulation and the patient is on subcu heparin. 6 Hyperlipidemia. 7 Hypothyroidism. 8 History of chronic tobacco use. No evidence of obstructive coronary disease. 9 Family history of early-onset coronary disease. 10 Acute kidney injury, recovered and the creatinine is at 0.84 11 Elevated liver function testing, trending down , and they continue to improve including a drop in the level of AST and ALT. Plan Obtain a urinalysis Continue IV Zosyn Monitor mental status May need to use a low-dose Seroquel 25 mg by mouth twice a day if she develops any further symptoms of delirium Chest x-ray and labs reviewed, there is a small right-sided pleural effusion and some pulmonary vascular markings most on the left upper lobe. There was suspicion for pneumonia and the patient was covered with IV Zosyn. Encouraged regarding the increased use of the incentive spirometer and cough and deep breathing exercises the patient is pulling approximately thousand on the incentive spirometer Increase her activity as tolerated Titrate down the FiO2 as tolerated, FiO2 is down to maintain oxygen Monitor liver function tests and they are down pending at this point in time Renal function is stable with a creatinine of 0.84 Monitor the white cell count which is up to 14 Keep the patient ICU We will continue to follow and make further recommendations based on her clinical status
[2020-07-24 07:37] LABS: Appearance,Urine Clear (Clear); Bilirubin,Urine Negative (Negative); Blood,Urine Negative (Negative); Color,Urine Yellow; Glucose,Urine (UA) Negative (Negative); Hyaline Casts,Urine 1 /lpf (0-2); Ketones,Urine 1+ (Negative); Leukocyte Esterase,Urine Negative (Negative); Mucus,Urine Rare /hpf; Nitrite,Urine Negative (Negative); PH, Urine 5.5 (5.0-8.0); Protein,Urine 1+ (Negative); RBC,Urine <1 /hpf (0-5); Specific Gravity,Urine 1.023 (1.001-1.035); Squamous Epithelial Cell,Urine <1 /hpf (0-4); Urobilinogen,Urine <2.0 mg/dL (<2.0); WBC,Urine 1 /hpf (0-5)
[2020-07-24] MEDS: INSULIN ASPART (NovoLOG) 100 UNIT/ML VIAL SQ SCH ×4 (07:55→20:36)
[2020-07-24] MEDS: IPRATROPIUM-ALBUTEROL 3 ML NEB INHALATION SCH ×4 (07:59→19:34)
--- NOTE | 2020-07-24 08:25 | XR ---
EXAMINATION TYPE: XR chest 1V DATE OF EXAM: 07/24/2020 COMPARISON: Prior chest x-ray 07/23/2020 HISTORY: Postop aortic valve replacement, abnormal chest x-ray TECHNIQUE: Single frontal view of the chest is obtained. FINDINGS: Persistent density is present at the right lung base, there is blunting the costophrenic a ngle and obscured right hemidiaphragm. Question some patchy density developing at the left lung base, there are overlying artifacts. No evident pneumothorax. Patient is post median sternotomy, left atri al appendage clip placement, aortic valve replacement. Cardiac mediastinal silhouette shows a similar appearance. There is some improvement in the interstitium. IMPRESSION: Suspect some improvement in patient's volume status.
[2020-07-24] MEDS: LEVOTHYROXINE 50 MCG TAB PO SCH (09:02)
[2020-07-24] MEDS: CLOPIDOGREL 75 MG TAB PO SCH (09:06)
[2020-07-24] MEDS: ASPIRIN 325 MG TAB PO SCH (09:06)
[2020-07-24] MEDS: buPROPion XL 150 MG TAB.ER.24H PO SCH (09:06)
[2020-07-24] MEDS: METOPROLOL TARTRATE 12.5 MG TAB PO SCH (09:06)
[2020-07-24] MEDS: PANTOPRAZOLE 40 MG TABLET PO SCH (09:06)
[2020-07-24] MEDS: QUEtiapine 25 MG TAB PO SCH ×2 (10:04→22:02)
--- NOTE | 2020-07-24 10:42 | P.PN ---
Subjective Progress Note Date: 07/24/20 Principal diagnosis: Congenital severe bicuspid aortic stenosis, with an overall left ventricular systolic function to be normal with an ejection fraction of 55-60%. Past medical history significant for known bicuspid aortic valve disease, syncopal event 10 years ago, hypothyroid, hyperlipidemia, family history of early onset coronary artery disease with her dad passing away at age 48 from myocardial infarction, chronic ongoing tobacco use with a preoperative FEV1 showing 79% of predicted value. POD #7 Aortic valve replacement with a 23 mm Inspiris bovine pericardial biop rosthesis, ligation of the left atrial appendage with a 35 mm AtriCure, epi- aortic ultrasonography. Postoperative acute blood loss anemia, expected due to hemodilution and cardiopulmonary bypass. Postoperative paroxysmal atrial fibrillation, commonly known occurrence after open heart surgery. Postoperative right pleural effusion, unexpected but potential outcome of surgery with a right thoracentesis completed by Dr. Crenshaw from pulmonary medicine. 1 L of serosanguineous fluid drained. POD #4 right thoracentesis. Patient was seen in follow-up today on 07/24/2020 at her bedside in the [facility] unit. Currently she is sitting up to the bedside chair, is awake, alert and oriented 3. Her is present at her bedside at this time as the patient reportedly had some delirium and paranoia throughout the night with some restlessness and agitation. Oxygen saturation are 99% on room air and she is achieving 750-1000 mL on her incentive spirometry with encouragement. Labs this morning show a WBC count 14.9, positive band count of 5%, hemoglobin 8.9, hematocrit 26.9, platelets 255, BUN 19 and creatinine 0.84. Currently the patient denies any complaints of pain, shortness of breath or nausea. She reports she does not recall being confused or paranoid throughout the night. Bedside telemetry is currently showing normal sinus rhythm heart rate 60 with occasional PVC and PAC. She did have some episodes of atrial fibrillation with RVR last night and was given an extra dose of metoprolol 5 mg IV 1 and metoprolol 25 mg by mouth 1. The patient also reports that she is concerned that she is not sleeping while here in the ICU. The patient also reports that she has been ambulating in the intensive care unit hallway with assistance from nursing and therapy staff. She has been afebrile the last 24 hours. Atrial and ventricular epicardial pacemaker wires were removed yesterday without incident. Objective - Vital Signs Vital signs: Vital Signs Temp 98.2 F 07/24/20 04:00 Pulse 69 07/24/20 04:00 Resp 23 07/24/20 04:00 BP 105/76 07/24/20 04:00 Pulse Ox 99 07/24/20 04:00 Intake & Output 07/23/20 07/24/20 07/24/20 18:59 06:59 18:59 Intake Total 1150 110 Output Total 525 100 Balance 625 10 Weight 72.9 kg Intake: IV 500 10 0.9 10 Piperacillin-Tazobactam 3 100 .375 gm In Sodium Chloride 0.9% 100 ml @ 25 mls/hr IVPB Q8H [facility] Rx#: [id number] Sodium Chloride 0.9% 1, 400 000 ml @ 50 mls/hr IV . Q20H [facility] Rx#:[id number] Intake, IV Titration 100 Amount Piperacillin-Tazobactam 3 100 .375 gm In Sodium Chloride 0.9% 100 ml @ 25 mls/hr IVPB Q8H [facility] Rx#: [id number] Oral 650 0 Output: Drainage 100 Left Abdomen 100 Urine 300 Other 225 Other: Voiding Method Bedside Commode Bedside Commode # Voids 0 0 # Bowel Movements 1 ABP, PAP, CO, CI - Last Documented Arterial Blood Pressure 80/52 Pulmonary Artery Pressure 39/14 Cardiac Output 3.7 Cardiac Index 2.1 - Constitutional General appearance: Present: average body habitus, cooperative, no acute distress - EENT Eyes: Present: PERRLA, normal appearance. Absent: scleral icterus ENT: Present: hearing grossly normal - Neck Details: Neck is supple, no JVD. No lymphadenopathy. - Respiratory Details: Lung sounds are essentially clear throughout, diminished her bilateral bases. No wheezes, rhonchi or crackles. Respirations are symmetrical and nonlabored. Oxygen saturation is 99% on room air. Achieving 750-1000 mL on her incentive spirometry. - Cardiovascular Details: Regular rhythm and rate. S1 and S2 present, negative for S3, gallop or murmur. Sternum is stable. Heart hugger is in place and she is demonstrating appropriate use. Bedside telemetry showing normal sinus rhythm with occasional PACs and PVCs and a heart rate of 60 BPM. Trace edema to her bilateral lower extremities. Knee-high KULWANT hose and sequential compression devices in place to her bilateral lower extremities. - Gastrointestinal Gastrointestinal Comment(s): Abdomen is soft, nontender and nondistended. Active bowel sounds present in all 4 abdominal quadrants. No guarding or rigidity. No organomegaly appreciated. Tolerating oral intake. - Genitourinary Genitourinary Comment(s): Continues to void. 300 mL of urine output in the last 8 hours with one episode of incontinence. - Integumentary Integumentary Comment(s): Skin is warm and dry. No clubbing or cyanosis is present. Midline sternal incision is clean, dry and approximated. No drainage or redness is present. Dressing is clean dry and intact. - Neurologic Neurologic: Present: CNII-XII intact. Absent: focal deficits - Musculoskeletal Musculoskeletal: Present: gait normal, strength equal bilaterally - Psychiatric Psychiatric: Present: A&O x's 3, appropriate affect, intact judgment & insight - Allied health notes Allied health notes reviewed: nursing - Labs CBC & Chem 7: 07/24/20 03:09 07/24/20 03:09 Labs: Abnormal Lab Results - Last 24 Hours (Table) 07/23/20 07/23/20 07/24/20 Range/Units 16:43 22:16 03:09 WBC 14.9 H (3.8-10.6) k/uL RBC 2.72 L (3.80-5.40) m/uL Hgb 8.9 L (11.4-16.0) gm/dL Hct 26.9 L (34.0-46.0) % RDW 17.1 H (11.5-15.5) % Neutrophils # (Manual) 12.00 H (1.3-7.7) k/uL Monocytes # (Manual) 1.04 H (0-1.0) k/uL Metamyelocytes # (Man) 0.15 H (0) k/uL Myelocytes # (Manual) 0.15 H (0) k/uL Nucleated RBCs 1 H (0-0) /100 WBC Sodium (137-145) mmol/L BUN (7-17) mg/dL Glucose (74-99) mg/dL POC Glucose (mg/dL) 120 H 134 H (75-99) mg/dL Urine Protein (Negative) Urine Ketones (Negative) Urine Mucus (None) /hpf 07/24/20 07/24/20 Range/Units 03:09 07:11 WBC (3.8-10.6) k/uL RBC (3.80-5.40) m/uL Hgb (11.4-16.0) gm/dL Hct (34.0-46.0) % RDW (11.5-15.5) % Neutrophils # (Manual) (1.3-7.7) k/uL Monocytes # (Manual) (0-1.0) k/uL Metamyelocytes # (Man) (0) k/uL Myelocytes # (Manual) (0) k/uL Nucleated RBCs (0-0) /100 WBC Sodium 134 L (137-145) mmol/L BUN 19 H (7-17) mg/dL Glucose 102 H (74-99) mg/dL POC Glucose (mg/dL) (75-99) mg/dL Urine Protein 1+ H (Negative) Urine Ketones 1+ H (Negative) Urine Mucus Rare H (None) /hpf Microbiology - Last 24 Hours (Table) 07/22/20 11:00 Gram Stain - Final Sputum Sputum Culture - Final Elena albicans - Imaging and Cardiology Chest x-ray: report reviewed, image reviewed Assessment and Plan Assessment: 1. Congenital severe bicuspid aortic valve stenosis, status post aortic valve replacement using a 23 mm [employer]iris bioprosthetic valve 2. Preserved left ventricular systolic function, EF 55-60% 3. Syncopal event 10 years ago 4. Hyperlipidemia, cholesterol 225, LDL 162 5. Hypothyroid 6. Chronic ongoing tobacco dependence with preoperative FEV1 79% of predicted 7. Family history of premature coronary artery disease 8. Preoperative nasal swab positive for MRSA, treated 9. Postoperative acute blood loss anemia, expected 10. Postoperative paroxysmal atrial fibrillation, status post ligation of the left atrial appendage 11. Elevated transaminases, trending down today 12. Acute kidney injury, resolved 13. Delirium and paranoia, with no focal neurological deficits Plan: 1. Continue aspirin, Plavix, and beta rhiannon. Will increase beta rhiannon as tolerated. Currently on metoprolol tartrate 12.5 mg by mouth twice a day. 2. Risk modification, importance of smoking cessation was discussed with the patient. 3. Wean O2 as tolerated. Encourage incentive spirometry use 10 times every hour while awake. Bronchodilators management per pulmonology/critical care medicine. 4. Increase activity, ambulate as tolerated. PT/OT/cardiac rehab following. 5. Continue to monitor daily labs and chest x-rays. Electrolyte replacement per protocol. 6. Pain control with current medication when necessary regimen. 7. Insulin management per primary care service. Patient is not diabetic, preoperative hemoglobin A1c 5.5%. 8. Antibiotic management per pulmonary/critical care medicine. Antibiotic Zosyn managed by pulmonary/critical care medicine. Send urinalysis with reflex culture as her WBCs are 0.9 today. 9. Avoid nephrotoxic agents. Continue to hold statin until her liver enzymes normalize. 10. Strict accurate intake and output. Daily weights using a standing scale. 11. The patient was started on Seroquel 25 mg by mouth twice a day for her delirium/paranoia. 12. Discharge planning is in place, anticipate discharge home within the next 24 hours. 13. Transfer orders will be placed yesterday discharge planning is in place 07/23/2020 for cardiac stepdown unit. 14. More recommendations to follow based on patient's clinical course. Time with Patient: Greater than 30
[2020-07-24 11:06] LABS: Glucose,Whole Blood 163 mg/dL (75-99)
[2020-07-24] MEDS: FERROUS SULFATE 325 MG TAB PO SCH (11:08)
[2020-07-24] MEDS: ASCORBIC ACID 500 MG TAB PO SCH (11:08)
[2020-07-24] MEDS: ACETAMINOPHEN TAB 325 MG TAB PO PRN (12:22)
[2020-07-24] MEDS ORDERED: FUROSEMIDE 10 MG/ML 2 ML VIAL IV ONE (13:16)
[2020-07-24 16:53] VITALS: RESP 16
[2020-07-24 17:00] LABS: Glucose,Whole Blood 94 mg/dL (75-99)
--- NOTE | 2020-07-24 17:21 | P.PN ---
Subjective This is a pleasant 60 to-year-old female past medical history significant for COPD, hyperlipidemia, bicuspid atoric valve with preserved systolic function, osteoarthritis, hypothyroidism, former smoker. On 07/17/20 she was admitted and underwent aortic valve replacement for severe symptomatic aortic stenosis. Prior to procedure, she underwent TTE that showed a preserved systolic function. She had a cardiac catheterization that showed no evidence of obstructive coronary artery disease. Her ZANDRA showed a severe aortic stenosis with preserved systolic function and mild to moderate aortic regurgitation with small patent foramen ovale. Patient has been stable since her procedure. Patient denies history of hypertension, diabetes, stroke or MS. 07/20/20 Echo limited views showed EF 55-60%. Patient is seen and examined this morning at 0810, sitting up in chair. She is feeling well this morning, but confused on the events from last night. She states "it feels like groundhogs day every day here". Per nursing patient had an episode of confusion/delirium overnight. Patient became paranoid, somewhat confused, restless and agitated. He did not sleep well during the night. Her is at bedside. Patient remained hemodynamically stable. UA was negative. Patient afebrile. Patient denies chest pain, shortness of breath dizziness, palpitations, nausea, abdominal pain. CXR today revealed some improvement in patient's volume status. Laboratory data reviewed, WBC 14.9 , hgb 8.9, Sodium 134, K4.4, sCr 0.84, AST 286, ALT 618, Alk Phos 217. Patient continues to be in sinus rhythm with occassional ectopies of PACs and PVCs. Patient did have an episode of atrial fibrillation with RVR yesterday that lasted about an hour she converted back to normal sinus rhythm after given metoprolol 5mg IV x 1 and metoprolol 25mg PO x 1. Atrial and ventricular epicardial pacemaker wires were removed 07/23/20 without any adverse effects. Vital signs BP 101/68 HR 62, Spo2 97% on [place] air, afebrile. She continues to be on aspirin 325mg daily, lopressor 12.5mg BID, plavix 75mg daily, subcutaneous heparin. PHYSICAL EXAMINATION GEN: Sitting in bedside chair, calm and cooperative. No apparent distress. CHEST EXAMINATION: Lungs are clear to auscultation. No chest wall tenderness is noted on palpation or with deep breathing. HEART EXAMINATION: Regular rate and rhythm. S1, S2 heard. No murmurs, gallops or rub. ABDOMEN: Soft, nontender. Positive bowel sounds. EXTREMITIES: no lower extremity edema and no calf tenderness. : continues to void without difficulties SKIN: warm dry. midline incision is clean, dry and approximated, no drainage present NEUROLOGIC EXAMINATION: Patient is awake, alert and oriented x3. ASSESSMENT -Aortic stenosis s/p aortic valve replacement -Paroxysmal atrial fibrillation - now in sinus mechanism, however, did have an episode of atrial fibrillation with RVR 07/23. Patient given metoprolol 5mg IV x 1 and metoprolol 25mg PO x 1 with conversion to sinus rhythm. [id number] 1 (female) -Delirium- most likely ICU psychosis. Patient endorses not sleeping well in the ICU -Elevated transaminases, improving -History of hyperlipidemia -History COPD -History Hypothyroidism PLAN -Continue beta rhiannon- metoprolol 12.5mg BID - will increase as tolerated -Continue Plavix 75mg daily and aspirin daily -No currently on anticoagulation, on subq heparin for prophylaxis . -Encourage incentive spirometry- every hour while awake -Increase activity and ambulation as tolerated with PT/OT/cardiac rehab -Patient transferred to cardiac stepdown unit today- will continue to follow patient's clinical course Nurse Practitioner note has been reviewed, I agree with a documented findings a nd plan of care. Patient was seen and examined. Objective - Vital Signs Vital signs: Vital Signs Temp 97.7 F 07/24/20 16:00 Pulse 62 07/24/20 16:00 Resp 16 07/24/20 16:00 BP 106/59 07/24/20 16:00 Pulse Ox 94 L 07/24/20 16:00 Intake & Output 07/23/20 07/24/20 07/24/20 18:59 06:59 18:59 Intake Total 1150 110 Output Total 525 100 600 Balance 625 10 -600 Weight 72.9 kg Intake: IV 500 10 0.9 10 Piperacillin-Tazobactam 3 100 .375 gm In Sodium Chloride 0.9% 100 ml @ 25 mls/hr IVPB Q8H [facility] Rx#: [id number] Sodium Chloride 0.9% 1, 400 000 ml @ 50 mls/hr IV . Q20H [facility] Rx#:[id number] Intake, IV Titration 100 Amount Piperacillin-Tazobactam 3 100 .375 gm In Sodium Chloride 0.9% 100 ml @ 25 mls/hr IVPB Q8H [facility] Rx#: [id number] Oral 650 0 Output: Drainage 100 Left Abdomen 100 Urine 300 600 Other 225 Other: Voiding Method Bedside Commode Bedside Commode # Voids 0 0 0 # Bowel Movements 1 1 ABP, PAP, CO, CI - Last Documented Arterial Blood Pressure 80/52 Pulmonary Artery Pressure 39/14 Cardiac Output 3.7 Cardiac Index 2.1 - Labs CBC & Chem 7: 07/24/20 03:09 07/24/20 03:09 Labs: Abnormal Lab Results - Last 24 Hours (Table) 07/23/20 07/24/20 07/24/20 Range/Units 22:16 03:09 03:09 WBC 14.9 H (3.8-10.6) k/uL RBC 2.72 L (3.80-5.40) m/uL Hgb 8.9 L (11.4-16.0) gm/dL Hct 26.9 L (34.0-46.0) % RDW 17.1 H (11.5-15.5) % Neutrophils # (Manual) 12.00 H (1.3-7.7) k/uL Monocytes # (Manual) 1.04 H (0-1.0) k/uL Metamyelocytes # (Man) 0.15 H (0) k/uL Myelocytes # (Manual) 0.15 H (0) k/uL Nucleated RBCs 1 H (0-0) /100 WBC Sodium 134 L (137-145) mmol/L BUN 19 H (7-17) mg/dL Glucose 102 H (74-99) mg/dL POC Glucose (mg/dL) 134 H (75-99) mg/dL Urine Protein (Negative) Urine Ketones (Negative) Urine Mucus (None) /hpf 07/24/20 07/24/20 Range/Units 07:11 11:04 WBC (3.8-10.6) k/uL RBC (3.80-5.40) m/uL Hgb (11.4-16.0) gm/dL Hct (34.0-46.0) % RDW (11.5-15.5) % Neutrophils # (Manual) (1.3-7.7) k/uL Monocytes # (Manual) (0-1.0) k/uL Metamyelocytes # (Man) (0) k/uL Myelocytes # (Manual) (0) k/uL Nucleated RBCs (0-0) /100 WBC Sodium (137-145) mmol/L BUN (7-17) mg/dL Glucose (74-99) mg/dL POC Glucose (mg/dL) 163 H (75-99) mg/dL Urine Protein 1+ H (Negative) Urine Ketones 1+ H (Negative) Urine Mucus Rare H (None) /hpf Microbiology - Last 24 Hours (Table) 07/22/20 11:00 Gram Stain - Final Sputum Sputum Culture - Final Elena albicans
[2020-07-24] MEDS: METOPROLOL TARTRATE 25 MG TAB PO SCH (18:15)
[2020-07-24] MEDS ORDERED: DEXTROSE 5% IN WATER 100 ML with AMIODARONE 150 MG IV ONE (19:00)
[2020-07-24] MEDS ORDERED: AMIODARONE 360 MG in DEXTROSE 5% IN WATER 200 ML IV ONE ×2 (19:15)
--- NOTE | 2020-07-24 20:09 | P.PN ---
Subjective Progress Note Date: 07/24/20 Principal diagnosis: Congenital bicuspid aortic stenosis status post aortic valve replacement This is a pleasant 60-year-old female status post aortic valve replacement she sitting up comfortably in the chair at bedside she is trust Sagar in place she is not currently wearing any oxygen at this time. She reports she had little to no sleep and was told she had some confusion through the night, she has no recollection of the events pulmonary critical care has added Seroquel twice a day to plan of care for the delirium she experienced overnight. She had an episode of atrial fibrillation with RVR that has since resolved with medicinal intervention which can become an after procedure that she had sustained for repair of the aortic valve. She's currently alert and oriented x 3 at this time and remains in no acute distress. She denies any chest pain, shortness of breath, or abdominal pain at this time. Her liver enzymes are trending downward at this time, she currently has an elevated white count and infectious disease has been consulted. Objective - Vital Signs Vital signs: Vital Signs Temp 97.4 F L 07/24/20 19:43 Pulse 77 07/24/20 19:43 Resp 16 07/24/20 19:43 BP 127/58 07/24/20 19:43 Pulse Ox 96 07/24/20 19:43 Intake & Output 07/24/20 07/24/20 07/25/20 06:59 18:59 06:59 Intake Total 110 360 100 Output Total 100 2375 Balance -2014 100 Weight 72.9 kg Intake: IV 10 0.9 10 Intake, IV Titration 100 100 Amount Piperacillin-Tazobactam 3 100 100 .375 gm In Sodium Chloride 0.9% 100 ml @ 25 mls/hr IVPB Q8H [facility] Rx#: [id number] Oral 0 360 Output: Drainage 100 Left Abdomen 100 Urine 2375 Other: Voiding Method Bedside Commode # Voids 0 2 # Bowel Movements 1 ABP, PAP, CO, CI - Last Documented Arterial Blood Pressure 80/52 Pulmonary Artery Pressure 39/14 Cardiac Output 3.7 Cardiac Index 2.1 - Constitutional General appearance: Present: average body habitus, mild distress - EENT Eyes: Present: normal appearance ENT: Present: hearing grossly normal Ears: bilateral: normal - Neck Neck: Present: normal ROM - Respiratory Respiratory: bilateral: CTA, diminished - Cardiovascular Rhythm: regular - Gastrointestinal General gastrointestinal: Present: normal bowel sounds, soft - Integumentary Integumentary: Present: normal - Neurologic Neurologic: Present: CNII-XII intact - Psychiatric Psychiatric: Present: A&O x's 3, appropriate affect, intact judgment & insight - Labs CBC & Chem 7: 07/24/20 03:09 07/24/20 03:09 Labs: Abnormal Lab Results - Last 24 Hours (Table) 07/23/20 07/24/20 07/24/20 Range/Units 22:16 03:09 03:09 WBC 14.9 H (3.8-10.6) k/uL RBC 2.72 L (3.80-5.40) m/uL Hgb 8.9 L (11.4-16.0) gm/dL Hct 26.9 L (34.0-46.0) % RDW 17.1 H (11.5-15.5) % Neutrophils # (Manual) 12.00 H (1.3-7.7) k/uL Monocytes # (Manual) 1.04 H (0-1.0) k/uL Metamyelocytes # (Man) 0.15 H (0) k/uL Myelocytes # (Manual) 0.15 H (0) k/uL Nucleated RBCs 1 H (0-0) /100 WBC Sodium 134 L (137-145) mmol/L BUN 19 H (7-17) mg/dL Glucose 102 H (74-99) mg/dL POC Glucose (mg/dL) 134 H (75-99) mg/dL Urine Protein (Negative) Urine Ketones (Negative) Urine Mucus (None) /hpf 07/24/20 07/24/20 Range/Units 07:11 11:04 WBC (3.8-10.6) k/uL RBC (3.80-5.40) m/uL Hgb (11.4-16.0) gm/dL Hct (34.0-46.0) % RDW (11.5-15.5) % Neutrophils # (Manual) (1.3-7.7) k/uL Monocytes # (Manual) (0-1.0) k/uL Metamyelocytes # (Man) (0) k/uL Myelocytes # (Manual) (0) k/uL Nucleated RBCs (0-0) /100 WBC Sodium (137-145) mmol/L BUN (7-17) mg/dL Glucose (74-99) mg/dL POC Glucose (mg/dL) 163 H (75-99) mg/dL Urine Protein 1+ H (Negative) Urine Ketones 1+ H (Negative) Urine Mucus Rare H (None) /hpf Microbiology - Last 24 Hours (Table) 07/22/20 11:00 Gram Stain - Final Sputum Sputum Culture - Final Elena albicans - Imaging and Cardiology Chest x-ray: report reviewed Assessment and Plan Assessment: Congenital bicuspid aortic stenosis status post aortic valve replacement Bilateral pleural effusion status post right thoracentesis with bilateral infiltrates more in the left side Elevated liver enzymes trending downward Statin held postoperative 5% left apical pneumothorax improved Hyperlipidemia Hypothyroidism COPD without acute exacerbation Transient delirium resolved Plan: Continue recommendations by cardiovascular team Continue plan and recommendations by pulmonary critical care team Continue consultation for where infectious disease regarding elevated white count Continue recommendations and plan by cardiology Continue medications as prescribed Will continue to follow the case closely with cardiothoracic surgery primary team
[2020-07-24 20:39] LABS: Glucose,Whole Blood 130 mg/dL (75-99)
[2020-07-24] MEDS: SENNOSIDES-DOCUSATE SODIUM 1 EACH TAB PO SCH (22:02)
[2020-07-24] MEDS ORDERED: ANIDULAFUNGIN 200 MG in SODIUM CHLORIDE 0.9% 200 ML IVPB ONE (23:30)
[2020-07-25] MEDS ORDERED: AMIODARONE 450 MG in DEXTROSE 5% IN WATER 250 ML IV SCH ×2 (01:30)
[2020-07-25] MEDS ORDERED: ANIDULAFUNGIN 200 MG in SODIUM CHLORIDE 0.9% 200 ML IVPB ONE (03:00)
[2020-07-25] MEDS: HEPARIN SODIUM,PORCINE 5,000 UNIT/ML 1 ML VIAL SQ SCH ×2 (03:01→12:59)
[2020-07-25] MEDS: INSULIN ASPART (NovoLOG) 100 UNIT/ML VIAL SQ SCH ×2 (05:58→12:12)
[2020-07-25] MEDS: LEVOTHYROXINE 50 MCG TAB PO SCH (06:03)
[2020-07-25] MEDS: PANTOPRAZOLE 40 MG TABLET PO SCH (06:03)
[2020-07-25 06:10] LABS: Glucose,Whole Blood 96 mg/dL (75-99)
--- NOTE | 2020-07-25 06:16 | CONS ---
CONSULTATION DATE OF SERVICE: 07/24/2020 REASON FOR CONSULTATION: Leukocytosis. HISTORY OF PRESENT ILLNESS: The patient is a 60-year-old female admitted to the hospital about 9 days ago on the in this patient who did have a congenital severe bicuspid aortic stenosis. The patient is status post aortic valve replacement and ligation of the left arterial appendage. Postoperatively, the patient did have paroxysmal atrial fibrillation and right pleural effusion status post right thoracocentesis. The patient during this hospital stay has been afebrile. The patient was noticed to have a white count on admission of 15.1 and subsequently normalized to 10.1 on July 22, however, has been slowly trending up and is up to 14.9 today that has prompted this infectious disease consultation. The patient's workup so far including a UA that has been negative. The patient did have a chest x-ray that shows suspected improvement in the patient's volume status and did not show any significant consolidation. The patient did have a sputum which did shows Elena albicans. She did not have any blood culture during this admission. The patient is on empiric Zosyn. Patient at time of evaluation mentioned she just woke up from sleep. Not a very good historian though, but now specifically the patient denies having any headache or URI symptoms. Denies having any chest pain, shortness of breath. Very minimal cough. No sputum production. No nausea, no vomiting. No abdominal pain. No diarrhea. REVIEW OF SYSTEMS: Positive points have been mentioned in HPI. Rest of systems are negative. PAST MEDICAL HISTORY: COPD, hyperlipidemia, osteoarthritis, hypothyroidism, bicuspid aortic valve with aortic stenosis. PAST SURGICAL HISTORY: Heart catheterization, tonsillectomy, tubal ligation. SOCIAL HISTORY: Remote history of smoking. No drinking. No drug use. FAMILY HISTORY: Mother with history of depression. ALLERGIES: No known drug allergies. MEDICATIONS: The patient is currently on Tylenol, DuoNeb, amiodarone, vitamin C, Dulcolax, Wellbutrin, Plavix, iron sulfate, Lasix, , heparin, NovoLog, Reglan, Lopressor, Zofran, Protonix, Zosyn, Senokot. PHYSICAL EXAMINATION: Her blood pressure is 127/58 with a pulse of 77, temperature 97.4. She is 96% on room air. GENERAL DESCRIPTION: Patient is a middle-aged female lying in bed in no distress. HEENT: Examination shows no pallor or scleral icterus. Oral mucous membrane is dry. NECK: Trachea is central. No thyromegaly. LUNGS: Unlabored breathing, decreased breath sounds at the base. No wheeze. HEART: S1, S2. Regular rate and rhythm. ABDOMEN: Soft, no tenderness. No guarding, no rigidity. EXTREMITIES: No edema of the feet. SKIN: No rash or mass palpable. NEUROLOGIC: The patient is awake, alert, oriented times three. Mood and affect normal. LABS: Hemoglobin 8.9, white count 14.9, BUN of 19, creatinine 0.84. Electrolytes have been normal. Liver enzymes are normal. The patient did have mild elevated procalcitonin of 1.46. Chest x-ray with improvement in the patient's volume status. Urine is negative. DIAGNOSTIC IMPRESSION: Patient with elevated white count in this patient who is status post aortic valve replacement about a week ago. Did have a right-sided pleural effusion status post thoracocentesis, but no fluid has been sent for the culture. Chest x-ray showing improvement in the patient's volume status. Sputum shows Elena with concern for possible oropharyngeal candidiasis and may be responsible for this elevated white count. Has no other obvious focus of infection clinically. PLAN: 1. We will obtain blood cultures, CRP and repeat procalcitonin level. 2. We will add antifungals in the form of Eraxis. Diflucan could not be used because of the SSRI the patient is on. 3. We will follow her clinical condition and further adjust medication if needed. Thank you for this consultation. Will follow this patient along with you. MMODL / IJN: [id number] /
[2020-07-25] MEDS: IPRATROPIUM-ALBUTEROL 3 ML NEB INHALATION SCH ×3 (07:12→16:02)
[2020-07-25 07:55] LABS: Albumin 3.5 g/dL (3.5-5.0); Potassium 4.1 mmol/L (3.5-5.1); Total Bilirubin 1.5 mg/dL (0.2-1.3); Total Protein 5.8 g/dL (6.3-8.2)
--- NOTE | 2020-07-25 08:04 | P.PN ---
Subjective Progress Note Date: 07/25/20 Principal diagnosis: Congenital bicuspid aortic stenosis status post aortic valve replacement This is a pleasant 60-year-old female status post aortic valve replacement she sitting up comfortably in the chair at bedside she is trust Sagar in place she is not currently wearing any oxygen at this time. She reports she had little to no sleep and was told she had some confusion through the night, she has no recollection of the events pulmonary critical care has added Seroquel twice a day to plan of care for the delirium she experienced overnight while in ICU, her son states that last night she had a little bit of restlessness due to feeling claustrophobic and after she got some rest her symptoms improved. She had an episode of atrial fibrillation with RVR again last night and she continues to have an amiodarone via IV infusion at this time. She's currently alert and abimael ented x 3 at this time and remains in no acute distress. She denies any chest pain, shortness of breath, or abdominal pain and reports she has had a bowel movement. Her liver enzymes are trending downward awaiting new lab values today. She had an elevated white count and infectious disease has been consulted, her culture came back positive for Elena and due to her medication Diflucan cannot be used and Eraxis was initiated. Objective - Vital Signs Vital signs: Vital Signs Temp 97.4 F L 07/25/20 03:52 Pulse 67 07/25/20 07:35 Resp 16 07/25/20 03:52 BP 142/67 07/25/20 03:52 Pulse Ox 96 07/25/20 03:52 Intake & Output 07/24/20 07/25/20 07/25/20 18:59 06:59 18:59 Intake Total 360 500 Output Total 2375 1425 Balance -2014 Weight 72.3 kg Intake: Intake, IV Titration 100 Amount Piperacillin-Tazobactam 3 100 .375 gm In Sodium Chloride 0.9% 100 ml @ 25 mls/hr IVPB Q8H [facility], [facility]–1983 Rx#: [id number] Oral 360 400 Output: Drainage 25 Left Abdomen 25 Urine 2375 1400 Other: Voiding Method Bedside Commode # Voids 2 # Bowel Movements 1 ABP, PAP, CO, CI - Last Documented Arterial Blood Pressure 80/52 Pulmonary Artery Pressure 39/14 Cardiac Output 3.7 Cardiac Index 2.1 - Constitutional General appearance: Present: average body habitus, cooperative, mild distress - EENT Ears: bilateral: normal - Neck Neck: Present: normal ROM - Respiratory Respiratory: bilateral: diminished - Cardiovascular Rhythm: regular - Gastrointestinal General gastrointestinal: Present: normal bowel sounds, soft - Integumentary Integumentary: Present: normal - Neurologic Neurologic: Present: CNII-XII intact - Psychiatric Psychiatric: Present: A&O x's 3, appropriate affect, intact judgment & insight - Labs CBC & Chem 7: 07/24/20 03:09 07/24/20 03:09 Labs: Abnormal Lab Results - Last 24 Hours (Table) 07/24/20 07/24/20 Range/Units 11:04 20:35 POC Glucose (mg/dL) 163 H 130 H (75-99) mg/dL Microbiology - Last 24 Hours (Table) 07/22/20 11:00 Gram Stain - Final Sputum Sputum Culture - Final Elena albicans - Imaging and Cardiology Chest x-ray: pending Assessment and Plan Assessment: Congenital bicuspid aortic stenosis status post aortic valve replacement Bilateral pleural effusion status post right thoracentesis with bilateral infiltrates more in the left side Elevated liver enzymes trending downward Statin held postoperative 5% left apical pneumothorax improved Hyperlipidemia Hypothyroidism COPD without acute exacerbation Transient delirium Sputum culture positive Elena Eraxis initiated Plan: Continue recommendations by cardiovascular team Continue plan and recommendations by pulmonary critical care team Continue consultation for infectious disease regarding elevated white count and recommendations for Elena positive culture Continue recommendations and plan by cardiology Continue medications as prescribed Will continue to follow the case closely with cardiothoracic surgery primary team
[2020-07-25 08:08] LABS: Anisocytosis Slight; Basophils % (A) 0 %; Eosinophils # (A) 0.2 k/uL (0-0.7); Eosinophils % (A) 1 %; HCT 27.9 % (34.0-46.0); Hypochromasia Slight; Lymphocytes # (A) 1.4 k/uL (1.0-4.8); Lymphocytes % (A) 12 %; MCH 32.5 pg (25.0-35.0); MCHC 32.3 g/dL (31.0-37.0); MCV 100.5 fL (80.0-100.0); Macrocytosis Slight; Mean Platelet Volume 8.9; Monocytes # (A) 0.7 k/uL (0-1.0); Monocytes % (A) 6 %; Neutrophils # (A) 9.6 k/uL (1.3-7.7); Neutrophils % (A) 80 %; Platelet Count 193 k/uL (150-450); Poikilocytosis Slight; RBC 2.78 m/uL (3.80-5.40); RDW 17.3 % (11.5-15.5)
--- NOTE | 2020-07-25 08:57 | XR ---
EXAMINATION TYPE: XR chest 2V DATE OF EXAM: 07/25/2020 COMPARISON: Chest x-ray 07/24/2020 HISTORY: Postop aortic valve replacement TECHNIQUE: Frontal and lateral views of the chest are obtained. FINDINGS: There is some improved visualization of the right hemidiaphragm compared to prior exam. No evident pneumothorax. There are overlying artifacts. Cardiac mediastinal silhouette shows a similar appearance, patient is post aortic valve replacement and left atrial appendage clip placement, median sternotomy. Suspect some improvement in interstitium. Blunting of the posterior costophrenic angles is noted. IMPRESSION: Improvement in aeration, volume status, there are small effusions.
[2020-07-25] MEDS ORDERED: AMIODARONE 200 MG TAB PO SCH (09:00)
[2020-07-25] MEDS ORDERED: FUROSEMIDE 20 MG TAB PO SCH (09:00)
[2020-07-25] MEDS ORDERED: ANIDULAFUNGIN 100 MG in SODIUM CHLORIDE 0.9% 100 ML IVPB SCH (09:00)
[2020-07-25] MEDS: CLOPIDOGREL 75 MG TAB PO SCH (09:12)
[2020-07-25] MEDS: METOPROLOL TARTRATE 25 MG TAB PO SCH (09:12)
[2020-07-25] MEDS: buPROPion XL 150 MG TAB.ER.24H PO SCH (09:12)
[2020-07-25] MEDS: ASPIRIN 325 MG TAB PO SCH (09:12)
--- NOTE | 2020-07-25 10:37 | P.PN ---
Subjective Progress Note Date: 07/25/20 60-year-old female who was referred to Dr. Jones for aortic stenosis. The patient apparently had a congenital bicuspid aortic valve. Today, she underwent a aortic valve replacement, with a bovine prosthesis. Currently, she is in the intensive care unit. She's currently on the mechanical ventilator. Her current ventilator settings include the volume assist control mode, rate of 12, tidal volume 450, FiO2 40%, and PEEP of 8. On those similar settings except for an FiO2 of 60%, and PEEP of 5, her PaO2 was 187, PaCO2 was 49, pH was 7.31. The patient is currently on lactated Ringer's at 50 mL an hour, and propofol at 10 mcg/kg/m. The patient apparently has a history of ongoing tobacco use, on a daily and regular basis, hypothyroidism, syncope, hyperlipidemia, and a family history of early onset coronary disease. Currently, the patient is starting to wake up from her sedation and anesthesia. Hopefully we'll be able get her moved towards weaning and extubation in the next hour or so. The patient is seen today 07/18/2020 and follow-up in the intensive care unit. His postoperative day #1 of bovine prosthetic aortic valve replacement secondary to bicuspid aortic valve. Left atrial appendage placement. She was extubated yesterday approximate 7 hours following surgery. She is currently sitting up in a chair at the bedside. Awake and alert in no acute distress. She is maintaining O2 saturations in the low 90s on 1 L/m per nasal cannula. She has lactated Ringer's at 50 MLS per hour. Remains on bronchodilators. She is on an insulin drip at 1 unit per hour. She is pulling approximate 500 mL's on her incentive spirometer. Chest x-ray reveals bibasilar atelectasis with p ossible small effusions. Mediastinal and left sided chest tube remains in place. Right jugular triple-lumen in place. She is status post 1 unit packed red blood cells. Current hemoglobin 8.5. White count 10.3. Platelet count 98,000. Sodium 134. Potassium 4.7. Creatinine 0.76. AST 37. ALT 16. Albumin 3.4. She has received 750 ML's of 5% albumin. Blood pressure remains with systolic pressures in the 80s. CVP of 12. PA pressure 35/80. Urine output marginal. The plan is for 25% albumin. On 07/19/2020 patient seen in follow-up in the intensive care unit, today is postoperative day #2, status post aortic valve replacement. She is doing well, she is awake and alert, oriented 3, she sitting up in the recliner, currently on 5 L of oxygen with a pulse ox of 96%, her incentive spirometer effort is about 500 mL. Patient states it's hard for her to take deep rest. She is in A. fib with RVR, currently with a rate of 112 BPM, and ALLERGIES following commands patient will be started on amiodarone infusion at 1 mg/m. Her maintenance IV point and was seen at a of 20 ML per hour, and insulin is at 0.5 units per hour. Her mediastinal and left pleural chest tube are connected to the same Pleuravac, there has been 400 mL of thin serous illness output in the last 24 hours, cardiothoracic surgery may consider removing on the chest tubes today. Today's labs have been reviewed, showing cell count 13.7, hemoglobin of 7.9, sodium is 131, serum electrolytes troponin is coming BUN is 19 and creatinine is 1.1. AST and ALT were noted to be significantly elevated on today's labs since yesterday. The patient is seen today 07/20/2020 in follow-up in the intensive care unit. This is postoperative day #3 status post aortic valve replacement. She is currently resting comfortably in bed. Awake and alert in no acute distress. She is maintaining O2 saturations in the 90s on 5 L/m per nasal cannula. She still having issues with atrial fibrillation. She remains on amiodarone at 0.5 mg/m. Lactated Ringer's at 20 ML's per hour. Chest x-ray continues to show persistent obscured right hemidiaphragm and bibasilar densities. There is some improved aeration in the left lung. Chest tubes have been removed. She is status post 1 unit of packed red blood cells this admission. Current hemoglobin 7.4. Platelet count 101. White count 15.1. Sodium 130. Potassium 5.1. Cre atinine 1.54. AST 1022. ALT 1046. Albumin 3.9. She remains on DuoNeb inhalations, working well with the incentive spirometer. Currently in sinus rhythm. Patient is seen today 07/21/2020 in follow-up in the intensive care unit. This is postoperative day #4 status post aortic valve replacement. She is currently sitting up in a chair at the bedside. Awake and alert in no acute distress. She did undergo a right-sided thoracentesis with bloody return of 1 L yesterday. She was doing a bit better at that time. However today she is still requiring higher oxygen amounts to maintain O2 saturations in the 90s. Currently on 11 L high flow. Chest x-ray shows a small recurrent right pleural effusion and some infiltrate of the left midlung. She was initiated on Augmentin yesterday. White count 12.6. Hemoglobin 7.3. Platelet count 101. Sodium 133. Potassium 4.9. Creatinine 1.11. AST 619. ALT 977. Albumin 3.6. Pro-calcitonin 1.46. Remains on bronchodilators. Working well with the incentive spirometer. The patient is seen today 07/22/2020 and follow-up in the intensive care unit. Postoperative day #5 status post aortic valve replacement. She is currently sitting up in a chair at the bedside. Awake and alert in no acute distress. Breathing a bit easier today compared to yesterday. She is down to 6 L high flow nasal cannula. Chest x-ray reveals mild cardiomegaly and chronic parenchymal changes with left greater than right bilateral peripheral mid acute infiltrates remain. More so on the right upper lung and on the left midlung. She remains on Zosyn and bronchodilators. White count 10.1. Hemoglobin 7.2. Platelet count 119. Sodium 136. Potassium 4.7. Creatinine 1.09. AST 329. ALT 669. Albumin 3.4. 0.9 normal saline at 50 MLS per hour. Heparin for DVT prophylaxis. 07/23/2020, the patient is being seen in follow-up in the ICU. The patient is postop day #6 following an aortic valve replacement. Currently on 4 L of oxygen by nasal cannula. The patient is doing well. The patient is no specific complaints. She is on normal saline at the rate of 50 mL an hour. She is on aspirin and Plavix and an metoprolol 12.5 mg by mouth twice a day. Amiodarone has been discontinued and the patient is sinus rhythm with occasional PVCs and PACs. She is on subcu heparin for DVT prophylaxis. The white cell count is at 11.9 and hemoglobin is at 7.8. Renal function shows a creatinine of 0.9. Chest x-ray from this morning shows adequate expansion of both lungs. There is still awaiting small right-sided pleural effusion and some increased vascular markings consistent with interstitial edema. When compared to yesterday's chest x-ray, findings are essentially the same and unchanged. 07/24/2020, I'm seeing the patient for a follow-up. Patient is postop day #7 and she was doing extremely well following that aortic valve replacement. Ye sterday, the patient became delirious at late afternoon early evening. Throughout the night, she had some paranoid ideations, somewhat confused and restless and agitated. She did not sleep throughout the night. was at the bedside and she was monitored very closely here in the intensive care unit. She was afebrile. White cell count today is at 14 and the patient does not have a [place] catheter in place. Surgical wound site is dry clean and intact. No nausea. No vomiting. No abdominal pain. No chest pain. She is still having some occasional ectopies in the form of PACs and PVCs. She did have a bout of A. fib RVR yesterday that lasted for a total of 1 hour and subsequently she converted back into normal sinus rhythm. She is on no anticoagulants for now. In terms of rate control, the patient is on metoprolol 12.5 mg by mouth twice a day. She was taken off amiodarone. She was kept on a combination of aspirin and Plavix. I had given orders for Haldol, yet, it was not used throughout the night. Noted the patient was awake throughout the night and she hasn't slept an d this morning she is still sleepy but she is much more appropriate and awake and alert and she is following commands and answering is appropriately. In fact she is alert and oriented 3 and there is no focal neurological deficit as the patient is able to move all 4 extremities without any limitation. there is in place and the [place] catheter and arterial line have been all removed, cordis is minimally moved and the patient does not have any chest tube or Hudson catheter for now. Repeat 2020, the patient is doing well on her follow-up. She has no specific complaints. She is postop day #8. She is using incentive spirometer. No altered mentation. No delirium. No cardiac arrhythmias. She is using incentive spirometer. No cough or sputum production or chest tightness or wheezing. No cardiac arrhythmias. She remains on metoprolol 12.5 mg by mouth twice a day and she was taken off amiodarone. She remains on a combination of aspirin and Plavix. No other significant events otherwise for now. Chest tubes are removed. The patient is calm and comfortable. Objective - Vital Signs Vital signs: Vital Signs Temp 97.8 F 07/25/20 08:00 Pulse 60 07/25/20 08:00 Resp 16 07/25/20 08:00 BP 133/65 07/25/20 08:00 Pulse Ox 98 07/25/20 08:00 Intake & Output 07/24/20 07/25/20 07/25/20 18:59 06:59 18:59 Intake Total 360 500 Output Total 2375 1425 Balance -2014 Weight 72.3 kg Intake: Intake, IV Titration 100 Amount Piperacillin-Tazobactam 3 100 .375 gm In Sodium Chloride 0.9% 100 ml @ 25 mls/hr IVPB Q8H [facility] Rx#: [id number] Oral 360 400 Output: Drainage 25 Left Abdomen 25 Urine 2375 1400 Other: Voiding Method Bedside Commode # Voids 2 # Bowel Movements 1 ABP, PAP, CO, CI - Last Documented Arterial Blood Pressure 80/52 Pulmonary Artery Pressure 39/14 Cardiac Output 3.7 Cardiac Index 2.1 - Exam GENERAL EXAM: Alert, very pleasant 60-year-old female patient, on room air oxygen for now with a pulse ox of 97% HEAD: Normocephalic. EYES: Normal reaction of pupils, equal size. NOSE: Clear with pink turbinates. THROAT: No erythema or exudates. NECK: No masses, no JVD. CHEST: Sternal dressing dry and intact. Hugger in place. Chest tubes removed. LUNGS: Equal air entry with bilateral crackles scattered rhonchi. CVS: S1 and S2 normal with no audible murmur, regular rhythm. ABDOMEN: No hepatosplenomegaly, normal bowel sounds, no guarding or rigidity. SPINE: No scoliosis or deformity SKIN: No rashes CENTRAL NERVOUS SYSTEM: No focal deficits, tone is normal in all 4 extremities. She is alert and oriented 3 today. She is moving all 4 extremities. No facial asymmetry. Pupils are equal and reactive to light. No nystagmus. No clonus. No Babinski. EXTREMITIES: There is 1-2+ peripheral edema. No clubbing, no cyanosis. Peripheral pulses are intact. - Labs CBC & Chem 7: 07/25/20 06:59 07/25/20 06:59 Labs: Abnormal Lab Results - Last 24 Hours (Table) 07/24/20 07/24/20 07/25/20 Range/Units 11:04 20:35 06:59 WBC 12.0 H (3.8-10.6) k/uL RBC 2.78 L (3.80-5.40) m/uL Hgb 9.0 L (11.4-16.0) gm/dL Hct 27.9 L (34.0-46.0) % MCV 100.5 H (80.0-100.0) fL RDW 17.3 H (11.5-15.5) % Neutrophils # 9.6 H (1.3-7.7) k/uL Glucose (74-99) mg/dL POC Glucose (mg/dL) 163 H 130 H (75-99) mg/dL Calcium (8.4-10.2) mg/dL Total Bilirubin (0.2-1.3) mg/dL AST (14-36) U/L ALT (4-34) U/L Alkaline Phosphatase (38-126) U/L Total Protein (6.3-8.2) g/dL 07/25/20 Range/Units 06:59 WBC (3.8-10.6) k/uL RBC (3.80-5.40) m/uL Hgb (11.4-16.0) gm/dL Hct (34.0-46.0) % MCV (80.0-100.0) fL RDW (11.5-15.5) % Neutrophils # (1.3-7.7) k/uL Glucose 114 H (74-99) mg/dL POC Glucose (mg/dL) (75-99) mg/dL Calcium 8.0 L (8.4-10.2) mg/dL Total Bilirubin 1.5 H (0.2-1.3) mg/dL AST 102 H (14-36) U/L ALT 351 H (4-34) U/L Alkaline Phosphatase 191 H (38-126) U/L Total Protein 5.8 L (6.3-8.2) g/dL Microbiology - Last 24 Hours (Table) 07/22/20 11:00 Gram Stain - Final Sputum Sputum Culture - Final Elena albicans Assessment and Plan Plan: 1 Congenital bicuspid aortic valve with a aortic valve stenosis, status post aortic valve replacement with a bovine prosthesis, and ligation of the left atrial appendage. This operative day #9 2 delirium, recovered and the patient is taking Seroquel 25 mg at bedtime and the patient had a very nice sleep yesterday. 3 Acute hypoxemic respiratory failure secondary to pleural effusion, right upper lobe and left mid lung infiltrate, possible pneumonia. The patient remains on IV Zosyn. The patient patient is on room air oxygen. No active pulmonary infiltration. The right-sided pleural effusion has further cleared. 4 Right-sided pleural effusion, status post thoracentesis on 07/20/2020 with 1 L of bloody fluid removed 5 Atrial fibrillation, common following open heart surgery, currently on amiodarone, currently off amiodarone and the patient is having occasional ectopies on beta blockers. Note that the patient had another bout approximately 2 fibrillation yesterday that lasted for 1 hour. Currently she is back into s inus with ectopies. She was given an additional dose of digoxin and metoprolol yesterday. She is hemodynamically stable. No anticoagulation and the patient is on subcu heparin. On today's evaluation, the patient's cardiac rhythm remains sinus. 6 Hyperlipidemia. 7 Hypothyroidism. 8 History of chronic tobacco use. No evidence of obstructive coronary disease. 9 Family history of early-onset coronary disease. 10 Acute kidney injury, recovered and the creatinine is at 0.84 11 Elevated liver function testing, trending down , and they continue to improve including a drop in the level of AST and ALT. Plan May discontinue all antibiotics Seroquel 25 mg at bedtime for sleep and delirium Encouraged regarding the increased use of the incentive spirometer and cough and deep breathing exercises the patient is pulling approximately thousand on the incentive spirometer Increase her activity as tolerated Titrate down the FiO2 as tolerated, FiO2 is down to maintain oxygen Monitor liver function tests and they are down and they are trending downwards for now Renal function is stable with a creatinine of 0.8 Monitor the white cell count which is is down to 12 Review of the amiodarone to 200 mg by mouth twice a day and continue with the beta blockers and the patient is on metoprolol at a dose of 25 mg by mouth twice a day We will continue to follow and make further recommendations based on her clinical status
[2020-07-25] MEDS: PIPERACILLIN-TAZOBACTAM 3.375 GM in SODIUM CHLORIDE 0.9% 100 ML IVPB SCH (10:48)
[2020-07-25 10:59] LABS: C Reactive Protein 134.8 mg/L (<10.0)
[2020-07-25 11:58] LABS: Glucose,Whole Blood 118 mg/dL (75-99)
[2020-07-25 12:58] VITALS: BP 133/62; PULSE 58; TEMP 98.2
[2020-07-25] MEDS: ASCORBIC ACID 500 MG TAB PO SCH (12:59)
[2020-07-25] MEDS: FERROUS SULFATE 325 MG TAB PO SCH (12:59)
[2020-07-25] MEDS ORDERED: NYSTATIN 100,000 UNIT/ML SUSP 500,000 UNIT/5 ML CUP PO SCH (13:00)
--- NOTE | 2020-07-25 13:09 | P.DS ---
Providers Date of admission: 07/17/20 05:35 Expected date of discharge: 07/25/20 Attending physician: Gumaro Jones Consults: 07/17/20 11:21 Consult Physician Routine Consulting Provider: Jak Crenshaw Consult Reason/Comments: Data Governance Consultant Consult: post cardiac surgery Do you want consulting provider notified?: Yes Consult Physician Routine Consulting Provider: Tc Garcia Consult Reason/Comments: med mgmt Do you want consulting provider notified?: Yes Consult Physician Routine Consulting Provider: Milla Dowling Consult Reason/Comments: Stockroom Helper Consult: post cardiac surgery Do you want consulting provider notified?: Yes 07/24/20 07:26 Consult Physician Routine Consulting Provider: Anand Alatorre Consult Reason/Comments: Elevated WBC Do you want consulting provider notified?: Yes Primary care physician: Tc Garcia Hospital Course: FINAL DIAGNOSIS: 1. Congenital severe bicuspid aortic valve stenosis, status post aortic valve replacement using a 23 mm Inspiris bioprosthetic valve 2. Preserved left ventricular systolic function, EF 55-60% 3. Syncopal event 10 years ago 4. Hyperlipidemia, cholesterol 225, LDL 162 5. Hypothyroid 6. Chronic ongoing tobacco dependence with preoperative FEV1 79% of predicted 7. Family history of premature coronary artery disease 8. Preoperative nasal swab positive for MRSA, treated 9. Postoperative acute blood loss anemia, expected 10. Postoperative paroxysmal atrial fibrillation, status post ligation of the left atrial appendage 11. Postoperative right pleural effusion requiring thoracentesis 12. Elevated transaminases, trending down 13. Acute kidney injury, resolved 14. Delirium and paranoia, with no focal neurological deficits, resolved PRINCIPAL PROCEDURE: 1. Aortic valve replacement with a 23 mm Inspiris bovine pericardial bioprosthesis. 2. Ligation of the left atrial appendage with a 35 mm Atricure clip. 3. Epi-aortic ultrasonography. HISTORY OF PRESENT ILLNESS: This is a 60-year-old female patient who follows with Dr. Tc Garcia for her primary care service on an outpatient basis. She has a past medical history significant for known aortic valve stenosis, history of syncopal event 10 years ago, hyperlipidemia, hypothyroid, family history of early onset coronary artery disease with her dad passing away at age 48 from a myocardial infarction, and chronic ongoing tobacco use. Briefly, the patient had presented to the emergency department here [facility] with complaints of chest pain which was radiating to her jaw and to her back. A 12- lead EKG was completed at that time which showed normal sinus rhythm with a heart rate of 63 BPM. Her serial troponins were negative. Due to the patient's known history of aortic valve stenosis she was undergoing surveillance 2-D echocardiograms. On 07/04/2020 the patient underwent a 2-D echocardiogram which showed a mild concentric left ventricular hypertrophy and an overall left ventricular systolic function to be normal with an ejection fraction of 55-60%, mild to moderate aortic valve regurgitation, severe aortic valve stenosis with a peak gradient of 72.84 mmHg and a mean gradient across aortic valve of 46.45 mmHg, mild mitral valve regurgitation and mild tricuspid valve regurgitation. Also on 07/04/2020 the patient underwent a cardiac catheterization which showed her to have normal coronary arteries and a heavily calcified aortic valve. For further evaluation on 07/05/2020 the patient underwent a transesophageal echocardiogram which demonstrated a normal left ventricular size and systolic function, a bicuspid aortic valve with severe calcification and reduced opening with severe aortic valve stenosis and a mean gradient of 46 mmHg with mild to moderate aortic valve regurgitation, mild mitral and tricuspid valve regurgitation. Due to the findings on the above-mentioned studies a consult was placed to Dr. Gumaro Jones from cardiothoracic surgery for further evaluation and treatment recommendations. Dr. Jones met with the patient, discussed the findings on the transesophageal echocardiogram and cardiac catheterization films, reviewed treatment options including aortic valve replacement. Risks and benefits of surgery including STS risk score were discussed with the patient and knowing an understanding the risks the patient wanted to proceed with the surgical option. HOSPITAL COURSE: On 07/17/2020 the patient was admitted to the hospital, and after obtaining consent was taken to the operating room, prepared in the usual fashion and where Dr. Gumaro Jones performed an aortic valve replacement using a 23 mm Inspiris bovine pericardial bioprosthesis, ligation of the left atrial appendage with a 35 mm Atricure clip and an epi-aortic ultrasonography. Upon completion of the surgery the patient was transferred to the cardiovascular intensive care unit where she was recovered, monitored hemodynamically and where she progressed to cardiac rehabilitation phase 1. She was extubated, all lines, tubes and supported drips were discontinued when appropriate and she was transferred to the cardiac stepdown unit for further monitoring and rehabilitation. Postoperatively she did have some paroxysmal atrial fibrillation which was treated accordingly. She also developed a postoperative right pleural effusion requiring thoracentesis. Her oxygen was titrated down, she continued to work with physical/occupational therapy and cardiac rehabilitation, she was tolerating an oral diet, her pain was well controlled without narcotics and she was ready to be discharged home on postoperative day #8 with [facility]. She has received written and verbal instructions regarding her medications, activity restrictions, signs and symptoms requiring physician notification and her follow-up appointments. COMPLICATIONS: Postoperative period was complicated by some paroxysmal atrial fibrillation, a right pleural effusion requiring thoracentesis, which was treated accordingly. CONSULTATIONS: 1. Dr. Dowling for cardiology management. 2. Dr. Crenshaw for pulmonary and ventilator management. 3. Dr. Tc Garcia for medical management. 4. Dr. Alatorre for infectious disease management. Plan - Discharge Summary Discharge Rx Participant: Yes New Discharge Prescriptions: New Aspirin 325 mg PO DAILY tab Amiodarone [Cordarone] 200 mg PO BID #21 tab Ferrous Sulfate [Iron (65 MG Elemental)] 325 mg PO W/LUNCH #14 tab Furosemide [Lasix] 20 mg PO DAILY #5 tab Metoprolol Tartrate [Lopressor] 25 mg PO BID #60 tab Nystatin 100,000 Unit/ml Susp [Mycostatin Oral Susp] 500,000 unit PO QID #200 ml Clopidogrel [Plavix] 75 mg PO DAILY #30 tab Pantoprazole [Protonix] 40 mg PO AC-BRKFST #30 tablet. Acetaminophen Tab [Tylenol] 650 mg PO Q4HR PRN tab PRN Reason: Fever And/ Or Pain Ascorbic Acid [Vitamin C] 500 mg PO 1200 #14 tab Continue Levothyroxine Sodium [Synthroid] 125 mcg PO DAILY buPROPion XL [Wellbutrin XL] 150 mg PO HS hydrOXYzine pamoate [Vistaril] 25 mg PO QID PRN #30 cap PRN Reason: Itching Discontinued Aspirin EC [Ecotrin Low Dose] 81 mg PO DAILY Mupirocin [Mupirocin 2%] 1 applic NASAL BID #1 tube Discharge Medication List Levothyroxine Sodium [Synthroid] 125 mcg PO DAILY 07/02/20 [History] buPROPion XL [Wellbutrin XL] 150 mg PO HS 07/02/20 [History] hydrOXYzine pamoate [Vistaril] 25 mg PO QID PRN #30 cap 07/05/20 [Rx] Acetaminophen Tab [Tylenol] 650 mg PO Q4HR PRN tab 07/25/20 [Rx] Amiodarone [Cordarone] 200 mg PO BID #21 tab 07/25/20 [Rx] Ascorbic Acid [Vitamin C] 500 mg PO 1200 #14 tab 07/25/20 [Rx] Aspirin 325 mg PO DAILY tab 07/25/20 [Rx] Clopidogrel [Plavix] 75 mg PO DAILY #30 tab 07/25/20 [Rx] Ferrous Sulfate [Iron (65 MG Elemental)] 325 mg PO W/LUNCH #14 tab 07/25/20 [Rx] Furosemide [Lasix] 20 mg PO DAILY #5 tab 07/25/20 [Rx] Metoprolol Tartrate [Lopressor] 25 mg PO BID #60 tab 07/25/20 [Rx] Nystatin 100,000 Unit/ml Susp [Mycostatin Oral Susp] 500,000 unit PO QID #200 ml 07/25/20 [Rx] Pantoprazole [Protonix] 40 mg PO AC-BRKFST #30 tablet. 07/25/20 [Rx] Follow up Appointment(s)/Referral(s): Tc Garcia MD [Primary Care Provider] - 08/01/20 3:20 pm [facility],Cardiac [NON-STAFF] - 4 Weeks (You will receive a call in approximately 4-6 weeks for cardiac rehab eval) Gumaro Jones MD [STAFF PHYSICIAN] - 08/16/20 11:00 am Kenrick Miguel NPC [Nurse Practitioner] - 07/30/20 11:30 am (Please follow-up at the office located at [address] [place] [address], [facility]. The office number is [phone].) Jak Crenshaw DO [Doctor of Osteopathic Medicine] - 07/31/20 1:15 pm [facility], [NON-STAFF] - 1-2 Days Harish Ley MD [STAFF PHYSICIAN] - 08/03/20 1:45 pm (Birdie from the office has sent a note back to follow up with Dr Dowling. The office will call with an appointment.) Ambulatory/Diagnostic Orders: Complete Blood Count w/diff [LAB.AMB] Time Frame: 07/28/20, Facility: [facility], Location: [facility] Comprehensive Metabolic Panel [LAB.AMB] Time Frame: 07/28/20, Facility: [facility], Location: [facility] Activity/Diet/Wound Care/Special Instructions: DISCHARGE INSTRUCTIONS: 1. No driving for 4 weeks, or until physician gives their ok. 2. The patient should sleep in their own bed, no medical bed needed. 3. Stairs are not an issue. If the bedroom is upstairs, it is advised that the patient go up at night and down in the morning for the first week. Go slowly, using handrail and take 1 step at a time. 4. KULWANT hose are to be worn for 30 days or until physician discontinues. 5. Heart hugger is to be worn 100% of the time until physician discontinues.(except when showering) 6. No lifting, pushing, or pulling more than 10 pounds for 12 weeks. The physician will advise of any restriction changes. 7. The patient is expected to continue the prescribed walking program. 8. Continue pain control per as needed orders. 9. Continue with incentive spirometry and splinting/heart hugger until otherwise directed by the physician. 10. Must shower daily using liquid antibacterial soap and a separate white washcloth for each individual incision. 11. Routine sternal incision care. No powders, lotions, ointments on incisions. No dressings are necessary on incisions unless they are draining. Dermabond tape is to remain on sternal incision until surgeon follow-up. 12. Please call surgeon/MOLD BURNER for temp greater than 101 F or purulent drainage from incisions. 13. All prescriptions given by surgeon for 30 days. Refills need to be filled through hris analyst/primary care physician. 14. A Red armband has been placed on the patient. It should be worn for 30 days post surgery and will be removed by the cardiac surgeons. If an ER visit is necessary, please make sure the number on the Red armband is called. 15. You have been referred to and are expected to begin Cardiac Rehab in approximately 4-6 weeks. 16. Risk modifications have been discussed with the patient, and the importance of smoking cessation were reviewed. 17. The patient will not be discharged home on a statin at this time due to her elevated liver enzymes and should be reevaluated on an outpatient basis. HOME HEALTH SERVICES TO PROVIDE: RN SKILLED HOME CARE SERVICES FOR POST-OP SURGICAL PATIENTS WITH THE FOLLOWING: Coronary Artery Bypass Surgery (CABG), Mitral Valve Replacement/Repair ( MVR), Aortic Valve Replacement/Repair (AVR) RN TO CONTINUE EDUCATION FROM ``ROAD TO A HEALTH HEART PATIENT EDUCATION MANUAL (GIVEN TO PATIENT IN THE HOSPITAL) MEDICATION RECONCILIATION WITH EDUCATION NEEDED ON FIRST HOME VISIT EMPHASIZE IMPORTANCE OF WEARING BREAST SUPPORT/HEART HUGGER ENCOURAGE USE OF INCENTIVE SPIROMETER 10 X EVERY HOUR WHILE AWAKE ENCOURAGE UTILIZATION OF LOWER EXTREMITY COMPRESSION STOCKINGS/KULWANT HOSE and ELEVATE LEGS ABOVE LEVEL OF HEART WHILE AT REST. ENCOURAGE AMBULATION 3-5x/day INCREASING TOLERATES, WHILE AVOIDING EXTREMES IN TEMPERATURE FREQUENCY: RN TO OPEN THE PATIENT WITHIN 24 HOURS OF DISCHARGE FROM THE HOSPITAL WITH TELEHEALTH INSTALLED AT [facility], RN TO VISIT 2-3 X A WEEK FOR 4 WEEKS ESTABLISHED BY PATIENT NEEDS. LABORATORY: CBC, CMP TO BE DRAWN ON THE THIRD DAY HOME, (RAN STAT) FAX RESULTS TO [phone]. TELEHEALTH PARAMETERS: WEIGHT: NOTIFY MD OF WEIGHT GAIN OF 2 LBS IN 24 HOURS OR 5 LBS IN ONE WEEK HR: NOTIFY MD OF HR <55 BPM OR HR>100 BPM BP: NOTIFY MD IF BP <90/55 OR BP>140/100 O2 SAT: NOTIFY MD IF PO2<93% ON ROOM AIR SEND TELEHEALTH REPORT TO SKATESMAN AND CARDIOVASCULAR SURGEON THE FIRST WEEK OF CARE AND THEN BI-WEEKLY. PLEASE ADDITIONALLY COMMUNICATE ANY ABNORMALS AND NEW FINDINGS TO THE SURGEONS OFFICE. For any questions or concerns please call radio board operator announcer Kaur @ or Oneal @ Discharge Disposition: HOME WITH HOME HEALTH SERVICES
--- NOTE | 2020-07-25 13:29 | P.PN ---
Subjective This is a pleasant 60 to-year-old female past medical history significant for COPD, hyperlipidemia, congenital bicuspid atoric valve with preserved systolic function, osteoarthritis, hypothyroidism, former smoker. On 07/17/20 she was admitted and underwent aortic valve replacement for severe symptomatic aortic stenosis. Prior to procedure, she underwent TTE that showed a preserved systolic function. She had a cardiac catheterization that showed no evidence of obstructive coronary artery disease. Her ZANDRA showed a severe aortic stenosis with preserved systolic function and mild to moderate aortic regurgitation with small patent foramen ovale. Patient has been stable since her procedure. Patient denies history of hypertension, diabetes, stroke or DC. 07/20/20 Echo limited views showed EF 55-60%. 07/23/20 overnight patient had an episode of confusion/delirium. Per nursing patient was restless and paranoid- most likely related to ICU psychosis. Patient improved and remained hemodynamically stable. UA was negative. Patient did have an episode of atrial fibrillation with RVR that lasted about an hour she converted back to normal sinus rhythm after given metoprolol 5mg IV x 1 and metoprolol 25mg PO x 10. 07/24/20 Patient was transferred out of ICU to cardiac step down unit. Patient did have another episode of Afib for about 1 hour. Patient given Digoxin 250mcg IVP and lopressor 25mg PO Today 07/25/20, Patient is post op day #8. Patient seen this am in bed, resting comfortable. No complaints, states she feels well. Patient denies chest pain, shortness of breath dizziness, palpitations, nausea, abdominal pain. CXR today revealed some improvement in patient's volume status. Laboratory data reviewed, WBC 12.0 , hgb stable at 9.0, Sodium 137, K 4.1, sCr 0.82, liver enzymes downtrending AST 102, ALT 351, Alk Phos 191. Telemetry reviewed- Patient continues to be in sinus rhythm with occassional ectopies of PACs and PVCs. Patient with 2.1 second pause 0200. Vital signs BP 133/62 HR 60, SpO2 97% on room air, afebrile. She continues to be maintained on amiodarone 200mg BID, aspirin 325mg daily, lopressor 12.5mg BID, plavix 75mg daily, lasix 20mg dialy, metoprolol 25mg BID subcutaneous heparin. PHYSICAL EXAMINATION GEN: Sitting in bedside chair, calm and cooperative. No apparent distress. CHEST EXAMINATION: Lungs are clear to auscultation. No chest wall tenderness is noted on palpation or with deep breathing. HEART EXAMINATION: Regular rate and rhythm. S1, S2 heard. No murmurs, gallops or rub. ABDOMEN: Soft, nontender. Positive bowel sounds. EXTREMITIES: no lower extremity edema and no calf tenderness. : continues to void without difficulties SKIN: warm dry. midline incision is clean, dry and approximated, no drainage present NEUROLOGIC EXAMINATION: Patient is awake, alert and oriented x3. ASSESSMENT -Aortic stenosis s/p aortic valve replacement -Paroxysmal atrial fibrillation - now in sinus mechanism. Episode of atrial fibrillation with RVR 07/23. Patient given metoprolol 5mg IV x 1 and metoprolol 25mg PO x 1 with conversion to sinus rhythm. 07/24 another episode of atrial fibrillation for about an hour, given digoxin and metoprolol. [id number] (female). Amiodarone drip discontinued today. -Not currently on anticoagulation, on subq heparin for prophylaxis . -Delirium- most likely ICU psychosis- patient recovered.. -Elevated transaminases, improving -History of hyperlipidemia -History COPD -History Hypothyroidism PLAN -Continue beta rhiannon- metoprolol increased to 25mg BID today. -Continue Plavix 75mg daily and aspirin daily -Encouragement of activity, ambulation, incentive spirometry Nurse Practitioner note has been reviewed, I agree with a documented findings and plan of care. Patient was seen and examined. Objective - Vital Signs Vital signs: Vital Signs Temp 97.8 F 07/25/20 08:00 Pulse 70 07/25/20 11:05 Resp 16 07/25/20 08:00 BP 133/65 07/25/20 08:00 Pulse Ox 98 07/25/20 08:00 Intake & Output 07/24/20 07/25/20 07/25/20 18:59 06:59 18:59 Intake Total 360 500 Output Total 2375 1425 Balance -2014 Weight 72.3 kg Intake: Intake, IV Titration 100 Amount Piperacillin-Tazobactam 3 100 .375 gm In Sodium Chloride 0.9% 100 ml @ 25 mls/hr IVPB Q8H RALPH Rx#: [id number] Oral 360 400 Output: Drainage 25 Left Abdomen 25 Urine 2375 1400 Other: Voiding Method Bedside Commode Toilet Bedside Commode # Voids 2 # Bowel Movements 1 ABP, PAP, CO, CI - Last Documented Arterial Blood Pressure 80/52 Pulmonary Artery Pressure 39/14 Cardiac Output 3.7 Cardiac Index 2.1 - Labs CBC & Chem 7: 07/25/20 06:59 07/25/20 06:59 Labs: Abnormal Lab Results - Last 24 Hours (Table) 07/24/20 07/25/20 07/25/20 Range/Units 20:35 06:59 06:59 WBC 12.0 H (3.8-10.6) k/uL RBC 2.78 L (3.80-5.40) m/uL Hgb 9.0 L (11.4-16.0) gm/dL Hct 27.9 L (34.0-46.0) % MCV 100.5 H (80.0-100.0) fL RDW 17.3 H (11.5-15.5) % Neutrophils # 9.6 H (1.3-7.7) k/uL Glucose 114 H (74-99) mg/dL POC Glucose (mg/dL) 130 H (75-99) mg/dL Calcium 8.0 L (8.4-10.2) mg/dL Total Bilirubin 1.5 H (0.2-1.3) mg/dL AST 102 H (14-36) U/L ALT 351 H (4-34) U/L Alkaline Phosphatase 191 H (38-126) U/L C-Reactive Protein 134.8 H (<10.0) mg/L Total Protein 5.8 L (6.3-8.2) g/dL Procalcitonin (0.02-0.09) ng/mL 07/25/20 07/25/20 Range/Units 06:59 11:47 WBC (3.8-10.6) k/uL RBC (3.80-5.40) m/uL Hgb (11.4-16.0) gm/dL Hct (34.0-46.0) % MCV (80.0-100.0) fL RDW (11.5-15.5) % Neutrophils # (1.3-7.7) k/uL Glucose (74-99) mg/dL POC Glucose (mg/dL) 118 H (75-99) mg/dL Calcium (8.4-10.2) mg/dL Total Bilirubin (0.2-1.3) mg/dL AST (14-36) U/L ALT (4-34) U/L Alkaline Phosphatase (38-126) U/L C-Reactive Protein (<10.0) mg/L Total Protein (6.3-8.2) g/dL Procalcitonin 0.40 H (0.02-0.09) ng/mL Microbiology - Last 24 Hours (Table) 07/22/20 11:00 Gram Stain - Final Sputum Sputum Culture - Final Elena albicans
--- NOTE | 2020-07-25 18:14 | PN ---
PROGRESS NOTE DATE OF SERVICE: 07/25/2020 REASON FOR FOLLOWUP: Leukocytosis. INTERVAL HISTORY: The patient was seen on rounds this morning. The patient has been afebrile. She was breathing comfortably. Denies having any chest pain or cough. No nausea, no vomiting, no abdominal pain or diarrhea. PHYSICAL EXAMINATION: Blood pressure 133/62 with a pulse of 58, temperature 98.2. She is 97% on room air. General description is a middle-aged female lying in bed in no distress. RESPIRATORY SYSTEM: Unlabored breathing with decreased breath sounds at the base. No wheeze. HEART: S1, S2. Regular rate and rhythm. ABDOMEN: Soft. No tenderness. LABS: Hemoglobin is 9, white count 12.0. Liver enzymes are elevated. DIAGNOSTIC IMPRESSION AND PLAN: Patient with elevated white count, possible oropharyngeal candidiasis. Eraxis was discontinued, switching over to nystatin swish and swallow for a week. This was discussed with the who was working on discharge. Continue with supportive care. MMODL / IJN: [id number] /
[2020-07-25] MEDS ORDERED: QUEtiapine 25 MG TAB PO SCH (21:00)
== END 2020-07-25 16:43 | disposition home health service (06) | DRG 219 ==
LOC: 2ORMAIN 05:35 → 2SICU 11:54 → 3SCARD 07-24 13:16
PROVIDERS: ADMIT Thoracic Surgery (Cardiothoracic Vascular Surgery); ATTEND Thoracic Surgery (Cardiothoracic Vascular Surgery)
PROC: B245ZZ4 Ultrasonography of Left Heart, Transesophageal (ICD-10-PCS; principal; 2020-07-17 08:00)
PROC: 02L70CK Occlusion of Left Atrial Appendage with Extraluminal Device, Open Approach (ICD-10-PCS; principal; 2020-07-17 08:00)
PROC: 5A1221Z Performance of Cardiac Output, Continuous (ICD-10-PCS; principal; 2020-07-17 08:00)
PROC: 30243N1 Transfusion of Nonautologous Red Blood Cells into Central Vein, Percutaneous Approach (ICD-10-PCS; principal; 2020-07-17 08:00)
PROC: 3E043XZ Introduction of Vasopressor into Central Vein, Percutaneous Approach (ICD-10-PCS; principal; 2020-07-17 08:00)
PROC: 02RF08Z Replacement of Aortic Valve with Zooplastic Tissue, Open Approach (ICD-10-PCS; principal; 2020-07-17 08:00)
PROC: 0W993ZZ Drainage of Right Pleural Cavity, Percutaneous Approach (ICD-10-PCS; 2020-07-20)
DX: Q23.0 Congenital stenosis of aortic valve (principal); J96.01 Acute respiratory failure with hypoxia; J18.9 Pneumonia, unspecified organism; N17.9 Acute kidney failure, unspecified; J90 Pleural effusion, not elsewhere classified; F05 Delirium due to known physiological condition; B37.0 Candidal stomatitis; J93.9 Pneumothorax, unspecified; D62 Acute posthemorrhagic anemia; Q21.1 Atrial septal defect; J98.11 Atelectasis; J44.9 Chronic obstructive pulmonary disease, unspecified; I48.0 Paroxysmal atrial fibrillation; I95.9 Hypotension, unspecified; I49.3 Ventricular premature depolarization; I08.1 Rheumatic disorders of both mitral and tricuspid valves; E78.5 Hyperlipidemia, unspecified; E03.9 Hypothyroidism, unspecified; I25.2 Old myocardial infarction; M19.90 Unspecified osteoarthritis, unspecified site; M25.512 Pain in left shoulder; F17.211 Nicotine dependence, cigarettes, in remission; Z71.6 Tobacco abuse counseling; Z79.82 Long term (current) use of aspirin; Z79.890 Hormone replacement therapy; Z79.899 Other long term (current) drug therapy; Z90.89 Acquired absence of other organs; Z98.51 Tubal ligation status; Z79.02 Long term (current) use of antithrombotics/antiplatelets; Z22.322 Carrier or suspected carrier of Methicillin resistant Staphylococcus aureus; Z98.890 Other specified postprocedural states; Z82.49 Family history of ischemic heart disease and other diseases of the circulatory system; Z81.8 Family history of other mental and behavioral disorders; Z81.1 Family history of alcohol abuse and dependence
CPT/HCPCS: 36415; 71045; 71046; 76604; 80048; 80053; 81001; 82330; 82805; 83735; 84145; 85025; 85027; 85520; 85610; 85730; 86140; 86850; 86891; 86900; 86901; 86920; 87040; 87070; 87205; 88305; 93308; 93970; 94002; 94640

== ENCOUNTER 2020-08-05 09:19 | Observation (INO) | payer BC ==
[2020-08-05 09:25] VITALS: RESP 16
[2020-08-05 09:49] LABS: Basophils # (A) 0.1 k/uL (0-0.2); Basophils % (A) 1 %; Eosinophils # (A) 0.3 k/uL (0-0.7); Eosinophils % (A) 3 %; HCT 36.5 % (34.0-46.0); HGB 11.7 gm/dL (11.4-16.0); Hypochromasia Moderate; Lymphocytes # (A) 1.5 k/uL (1.0-4.8); Lymphocytes % (A) 15 %; MCH 32.2 pg (25.0-35.0); MCV 100.6 fL (80.0-100.0); Macrocytosis Slight; Mean Platelet Volume 7.4; Monocytes # (A) 0.4 k/uL (0-1.0); Monocytes % (A) 4 %; Neutrophils # (A) 7.5 k/uL (1.3-7.7); Neutrophils % (A) 77 %; RBC 3.63 m/uL (3.80-5.40); RDW 15.7 % (11.5-15.5); WBC 9.8 k/uL (3.8-10.6)
--- NOTE | 2020-08-05 09:56 | XR ---
EXAMINATION TYPE: XR chest 2V DATE OF EXAM: 08/05/2020 COMPARISON: 07/25/2020 HISTORY: Chest pain TECHNIQUE: PA and lateral views chest obtained FINDINGS: There is a prosthetic aortic valve and sternotomy wires. Lungs are clear consolidative, interstitial masslike opacity. There is no pneumothorax. There are small bilateral pleural effusion. Heart size is enlarged and the pulmonary vasculature is not congested. The osseous structures are intact. Comparison to the prior st udy reveals reduction in the pulmonary vascular congestion and reduction in the pleural effusions. IMPRESSION: 1. Small bilateral pleural effusions somewhat smaller than that seen on the prior study dated . 2. Pulmonary vessel congestion identified on the prior study has resolved in the interval. 3. No airspace consolidation or edema.
[2020-08-05 10:05] LABS: Prothrombin Time 10.5 sec (9.0-12.0)
[2020-08-05 10:08] LABS: Albumin 4.1 g/dL (3.5-5.0); Calcium 9.5 mg/dL (8.4-10.2); Magnesium 2.3 mg/dL (1.6-2.3); Platelet Count 570 k/uL (150-450); Potassium 4.2 mmol/L (3.5-5.1); Total Bilirubin 0.6 mg/dL (0.2-1.3); Total Protein 7.1 g/dL (6.3-8.2)
--- NOTE | 2020-08-05 11:33 | ED ---
Chest Pain HPI - General Chief Complaint: Chest Pain Stated Complaint: Chest Pain Source: patient Mode of arrival: wheelchair Limitations: no limitations - History of Present Illness Initial Comments: 60 year old female with past medical history of aortic stenosis status post porcine valve replacement on July 17 who presents emergency Department with reported chest pain. Patient recently discharged from the hospital on july 25. Postop the patient had an episode of A. fib and a pleural effusion which required thoracentesis. Patient states that since discharge she has completed all her follow-up appointments. Saw Dr. Dowling on Thursday and had a few medication changes. States that she awoke this morning around 4 AM with chest pain. Pain was intermittent without any provocative factors. States it went straight through to her back. Denies history of coronary disease. No fevers chills or cough. Denies shortness of breath. No nausea or diaphoresis. Denies any lower extremity swelling. No calf pain. No other alleviating, precipitating or modifying factors - Related Data Home Medications Medication Instructions Recorded Confirmed Levothyroxine Sodium [Synthroid] 125 mcg PO DAILY 07/02/20 08/05/20 buPROPion XL [Wellbutrin XL] 150 mg PO HS 07/02/20 08/05/20 Amiodarone [Cordarone] See Taper PO DIRECTED 08/05/20 08/05/20 Ascorbic Acid [Vitamin C] 500 mg PO DAILY@1200 08/05/20 08/05/20 Nystatin 100,000 Unit/ml Susp 500,000 unit PO QID PRN 08/05/20 08/05/20 [Mycostatin Oral Susp] Previous Rx's Medication Instructions Recorded hydrOXYzine pamoate [Vistaril] 25 mg PO QID PRN #30 cap 07/05/20 Acetaminophen Tab [Tylenol] 650 mg PO Q4HR PRN tab 07/25/20 Aspirin 325 mg PO DAILY tab 07/25/20 Clopidogrel [Plavix] 75 mg PO DAILY #30 tab 07/25/20 Ferrous Sulfate [Iron (65 MG 325 mg PO W/LUNCH #14 tab 07/25/20 Elemental)] Furosemide [Lasix] 20 mg PO DAILY #5 tab 07/25/20 Metoprolol Tartrate [Lopressor] 25 mg PO BID #60 tab 07/25/20 Pantoprazole [Protonix] 40 mg PO AC-BRKFST #30 tablet. 07/25/20 Furosemide [Lasix] 40 mg PO DAILY #5 tablet 07/30/20 Allergies Allergy/AdvReac Type Severity Reaction Status Date / Time No Known Allergies Allergy Verified 08/05/20 10:28 Review of Systems ROS Statement: Those systems with pertinent positive or pertinent negative responses have been documented in the HPI. ROS Other: All systems not noted in ROS Statement are negative. EKG Findings - EKG Comments: EKG Findings:: EKG demonstrates sinus bradycardia with a ventricular rate of 52. NM interval 182. QRS 88. QTC of 403. No acute ST segment elevations. Inverted T-wave in V4 through V6 Past Medical History Past Medical History: Coronary Artery Disease (CAD), COPD, Hyperlipidemia, Thyroid Disorder Additional Past Medical History / Comment(s): tricuspid valve History of Any Multi-Drug Resistant Organisms: None Reported Past Surgical History: Coronary Bypass/CABG, Tonsillectomy, Tubal Ligation Additional Past Surgical History / Comment(s): aortic valve replacement jul 17 2020 Past Anesthesia/Blood Transfusion Reactions: No Reported Reaction Past Psychological History: No Psychological Hx Reported Smoking Status: Former smoker Past Alcohol Use History: Occasional Past Drug Use History: None Reported - Past Family History Mother Additional Family Medical History / Comment(s): Depression Father Family Medical History: Coronary Artery Disease (CAD) Additional Family Medical History / Comment(s): EtOH abuse General Exam Limitations: no limitations General appearance: alert, in no apparent distress Head exam: Present: atraumatic, normocephalic, normal inspection Eye exam: Present: normal appearance, PERRL, EOMI. Absent: scleral icterus, conjunctival injection, periorbital swelling ENT exam: Present: normal exam, mucous membranes moist Neck exam: Present: normal inspection. Absent: tenderness, meningismus, lymphadenopathy Respiratory exam: Present: normal lung sounds bilaterally. Absent: respiratory distress, wheezes, rales, rhonchi, stridor Cardiovascular Exam: Present: regular rate, normal rhythm, normal heart sounds. Absent: systolic murmur, diastolic murmur, rubs, gallop, clicks GI/Abdominal exam: Present: soft, normal bowel sounds. Absent: distended, tenderness, guarding, rebound, rigid Extremities exam: Present: normal inspection, full ROM, normal capillary refill. Absent: tenderness, pedal edema, joint swelling, calf tenderness Back exam: Present: normal inspection Neurological exam: Present: alert, oriented X3, CN II-XII intact Psychiatric exam: Present: normal affect, normal mood Skin exam: Present: warm, dry, intact, normal color. Absent: rash Course Vital Signs 08/05/20 08/05/20 08/05/20 09:21 10:13 11:57 Temperature 97.8 F 97.8 F 97.6 F Pulse Rate 55 L 50 L 50 L Respiratory 16 16 16 Rate Blood Pressure 116/67 101/56 107/72 O2 Sat by Pulse 100 98 99 Oximetry 08/05/20 08/05/20 13:31 14:21 Temperature 97.6 F 97.6 F Pulse Rate 52 L 52 L Respiratory 16 16 Rate Blood Pressure 103/59 117/64 O2 Sat by Pulse 100 99 Oximetry - Reevaluation(s) Reevaluation #1: Spoke with Dr. Lopez. Requesting call to CT. 08/05/20 11:17 Reevaluation #2: Spoke with Dr. Gardner who requested CT angio - chest to r/o dissection on the patient. Okay for obs admission. 08/05/20 11:37 Chest Pain MDM - MDM Upon arrival patient is placed into room 5. A thorough history and physical exam was performed. Patient arrives chest pain-free. She did take a full dose aspirin this morning. IV is established. Laboratory studies were conducted. Patient went for chest x-ray. Lab studies are reviewed. Mild troponin elevation with a value of 0.057. Chest x-ray demonstrates small bilateral pleural effusions smaller than on previous study. I did discuss the results with Dr. Lopez who accepted admission. Requesting CT input. Spoke with Dr. Gardner who is requesting CT angiography of the chest, arterial phase. This imaging is ordered. Patient continues to remain pain-free. We'll admit the patient for observation. She did agree to the treatment plan. Patient currently awaiting a bed on the floor Disposition Clinical Impression: Chest pain, S/P aortic valve repair Disposition: ADMITTED IP TO THIS HOSP Condition: Stable Is patient prescribed a controlled substance at d/c from ED?: No Decision to Admit Reason: Admit from EC Decision Date: 08/05/20 Decision Time: 11:33
[2020-08-05] MEDS ORDERED: NALOXONE 0.4 MG/ML 1 ML VIAL IV PRN (11:34)
[2020-08-05 12:00] VITALS: TEMP 97.6
[2020-08-05] MEDS ORDERED: NYSTATIN 100,000 UNIT/ML SUSP 500,000 UNIT/5 ML CUP PO PRN (12:41)
[2020-08-05] MEDS ORDERED: ACETAMINOPHEN TAB 325 MG TAB PO PRN (12:41)
[2020-08-05] MEDS ORDERED: hydrOXYzine pamoate 25 MG CAP PO PRN (12:41)
--- NOTE | 2020-08-05 12:59 | CT ---
EXAMINATION TYPE: CT angio chest DATE OF EXAM: 08/05/2020 COMPARISON: Correlation radiograph earlier today HISTORY: 60-year-old female Chest pains, recent tricuspid valve replacement TECHNIQUE: Contiguous axial scanning of the chest performed with IV Contrast, patient injected with 1 00 mL of Isovue 370. Coronal and sagittal MIP reconstructions performed. CT DLP: 293.2 mGycm Automated exposure control for dose reduction was used. FINDINGS: The heart is normal size, there is a moderate pericardial effusion measuring up to 1.9 cm thick. Some reflux of contrast into the hepatic veins. Prosthetic aortic valve. Aortic root is ectatic at 3.5 cm . Ascending aorta mildly aneurysmal at 4.0 cm. Atlantooccipital branching anatomy. Satisfactory opacification of the pulmonary arterial system. Areas of significant breathing motion li miting many of the segmental and more distal arterial branches. No large central or lobar branch pulm onary embolus is seen. Median sternotomy wires. Fluid deep to the sternotomy measures 8.8 cm craniocaudal by 1.5 cm thick by 3.0 cm wide. No significant surrounding fat stranding is seen. No thoracic lymphadenopathy by CT size criteria. Small left than right pleural effusions. Prominent adjacent atelectasis of the prior moderate centril obular emphysema. Dependent edema in the left upper lobe. Some septal lines in the upper lungs. Mild groundglass density left upper lobe. Again, motion artifacts. Visualized upper abdomen shows no gross abnormality. Bones: No osseous destructive process. IMPRESSION: 1. BREATHING MOTION DEGRADING THE EXAM. NO LARGE CENTRAL OR LOBAR BRANCH EMBOLUS. MANY OF THE SEGMENT AL AND MORE DISTAL ARTERIAL BRANCHES ARE LIMITED TO NONDIAGNOSTIC. 2. MODERATE-SIZED PERICARDIAL EFFUSION MEASURING 1.9 CM THICK. 3. THERE IS ALSO FLUID DEEP TO THE STERNOTOMY SPANNING 8.8 CM TOP TO BOTTOM AND MEASURING 3.0 CM WIDE . POSSIBLE POSTOPERATIVE SEROMA OR CHRONIC HEMATOMA. OTHER POSTOPERATIVE FLUID COLLECTION NOT EXCLUDE D AND SHOULD BE CORRELATED CLINICALLY. FOLLOW-UP CAN BE PERFORMED. 4. SMALL EFFUSIONS, LEFT GREATER THAN RIGHT, AND MILD GROUNDGLASS IN THE LEFT UPPER LOBE. CORRELATE F OR MINIMAL RESIDUAL PULMONARY VASCULAR CONGESTION. 5. PROSTHETIC AORTIC VALVE.
--- NOTE | 2020-08-05 13:36 | P.CRDCN ---
History of Present Illness Consult date: 08/05/20 History of present illness: History of present illness: This is a 60-year-old female recently hospitalized and discharged on July 25 after she underwent aortic valve replacement for congenital severe bicuspid aortic valve stenosis. On 07/04/2020 the patient underwent a 2-D echocardiogram which showed a mild concentric left ventricular hypertrophy and ejection fraction of 55-60%, mild to moderate aortic valve regurgitation, severe aortic valve stenosis with a peak gradient of 72.84 mmHg and a mean gradient across aortic valve of 46.45 mmHg, mild mitral valve regurgitation and mild tricuspid valve regurgitation. Patient underwent a cardiac catheterization which showed normal coronary arteries and a heavily calcified aortic valve. On 07/05/2020 the patient underwent a transesophageal echocardiogram which demonstrated a normal left ventricular size and systolic function, a bicuspid aortic valve with severe calcification and reduced opening with severe aortic valve stenosis and a mean gradient of 46 mmHg with mild to moderate aortic valve regurgitation, mild mitral and tricuspid valve regurgitation. She also has past medical history significant for paroxysmal atrial fibrillation. Patient states that she was at rest and developed chest pain and pressure type pain in the front of her chest and a stabbing type pain in her back around 4 AM. At the time of evaluation, this pain was completely gone. She states it did hurt was some movement. EKG sinus bradycardia without acute ST changes. Hemoglobin 11.7. Creatinine 0.92. Troponin 0.057 on 2 separate draws. Coronavirus not detected. CTA of the chest revealed no large central or lobar branch embolus. Moderate pericardial effusion measuring 1.9 cm. Small effusions. Review Of Systems: Constitutional: No fever, no chills. No weakness, fatigue or lethargy. EENT: No headache. No dizziness. Lungs: No shortness of breath, cough, no sputum production. No wheezing. Cardiovascular: No chest pain, no lower extremity edema. No palpitations. No paroxysmal nocturnal dyspnea. No orthopnea. No lightheadedness or dizziness. No syncopal episodes. Abdominal: No abdominal pain. No nausea, vomiting. No diarrhea. No constipation. No bloody or tarry stools.. No loss of appetite. Genitourinary: No dysuria.. No urinary retention. Musculoskeletal: No myalgias. No muscle weakness, no gait dysfunction, no frequent falls. No back pain. No neck pain. Integumentary: No wounds, no lesions. No rash or pruritus. No unusual bruising. Neurologic: No aphasia. No facial droop. No change in mentation. No head injury. No headache. No paralysis. No paresthesia. Psychiatric: No depression. No anxiety. Endocrine: No abnormal blood sugars. Physical examination: Gen: This is a 60-year-old female. Patient is sitting in a chair in [facility] and appears to be comfortable and in no acute distress. No respiratory distress is noted. VS: Afebrile, heart rate 50s, blood pressure 107/72, pulse ox 99% on room air HEENT: Head is atraumatic, normocephalic. Pupils equal, round. Sclerae is anicteric. NECK: Supple. No JVD. No lymphadenopathy. No thyromegaly. LUNGS: Clear to auscultation. No wheezes or rhonchi. No intercostal retractions . HEART: Regular rate and rhythm. Systolic murmur. ABDOMEN: Soft. Bowel sounds are present. No masses. No tenderness. EXTREMITIES: No pedal edema. No calf tenderness. NEUROLOGICAL: Patient is awake, alert and oriented x3. Cranial nerves 2 through 12 are grossly intact. Assessment: Chest pain, acute coronary syndrome ruled out Muscular skeletal chest pain Recent aortic valve replacement for congenital bicuspid aortic stenosis Paroxysmal atrial fibrillation Moderate pericardial effusion Plan: Patient has been resumed on aspirin, Plavix, Lasix and Lopressor Obtain repeat troponin Further recommendations to follow based upon clinical course Thank you kindly for this consultation. Nurse practitioner note has been reviewed, I agree with documented findings and plan of care. Patient was seen and examined. Past Medical History Past Medical History: Coronary Artery Disease (CAD), COPD, Hyperlipidemia, Thyroid Disorder Additional Past Medical History / Comment(s): tricuspid valve History of Any Multi-Drug Resistant Organisms: None Reported Past Surgical History: Coronary Bypass/CABG, Tonsillectomy, Tubal Ligation Additional Past Surgical History / Comment(s): aortic valve replacement jul 17 2020 Past Anesthesia/Blood Transfusion Reactions: No Reported Reaction Past Psychological History: No Psychological Hx Reported Smoking Status: Former smoker Past Alcohol Use History: Occasional Past Drug Use History: None Reported - Past Family History Mother Additional Family Medical History / Comment(s): Depression Father Family Medical History: Coronary Artery Disease (CAD) Additional Family Medical History / Comment(s): EtOH abuse Medications and Allergies Home Medications Medication Instructions Recorded Confirmed Type Levothyroxine Sodium [Synthroid] 125 mcg PO DAILY 07/02/20 08/05/20 History buPROPion XL [Wellbutrin XL] 150 mg PO HS 07/02/20 08/05/20 History hydrOXYzine pamoate [Vistaril] 25 mg PO QID PRN #30 cap 07/05/20 08/05/20 Rx Acetaminophen Tab [Tylenol] 650 mg PO Q4HR PRN tab 07/25/20 08/05/20 Rx Aspirin 325 mg PO DAILY tab 07/25/20 08/05/20 Rx Clopidogrel [Plavix] 75 mg PO DAILY #30 tab 07/25/20 08/05/20 Rx Ferrous Sulfate [Iron (65 MG 325 mg PO W/LUNCH #14 tab 07/25/20 08/05/20 Rx Elemental)] Furosemide [Lasix] 20 mg PO DAILY #5 tab 07/25/20 08/05/20 Rx Metoprolol Tartrate [Lopressor] 25 mg PO BID #60 tab 07/25/20 08/05/20 Rx Pantoprazole [Protonix] 40 mg PO AC-BRKFST #30 tablet.dr 07/25/20 08/05/20 Rx Furosemide [Lasix] 40 mg PO DAILY #5 tablet 07/30/20 08/05/20 Rx Amiodarone [Cordarone] See Taper PO DIRECTED 08/05/20 08/05/20 History Ascorbic Acid [Vitamin C] 500 mg PO DAILY@1200 08/05/20 08/05/20 History Nystatin 100,000 Unit/ml Susp 500,000 unit PO QID PRN 08/05/20 08/05/20 History [Mycostatin Oral Susp] Allergies Allergy/AdvReac Type Severity Reaction Status Date / Time No Known Allergies Allergy Verified 08/05/20 10:28 Physical Exam Vitals: Vital Signs Temp Pulse Resp BP Pulse Ox 08/05/20 11:57 97.6 F 50 L 16 107/72 99 08/05/20 10:13 97.8 F 50 L 16 101/56 98 08/05/20 09:21 97.8 F 55 L 16 116/67 100 Intake and Output 08/04/20 08/05/20 08/05/20 21:59 06:59 14:59 Other: Weight 65.771 kg Results 08/05/20 09:39 08/05/20 09:39 Cardiac Enzymes 08/05/20 08/05/20 Range/Units 09:39 09:39 AST 36 (14-36) U/L Troponin I 0.057 H* (0.000-0.034) ng/mL Coagulation 08/05/20 Range/Units 09:39 PT 10.5 (9.0-12.0) sec APTT 21.0 L (22.0-30.0) sec CBC 08/05/20 Range/Units 09:39 WBC 9.8 (3.8-10.6) k/uL RBC 3.63 L (3.80-5.40) m/uL Hgb 11.7 (11.4-16.0) gm/dL Hct 36.5 (34.0-46.0) % Plt Count 570 H D (150-450) k/uL Comprehensive Metabolic Panel 08/05/20 Range/Units 09:39 Sodium 137 (137-145) mmol/L Potassium 4.2 (3.5-5.1) mmol/L Chloride 98 (98-107) mmol/L Carbon Dioxide 31 H (22-30) mmol/L BUN 15 (7-17) mg/dL Creatinine 0.92 (0.52-1.04) mg/dL Glucose 144 H (74-99) mg/dL Calcium 9.5 (8.4-10.2) mg/dL AST 36 (14-36) U/L ALT 72 H (4-34) U/L Alkaline Phosphatase 103 (38-126) U/L Total Protein 7.1 (6.3-8.2) g/dL Albumin 4.1 (3.5-5.0) g/dL Current Medications Generic Name Dose Route Start Last Admin Trade Name Freq PRN Reason Stop Dose Admin Naloxone HCl 0.2 mg 08/05/20 11:34 Naloxone 0.4 Mg/Ml 1 Ml Vial IV Q2M PRN Opioid Reversal Intake and Output 08/04/20 08/05/20 08/05/20 21:59 06:59 14:59 Other: Weight 65.771 kg Patient Weight 08/06/20 06:59 Weight 65.771 kg 08/05/20 09:39 08/05/20 09:39
[2020-08-05 16:55] VITALS: BP 112/67; PULSE 60
[2020-08-05] MEDS ORDERED: METOPROLOL TARTRATE 25 MG TAB PO SCH (21:00)
[2020-08-05] MEDS ORDERED: buPROPion XL 150 MG TAB.ER.24H PO SCH (21:00)
--- NOTE | 2020-08-05 23:32 | P.HPIM ---
History of Present Illness H&P Date: 08/05/20 Chief Complaint: Chest pain. Patient is a 60-year-old female with a known history of coronary artery disease status post CABG, history of recent aortic valve replacement on 07/17/2020, hyperlipidemia, hypothyroidism and previous history of smoking presents to ER with the complaints of chest pain. Patient states that she did have chest pressure and stabbing pain in the back started around 4 AM. Associated with mild shortness of breath. No nausea vomiting or diaphoresis. No fever no chills. EKG showed sinus bradycardia without acute ST-T wave changes. CT angiogram of the chest was done showed breathing motion limited and degrading exam. No large central or lobar branch embolus. Moderate sized pericardial effusion measuring 1.9 cm thick. There is also fluid deep in the sternotomy spanning 8.8 cm top to bottom and measuring 3 cm wide. Possible postoperative seroma or chronic hematoma. Small effusions left greater than right. Pulmonary vascular congestion residual- Minimal Currently patient is asymptomatic. Laboratory data showed WBC 9.8, hemoglobin 11.7, RDW 15.7 and platelets 570 Sodium 137 potassium 4.2 chloride 98 BUN 15 and creatinine 0.92 Troponin 0 0.057, 0.057 and 0.063 proBNP is 1320 COVID-19 PCR not detected Review of Systems Constitutional: Patient denies any fever or chills . No generalized weakness or weight loss. Abdomen: Patient denied nausea vomiting and diarrhea and abdominal pain. Cardiovascular: Patient denies any chest pain or short of breath no palpitations. Respiratory: patient denied any cough or sputum production. No shortness of breath Neurologic: Patient denied any numbness or tingling headache. Musculoskeletal: Patient denies any complaints of joint swelling or deformity. Skin: Negative Psychiatric: Negative Endocrine: No heat or cold intolerance. No recent weight gain. Genitourinary: No dysuria or hematuria. All other 14 point ROS negative except the above Past Medical History Past Medical History: Coronary Artery Disease (CAD), COPD, Hyperlipidemia, Thyroid Disorder Additional Past Medical History / Comment(s): tricuspid valve History of Any Multi-Drug Resistant Organisms: None Reported Past Surgical History: Coronary Bypass/CABG, Tonsillectomy, Tubal Ligation Additional Past Surgical History / Comment(s): aortic valve replacement jul 17 2020 Past Anesthesia/Blood Transfusion Reactions: No Reported Reaction Past Psychological History: No Psychological Hx Reported Smoking Status: Former smoker Past Alcohol Use History: Occasional Past Drug Use History: None Reported - Past Family History Mother Additional Family Medical History / Comment(s): Depression Father Family Medical History: Coronary Artery Disease (CAD) Additional Family Medical History / Comment(s): EtOH abuse Medications and Allergies Home Medications Medication Instructions Recorded Confirmed Type Levothyroxine Sodium [Synthroid] 125 mcg PO DAILY 07/02/20 08/05/20 History buPROPion XL [Wellbutrin XL] 150 mg PO HS 07/02/20 08/05/20 History hydrOXYzine pamoate [Vistaril] 25 mg PO QID PRN #30 cap 07/05/20 08/05/20 Rx Acetaminophen Tab [Tylenol] 650 mg PO Q4HR PRN tab 07/25/20 08/05/20 Rx Aspirin 325 mg PO DAILY tab 07/25/20 08/05/20 Rx Clopidogrel [Plavix] 75 mg PO DAILY #30 tab 07/25/20 08/05/20 Rx Ferrous Sulfate [Iron (65 MG 325 mg PO W/LUNCH #14 tab 07/25/20 08/05/20 Rx Elemental)] Furosemide [Lasix] 20 mg PO DAILY #5 tab 07/25/20 08/05/20 Rx Metoprolol Tartrate [Lopressor] 25 mg PO BID #60 tab 07/25/20 08/05/20 Rx Pantoprazole [Protonix] 40 mg PO AC-BRKFST #30 tablet. 07/25/20 08/05/20 Rx Furosemide [Lasix] 40 mg PO DAILY #5 tablet 07/30/20 08/05/20 Rx Amiodarone [Cordarone] See Taper PO DIRECTED 08/05/20 08/05/20 History Ascorbic Acid [Vitamin C] 500 mg PO DAILY@1200 08/05/20 08/05/20 History Nystatin 100,000 Unit/ml Susp 500,000 unit PO QID PRN 08/05/20 08/05/20 History [Mycostatin Oral Susp] Allergies Allergy/AdvReac Type Severity Reaction Status Date / Time No Known Allergies Allergy Verified 08/05/20 10:28 Physical Exam Vitals: Vital Signs Temp Pulse Resp BP Pulse Ox 08/05/20 13:31 97.6 F 52 L 16 103/59 100 08/05/20 11:57 97.6 F 50 L 16 107/72 99 08/05/20 10:13 97.8 F 50 L 16 101/56 98 08/05/20 09:21 97.8 F 55 L 16 116/67 100 Intake and Output 08/04/20 08/05/20 08/05/20 21:59 06:59 14:59 Other: Weight 65.771 kg PHYSICAL EXAMINATION: Patient is lying in the bed comfortably, no acute distress, awake alert and oriented.. HEENT: Normocephalic. Neck is supple. Pupils reactive. Nostrils clear. Oral ca vity is moist. Ears reveal no drainage. Neck reveals no JVD, carotid bruits, or thyromegaly. CHEST EXAMINATION: Trachea is central. Symmetrical expansion. Sternal wound is healing well. Bibasilar diminished sounds. No wheezing. CARDIAC: Normal S1, S2 with no gallops. No murmurs ABDOMEN: Soft. Bowel sounds normal. No organomegaly. No abdominal bruits. Extremities: reveal no edema. No clubbing or cyanosis Neurologically awake, alert, oriented x3 with well-coordinated movements. No focal deficits noted Skin: No rash or skin lesions. Psychiatric: Coperative. Nonsuicidal Musculoskeletal: No joint swelling or deformity. Normal range of motion. Results CBC & Chem 7: 08/05/20 09:39 08/05/20 09:39 Labs: Abnormal Lab Results - Last 24 Hours (Table) 08/05/20 08/05/20 08/05/20 Range/Units 09:39 09:39 09:39 RBC 3.63 L (3.80-5.40) m/uL MCV 100.6 H (80.0-100.0) fL RDW 15.7 H (11.5-15.5) % Plt Count 570 H D (150-450) k/uL APTT 21.0 L (22.0-30.0) sec Carbon Dioxide 31 H (22-30) mmol/L Glucose 144 H (74-99) mg/dL ALT 72 H (4-34) U/L Troponin I (0.000-0.034) ng/mL 08/05/20 08/05/20 Range/Units 09:39 12:16 RBC (3.80-5.40) m/uL MCV (80.0-100.0) fL RDW (11.5-15.5) % Plt Count (150-450) k/uL APTT (22.0-30.0) sec Carbon Dioxide (22-30) mmol/L Glucose (74-99) mg/dL ALT (4-34) U/L Troponin I 0.057 H* 0.057 H* (0.000-0.034) ng/mL Thrombosis Risk Factor Assmnt - DVT/VTE Prophylaxis DVT/VTE Prophylaxis: Pharmacologic Prophylaxis ordered Assessment and Plan Assessment: Chest pain. Ruled out ACS. Likely musculoskeletal at the sternal wound. Recent aortic valve replacement for congenital bicuspid aortic stenosis. Paroxysmal atrial fibrillation Moderate pericardial effusion Small bilateral pleural effusions Hyperlipidemia Hypothyroidism COPD with previous history of smoking Coronary arteries with history of CABG DVT prophylaxis with heparin subcu Plan: Patient will be continued telemetry monitoring. Serial EKG and troponins. Continue with aspirin, Plavix and metoprolol. Continue the Lasix as well. Monitor electrolytes and follow-up closely. Cardiology and CT surgery was consulted. Continue to monitor overnight and further recommendations based on the clinical course. Time with Patient: Greater than 30
[2020-08-06] MEDS ORDERED: LEVOTHYROXINE 125 MCG TAB PO SCH (06:30)
[2020-08-06] MEDS ORDERED: PANTOPRAZOLE 40 MG TABLET PO SCH (07:30)
[2020-08-06] MEDS ORDERED: FUROSEMIDE 40 MG TAB PO SCH (09:00)
[2020-08-06] MEDS ORDERED: FUROSEMIDE 20 MG TAB PO SCH (09:00)
[2020-08-06] MEDS ORDERED: CLOPIDOGREL 75 MG TAB PO SCH (09:00)
[2020-08-06] MEDS ORDERED: ASPIRIN 325 MG TAB PO SCH (09:00)
[2020-08-06] MEDS ORDERED: ASCORBIC ACID 500 MG TAB PO SCH (12:00)
[2020-08-06] MEDS ORDERED: FERROUS SULFATE 325 MG TAB PO SCH (12:30)
== END 2020-08-05 16:47 | disposition left against medical advice (07) ==
LOC: EC 09:19 → 3SCARD 11:36
PROVIDERS: ADMIT Internal Medicine; ATTEND Internal Medicine
DX: R07.89 Other chest pain (principal); J90 Pleural effusion, not elsewhere classified; Z95.3 Presence of xenogenic heart valve; I08.1 Rheumatic disorders of both mitral and tricuspid valves; I48.0 Paroxysmal atrial fibrillation; E03.9 Hypothyroidism, unspecified; R79.89 Other specified abnormal findings of blood chemistry; R00.1 Bradycardia, unspecified; I25.10 Atherosclerotic heart disease of native coronary artery without angina pectoris; E78.5 Hyperlipidemia, unspecified; J44.9 Chronic obstructive pulmonary disease, unspecified; Z79.890 Hormone replacement therapy; Z79.82 Long term (current) use of aspirin; Z79.02 Long term (current) use of antithrombotics/antiplatelets; Z79.899 Other long term (current) drug therapy; Z95.1 Presence of aortocoronary bypass graft; Z98.51 Tubal ligation status; Z87.891 Personal history of nicotine dependence; Z87.74 Personal history of (corrected) congenital malformations of heart and circulatory system; Z81.8 Family history of other mental and behavioral disorders; Z82.49 Family history of ischemic heart disease and other diseases of the circulatory system; Z81.1 Family history of alcohol abuse and dependence
CPT/HCPCS: 99285; 36415; 93005; 83880; 80053; 83735; 84484; 85025; 85610; 85730; 87635; 71046; 71275; G0378; Q9967

== ENCOUNTER 2021-07-22 10:04 | Emergency (ER) | payer BC ==
[2021-07-22 10:10] VITALS: TEMP 98
[2021-07-22] MEDS ORDERED: ASPIRIN 81 MG PO STA (10:40)
--- NOTE | 2021-07-22 10:44 | ED ---
General Adult HPI - General Chief complaint: Neuro Symptoms/Deficit Stated complaint: right side numbness Time Seen by Provider: 07/22/21 10:15 Source: patient Mode of arrival: ambulatory Limitations: no limitations - History of Present Illness Initial comments: Dictation was produced using Mandae dictation software. please excuse any grammatical, word or spelling errors. Chief Complaint: 61-year-old jl presents to emergency department for brief episode of right-sided numbness and paresthesias History of Present Illness patient is 61-year-old female she presents to the emergency department for brief episode of right-sided numbness and paresthesias. She states it also included her forehead, right lower face, arm and leg. P atient states the symptoms last for only 5 minutes. EMS was called however patient was asymptomatic upon their arrival. She drove in via private vehicle. Patient denies any history of strokes. She does have history of valve replacement. She does not take any anticoagulation medications. Patient has no complaint at this time. The ROS documented in this emergency department record has been reviewed and confirmed by me. Those systems with pertinent positive or negative responses have been documented in the HPI. All other systems are other negative and/or noncontributory. PHYSICAL EXAM: General Impression: Alert and oriented x3, not in acute distress HEENT: Normocephalic atraumatic, extra-ocular movements intact, pupils equal and reactive to light bilaterally, mucous membranes moist. Cardiovascular: Heart regular rate and rhythm Chest: Able to complete full sentences, no retractions, no tachypnea Abdomen: abdomen soft, non-tender, non-distended, no organomegaly Musculoskeletal: Pulses present and equal in all extremities, no peripheral edema Motor: no focal deficits noted Neurological: CN II-XII grossly intact, no focal motor or sensory deficits noted, nih 0 Skin: Intact with no visualized rashes Psych: Normal affect and mood ED course: 61-year-old jl presents to the emergency part for clinical presentation concerning for transient ischemic attack. Vital signs upon arrival are within acceptable limits. Laboratory evaluation obtained. CBC, coag panel, metabolic panel is unremarkable. Computed tomography scan of brain shows no acute processes. Patient reevaluated bedside at 11:30 AM found to be stable medical condition she continues to be asymptomatic.. Disposition options were discussed Patient's ABCD 2 score is 3. She does have considerable risk factors. Disposition options were discussed. Is recommended to her that she be admitted to the hospital for further care. Patient refuses and would like to complete the TIA workup on outpatient basis with her primary care doctor. She understands the risk of discharge and that her clinical presentation may indicate that she may have more significant symptoms within the next 48 hours. She is agreeable understandable. She understands that she should return to medially to the emergency department if she has recurrent symptoms. - Related Data Home Medications Medication Instructions Recorded Confirmed Levothyroxine Sodium [Synthroid] 125 mcg PO DAILY 07/02/20 07/22/21 Aspirin EC [Ecotrin Low Dose] 81 mg PO DAILY 07/22/21 07/22/21 Atorvastatin [Lipitor] 40 mg PO HS 07/22/21 07/22/21 Previous Rx's Medication Instructions Recorded Metoprolol Tartrate [Lopressor] 25 mg PO BID #60 tab 07/25/20 Allergies Allergy/AdvReac Type Severity Reaction Status Date / Time No Known Allergies Allergy Verified 07/22/21 11:04 Review of Systems ROS Statement: Those systems with pertinent positive or pertinent negative responses have been documented in the HPI. ROS Other: All systems not noted in ROS Statement are negative. Past Medical History Past Medical History: Coronary Artery Disease (CAD), COPD, Hyperlipidemia, Thyroid Disorder Additional Past Medical History / Comment(s): tricuspid valve History of Any Multi-Drug Resistant Organisms: None Reported Past Surgical History: Coronary Bypass/CABG, Tonsillectomy, Tubal Ligation Additional Past Surgical History / Comment(s): aortic valve replacement jul 17 2020 Past Anesthesia/Blood Transfusion Reactions: No Reported Reaction Past Psychological History: No Psychological Hx Reported Smoking Status: Former smoker Past Alcohol Use History: Occasional Past Drug Use History: None Reported - Past Family History Mother Additional Family Medical History / Comment(s): Depression Father Family Medical History: Coronary Artery Disease (CAD) Additional Family Medical History / Comment(s): EtOH abuse General Exam Limitations: no limitations Course Vital Signs 07/22/21 10:06 Temperature 98 F Pulse Rate 60 Respiratory 20 Rate Blood Pressure 111/64 O2 Sat by Pulse 97 Oximetry Medical Decision Making - Lab Data Result diagrams: 07/22/21 10:46 07/22/21 10:46 Lab Results 07/22/21 07/22/21 07/22/21 Range/Units 10:46 10:46 10:46 WBC 9.0 (3.8-10.6) k/uL RBC 4.26 (3.80-5.40) m/uL Hgb 13.4 (11.4-16.0) gm/dL Hct 40.3 (34.0-46.0) % MCV 94.7 (80.0-100.0) fL MCH 31.4 (25.0-35.0) pg MCHC 33.1 (31.0-37.0) g/dL RDW 12.6 (11.5-15.5) % Plt Count 225 (150-450) k/uL MPV 8.7 Neutrophils % 63 % Lymphocytes % 22 % Monocytes % 7 % Eosinophils % 5 % Basophils % 1 % Neutrophils # 5.7 (1.3-7.7) k/uL Lymphocytes # 2.0 (1.0-4.8) k/uL Monocytes # 0.7 (0-1.0) k/uL Eosinophils # 0.4 (0-0.7) k/uL Basophils # 0.1 (0-0.2) k/uL PT 10.2 (9.0-12.0) sec INR 0.9 (<1.2) APTT 22.2 (22.0-30.0) sec Sodium 136 L (137-145) mmol/L Potassium 4.5 (3.5-5.1) mmol/L Chloride 108 H (98-107) mmol/L Carbon Dioxide 21 L (22-30) mmol/L Anion Gap 7 mmol/L BUN 16 (7-17) mg/dL Creatinine 1.11 H (0.52-1.04) mg/dL Est GFR (CKD-EPI)AfAm 61 (>60 ml/min/1.73 sqM) Est GFR (CKD-EPI)NonAf 53 (>60 ml/min/1.73 sqM) Glucose 105 H (74-99) mg/dL Calcium 9.1 (8.4-10.2) mg/dL Disposition Clinical Impression: TIA (transient ischemic attack) Disposition: HOME SELF-CARE Condition: Fair Instructions (If sedation given, give patient instructions): Transient Ischemic Attack (ED) Is patient prescribed a controlled substance at d/c from ED?: No Referrals: Tc Garcia MD [Primary Care Provider] - 1-2 days
[2021-07-22 10:59] LABS: Basophils # (A) 0.1 k/uL (0-0.2); Basophils % (A) 1 %; Eosinophils # (A) 0.4 k/uL (0-0.7); Eosinophils % (A) 5 %; HCT 40.3 % (34.0-46.0); HGB 13.4 gm/dL (11.4-16.0); Lymphocytes % (A) 22 %; MCH 31.4 pg (25.0-35.0); MCHC 33.1 g/dL (31.0-37.0); MCV 94.7 fL (80.0-100.0); Mean Platelet Volume 8.7; Monocytes # (A) 0.7 k/uL (0-1.0); Monocytes % (A) 7 %; Neutrophils # (A) 5.7 k/uL (1.3-7.7); Neutrophils % (A) 63 %; Platelet Count 225 k/uL (150-450); RBC 4.26 m/uL (3.80-5.40); RDW 12.6 % (11.5-15.5)
[2021-07-22 11:08] LABS: Calcium 9.1 mg/dL (8.4-10.2); Potassium 4.5 mmol/L (3.5-5.1)
[2021-07-22 11:12] LABS: INR 0.9 (<1.2); Partial Thromboplastin Time 22.2 sec (22.0-30.0); Prothrombin Time 10.2 sec (9.0-12.0)
--- NOTE | 2021-07-22 11:14 | CT ---
EXAMINATION TYPE: CT brain wo con DATE OF EXAM: 07/22/2021 COMPARISON: None available HISTORY: Right sided numbness. CT DLP: 1125.4 mGycm Automated exposure control for dose reduction was used. TECHNIQUE: CT scan of the brain is performed without IV contrast administration. FINDINGS: Millimetric hypodensity inferior to the left lentiform nucleus which could represent tiny lacunar inf arct versus perivascular space. No acute intracranial hemorrhage. No gross acute cortical infarct. No midline shift, herniation or ventriculectomy. Unremarkable mosley-white matter differentiation, basal cisterns, sella and CP angles. No gross space-o ccupying lesion, vasogenic edema or mass effect. Unremarkable orbits. Soft tissue/mucosal thickening of the left nasal fossa, please correlate clinica lly. Clear visualized paranasal sinuses and mastoid air cells. Unremarkable calvarial bones. IMPRESSION: No acute intracranial hemorrhage or gross acute cortical infarct. No gross space-occupying lesion by this unenhanced CT scan. Incidental findings as described above.
[2021-07-22 11:40] VITALS: BP 112/55; PULSE 54; RESP 18
== END 2021-07-22 11:40 | disposition home or self-care (01) ==
LOC: EC 10:04
DX: G45.9 Transient cerebral ischemic attack, unspecified (principal); E07.9 Disorder of thyroid, unspecified; J45.909 Unspecified asthma, uncomplicated; Z79.890 Hormone replacement therapy; Z87.891 Personal history of nicotine dependence
CPT/HCPCS: 36415; 70450; 80048; 85025; 85610; 85730; 93005; 99284

== ENCOUNTER 2022-03-07 20:35 | Emergency (ER) | payer BC ==
--- NOTE | 2022-03-07 22:49 | XR ---
EXAMINATION TYPE: XR chest 2V DATE OF EXAM: 03/07/2022 COMPARISON: 08/05/2020 HISTORY: Wrist pain. Pneumonia TECHNIQUE: FINDINGS: Heart is normal. Lungs are clear of infiltrate. No heart failure. There are sternal wires. Bony thorax is intact. There is cardiac valve surgery. IMPRESSION: No active cardiopulmonary disease. There is clearing of the pleural effusions compared to old exam.
--- NOTE | 2022-03-07 23:43 | ED ---
General Adult HPI - General Chief complaint: Upper Respiratory Infection Stated complaint: poss covid Time Seen by Provider: 03/07/22 23:12 Source: patient, RN notes reviewed Mode of arrival: ambulatory Limitations: no limitations - History of Present Illness Initial comments: 62-year-old female presents to the emergency department for evaluation of con gested cough 4-5 days. States she tested positive for Covid today. Reports mild shortness of breath with activity, though denies any difficulty breathing. Does have a productive cough. Also complains of body aches, mostly in her shoulders and upper back. Has not taken anything to treat her symptoms. States she is concerned about pneumonia and with like a chest x-ray. Patient is fully vaccinated. Denies fever, chills, headache, dizziness, chest pain, abdominal pain, nausea, vomiting, diarrhea, or dysuria. - Related Data Home Medications Medication Instructions Recorded Confirmed Levothyroxine Sodium [Synthroid] 125 mcg PO DAILY 07/02/20 07/22/21 Aspirin EC [Ecotrin Low Dose] 81 mg PO DAILY 07/22/21 07/22/21 Atorvastatin [Lipitor] 40 mg PO HS 07/22/21 07/22/21 Previous Rx's Medication Instructions Recorded Metoprolol Tartrate [Lopressor] 25 mg PO BID #60 tab 07/25/20 Allergies Allergy/AdvReac Type Severity Reaction Status Date / Time No Known Allergies Allergy Verified 07/22/21 11:04 Review of Systems ROS Statement: Those systems with pertinent positive or pertinent negative responses have been documented in the HPI. ROS Other: All systems not noted in ROS Statement are negative. Past Medical History Past Medical History: Coronary Artery Disease (CAD), COPD, Hyperlipidemia, Thyroid Disorder Additional Past Medical History / Comment(s): tricuspid valve History of Any Multi-Drug Resistant Organisms: None Reported Past Surgical History: Coronary Bypass/CABG, Tonsillectomy, Tubal Ligation Additional Past Surgical History / Comment(s): aortic valve replacement jul 17 2020 Past Anesthesia/Blood Transfusion Reactions: No Reported Reaction Past Psychological History: No Psychological Hx Reported Smoking Status: Former smoker Past Alcohol Use History: Occasional Past Drug Use History: None Reported - Past Family History Mother Additional Family Medical History / Comment(s): Depression Father Family Medical History: Coronary Artery Disease (CAD) Additional Family Medical History / Comment(s): EtOH abuse General Exam Limitations: no limitations (Well-developed, well-nourished female in no acute distress. Initial temperature 97.9, pulse 75, respirations 20, blood pressure 133/81, pulse ox 99% on room air.) General appearance: alert, in no apparent distress ENT exam: Present: mucous membranes moist Respiratory exam: Present: normal lung sounds bilaterally. Absent: respiratory distress, wheezes, rales, rhonchi, stridor Cardiovascular Exam: Present: regular rate, normal rhythm, normal heart sounds (Does have an artificial valve). Absent: systolic murmur, diastolic murmur, rubs, gallop, clicks GI/Abdominal exam: Present: soft, normal bowel sounds. Absent: distended, tenderness, guarding, rebound, rigid Back exam: Present: normal inspection, full ROM. Absent: tenderness, paraspinal tenderness, vertebral tenderness Neurological exam: Present: alert, oriented X3, CN II-XII intact Psychiatric exam: Present: normal affect, normal mood Skin exam: Present: warm, dry, intact, normal color. Absent: rash Course Vital Signs 03/07/22 03/07/22 03/08/22 22:17 23:30 00:01 Temperature 97.9 F 97.6 F Pulse Rate 75 72 Respiratory 20 16 18 Rate Blood Pressure 133/81 130/78 O2 Sat by Pulse 99 99 Oximetry - Reevaluation(s) Reevaluation #1: 03/07/22 23:40 Patient was seen and examined in triage. Discussed results from EKG chest x- ray. I did offer laboratory studies given patient's history of heart disease. She declined stating she knows that there is no cardiac issue at this time and was concerned only about her lungs making sure that she did not have pneumonia. I feel that this is reasonable, however patient is given strict return parameters. Medical Decision Making - Medical Decision Making This is a 62-year-old female with a past medical history of COPD, CAD, and CABG presents to the emergency department for evaluation of congested cough and body aches. Patient tested positive for Covid today, but has had symptoms for the past 4-5 days. Upon exam, patient is well-appearing and in no acute distress. Lung sounds are clear to auscultation with no evidence of increased work of breathing. Chest x-ray was obtained and was unremarkable. EKG shows normal sinus rhythm when no ST segment changes. Results were discussed with patient and she deferred laboratory studies. Patient is instructed on symptomatic treatment and encouraged to follow up with her PCP on Thursday for recheck. Return parameters were discussed in detail. Patient verbalizes understanding and agrees with this plan. Attending: ellie. - Radiology Data Radiology results: report reviewed, image reviewed Two-view chest x-ray was obtained. Report was reviewed in its entirety. Impression per Dr. Slaughter as no active cardiopulmonary disease. There is clearing of the pleural effusions compared to old exam. Disposition Clinical Impression: Viral infection, Cough Disposition: HOME SELF-CARE Condition: Stable Instructions (If sedation given, give patient instructions): COVID-19 (Coronavirus Disease 2019) (ED) Additional Instructions: Take Tylenol for fever control. Avoid cough suppressant medications. Apply warm compresses to sore areas. Follow-up with PCP for recheck on Thursday. Return to the emergency department with any new, worsening, or concerning symptoms. Is patient prescribed a controlled substance at d/c from ED?: No Referrals: Tc Garcia MD [Primary Care Provider] - 1-2 days Time of Disposition: 23:43
[2022-03-08 00:02] VITALS: BP 130/78; PULSE 72; RESP 18; TEMP 97.6
== END 2022-03-08 00:01 | disposition home or self-care (01) ==
LOC: EC 20:35
DX: U07.1 COVID-19 (principal); I25.10 Atherosclerotic heart disease of native coronary artery without angina pectoris; J44.9 Chronic obstructive pulmonary disease, unspecified; E78.5 Hyperlipidemia, unspecified; E07.9 Disorder of thyroid, unspecified; Z87.891 Personal history of nicotine dependence; Z79.890 Hormone replacement therapy; Z79.82 Long term (current) use of aspirin
CPT/HCPCS: 71046; 93005; 99283; 99285

== ENCOUNTER → 2022-04-04 | Outpatient (CLI) | payer BC ==
--- NOTE | 2022-04-04 07:20 | US ---
EXAMINATION TYPE: US carotid duplex BILAT DATE OF EXAM: 04/04/2022 COMPARISON: US dated 07/05/2020 CLINICAL HISTORY: Z86.73 PRSNL HX OF TIA (TIA). TECHNIQUE: Carotid duplex ultrasound examination. Indirect Doppler criteria was utilized. FINDINGS: EXAM MEASUREMENTS: RIGHT: Peak Systolic Velocity (PSV) cm/sec ----- Right CCA: 91.9 ----- Right ICA: 91.9 ----- Right ECA: 143.1 ICA/CCA ratio: 1.0 RIGHT: End Diastole cm/sec ----- Right CCA: 30.3 ----- Right ICA: 32.5 ----- Right ECA: 20.4 LEFT: Peak Systolic Velocity (PSV) cm/sec ----- Left CCA: 84.2 ----- Left ICA: 90.8 ----- Left ECA: 96.3 ICA/CCA ratio: 1.1 LEFT: End Diastole cm/sec ----- Left CCA: 27.0 ----- Left ICA: 27.0 ----- Left ECA: 14.9 VERTEBRALS (direction of flow): Right Vertebral: Antegrade Left Vertebral: Antegrade Rhythm: Normal CLIENT DEVELOPMENT DIRECTOR NOTES: No significant stenosis seen. Mildly elevated right ECA. IMPRESSION: No evidence for hemodynamically significant stenosis. Criteria for Assigning % of Stenosis / Diameter reduction (Estimation based on the indirect measurements of the internal carotid artery velocities (ICA PSV). 1. Normal (no stenosis)=ICA PSV < 125 cm/s: ratio < 2.0: ICA EDV<40 cm/s. 2. Less than 50% stenosis=ICA PSV < 125 cm/s: ratio < 2.0: ICA EDV<40 cm/s. 3. 50 to 69% stenosis=ICA PSV of 125 to 230 cm/s: ration 2.0 ? 4.0: ICA EDV 40-100 cm/s. 4. Greater than 70% stenosis to near occlusion= ICA PSV > 230 cm/s: ratio > 4.0: ICA EDV > 100 cm/s. 5. Near occlusion= ICA PSV velocities may be low or undetectable: variable ratio and ICA EDV. 6. Total occlusion=unable to detect flow.
== END | disposition home or self-care (01) ==
LOC: RADUSWWP 06:46
PROVIDERS: ATTEND Family Medicine
DX: Z86.73 Personal history of transient ischemic attack (TIA), and cerebral infarction without residual deficits (principal)
CPT/HCPCS: 93880

== ENCOUNTER → 2022-05-30 | Outpatient (CLI) | payer BC | END | disposition home or self-care (01) | LOC: RADMRIMAIN 18:09 | PROVIDERS: ATTEND Psychiatry & Neurology Neurology | DX: Z53.9 Procedure and treatment not carried out, unspecified reason (principal) ==

== ENCOUNTER → 2024-01-29 | Outpatient (CLI) | payer BC, MEDICARE ==
--- NOTE | 2024-01-29 18:21 | US ---
EXAMINATION TYPE: US venous doppler duplex LE RT DATE OF EXAM: 01/29/2024 4:17 PM COMPARISON: NONE CLINICAL INDICATION: Female, 64 years old with history of I83.811 Varicose veins with pain; RLE; vari cose vein son lateral knee turned blue and were hurting, no h/o DVT or SVT SIDE PERFORMED: Right TECHNIQUE: The lower extremity deep venous system is examined utilizing real time linear array sonog bernarda with graded compression, doppler sonography and color-flow sonography. VESSELS IMAGED: Common Femoral Vein Deep Femoral Vein Greater Saphenous Vein * Femoral Vein Popliteal Vein Small Saphenous Vein * Proximal Calf Veins Posterior tibial veins (* superficial vessels) Right Leg: Negative for DVT. Varicose veins along lateral knee appear patent Sonography notes:*called impression to Libia at Dr Garcia's office @4:19 IMPRESSION: 1. Patent varicose veins noted along the lateral aspect of the knee. 2. No evidence for DVT within the right lower extremity.
== END | disposition home or self-care (01) ==
LOC: RADUSWWP 15:56
PROVIDERS: ATTEND Family Medicine
DX: I83.811 Varicose veins of right lower extremity with pain (principal)

== ENCOUNTER → 2024-08-26 | Outpatient (CLI) | payer BC, MEDICARE ==
--- NOTE | 2024-08-26 15:47 | BD ---
EXAMINATION TYPE: Axial Bone Density DATE OF EXAM: 08/26/2024 CLINICAL HISTORY: 64 years old Female. ICD-10 CODE: Z78.0 ASYMPTOMATIC MENOPAUSAL , Additional Histo ry: Height: 5 ft 6 in Weight: 165 FRAX RISK QUESTIONS: Alcohol (3 or more units per day): no Family History (Parent hip fracture): no Glucocorticoids (More than 3mos): no (Ex: prednisone, prednisolone, methylprednisolone, dexamethasone, and hydrocortisone). History of Fracture in Adulthood: no Secondary Osteoporosis: 1. Type 1 Diabetes: no 2. Hyperthyroidism: no 3. Menopause before 45: yes 4. Malnutrition: no 5. Chronic liver disease: no Rheumatoid Arthritis: no Current Tobacco Use: former RISK FACTORS HISTORY OF: Surgery to Spine/Hip(right/left)/Wrist (right/left): no MEDICATIONS: Thyroid Medications: yes Which medication: levothyroxine How Lon plus years Osteoporosis Medications: none EXAM MEASUREMENTS: Bone mineral densitometry was performed using the One Block Off the Grid (1BOG) System. Bone mineral density as measured about the Lumbar spine is: ----- L1-L4(G/cm2): 1.399 T Score Values are as follows: ----- L1: 0.9 ----- L2: 1.2 ----- L3: 2.4 ----- L4: 2.3 ----- L1-L4: 1.8 Z Score Values are as follows: ----- L1: 2.1 ----- L2: 2.5 ----- L3: 3.7 ----- L4: 3.5 ----- L1-L4: 3.1 Bone mineral density has: decreased -1.6 % since study of: 2018 Bone mineral density about the R hip (g/cm2): 0.892 Bone mineral density about the L hip (g/cm2): 0.922 T Score values are as follows: -----R Neck: -0.8 -----L Neck: -1.1 -----R Total: 0.2 -----L Total: -0.7 Z Score values are as follows: -----R Neck: 0.5 -----L Neck: 0.3 -----R Total: 1.2 -----L Total: 0.4 Bone mineral density has: decreased -2.4 % since study of: 2018 FRAX%s: The graph provided illustrates a 8.4 % chance for a major osteoporotic fx and a 1.2 % chance for the hips probability for fx in 10 years time. IMPRESSION: Osteopenia (T Score between -2.5 and -1). There is slightly increased risk of fracture and the patient may be considered for treatment. Re-Screen 2-5 years. NOTE: T-SCORE=SD OF THE YOUNG ADULT MEAN. [facility], Workstation: [facility] CAN[facility] HOSPITALLongxun Changtian TechnologyJANIE, 08/26/2024 3:44 PM
--- NOTE | 2024-08-29 11:33 | MM ---
Reason for Exam: Screening (asymptomatic). Last mammogram was performed 6 year(s) and 8 month(s) ago. Patient History: Menarche at age 9. First Full-Term at age 14. Postmenopausal. Sister had breast cancer, age 42. Risk Values: Radha 5 year model risk: 3.4%. NCI Lifetime model risk: 12.0%. Prior Study Comparison: 01/07/2018 Bilateral Screening Mammogram, [facility]. Tissue Density: The breasts are heterogeneously dense, which may obscure small masses. Findings: Analyzed By CAD. There is no suspicious group of microcalcifications or new suspicious mass in either breast. Overall Assessment: Negative, BI-RAD 1 Management: Screening Mammogram of both breasts in 1 year. . Patient should continue monthly self-breast exams. A clinical breast exam by your physician is recommended on an annual basis. This exam should not preclude additional follow-up of suspicious palpable abnormalities. Note on Radha scores and lifetime risk: 1. A Radha score greater than 3% is considered moderate risk. If this is the case, consider specialist referral to assess eligibility for a risk reducing agent. 2. If overall lifetime risk for the development of breast cancer is 20% or higher, the patient may qualify for future screening with alternating mammogram and breast MRI. [facility], , 08/26/2024 3:26 PM. Electronically signed and approved by: Shahab Kiser M.D. Radiologis
== END | disposition home or self-care (01) ==
LOC: RADMAMWWP 15:00
PROVIDERS: ATTEND Family Medicine
DX: Z12.31 Encounter for screening mammogram for malignant neoplasm of breast (principal); M85.89 Other specified disorders of bone density and structure, multiple sites; R92.333 Mammographic heterogeneous density, bilateral breasts; Z80.3 Family history of malignant neoplasm of breast; Z78.0 Asymptomatic menopausal state
CPT/HCPCS: 77063; 77067; 77080